=== PATIENT | female | born 1945 | race Caucasian/White ===

== ENCOUNTER → 2017-09-20 12:04 | Outpatient (REF) | payer MEDICARE, MEDICAID, SELFPAY ==
[2017-09-20 14:08] LABS: Bilirubin Negative (Negative); Blood Moderate (Negative); Clarity Cloudy; Glucose 100 mg/dL (Negative); Ketones Negative (Negative); Leukocyte Esterase Large (Negative); Nitrite Positive (Negative); Urobilinogen 0.2 EU/dL (Up TO 0.2); pH 7.5 (5-8)
[2017-09-20 14:19] LABS: WBC >50 HPF (0-5)
[2017-09-20 14:20] LABS: C & S Indicated? Yes
== END ==
LOC: LBN 12:04
PROVIDERS: PCP Family Medicine; Visit Provider Family Medicine
DX: R30.0 Dysuria (principal)
CPT/HCPCS: 87077; 81003; 81015; 87086; 87186

== ENCOUNTER 2017-10-22 11:20 | Outpatient (REF) | payer MEDICARE, MEDICAID, SELFPAY ==
[2017-10-22 13:17] LABS: Bilirubin Negative (Negative); Blood Moderate (Negative); Clarity Cloudy; Glucose Negative (Negative); Ketones Negative (Negative); Leukocyte Esterase Large (Negative); Nitrite Positive (Negative); Urobilinogen 0.2 EU/dL (Up TO 0.2); pH 8.5 (5-8)
[2017-10-22 13:19] LABS: RBC >50 (0-2); WBC >50 HPF (0-5)
[2017-10-22 13:20] LABS: C & S Indicated? Yes
== END 2017-10-22 11:40 ==
LOC: LBN 11:20
PROVIDERS: PCP Family Medicine; Visit Provider Family Medicine
DX: N39.0 Urinary tract infection, site not specified (principal)
CPT/HCPCS: 87077; 81003; 81015; 87086; 87186

== ENCOUNTER 2017-11-07 15:49 | Outpatient (REF) | payer MEDICARE, MEDICAID, SELFPAY | END 2017-11-07 16:09 | LOC: LBN 15:49 | PROVIDERS: PCP Family Medicine; Visit Provider Family Medicine | DX: N39.0 Urinary tract infection, site not specified (principal) | CPT/HCPCS: 87086 ==

== ENCOUNTER 2017-11-22 10:31 | Day surgery (SDC) | payer MEDICARE, MEDICAID, SELFPAY ==
[2017-11-22 10:42] VITALS: BP 129/77; PULSE 61; RESP 18; TEMP 35.7; O2SAT 97
--- NOTE | 2017-11-22 11:31 | DI.RAD_ITS ---
SYMPTOMS/DIAGNOSIS: RT HYDRONEPHROSIS RETROGRADE IN OR: Fluoroscopy Time: 14.7 sec Fluoroscopy was provided in the OR for Dr. Guevara while performing a retrograde examination. A single hardcopy images shows a dilated right renal collecting system. Please see procedure noted for details.
[2017-11-22] MEDS: CIPROFLOXACIN 200 MG/100 ML BAG 100 MG IVPB (11:46)
[2017-11-22] MEDS: Lactated Ringers 1,000 ML 80 ML IV (12:21)
--- NOTE | 2017-11-22 12:25 | HPE_ITS ---
Date of service: 11/22/17 Time of Service: 12:19 Assessment and Plan (1) Hydronephrosis: Current visit: Yes Status: Acute We will proceed with a right stent change today. Depending on the degree of encrustation of the stent, we may need to change the stent more or less often History of Present Illness Chief Complaint: Right hydronephrosis Narrative: This is a 74-year-old who initially presented with sepsis and right hydroureter. She required pressors and fluid resuscitation. We placed a right ureteral stent. Ultimately, she improved. She has a history of dementia, diabetes cerebral aneurysm and stroke. She was not felt to be a good surgical candidate for ureteroscopy. It was elected to change her stent periodically. She presents today for stent change. Given the patient's dementia, she is unable to answer any questions for me. Review of Systems Review of Systems Unobtainable due to mental status [facility] Family History Mother Osteoporosis Father Diabetes Sister No problems noted. Sister Personal history of malignant neoplasm Sister Diabetes Sister No problems noted. Sister No problems noted. Brother No problems noted. Brother Diabetes Brother Personal history of malignant neoplasm Heart disease Brother No problems noted. Brother No problems noted. Brother No problems noted. Brother No problems noted. 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 (Acute 09/15/15) Hyperlipidemia (Acute 08/13/12) Hydronephrosis (Acute 08/31/17) History of gram negative sepsis (Acute 08/31/17) Diabetes (Acute) Depression (Acute 02/03/14) Decreased vision (Acute 02/03/14) Cerebral aneurysm, nonruptured (Acute 09/15/15) Abdominal pain (Acute) Herpes labialis (Acute) Hypokalemia (Acute) Sepsis due to gram-negative bacteria (Acute) Antibiotic-associated diarrhea (Acute) Social History Smoking/Tobacco Use Status: Never Surgical History SX for brain aneurysm Meds Home Medications Medication Instructions Recorded Confirmed Type blood-glucose meter [OneTouch #1 kit 07/07/15 History Ultra2] blood sugar diagnostic [Blood #100 strip 09/05/16 History Glucose Test] lancets #100 ea 09/05/16 History perampanel [Fycompa] 4 mg PO HS #90 tab-cap 11/06/16 11/22/17 Rx lamotrigine 200 mg PO BID #180 tab 03/05/17 11/19/17 Rx Metoprolol Succinate 50 mg PO BID #180 tab-cap 04/18/17 11/19/17 Clinic citalopram 10 mg PO DAILY #90 tab-cap 04/18/17 11/19/17 Rx famotidine 20 mg PO DAILY #90 tab-cap 04/30/17 11/19/17 Rx acetaminophen 500 mg PO PRN PRN 07/18/17 11/22/17 History ergocalciferol (vitamin D2) 1 cap PO DIRECTED 07/18/17 07/18/17 History [Vitamin D2] risperidone [Risperdal] 1 mg PO TID 07/18/17 11/19/17 History acidophilus-pectin, citrus 1 cap PO BID cap 07/30/17 11/22/17 Rx magnesium hydroxide [Milk of 30 ml PO PRN ml 08/27/17 11/22/17 History Magnesia] cephalexin 250 mg capsule 250 mg PO DAILY #10 cap 11/13/17 11/22/17 Rx clonazepam 0.5 mg disintegrating 0.5 mg PO PRN #10 tab 11/14/17 11/22/17 Rx tablet levetiracetam [Keppra] 1 tab PO BID 11/22/17 11/22/17 History Allergies Allergy/AdvReac Type Severity Reaction Status Date / Time aspirin Allergy Mild Unverified 08/31/17 10:10 Penicillins Allergy Mild Unverified 08/31/17 10:10 promethazine AdvReac Intermediate HALLUCINATI Unverified 08/31/17 10:10 ONS Exam Narrative Exam Narrative: She is a pleasant older woman who appears chronically ill. She is not able to answer my questions. Her vital signs are documented elsewhere in the chart. Skin is pale. She does not appear septic. Her chest wall motion is normal. Her breath sounds are diminished bilaterally. She has a regular rate and rhythm. Her abdomen is flat and soft with no masses. She is awake and follows commands, but she is unable to answer historical questions Results Last Vital Signs Temp 35.7 C L 11/22/17 10:42 Pulse 61 10/11/18 10:42 Resp 18 11/22/17 10:42 BP 129/77 11/22/17 10:42 Pulse Ox 97 11/22/17 10:42
[2017-11-22] MEDS: Lidocaine 2% Jelly 11 ML SYR (12:40)
[2017-11-22] MEDS: IOHEXOL 50 ML 10 ML (12:43)
--- NOTE | 2017-11-22 13:06 | W.PM.DSUDISC ---
Discharge Plan Disposition Patient Disposition: HOME Condition: Stable Discharge Details Reason For Visit: stent change Attending Provider: Cody Guevara Primary Care Provider: Ender Ledezma Home Meds and New Rx's Prescriptions: No Action blood-glucose meter [GeriJoyTouch Ultra2] 1 EACH kit 1 ea Miscellaneous DAILY Qty: 1 RF: 0 blood sugar diagnostic [Blood Glucose Test] 1 EACH strip 1 ea Miscellaneous DAILY Qty: 100 RF: 4 lancets 1 EACH misc 1 ea Miscellaneous DAILY Qty: 100 RF: 4 perampanel [Fycompa] 4 MG tablet 4 mg PO HS Qty: 90 RF: 3 lamotrigine 200 MG tablet 200 mg PO BID Qty: 180 RF: 3 citalopram 10 MG tablet 10 mg PO DAILY Qty: 90 RF: 3 Metoprolol Succinate 50 MG TAB.ER.24H 50 mg PO BID Qty: 180 RF: 3 famotidine 20 MG tablet 20 mg PO DAILY Qty: 90 RF: 4 magnesium hydroxide [Milk of Magnesia] 400 MG/5 ML suspension 30 ml PO PRN RF: 0 cephalexin 250 mg capsule 250 mg PO DAILY Qty: 10 RF: 0 clonazepam 0.5 mg tablet,disintegrating 0.5 mg PO PRN Qty: 10 RF: 2 acetaminophen 500 MG tablet 500 mg PO PRN PRNRF: 0 ergocalciferol (vitamin D2) [Vitamin D2] 50,000 UNITS capsule 1 cap PO DIRECTED RF: 0 risperidone [Risperdal] 1 MG tablet 1 mg PO TID RF: 0 acidophilus-pectin, citrus 1 CAP tablet 1 cap PO BID RF: 0 levetiracetam [Keppra] 1,000 MG tablet 1 tab PO BID RF: 0 Discharge Instructions Additional Instructions: No bath/shower restrictions My office will schedule pt for next cysto/stent change in 6 to 8 weeks No additional medications needed Activity:: Activity as Tolerated Diet:: As Tolerated Discharge Orders Discharge Orders: Discharge Order (Routine); Ordered 11/22/17 Ordered By: Cody Guevara DS: Diagnosis Discharge Diagnosis (1) Hydronephrosis: Status: Acute
[2017-11-22 13:42] VITALS: BP 125/65; PULSE 58; RESP 18; TEMP 36.6; O2SAT 93
--- NOTE | 2017-11-22 13:57 | ROE_ITS ---
Date of Operation: November 22, 2017 Preoperative Diagnosis: Right hydronephrosis. Postoperative Diagnosis: Right hydronephrosis. Procedure: 1. Cystoscopy. 2. Right retrograde pyelogram. 3. Change right ureteral stent. Surgeon: Cody Guevara M.D. Anesthesia: MAC with local Complications: None. Findings: Distal end of the stent was quite encrusted. History: This is a 72-year-old woman who was previously seen when she presented with sepsis. She was identifi ed as having right hydronephrosis. She did not improve with pressors and antibiotics alone. She had a right ureteral stent placed and gradually she improved clinically. She has multiple medical problems and was not felt to be an ideal surgical candidate for ureteroscopy . Her family has decided to simply continue with intermittent stent changes. She presents for her f irst stent change three months after the initial stent was placed. Operative Report: The patient was brought to the operating room on 11/22/17. She was given IV sedation and IV antibiot ics. A 22-Wallisian rigid cystoscope was passed through the urethra into the bladder. The bladder was inspec jasmin with the 30-degree lens. The stent could be seen protruding from the right ureteral orifice. A moderate amount of stone debri s was attached to the distal end of the stent. The stone debris was freed using the alligator forceps. The stent was then grasped and removed in it s entirety. We were then able to pass a ureteral access catheter through the cystoscope and maneuver it into the right ureteral orifice. A retrograde film was obtained by injecting Omnipaque through the access cat heter under fluoroscopic guidance. Once the upper tracts were outlined, we passed a guidewire throug h the access catheter and maneuvered a 4.8 Wallisian variable-length stent over the wire. We positioned the stent with the proximal end curled in the renal pelvis, and the distal end was visible in the bl adder. Residual stone fragments were then irrigated free using the Arian syringe. Some of the fragments we re sent for chemical analysis. We are especially interested in knowing if the stone fragments contai n struvite, in which case prophylactic antibiotics might be warranted. The patient tolerated this procedure well. There were no complications. She was taken to the [facility] Room in stable condition.
== END 2017-11-22 14:00 | disposition home or self-care (01) ==
PROVIDERS: PCP Family Medicine; Visit Provider Urology
PROC: (CPT 52332; principal; 2017-11-22 12:30)
DX: N13.30 Unspecified hydronephrosis (principal); Z96.0 Presence of urogenital implants
CPT/HCPCS: 52332; NC; 74420; 82360; J0744; J2405; Q9967

== ENCOUNTER → 2017-11-27 09:20 | Outpatient (BNVA) | payer MEDICARE, MEDICAID, SELFPAY | PROVIDERS: Visit Provider Urology | DX: R69 Illness, unspecified (principal) ==

== ENCOUNTER → 2017-11-27 14:35 | Outpatient (BNVA) | payer MEDICARE, MEDICAID, SELFPAY | PROVIDERS: PCP Family Medicine; Visit Provider Psychiatry & Neurology Neurology | DX: G40.109 Localization-related (focal) (partial) symptomatic epilepsy and epileptic syndromes with simple partial seizures, not intractable, without status epilepticus (principal); I61.1 Nontraumatic intracerebral hemorrhage in hemisphere, cortical; I67.1 Cerebral aneurysm, nonruptured; I10 Essential (primary) hypertension; E11.9 Type 2 diabetes mellitus without complications | CPT/HCPCS: 99214 ==

== ENCOUNTER 2018-01-09 13:40 | Outpatient (REF) | payer MEDICARE, MEDICAID, SELFPAY ==
[2018-01-10 14:43] LABS: Bilirubin Negative (Negative); Blood Moderate (Negative); Clarity Cloudy; Glucose Negative (Negative); Ketones Negative (Negative); Leukocyte Esterase Moderate (Negative); Nitrite Positive (Negative); Urobilinogen 0.2 EU/dL (Up TO 0.2); pH 7.5 (5-8)
[2018-01-10 14:55] LABS: RBC >50 (0-2); WBC >50 HPF (0-5)
[2018-01-10 14:56] LABS: C & S Indicated? Yes; Epithelial Cells Negative HPF (Negative)
== END 2018-01-09 14:00 ==
LOC: LBN 13:40
PROVIDERS: PCP Family Medicine; Visit Provider Family Medicine
DX: N39.0 Urinary tract infection, site not specified (principal)
CPT/HCPCS: 87077; 81003; 81015; 87086; 87186

== ENCOUNTER 2018-01-10 06:00 | Day surgery (SDC) | payer MEDICARE, MEDICAID, SELFPAY ==
[2018-01-10 06:17] VITALS: BP 99/55; PULSE 78; RESP 18; TEMP 37; O2SAT 96
[2018-01-10] MEDS: Lactated Ringers 1,000 ML 80 ML IV (06:53)
--- NOTE | 2018-01-10 07:10 | W.PM.HP.N ---
Date of service: 01/10/18 Time of Service: 07:10 Assessment and Plan (1) Hydronephrosis due to obstruction of ureter: Current visit: No Status: Acute We will plan to change her stent. We will have the Holmium laser available should the stent be overly encrusted. History of Present Illness Chief Complaint: Right hydronephrosis Narrative: This is a 72 year old woman who has a finding of right hydronephrosis. She is treated with a stent. She initially presented with sepsis. She required pressors. On imaging studies, she had right hydronephrosis. She ultimately improved with stent placement and antibiotics. Given her overall medical status, she has elected periodic stent change rather than definitive treatment. At her last cysto, her stent was rather encrusted. We will have the Holmium laser available if the stent is more encrusted today. Review of Systems Review of Systems Unobtainable due to mental status [facility] Family History Mother Osteoporosis Father Diabetes Sister No problems noted. Sister Personal history of malignant neoplasm Sister Diabetes Sister No problems noted. Sister No problems noted. Brother No problems noted. Brother Diabetes Brother Personal history of malignant neoplasm Heart disease Brother No problems noted. Brother No problems noted. Brother No problems noted. Brother No problems noted. 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 (Acute 09/15/15) Hyperlipidemia (Acute 08/13/12) Hydronephrosis (Acute 08/31/17) History of gram negative sepsis (Acute 08/31/17) Diabetes (Acute) Depression (Acute 02/03/14) Decreased vision (Acute 02/03/14) Cerebral aneurysm, nonruptured (Acute 09/15/15) Abdominal pain (Acute) Herpes labialis (Acute) Hypokalemia (Acute) Sepsis due to gram-negative bacteria (Acute) Antibiotic-associated diarrhea (Acute) Social History household members: children 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 Smoking/Tobacco Use Status: Never alcohol intake: never substance use type: does not use Surgical History SX for brain aneurysm Meds Home Medications Medication Instructions Recorded Confirmed Type blood-glucose meter [OneTouch #1 kit 07/07/15 11/27/17 History Ultra2] blood sugar diagnostic [Blood #100 strip 09/05/16 11/27/17 History Glucose Test] lancets #100 ea 09/05/16 11/27/17 History perampanel [Fycompa] 4 mg PO HS #90 tab-cap 11/06/16 01/10/18 Rx lamotrigine 200 mg PO BID #180 tab 03/05/17 01/10/18 Rx Metoprolol Succinate 50 mg PO BID #180 tab-cap 04/18/17 01/10/18 Clinic citalopram 10 mg PO DAILY #90 tab-cap 04/18/17 01/10/18 Rx famotidine 20 mg PO DAILY #90 tab-cap 04/30/17 01/10/18 Rx acetaminophen 500 mg PO PRN PRN 07/18/17 01/07/18 History ergocalciferol (vitamin D2) 1 cap PO DIRECTED 07/18/17 01/10/18 History [Vitamin D2] risperidone [Risperdal] 1 mg PO TID 07/18/17 01/10/18 History acidophilus-pectin, citrus 1 cap PO BID cap 07/30/17 01/10/18 Rx magnesium hydroxide [Milk of 30 ml PO PRN ml 08/27/17 11/27/17 History Magnesia] clonazepam 0.5 mg disintegrating 0.5 mg PO PRN #10 tab 11/14/17 01/10/18 Rx tablet levetiracetam [Keppra] 1 tab PO BID 11/22/17 01/10/18 History multivitamin tablet 1 tab PO DAILY 11/27/17 01/10/18 History bismuth subsalicylate [Bismatrol] 30 ml PO DAILY PRN PRN 01/07/18 01/07/18 History cephalexin 250 mg PO HS 01/07/18 01/10/18 History Allergies Allergy/AdvReac Type Severity Reaction Status Date / Time aspirin Allergy Mild Unverified 01/10/18 06:26 Penicillins Allergy Mild Unverified 01/10/18 06:26 promethazine AdvReac Intermediate HALLUCINATI Unverified 01/10/18 06:26 ONS Exam Const General: cooperative Neck Neck: normal visual inspection Resp Auscultation: clear to auscultation bilaterally Cardio Rate: regular rate GI Palpation: soft Neuro General: alert and awake Results Last Vital Signs Temp 37 C 01/10/18 06:17 Pulse 78 01/10/18 06:17 Resp 18 01/10/18 06:17 BP 99/55 L 01/10/18 06:17 Pulse Ox 96 01/10/18 06:17
--- NOTE | 2018-01-10 07:11 | DI.RAD_ITS ---
SYMPTOM/DIAGNOSIS: RT HYDRONEPHROSIS C-ARM FLUOROSCOPY: 01/10 Fluoroscopy Time: 28 secs C-arm fluoroscopy was utilized by Dr. Guevara during reported retrograde ureterography. Please see Dr. Guevara's procedure note. Hard copy shows apparent catheterization and stent placement in right collecting system.
[2018-01-10] MEDS: Lidocaine 2% Jelly 11 ML SYR (07:54)
[2018-01-10] MEDS: Omnipaque 300 MG/ML 50 ML BTL (07:54)
--- NOTE | 2018-01-10 08:25 | W.PM.DSUDISC ---
Discharge Plan Disposition Patient Disposition: OTHER Condition: Stable Discharge Details Attending Provider: Cody Guevara Primary Care Provider: Ender Ledezma Home Meds and New Rx's Prescriptions: No Action multivitamin tablet 1 tab PO DAILY RF: 0 blood-glucose meter [OneTouch Ultra2] 1 EACH kit 1 ea Miscellaneous DAILY Qty: 1 RF: 0 blood sugar diagnostic [Blood Glucose Test] 1 EACH strip 1 ea Miscellaneous DAILY Qty: 100 RF: 4 lancets 1 EACH misc 1 ea Miscellaneous DAILY Qty: 100 RF: 4 perampanel [Fycompa] 4 MG tablet 4 mg PO HS Qty: 90 RF: 3 lamotrigine 200 MG tablet 200 mg PO BID Qty: 180 RF: 3 citalopram 10 MG tablet 10 mg PO DAILY Qty: 90 RF: 3 Metoprolol Succinate 50 MG TAB.ER.24H 50 mg PO BID Qty: 180 RF: 3 famotidine 20 MG tablet 20 mg PO DAILY Qty: 90 RF: 4 magnesium hydroxide [Milk of Magnesia] 400 MG/5 ML suspension 30 ml PO PRN RF: 0 clonazepam 0.5 mg tablet,disintegrating 0.5 mg PO PRN Qty: 10 RF: 2 acetaminophen 500 MG tablet 500 mg PO PRN PRNRF: 0 ergocalciferol (vitamin D2) [Vitamin D2] 50,000 UNITS capsule 1 cap PO DIRECTED RF: 0 risperidone [Risperdal] 1 MG tablet 1 mg PO TID RF: 0 acidophilus-pectin, citrus 1 CAP tablet 1 cap PO BID RF: 0 levetiracetam [Keppra] 1,000 MG tablet 1 tab PO BID RF: 0 cephalexin 250 mg Capsule 250 mg PO HS RF: 0 bismuth subsalicylate [Bismatrol] 262 mg/15 mL Suspension 30 ml PO DAILY PRN PRNRF: 0 Discharge Instructions Additional Instructions: Will need cystoscopy with stent change in OR in @ 8 weeks - my office will need to coordinate with the [facility] Activity:: Activity as Tolerated Activity:: Activity as Tolerated Equipment/Supplies:: No Equipment Needed Diet:: As Tolerated Discharge Orders Discharge Orders: Discharge Order (Routine); Ordered 01/10/18 Ordered By: Cody Guevara DS: Diagnosis Discharge Diagnosis (1) Hydronephrosis due to obstruction of ureter: Status: Acute
[2018-01-10 08:55] VITALS: BP 113/72; PULSE 64; RESP 16; TEMP 36.6; O2SAT 93
--- NOTE | 2018-01-10 13:08 | ROE_ITS ---
REPORT OF OPERATIVE PROCEDURE DATE OF SURGERY January 10, 2018 PREOPERATIVE DIAGNOSIS Right hydronephrosis. POSTOPERATIVE DIAGNOSIS Right hydronephrosis. PROCEDURES Cystoscopy, holmium laser of bladder stone, removal right ureteral stent, replace right ureteral sten t. Right retrograde pyelogram. SURGEON Cody Guevara M.D. ANESTHESIA MAC with local. COMPLICATIONS None. HISTORY This is a 72-year-old woman who has a history of urosepsis and right hydronephrosis. She is managed w ith an indwelling ureteral stent. When we changed her stent previously, we found a large amount of en crustation on the distal end of the stent. We elected to change the stent in six to eight weeks rathe r than in three months. She presents for her stent change. DESCRIPTION OF PROCEDURE The patient was brought to the Operating Room on 01/10/2018. She was given Monitored Anesthesia Care and placed in the dorsal lithotomy position. She was given a preoperative dose of ceftriaxone. A #22 Arabic rigid cystoscope was passed through the urethra into the bladder. The bladder was empti ed and purulent urine was obtained. We visualized the right ureteral stent using a 30 degree lens. We saw the large amount of stone agai n adherent to the distal end of the stent. We the used a 1000 micron Holmium laser fiber to fracture the stone off the stent. All the stone fragments were then evacuated with a Arian syringe. The stent was grasped with alligator forceps and brought out to the level of the urethral meatus. We attempted to pass a Glidewire through the lumen of the stent, but again, encrustations made it dif ficult to do. We then passed a ureteral access catheter next to the stent and engaged it into the rig ht ureteral orifice. We injected Omnipaque through the access catheter to outline the renal pelvis an d collecting system. We then passed a Glidewire through the access catheter into the upper pole Calyx . We removed the indwelling stent and placed a new 4.8 Arabic Variable Lens stent over the wire until the proximal end was seen curled in the upper pole calyx in the distal end was seen curled in the bl adder. The patient tolerated this procedure well with no complications.
== END 2018-01-10 09:15 | disposition other institution (70) ==
PROVIDERS: PCP Family Medicine; Visit Provider Urology
PROC: (CPT 52332; principal; 2018-01-10 07:30)
DX: N13.2 Hydronephrosis with renal and ureteral calculous obstruction (principal)
CPT/HCPCS: 52317; 52351; 52332; NC; 74420; J0696; J1885; Q9967

== ENCOUNTER → 2018-02-27 14:37 | Outpatient (BNVA) | payer MEDICARE, MEDICAID, SELFPAY | PROVIDERS: PCP Family Medicine; Visit Provider Psychiatry & Neurology Neurology | DX: G40.109 Localization-related (focal) (partial) symptomatic epilepsy and epileptic syndromes with simple partial seizures, not intractable, without status epilepticus (principal); I61.1 Nontraumatic intracerebral hemorrhage in hemisphere, cortical; I67.1 Cerebral aneurysm, nonruptured; R25.1 Tremor, unspecified; E11.9 Type 2 diabetes mellitus without complications; I10 Essential (primary) hypertension | CPT/HCPCS: 99214 ==

== ENCOUNTER 2018-03-07 05:57 | Day surgery (SDC) | payer MEDICARE, MEDICAID, SELFPAY ==
[2018-03-07 06:24] VITALS: BP 113/58; PULSE 57; RESP 16; TEMP 36; O2SAT 93
[2018-03-07] MEDS: Normal Saline 1,000 ML 80 ML IV (06:50)
--- NOTE | 2018-03-07 06:53 | HPE_ITS ---
Date of service: 03/07/18 Time of Service: 06:50 Assessment and Plan (1) Hydronephrosis due to obstruction of ureter: Current visit: No Status: Acute We will perform cystoscopy and change of her ureteral stent today. Her previous sepsis was due to Proteus. We will cover her with Ceftriaxone based on her previous culture and sensitivity History of Present Illness Chief Complaint: Right hydronephrosis Narrative: This is a 72-year-old woman who has a history of urosepsis and right hydronephrosis. Her blood and urine cultures grew Proteus originally. She improved with antibiotics since placement of a stent. Given her overall medical condition, her family has elected not to proceed with more definitive surgical treatment like ureteroscopy. We have been changing her stent every 6-12 weeks. At times, her stent is encrusted and requires Holmium laser treatments to successfully remove her indwelling stent. 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 Sister Personal history of malignant neoplasm Sister Diabetes Sister No problems noted. Sister No problems noted. Brother No problems noted. Brother Diabetes Brother Personal history of malignant neoplasm Heart disease Brother No problems noted. Brother No problems noted. Brother No problems noted. Brother No problems noted. 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 Smoking/Tobacco Use Status: Never alcohol intake: never substance use type: does not use Meds Home Medications Medication Instructions Recorded Confirmed Type blood-glucose meter [OneTouch #1 kit 07/07/15 02/27/18 History Ultra2] Blood Glucose Test #100 strip 09/05/16 02/27/18 History lancets #100 ea 09/05/16 02/27/18 History Fycompa 4 mg PO HS #90 tab-cap 11/06/16 03/07/18 Rx lamotrigine 200 mg PO BID #180 tab 03/05/17 03/07/18 Rx famotidine 20 mg PO DAILY #90 tab-cap 04/30/17 03/07/18 Rx acetaminophen 1,000 mg PO Q6H PRN 07/18/17 03/05/18 History ergocalciferol (vitamin D2) 1 cap PO DIRECTED 07/18/17 03/05/18 History [Vitamin D2] risperidone [Risperdal] 1 mg PO TID 07/18/17 03/07/18 History acidophilus-pectin, citrus 1 cap PO BID cap 07/30/17 03/07/18 Rx magnesium hydroxide [Milk of 30 ml PO PRN ml 08/27/17 03/05/18 History Magnesia] multivitamin tablet 1 tab PO DAILY 11/27/17 03/07/18 History bismuth subsalicylate [Bismatrol] 30 ml PO DAILY PRN PRN 01/07/18 03/05/18 History cephalexin 250 mg PO HS 01/07/18 03/07/18 History citalopram 10 mg tablet 20 mg PO DAILY tab-cap 02/27/18 03/07/18 History mirtazapine 15 mg tablet 15 mg PO DAILY 02/27/18 03/07/18 History levetiracetam [Keppra] 1,000 mg PO .DAILY EVENING 03/05/18 03/07/18 History levetiracetam [Keppra] 500 mg PO DAILY 03/05/18 03/07/18 History propranolol 40 mg PO BID 03/05/18 03/07/18 History Allergies Allergy/AdvReac Type Severity Reaction Status Date / Time aspirin Allergy Mild Unverified 02/27/18 15:10 Penicillins Allergy Mild Unverified 02/27/18 15:10 promethazine AdvReac Intermediate HALLUCINATI Unverified 02/27/18 15:10 ONS Exam Const General: comfortable and no acute distress Orientation: confused Limitations: altered mental status Neck Neck: supple Resp Auscultation: clear to auscultation bilaterally Other: with decreased breath sounds at bases Cardio Rate: regular rate Rhythm: regular rhythm GI Palpation: soft, no masses and nontender Results Last Vital Signs Temp 36 C L 03/07/18 06:24 Pulse 57 L 03/07/18 06:24 Resp 16 03/07/18 06:24 BP 113/58 L 03/07/18 06:24 Pulse Ox 93 L 03/07/18 06:24
--- NOTE | 2018-03-07 07:15 | DI.RAD_ITS ---
SYMPTOM/DIAGNOSIS: RT HYDRONEPHROSIS OR RETROGRADE: Fluoroscopy Time: 41.3 seconds/4.49 mGy A single frontal image obtained with the c-arm demonstrates contrast material in the mid and proximal ureter and a region of narrowing involving the proximal ureter just distal to the renal pelvis is identified. The significance of this finding uncertain. Note is made of prominent hydronephrosis. Incidental note is made of a caval umbrella with its tip projected at the L 2-[address] Guevara's procedure report for further information.
[2018-03-07] MEDS: Lidocaine 2% Jelly 6 ML SYR (07:50)
[2018-03-07] MEDS: Omnipaque 300 MG/ML 50 ML BTL (07:50)
--- NOTE | 2018-03-07 08:03 | PDOC.DSDIS_ITS ---
Discharge Plan Disposition Patient Disposition: [facility] (LEVEL 2) [facility] Condition: Stable Discharge Details Reason For Visit: right hydronephrosis Attending Provider: Cody Guevara Primary Care Provider: Ender Ledezma Home Meds and New Rx's Prescriptions: No Action multivitamin tablet 1 tab PO DAILY RF: 0 citalopram 10 mg tablet 20 mg PO DAILY RF: 0 mirtazapine [Remeron] 15 mg tablet 15 mg PO DAILY RF: 0 blood-glucose meter [[employer] Ultra2] 1 EACH kit 1 ea Miscellaneous DAILY Qty: 1 RF: 0 Blood Glucose Test 1 EACH strip 1 ea Miscellaneous DAILY Qty: 100 RF: 4 lancets 1 EACH misc 1 ea Miscellaneous DAILY Qty: 100 RF: 4 Fycompa 4 MG tablet 4 mg PO HS Qty: 90 RF: 3 lamotrigine 200 MG tablet 200 mg PO BID Qty: 180 RF: 3 famotidine 20 MG tablet 20 mg PO DAILY Qty: 90 RF: 4 magnesium hydroxide [Milk of Magnesia] 400 MG/5 ML suspension 30 ml PO PRN RF: 0 acetaminophen 500 MG tablet 1,000 mg PO Q6H PRNRF: 0 ergocalciferol (vitamin D2) [Vitamin D2] 50,000 UNITS capsule 1 cap PO DIRECTED RF: 0 risperidone [Risperdal] 1 MG tablet 1 mg PO TID RF: 0 acidophilus-pectin, citrus 1 CAP tablet 1 cap PO BID RF: 0 cephalexin 250 mg Capsule 250 mg PO HS RF: 0 bismuth subsalicylate [Bismatrol] 262 mg/15 mL Suspension 30 ml PO DAILY PRN PRNRF: 0 propranolol 40 mg Tablet 40 mg PO BID RF: 0 levetiracetam [Keppra] 500 mg Tablet 1,000 mg PO .DAILY EVENING RF: 0 levetiracetam [Keppra] 500 mg Tablet 500 mg PO DAILY RF: 0 Discharge Instructions Additional Instructions: No F/U appt in office needed, but will need cystoscopy with right stent change in OR in 2 to 3 months - my office will schedule Activity:: Activity as Tolerated Diet:: As Tolerated Discharge Orders Discharge Orders: Discharge Order (Routine); Ordered 03/07/18 Ordered By: Cody Guevara DS: Diagnosis Discharge Diagnosis (1) Hydronephrosis due to obstruction of ureter: Status: Acute
[2018-03-07] MEDS: Phenazopyridine 200 MG TAB PO (08:32)
[2018-03-07 08:40] VITALS: BP 120/58; PULSE 59; RESP 16; TEMP 35.6; O2SAT 94
--- NOTE | 2018-03-07 15:50 | ROE_ITS ---
DATE OF OPERATION: March 07, 2018 PREOPERATIVE DIAGNOSIS: Right hydronephrosis. POSTOPERATIVE DIAGNOSIS: Right hydronephrosis. PROCEDURE: Cystoscopy, remove right ureteral stent, right retrograde pyelogram, insert right uretera l stent. SURGEON: Cody Guevara M.D. ANESTHESIA: MAC with local. COMPLICATIONS: None. ESTIMATED BLOOD LOSS: Minimal. HISTORY: This is a 72-year-old woman who has a history of urosepsis and right hydronephrosis. She i mproved clinically with a combination of a stent placement and IV antibiotics. Given her other medic al issues, the family has decided not to have a definitive treatment for her hydronephrosis (such as ureteroscopy). Instead, we have been changing her stent intermittently. She comes in for her schedu led stent change. OPERATIVE REPORT: The patient was brought to the Operating Room on 03/07/18. After being given monit ored anesthesia care, she was placed in the dorsal lithotomy position. Her genitalia was prepped and draped. A 22 Hebrew rigid cystoscope was passed through the urethra into the bladder. The bladder was inspected using a 30-degree lens. The stent could be seen protruding from the right ureteral orifice. The stone had a few encrustation s but no large stones like we found at the time of her last cystoscopy. The stent was grasped in alligator forceps and removed to the level of the urethral meatus. A Glidew dewey was then passed through the lumen of the stent and advanced until the proximal end could be seen up in the renal pelvis. A ureteral access catheter was passed over the wire and the wire was removed. A retrograde pyelogram was then performed in order to outline the calices and collecting system. The Glidewire was then repositioned through the access catheter. The access catheter was removed and a 4.8 Hebrew variable-length stent was advanced over the wire. The proximal end of the stent was cu rled in the renal pelvis and the distal end was seen just within the right ureteral orifice. The patient tolerated this procedure well with no complications.
== END 2018-03-07 09:00 | disposition intermediate care facility (04) ==
PROVIDERS: PCP Family Medicine; Visit Provider Urology
PROC: (CPT 52332; principal; 2018-03-07 07:30)
DX: N13.2 Hydronephrosis with renal and ureteral calculous obstruction (principal); E11.9 Type 2 diabetes mellitus without complications
CPT/HCPCS: 52332; 52005; NC; 74420; J0696; Q9967

== ENCOUNTER → 2018-05-14 14:19 | Outpatient (BNVA) | payer MEDICARE, MEDICAID, SELFPAY | PROVIDERS: Visit Provider Psychiatry & Neurology Neurology | DX: G40.109 Localization-related (focal) (partial) symptomatic epilepsy and epileptic syndromes with simple partial seizures, not intractable, without status epilepticus (principal); I61.1 Nontraumatic intracerebral hemorrhage in hemisphere, cortical; R25.1 Tremor, unspecified; I10 Essential (primary) hypertension; E11.9 Type 2 diabetes mellitus without complications | CPT/HCPCS: 99214 ==

== ENCOUNTER 2018-05-30 19:56 | Emergency (ER) | payer MEDICARE, MEDICAID, SELFPAY ==
[2018-05-30 19:51] VITALS: BP 133/89; PULSE 83; RESP 18; TEMP 37; O2SAT 100
--- NOTE | 2018-05-30 19:55 | DI.CT_ITS ---
SYMPTOM/DIAGNOSIS: FELL NONCONTRAST CRANIAL CT: A noncontrast cranial CT was performed. The patient was unable to cooperate and images obtained through the cerebral vertex are non diagnostic. Multiple attempts to scan were performed. There is a right parieto-occipital craniotomy with areas of subjacent encephalomalacia. No evidence of acute intracranial hemorrhage, mass effect or midline shift. Generalized cerebral atrophy and presumed microvascular ischemic changes noted. CONCLUSION: Limited study. No evidence of acute intracranial hemorrhage. CERVICAL SPINE CT: CT examination of the cervical spine was performed utilizing multi slice acquisition and multi planar reconstruction. The exam is somewhat limited by patient motion. Images obtained through the lung apices are unremarkable except for some areas of apparent fibrosis. Tracheal laryngeal structures appear intact as visualized. No gross cervical mass or adenopathy is seen. There are moderate degenerative changes of the cervical spine. No gross fracture or dislocation identified. CONCLUSION: Limited study. No fracture identified.
--- NOTE | 2018-05-30 19:56 | W.ED.GENAD ---
Discharge Plan Disposition Patient Disposition: SNF (LEVEL 1) [facility] Condition: Fair Discharge Details Chief Complaint: HeadInjury Clinical Impression: Bacterial UTI, Candidal UTI (urinary tract infection), Fall, Laceration of scalp, Multiple contusions Primary Care Provider: Carol Nava ED Provider: Marianela Ball Home Meds and New Rx's Prescriptions: Continued multivitamin tablet 1 tab PO DAILY RF: 0 levetiracetam 500 mg tablet 500 mg PO BID Qty: 60 RF: 0 citalopram 10 mg tablet 20 mg PO DAILY RF: 0 mirtazapine [Remeron] 15 mg tablet 7.5 mg PO DAILY RF: 0 blood-glucose meter [[employer] Ultra2] 1 EACH kit 1 ea Miscellaneous DAILY Qty: 1 RF: 0 Blood Glucose Test 1 EACH strip 1 ea Miscellaneous DAILY Qty: 100 RF: 4 lancets 1 EACH misc 1 ea Miscellaneous DAILY Qty: 100 RF: 4 Fycompa 4 MG tablet 4 mg PO HS Qty: 90 RF: 3 lamotrigine 200 MG tablet 200 mg PO BID Qty: 180 RF: 3 famotidine 20 MG tablet 20 mg PO DAILY Qty: 90 RF: 4 magnesium hydroxide [Milk of Magnesia] 400 MG/5 ML suspension 30 ml PO PRN RF: 0 acetaminophen 500 MG tablet 1,000 mg PO Q6H PRNRF: 0 ergocalciferol (vitamin D2) [Vitamin D2] 50,000 UNITS capsule 1 cap PO DIRECTED RF: 0 acidophilus-pectin, citrus 1 CAP tablet 1 cap PO BID RF: 0 quetiapine [Seroquel] 25 mg Tablet 25 mg PO BID RF: 0 cephalexin 250 mg Capsule 250 mg PO HS RF: 0 bismuth subsalicylate [Bismatrol] 262 mg/15 mL Suspension 30 ml PO DAILY PRN PRNRF: 0 Discharge Instructions Instructions: Laceration (ED), Urinary Tract Infection in Women (ED), Contusion in Adults (ED) Additional Instructions: Encourage hydration. Natty received 1 g of IM ceftriaxone while here for her urinary tract infection. Please contact physician in the morning for continued orders for IM ceftriaxone. Scalp laceration was closed with shahana, the usual need to be taken out in 1 week. This may be performed by primary care physician or she may return to the emergency department for staple removal. Please monitor wound for signs of infection including redness, warmth, drainage, increased pain, fever/chills. She develops new symptoms or any other new/worsening symptoms please seek care urgently once again Referrals: Carol Nava MD, [place] [Primary Care Provider] - Medical Decision Making Patient is a 72-year-old female presenting from the [facility] after a fall. She is brought in via EMS. Unwitnessed fall with laceration to the left posterior scalp. She denies pain elsewhere, she is endorsing pain in the back of her head. 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 Her son at bedside, reports that she has been increasingly confused and slightly combative today and he is concerned she may have a urinary tract infection, he reports last infection 6 months ago. Unclear as to how the patient fell. On exam, patient appears scared and aggitated. She has left sided deficit with left hand in a fist which son reports is typical. She has a small laceration to the left posterior scalp, no active bleeding. Bruising to the left cheek bone with no palpable defect, EOM intact, no pain with palpation. No intraoral lesions. Bruising to the left forearm. No pain with palpation of cervical spine. Plan to obtain CT of head and neck, UA and baseline labs. Reviewed notes from care facility, patient has been having increased episodes of agitation recently with increased number of falls. Conducted by wheelabrator operator who advised of both bacteria and yeast are noted in the patient's urinalysis. Patient is on nightly Keflex. Is scheduled to have her right ureteral stent change next month. Will place her on Levaquin. Discussed the case with Dr. Martinez. In particular, we discussed the question of needing to treat the concomitant yeast infection. He advised at this time to treat the bacteria and hold off on treatment for the yeast. Advised having the UA repeated by PCP next week. Patient afebrile, no CVA tenderness. REviewed CT, I do not see area of active bleeding. Awaiting read from radiologist. Cleanse the wound, patient has a 2 cm linear laceration on the posterior left side of her scalp. Galea is intact. No active bleeding. Discussed closure options with the patient and her family. We decided upon shahana. We discussed risk/benefits and expected procedural steps they voiced understanding and wished to proceed. Procedure: Using standard sterile technique, the wound was irrigated, cleansed with chlorhexidine. No foreign body or debris was noted. Wound was explored to base in a bloodless field. 1% lidocaine with epinephrine was injected for anesthetic, 2 cc was used. This sufficiently anesthetized the area. #3 shahana were then placed CT reviewed by radiologist, no acute abnormality noted. She will be placed on Levaquin for urinary tract infection. Will obtain EKG prior to beginning medication EKG was reviewed by Dr. Martinez. No QT prolongation. Given the patient a first dose of levofloxacin, reviewed previous urinalysis results and noted that the patient has been resistant to fluoroquinolones in the past but has been set up susceptible to ceftriaxone. While she has been receiving 250 mg nightly dose of ceftriaxone, I will begin her on IM regimen of ceftriaxone. She will be given 1 g while here. will ask for this to be continued as an outpatient at the [facility]. Discussed care of laceration and shahana. Elba to be removed in one week. Advised on signs and symtpoms of infection, have asked nursing staff to monitor for this. Advised she return for any new/worsening symptoms. All questions and concerns were addressed, she is in agreement with this plan. HPI General Mode of arrival: EMS. Date/Time Provider Initiated Documentation: 05/30/18 20:42. Limitations to Documentation: no limitations. Information obtained by: patient, family, EMS and RN notes reviewed. History of Present Illness 72 year old F presents to the emergency department with the chief complaint of scalp laceration, described as moderate, and is localized to the head. Patient reports no radiation. Patient started experiencing this minute(s) and it has been constant. No relieving factors improve symptom(s), No exacerbating factors reported . Patient notes confusion (increased agitation over the past 24 hours per sons report), headaches and rash (ecchymosis to left arm and left side of face); denies chest pain, cough, diaphoresis, fever/chills, loss of appetite, malaise, nausea/vomiting, seizure, shortness of breath, syncope and weakness. Patient did receive the following treatments prior to arrival, none Related Data Home Medications Medication Instructions Recorded Confirmed blood-glucose meter [OneTouch #1 kit 07/07/15 05/14/18 Ultra2] Blood Glucose Test #100 strip 09/05/16 05/14/18 lancets #100 ea 09/05/16 05/14/18 Fycompa 4 mg PO HS #90 tab-cap 11/06/16 05/30/18 lamotrigine 200 mg PO BID #180 tab 03/05/17 05/30/18 famotidine 20 mg PO DAILY #90 tab-cap 04/30/17 05/30/18 acetaminophen 1,000 mg PO Q6H PRN 07/18/17 05/30/18 ergocalciferol (vitamin D2) 1 cap PO DIRECTED 07/18/17 05/30/18 [Vitamin D2] acidophilus-pectin, citrus 1 cap PO BID cap 07/30/17 05/30/18 magnesium hydroxide [Milk of 30 ml PO PRN ml 08/27/17 05/30/18 Magnesia] multivitamin tablet 1 tab PO DAILY 11/27/17 05/30/18 bismuth subsalicylate [Bismatrol] 30 ml PO DAILY PRN PRN 01/07/18 05/30/18 cephalexin 250 mg PO HS 01/07/18 05/30/18 citalopram 10 mg tablet 20 mg PO DAILY tab-cap 02/27/18 05/30/18 levetiracetam 500 mg tablet 500 mg PO BID #60 tab 05/14/18 05/30/18 mirtazapine 15 mg tablet 7.5 mg PO DAILY tab 05/14/18 05/30/18 quetiapine [Seroquel] 25 mg PO BID 05/30/18 05/30/18 Previous Rx's Medication Instructions Recorded Fycompa 4 mg PO HS #90 tab-cap 11/06/16 lamotrigine 200 mg PO BID #180 tab 03/05/17 famotidine 20 mg PO DAILY #90 tab-cap 04/30/17 acidophilus-pectin, citrus 1 cap PO BID cap 07/30/17 levetiracetam 500 mg tablet 500 mg PO BID #60 tab 05/14/18 Allergies Allergy/AdvReac Type Severity Reaction Status Date / Time aspirin Allergy Mild Unverified 05/14/18 14:36 Penicillins Allergy Mild Unverified 05/14/18 14:36 promethazine AdvReac Intermediate HALLUCINATI Unverified 05/14/18 14:36 ONS General Stated Complaint: HeadInjury ANDRZEJ: 2 Review of Systems Constitutional Reports as per HPI, Denies chills, Denies fatigue, Denies fever(s), Reports headache(s) and Denies weakness Eyes Reports as per HPI, Denies change in vision (patient has poor vision at baseline) and Denies loss of vision ENT Denies abnormal hearing and Reports headache(s) Cardiovascular Reports as per HPI, Denies chest pain and Denies dyspnea Respiratory Reports as per HPI, Denies cough, Denies pain on inspiration, Denies pain with cough and Denies dyspnea Gastrointestinal Reports as per HPI, Denies abdominal pain, Denies nausea and Denies vomiting Musculoskeletal Reports as per HPI Integumentary/Breasts Reports as per HPI and Denies rash Neurologic Reports as per HPI, Denies abnormal hearing, Denies abnormal movements, Denies abnormal speech, Reports headache(s), Denies lack of coordination, Denies focal weakness, Denies loss of vision, Denies seizure-like activity, Denies paresthesias and Denies weakness Endocrine Denies fatigue [facility] Medical History 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, not intractable, without status epilepticus (Acute 09/15/15) Osteoporosis (Acute 02/12/08) 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 (Acute 09/15/15) Hyperlipidemia (Acute 08/13/12) Hydronephrosis (Acute 08/31/17) History of gram negative sepsis (Acute 08/31/17) Diabetes (Acute) Depression (Acute 02/03/14) Decreased vision (Acute 02/03/14) Cerebral aneurysm, nonruptured (Acute 09/15/15) Abdominal pain (Acute) Herpes labialis (Acute) Hypokalemia (Acute) Sepsis due to gram-negative bacteria (Acute) Antibiotic-associated diarrhea (Acute) Surgical History SX for brain aneurysm Social History Smoking/Tobacco Use Status: Never Alcohol Intake: never Drug use: Never Substance use type: does not use Household members: children 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 What type of physical activity do you participate in: none Do you feel safe in your relationship?: Yes Exam Const General: comfortable, no acute distress, anxious, disheveled and No well hydrated Nutritional Appearance: average body habitus and well nourished Orientation: alert, awake, oriented x3 and other (anxious, shaky) [facility] Head: normal to inspection, no palpable skull fracture, normocephalic and atraumatic Ears: hearing grossly normal bilaterally, external ears normal and TM's normal bilaterally General nose exam: external nose normal Mouth: oral mucosae normal, lip normal, tongue normal and mucous membranes dry (patient appears dry) Eyes General: appearance normal, both eyes and all related structures Visual Cisneros: normal visual cisneros by confrontation Alignment and Position: alignment normal Periorbital: periorbital findings normal Eyelids: eyelids normal Conjunctivae: conjunctivae normal Pupils: PERRL EOM: EOM intact bilaterally Neck Neck: normal visual inspection, no lymphadenopathy, no meningeal signs, trachea midline and supple Chest Chest: normal inspection of the chest, normal palpation of entire chest wall, no crepitus and no localized rib tenderness Resp Effort & Inspection: normal respiratory effort, able to speak in complete sentences and no respiratory distress Auscultation: clear to auscultation bilaterally, no rales, no rhonchi and no wheezes Cardio Rate: regular rate Rhythm: regular rhythm Heart Sounds: S1 normal and S2 normal GI Inspection: normal to inspection, no abdominal wall ecchymosis, no edema and non-distended Palpation: soft, no hepatosplenomegaly, not firm, no guarding, no pulsatile masses, not rigid and nontender Auscultation: normal bowel sounds Back/Spine/Pelvis Back: no CVA tenderness Cervical Spine: normal cervical lordosis and cervical ROM normal Thoracic/Lumbar Spine: thoracic and lumbar spine normal to inspection, thoraco-lumbar ROM normal, No thoraco-lumbar ROM limited, No thoraco-lumbar spasm and No thoracic spinal tenderness Pelvis: no pain with anterior-posterior compression and no pain with lateral compression Skin General skin exam: ecchymosis (left cheek and left upper arm) Trauma: laceration (2cm laceration to posterior left scalp) Neuro General: alert, awake, oriented x3, tone abnormal, moves all extremities (very limited in left extremities) and focal motor deficits present Cranial Nerves: CN's II-XI intact bilaterally Cognition: normal cognition Speech: abnormal speech (slow, anxious speech. Short amounts) Gait: gait abnormal Motor: tone not normal throughout and pronator drift (left sided deficit at baseline) Extrem General: normal to inspection, full ROM, normal capillary refill, no pedal edema and no calf tenderness Psych Appearance: grossly normal Mental Status: mental status grossly normal Speech and Movement: agitated (anxious) Course Vital Signs Temperature 37.0 C 05/30/18 19:51 Pulse 83 05/30/18 19:51 Respiratory Rate 18 05/30/18 19:51 Blood Pressure 133/89 05/30/18 19:51 Pulse Oximetry 100 05/30/18 19:51 Temperature 37.0 C 05/30/18 19:51 Temperature Source Skin 05/30/18 19:51 Pulse 83 05/30/18 19:51 Respiratory Rate 18 05/30/18 19:51 Blood Pressure 133/89 05/30/18 19:51 Blood Pressure Position Sitting 05/30/18 19:51 Pulse Oximetry 100 05/30/18 19:51 Oxygen Delivery Method Room Air 05/30/18 19:51 Oxygen Flow Rate 0 05/30/18 19:51
--- NOTE | 2018-05-30 19:57 | NUR.NOTE ---
NKDA per [facility] Nursing Note:
--- NOTE | 2018-05-30 19:59 | ED.GENADUL_ITS ---
Discharge Plan Disposition Patient Disposition: SNF (LEVEL 1) [facility] Condition: Fair Discharge Details Chief Complaint: HeadInjury Clinical Impression: Bacterial UTI, Candidal UTI (urinary tract infection), Fall, Laceration of scalp, Multiple contusions Primary Care Provider: Carol Nava ED Provider: Marianela Ball Home Meds and New Rx's Prescriptions: Continued multivitamin tablet 1 tab PO DAILY RF: 0 levetiracetam 500 mg tablet 500 mg PO BID Qty: 60 RF: 0 citalopram 10 mg tablet 20 mg PO DAILY RF: 0 mirtazapine [Remeron] 15 mg tablet 7.5 mg PO DAILY RF: 0 blood-glucose meter [[employer] Ultra2] 1 EACH kit 1 ea Miscellaneous DAILY Qty: 1 RF: 0 Blood Glucose Test 1 EACH strip 1 ea Miscellaneous DAILY Qty: 100 RF: 4 lancets 1 EACH misc 1 ea Miscellaneous DAILY Qty: 100 RF: 4 Fycompa 4 MG tablet 4 mg PO HS Qty: 90 RF: 3 lamotrigine 200 MG tablet 200 mg PO BID Qty: 180 RF: 3 famotidine 20 MG tablet 20 mg PO DAILY Qty: 90 RF: 4 magnesium hydroxide [Milk of Magnesia] 400 MG/5 ML suspension 30 ml PO PRN RF: 0 acetaminophen 500 MG tablet 1,000 mg PO Q6H PRNRF: 0 ergocalciferol (vitamin D2) [Vitamin D2] 50,000 UNITS capsule 1 cap PO DIRECTED RF: 0 acidophilus-pectin, citrus 1 CAP tablet 1 cap PO BID RF: 0 quetiapine [Seroquel] 25 mg Tablet 25 mg PO BID RF: 0 cephalexin 250 mg Capsule 250 mg PO HS RF: 0 bismuth subsalicylate [Bismatrol] 262 mg/15 mL Suspension 30 ml PO DAILY PRN PRNRF: 0 Discharge Instructions Instructions: Laceration (ED), Urinary Tract Infection in Women (ED), Contusion in Adults (ED) Additional Instructions: Encourage hydration. Natty received 1 g of IM ceftriaxone while here for her urinary tract infection. Please contact physician in the morning for continued orders for IM ceftriaxone. Scalp laceration was closed with shahana, the usual need to be taken out in 1 week. This may be performed by primary care physician or she may return to the emergency department for staple removal. Please monitor wound for signs of infection including redness, warmth, drainage, increased pain, fever/chills. She develops new symptoms or any other new/worsening symptoms please seek care urgently once again Referrals: Carol Nava MD, [place] [Primary Care Provider] - Medical Decision Making Patient is a 72-year-old female presenting from the [facility] after a fall. She is brought in via EMS. Unwitnessed fall with laceration to the left posterior scalp. She denies pain elsewhere, she is endorsing pain in the back of her head. 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 Her son at bedside, reports that she has been increasingly confused and slightly combative today and he is concerned she may have a urinary tract infection, he reports last infection 6 months ago. Unclear as to how the patient fell. On exam, patient appears scared and aggitated. She has left sided deficit with left hand in a fist which son reports is typical. She has a small laceration to the left posterior scalp, no active bleeding. Bruising to the left cheek bone with no palpable defect, EOM intact, no pain with palpation. No intraoral lesions. Bruising to the left forearm. No pain with palpation of cervical spine. Plan to obtain CT of head and neck, UA and baseline labs. Reviewed notes from care facility, patient has been having increased episodes of agitation recently with increased number of falls. Conducted by [employer] who advised of both bacteria and yeast are noted in the patient's urinalysis. Patient is on nightly Keflex. Is scheduled to have her right ureteral stent change next month. Will place her on Levaquin. Discussed the case with Dr. Martinez. In particular, we discussed the question of needing to treat the concomitant yeast infection. He advised at this time to treat the bacteria and hold off on treatment for the yeast. Advised having the UA repeated by PCP next week. Patient afebrile, no CVA tenderness. REviewed CT, I do not see area of active bleeding. Awaiting read from radiologist. Cleanse the wound, patient has a 2 cm linear laceration on the posterior left side of her scalp. [place] is intact. No active bleeding. Discussed closure options with the patient and her family. We decided upon shahana. We discussed risk/benefits and expected procedural steps they voiced understanding and wished to proceed. Procedure: Using standard sterile technique, the wound was irrigated, cleansed with chlorhexidine. No foreign body or debris was noted. Wound was explored to base in a bloodless field. 1% lidocaine with epinephrine was injected for anesthetic, 2 cc was used. This sufficiently anesthetized the area. #3 shahana were then placed CT reviewed by radiologist, no acute abnormality noted. She will be placed on Levaquin for urinary tract infection. Will obtain EKG prior to beginning medication EKG was reviewed by Dr. Martinez. No QT prolongation. Given the patient a first dose of levofloxacin, reviewed previous urinalysis results and noted that the patient has been resistant to fluoroquinolones in the past but has been set up susceptible to ceftriaxone. While she has been receiving 250 mg nightly dose of ceftriaxone, I will begin her on IM regimen of ceftriaxone. She will be given 1 g while here. will ask for this to be continued as an outpatient at the [facility]. Discussed care of laceration and shahana. [place] to be removed in one week. Advised on signs and symtpoms of infection, have asked nursing staff to monitor for this. Advised she return for any new/worsening symptoms. All questions and concerns were addressed, she is in agreement with this plan. HPI General Mode of arrival: EMS . Date/Time Provider Initiated Documentation: 05/30/18 20:42 . Limitations to Documentation: no limitations . Information obtained by: patient, family, EMS and RN notes reviewed . History of Present Illness 72 year old F presents to the emergency department with the chief complaint of scalp laceration, described as moderate, and is localized to the head. Patient reports no radiation. Patient started experiencing this minute(s) and it has been constant. No relieving factors improve symptom(s), No exacerbating factors reported . Patient notes confusion (increased agitation over the past 24 hours per sons report), headaches and rash (ecchymosis to left arm and left side of face); denies chest pain, cough, diaphoresis, fever/chills, loss of appetite, malaise, nausea/vomiting, seizure, shortness of breath, syncope and weakness. Patient did receive the following treatments prior to arrival, none Related Data Home Medications Medication Instructions Recorded Confirmed blood-glucose meter [OneTouch #1 kit 07/07/15 05/14/18 Ultra2] Blood Glucose Test #100 strip 09/05/16 05/14/18 lancets #100 ea 09/05/16 05/14/18 Fycompa 4 mg PO HS #90 tab-cap 11/06/16 05/30/18 lamotrigine 200 mg PO BID #180 tab 03/05/17 05/30/18 famotidine 20 mg PO DAILY #90 tab-cap 04/30/17 05/30/18 acetaminophen 1,000 mg PO Q6H PRN 07/18/17 05/30/18 ergocalciferol (vitamin D2) 1 cap PO DIRECTED 07/18/17 05/30/18 [Vitamin D2] acidophilus-pectin, citrus 1 cap PO BID cap 07/30/17 05/30/18 magnesium hydroxide [Milk of 30 ml PO PRN ml 08/27/17 05/30/18 Magnesia] multivitamin tablet 1 tab PO DAILY 11/27/17 05/30/18 bismuth subsalicylate [Bismatrol] 30 ml PO DAILY PRN PRN 01/07/18 05/30/18 cephalexin 250 mg PO HS 01/07/18 05/30/18 citalopram 10 mg tablet 20 mg PO DAILY tab-cap 02/27/18 05/30/18 levetiracetam 500 mg tablet 500 mg PO BID #60 tab 05/14/18 05/30/18 mirtazapine 15 mg tablet 7.5 mg PO DAILY tab 05/14/18 05/30/18 quetiapine [Seroquel] 25 mg PO BID 05/30/18 05/30/18 Previous Rx's Medication Instructions Recorded Fycompa 4 mg PO HS #90 tab-cap 11/06/16 lamotrigine 200 mg PO BID #180 tab 03/05/17 famotidine 20 mg PO DAILY #90 tab-cap 04/30/17 acidophilus-pectin, citrus 1 cap PO BID cap 07/30/17 levetiracetam 500 mg tablet 500 mg PO BID #60 tab 05/14/18 Allergies Allergy/AdvReac Type Severity Reaction Status Date / Time aspirin Allergy Mild Unverified 05/14/18 14:36 Penicillins Allergy Mild Unverified 05/14/18 14:36 promethazine AdvReac Intermediate HALLUCINATI Unverified 05/14/18 14:36 ONS General Stated Complaint: HeadInjury ANDRZEJ: 2 Review of Systems Constitutional Reports as per HPI, Denies chills, Denies fatigue, Denies fever(s), Reports headache(s) and Denies weakness Eyes Reports as per HPI, Denies change in vision (patient has poor vision at baseline) and Denies loss of vision ENT Denies abnormal hearing and Reports headache(s) Cardiovascular Reports as per HPI, Denies chest pain and Denies dyspnea Respiratory Reports as per HPI, Denies cough, Denies pain on inspiration, Denies pain with cough and Denies dyspnea Gastrointestinal Reports as per HPI, Denies abdominal pain, Denies nausea and Denies vomiting Musculoskeletal Reports as per HPI Integumentary/Breasts Reports as per HPI and Denies rash Neurologic Reports as per HPI, Denies abnormal hearing, Denies abnormal movements, Denies abnormal speech, Reports headache(s), Denies lack of coordination, Denies focal weakness, Denies loss of vision, Denies seizure-like activity, Denies paresthesias and Denies weakness Endocrine Denies fatigue [facility] Medical History 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, not intractable, without status epilepticus (Acute 09/15/15) Osteoporosis (Acute 02/12/08) 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 (Acute 09/15/15) Hyperlipidemia (Acute 08/13/12) Hydronephrosis (Acute 08/31/17) History of gram negative sepsis (Acute 08/31/17) Diabetes (Acute) Depression (Acute 02/03/14) Decreased vision (Acute 02/03/14) Cerebral aneurysm, nonruptured (Acute 09/15/15) Abdominal pain (Acute) Herpes labialis (Acute) Hypokalemia (Acute) Sepsis due to gram-negative bacteria (Acute) Antibiotic-associated diarrhea (Acute) Surgical History SX for brain aneurysm Social History Smoking/Tobacco Use Status: Never Alcohol Intake: never Drug use: Never Substance use type: does not use Household members: children 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 What type of physical activity do you participate in: none Do you feel safe in your relationship?: Yes Exam Const General: comfortable, no acute distress, anxious, disheveled and No well hydrated Nutritional Appearance: average body habitus and well nourished Orientation: alert, awake, oriented x3 and other (anxious, shaky) [facility] Head: normal to inspection, no palpable skull fracture, normocephalic and atraumatic Ears: hearing grossly normal bilaterally, external ears normal and TM's normal bilaterally General nose exam: external nose normal Mouth: oral mucosae normal, lip normal, tongue normal and mucous membranes dry (patient appears dry) Eyes General: appearance normal, both eyes and all related structures Visual Cisneros: normal visual cisneros by confrontation Alignment and Position: alignment normal Periorbital: periorbital findings normal Eyelids: eyelids normal Conjunctivae: conjunctivae normal Pupils: PERRL EOM: EOM intact bilaterally Neck Neck: normal visual inspection, no lymphadenopathy, no meningeal signs, trachea midline and supple Chest Chest: normal inspection of the chest, normal palpation of entire chest wall, no crepitus and no localized rib tenderness Resp Effort & Inspection: normal respiratory effort, able to speak in complete sentences and no respiratory distress Auscultation: clear to auscultation bilaterally, no rales, no rhonchi and no wheezes Cardio Rate: regular rate Rhythm: regular rhythm Heart Sounds: S1 normal and S2 normal GI Inspection: normal to inspection, no abdominal wall ecchymosis, no edema and non-distended Palpation: soft, no hepatosplenomegaly, not firm, no guarding, no pulsatile masses, not rigid and nontender Auscultation: normal bowel sounds Back/Spine/Pelvis Back: no CVA tenderness Cervical Spine: normal cervical lordosis and cervical ROM normal Thoracic/Lumbar Spine: thoracic and lumbar spine normal to inspection, thoraco- lumbar ROM normal, No thoraco-lumbar ROM limited, No thoraco-lumbar spasm and No thoracic spinal tenderness Pelvis: no pain with anterior-posterior compression and no pain with lateral compression Skin General skin exam: ecchymosis (left cheek and left upper arm) Trauma: laceration (2cm laceration to posterior left scalp) Neuro General: alert, awake, oriented x3, tone abnormal, moves all extremities (very limited in left extremities) and focal motor deficits present Cranial Nerves: CN's II-XI intact bilaterally Cognition: normal cognition Speech: abnormal speech (slow, anxious speech. Short amounts) Gait: gait abnormal Motor: tone not normal throughout and pronator drift (left sided deficit at baseline) Extrem General: normal to inspection, full ROM, normal capillary refill, no pedal edema and no calf tenderness Psych Appearance: grossly normal Mental Status: mental status grossly normal Speech and Movement: agitated (anxious) Course Vital Signs Temperature 37.0 C 05/30/18 19:51 Pulse 83 05/30/18 19:51 Respiratory Rate 18 05/30/18 19:51 Blood Pressure 133/89 05/30/18 19:51 Pulse Oximetry 100 05/30/18 19:51 Temperature 37.0 C 05/30/18 19:51 Temperature Source Skin 05/30/18 19:51 Pulse 83 05/30/18 19:51 Respiratory Rate 18 05/30/18 19:51 Blood Pressure 133/89 05/30/18 19:51 Blood Pressure Position Sitting 05/30/18 19:51 Pulse Oximetry 100 05/30/18 19:51 Oxygen Delivery Method Room Air 05/30/18 19:51 Oxygen Flow Rate 0 05/30/18 19:51
[2018-05-30 20:17] LABS: Bilirubin Negative (Negative); Blood Large (Negative); Clarity Sl Cloudy; Glucose Negative (Negative); Ketones Trace mg/dL (Negative); Leukocyte Esterase Large (Negative); Nitrite Negative (Negative); Specific Gravity 1.025 (1.005-1.025); Urobilinogen 0.2 EU/dL (Up TO 0.2); pH 5.5 (5-8)
[2018-05-30 20:18] LABS: Bacteria Many HPF (Negative); C & S Indicated? Yes; Casts Negative LPF (Negative); Crystals Negative HPF (Negative); Epithelial Cells Negative HPF (Negative); Mucus Negative (Negative); RBC 20-50 (0-2); WBC >50 HPF (0-5)
[2018-05-30 20:31] LABS: ALT 20 U/L (12-78); AST 20 U/L (15-37); Albumin 3.7 g/dL (3.4-5.0); Alkaline Phosphatase 92 U/L (46-116); Anion Gap 12.9 mmol/L (3-11); BUN 14 mg/dL (7-18); Bilirubin, Total 0.4 mg/dL (0.2-1.0); CO2 25.1 mmol/L (21.0-32.0); CREATININE 1.27 mg/dL (0.55-1.02); Calcium 9.2 mg/dL (8.5-10.1); Chloride 104 mmol/L (98-107); Estimated GFR 41.25 (mL/min/1.73m2); Glucose 120 mg/dL (70-100); Potassium 3.7 mmol/L (3.5-5.1); Sodium 142 mmol/L (136-145); Total Protein 7.5 g/dL (6.4-8.2)
--- NOTE | 2018-05-30 20:59 | DI.VRAD_ITS ---
EXAM: CT Head Without Contrast EXAM DATE/TIME: 05/30/2018 7:56 PM CLINICAL HISTORY: 72 years old, female; Signs and symptoms; Other: Fall; Additional info: PT very confused and unable to hold still or follow instructions- did repeat of head and sent both TECHNIQUE: Imaging protocol: Axial computed tomography images of the head/brain without contrast. Coronal and sagittal reformatted images were created and reviewed. Radiation optimization: All CT scans at this facility use at least one of these dose optimization techniques: automated exposure control; mA and/or kV adjustment per patient size (includes targeted exams where dose is matched to clinical indication); or iterative reconstruction. COMPARISON: CT HEAD WITHOUT CONTRAST 07/18/2017 8:27 AM FINDINGS: Brain: Large area of encephalomalacia within the right occipital and right parietal lobes. Changes of cerebral and cerebellar atrophy. Bilateral periventricular white matter lucencies of chronic microvascular ischemia. Ventricles: No ventriculomegaly. Bones/joints: Status post remote right sided craniotomy. Sinuses: Unremarkablel as visualized. No acute sinusitis. Mastoid air cells: Unremarkable as visualized. No mastoid effusion. Soft tissues: Unremarkable. Other findings: Motion artifact. IMPRESSION: No acute focal intracranial lesions. EXAM: CT Cervical Spine Without Contrast EXAM DATE/TIME: 05/30/2018 7:56 PM CLINICAL HISTORY: 72 years old, female; Signs and symptoms; Other: Fall; Additional info: PT very confused and unable to hold still or follow instructions- did repeat of head and sent both TECHNIQUE: Imaging protocol: Axial computed tomography images of the cervical spine without intravenous contrast. Coronal and sagittal reformatted images were created and reviewed. Radiation optimization: All CT scans at this facility use at least one of these dose optimization techniques: automated exposure control; mA and/or kV adjustment per patient size (includes targeted exams where dose is matched to clinical indication); or iterative reconstruction. COMPARISON: CT HEAD WITHOUT CONTRAST 07/18/2017 8:27 AM FINDINGS: Vertebrae: Diffuse osteopenia. Discs/Spinal canal/Neural foramina: Multilevel degenerative changes with disc space narrowing and osteophyte formation. Soft tissues: Unremarkable. Lungs: Bilateral apical fibrotic changes. Other findings: Motion artifact. IMPRESSION: No acute fractures identified. Osteopenia, degenerative changes. Dictated and Authenticated by: Tre Gale MD. Ordering:CAROLINA Bear MD
[2018-05-30 21:01] LABS: HCT 34.5 % (36.0-46.0); HGB 11.2 g/dL (12.0-15.5); Mean Corp. HGB Concentration 32.5 g/dL (32.0-36.0); Mean Corpuscular Hemoglobin 29.6 pg (27.0-33.0); Mean Corpuscular Volume 91.3 fL (80-95); Platelet Count 227 x1000/uL (130-400); RBC 3.78 m/cumm (4.00-5.20); RBC Distribution Width 13.7 % (11.7-14.6)
[2018-05-30] MEDS: cefTRIAXone 1 GM VIAL IM (22:01)
== END 2018-05-30 22:10 | disposition skilled nursing facility (03) ==
PROVIDERS: Emergency Provider Physician Assistant; PCP Family Medicine
DX: B37.49 Other urogenital candidiasis (principal); S01.01XA Laceration without foreign body of scalp, initial encounter; W01.0XXA Fall on same level from slipping, tripping and stumbling without subsequent striking against object, initial encounter
CPT/HCPCS: 12001; 36415; 80053; 85027; 93005; 96372; 99284; 70450; 72125; 81003; 81015; 87086; 93010; J0696

== ENCOUNTER 2018-06-16 02:25 | Emergency (ER) | payer MEDICARE, MEDICAID, SELFPAY ==
[2018-06-16 02:26] VITALS: BP 117/42; PULSE 117; RESP 20; TEMP 36.7; O2SAT 97
[2018-06-16 02:32] VITALS: RESP 20
--- NOTE | 2018-06-16 02:48 | W.ED.GENAD ---
Discharge Plan Disposition Patient Disposition: SNF (LEVEL 1) [facility] Condition: Good Discharge Details Chief Complaint: AMS/LOC Clinical Impression: Agitated Primary Care Provider: Ender Ledezma ED Provider: Luis Martinez [place] Meds and New Rx's Prescriptions: Continued multivitamin tablet 1 tab PO DAILY RF: 0 levetiracetam 500 mg tablet 500 mg PO BID Qty: 60 RF: 0 Fycompa 4 mg tablet 4 mg PO HS Qty: 90 RF: 3 citalopram 10 mg tablet 20 mg PO DAILY RF: 0 mirtazapine [Remeron] 15 mg tablet 15 mg PO DAILY RF: 0 blood-glucose meter [[employer]Touch Ultra2] 1 EACH kit 1 ea Miscellaneous DAILY Qty: 1 RF: 0 Blood Glucose Test 1 EACH strip 1 ea Miscellaneous DAILY Qty: 100 RF: 4 lancets 1 EACH misc 1 ea Miscellaneous DAILY Qty: 100 RF: 4 lamotrigine 200 MG tablet 200 mg PO BID Qty: 180 RF: 3 famotidine 20 MG tablet 20 mg PO DAILY Qty: 90 RF: 4 magnesium hydroxide [Milk of Magnesia] 400 MG/5 ML suspension 30 ml PO PRN RF: 0 acetaminophen 500 MG tablet 1,000 mg PO Q6H PRNRF: 0 ergocalciferol (vitamin D2) [Vitamin D2] 50,000 UNITS capsule 1 cap PO DIRECTED RF: 0 acidophilus-pectin, citrus 1 CAP tablet 1 cap PO BID RF: 0 quetiapine [Seroquel] 25 mg Tablet 25 mg PO BID RF: 0 trazodone 50 mg Tablet 25 mg PO TID RF: 0 cephalexin 250 mg Capsule 250 mg PO HS RF: 0 bismuth subsalicylate [Bismatrol] 262 mg/15 mL Suspension 30 ml PO DAILY PRN PRNRF: 0 Discharge Instructions Additional Instructions: In reviewing the medical records and in discussion with the sons this is not new behavior. This has been typical especially for the last few weeks. Continue medication adjustment per primary care doctors. Return to ED for fever, altered mental status, other concerns. Referrals: Ender Ledezma [Primary Care Provider] - Medical Decision Making In reviewing the patient's medical records this does not appear to be anything new. Physicians have been adjusting her medications in an attempt to find a happy medium. She was just seen by Dr. Nava this week with medication adjustment. Patient immediately calmed down and is now asleep on the stretcher once both of her sons arrived. In discussion with them they have noticed nothing new and that this is quite typical and normal for the patient. She is not febrile. There is no report of significant trauma or falls lately. See no indication for imaging, laboratory studies, medication adjustment here. Sons are comfortable to take her back to the [facility] where she can be seen and followed up by the physicians there. Medical Records Medical records reviewed: Yes I reviewed the patient's medical records. HPI General Mode of arrival: EMS. Date/Time Provider Initiated Documentation: 06/16/18 02:27. Information obtained by: EMS, RN notes reviewed and old records reviewed. Related Data Home Medications Medication Instructions Recorded Confirmed blood-glucose meter [OneTouch #1 kit 07/07/15 05/14/18 Ultra2] Blood Glucose Test #100 strip 09/05/16 05/14/18 lancets #100 ea 09/05/16 05/14/18 lamotrigine 200 mg PO BID #180 tab 03/05/17 06/16/18 famotidine 20 mg PO DAILY #90 tab-cap 04/30/17 06/16/18 acetaminophen 1,000 mg PO Q6H PRN 07/18/17 06/16/18 ergocalciferol (vitamin D2) 1 cap PO DIRECTED 07/18/17 06/16/18 [Vitamin D2] acidophilus-pectin, citrus 1 cap PO BID cap 07/30/17 06/16/18 magnesium hydroxide [Milk of 30 ml PO PRN ml 08/27/17 06/16/18 Magnesia] multivitamin tablet 1 tab PO DAILY 11/27/17 06/16/18 bismuth subsalicylate [Bismatrol] 30 ml PO DAILY PRN PRN 01/07/18 06/16/18 cephalexin 250 mg PO HS 01/07/18 06/16/18 citalopram 10 mg tablet 20 mg PO DAILY tab-cap 02/27/18 06/16/18 levetiracetam 500 mg tablet 500 mg PO BID #60 tab 05/14/18 06/16/18 mirtazapine 15 mg tablet 15 mg PO DAILY tab 05/14/18 06/16/18 quetiapine [Seroquel] 25 mg PO BID 05/30/18 06/16/18 perampanel 4 mg tablet 4 mg PO HS #90 tab-cap 06/12/18 06/16/18 trazodone 25 mg PO TID 06/16/18 06/16/18 Previous Rx's Medication Instructions Recorded lamotrigine 200 mg PO BID #180 tab 03/05/17 famotidine 20 mg PO DAILY #90 tab-cap 04/30/17 acidophilus-pectin, citrus 1 cap PO BID cap 07/30/17 levetiracetam 500 mg tablet 500 mg PO BID #60 tab 05/14/18 perampanel 4 mg tablet 4 mg PO HS #90 tab-cap 06/12/18 Allergies Allergy/AdvReac Type Severity Reaction Status Date / Time aspirin Allergy Mild Unverified 06/16/18 02:52 Penicillins Allergy Mild Unverified 06/16/18 02:52 promethazine AdvReac Intermediate HALLUCINATI Unverified 06/16/18 02:52 ONS General Stated Complaint: AMS/LOC ANDRZEJ: 3 Review of Systems Review of Systems Unobtainable due to (not obtained; agitated/unable to understand) [facility] Medical History 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, not intractable, without status epilepticus (Chronic 09/15/15) Osteoporosis (Chronic 02/12/08) 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 09/15/15) Hyperlipidemia (Chronic 08/13/12) Hydronephrosis (Chronic 08/31/17) History of gram negative sepsis (Resolved 08/31/17) Diabetes (Chronic) Depression (Chronic 02/03/14) Decreased vision (Chronic 02/03/14) Cerebral aneurysm, nonruptured (Chronic 09/15/15) Herpes labialis (Chronic) HTN (hypertension) (Chronic) DVT (deep venous thrombosis) (Resolved) Abdominal pain (Resolved) Antibiotic-associated diarrhea (Resolved) Hypokalemia (Resolved) Sepsis due to gram-negative bacteria (Resolved) Surgical History History of cranioplasty (Chronic) S/P IVC filter (Chronic) S/P ureteral stent placement (Chronic) Status post craniectomy (Chronic) Family History Mother Osteoporosis Father Diabetes Sister No problems noted. Sister Personal history of malignant neoplasm Sister Diabetes Sister No problems noted. Sister No problems noted. Brother No problems noted. Brother Diabetes Brother Personal history of malignant neoplasm Heart disease Brother No problems noted. Brother No problems noted. Brother No problems noted. Brother No problems noted. 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 Afebrile with normal saturations. Const: Elderly female in NAD. HEENT: NC/AT. Lungs: Normal respiratory effort. Lungs are clear. Cor: RRR without murmur/gallop. Neuro: Awake and alert. Cranial nerves grossly in tact. Left side deficits from prior bleed. Shuffling gait. Difficult to understand. Right hand/arm tremor. Psych: Initially, agitated and anxious, slightly belligerent. Course Vital Signs Temperature 98.1 F 06/16/18 02:26 Pulse 117 H 06/16/18 02:26 Respiratory Rate 20 06/16/18 02:26 Blood Pressure 117/42 L 06/16/18 02:26 Pulse Oximetry 97 06/16/18 02:26 Temperature 98.1 F 06/16/18 02:26 Temperature Source Temporal Artery Scan 06/16/18 02:26 Pulse 117 H 06/16/18 02:26 Respiratory Rate 20 06/16/18 02:32 Respiratory Effort 06/16/18 02:32 Respiratory Depth Normal 06/16/18 02:32 Respiratory Pattern Normal 06/16/18 02:32 Blood Pressure 117/42 L 06/16/18 02:26 Pulse Oximetry 97 06/16/18 02:26 Oxygen Delivery Method Room Air 06/16/18 02:26 Oxygen Flow Rate 0 06/16/18 02:26 Comment 06/16/18 02:26
--- NOTE | 2018-06-16 02:51 | ED.GENADUL_ITS ---
Discharge Plan Disposition Patient Disposition: SNF (LEVEL 1) [facility] Condition: Good Discharge Details Chief Complaint: AMS/LOC Clinical Impression: Agitated Primary Care Provider: Ender Ledezma ED Provider: Luis Martinez [place] Meds and New Rx's Prescriptions: Continued multivitamin tablet 1 tab PO DAILY RF: 0 levetiracetam 500 mg tablet 500 mg PO BID Qty: 60 RF: 0 Fycompa 4 mg tablet 4 mg PO HS Qty: 90 RF: 3 citalopram 10 mg tablet 20 mg PO DAILY RF: 0 mirtazapine [Remeron] 15 mg tablet 15 mg PO DAILY RF: 0 blood-glucose meter [[employer] Ultra2] 1 EACH kit 1 ea Miscellaneous DAILY Qty: 1 RF: 0 Blood Glucose Test 1 EACH strip 1 ea Miscellaneous DAILY Qty: 100 RF: 4 lancets 1 EACH misc 1 ea Miscellaneous DAILY Qty: 100 RF: 4 lamotrigine 200 MG tablet 200 mg PO BID Qty: 180 RF: 3 famotidine 20 MG tablet 20 mg PO DAILY Qty: 90 RF: 4 magnesium hydroxide [Milk of Magnesia] 400 MG/5 ML suspension 30 ml PO PRN RF: 0 acetaminophen 500 MG tablet 1,000 mg PO Q6H PRNRF: 0 ergocalciferol (vitamin D2) [Vitamin D2] 50,000 UNITS capsule 1 cap PO DIRECTED RF: 0 acidophilus-pectin, citrus 1 CAP tablet 1 cap PO BID RF: 0 quetiapine [Seroquel] 25 mg Tablet 25 mg PO BID RF: 0 trazodone 50 mg Tablet 25 mg PO TID RF: 0 cephalexin 250 mg Capsule 250 mg PO HS RF: 0 bismuth subsalicylate [Bismatrol] 262 mg/15 mL Suspension 30 ml PO DAILY PRN PRNRF: 0 Discharge Instructions Additional Instructions: In reviewing the medical records and in discussion with the sons this is not new behavior. This has been typical especially for the last few weeks. Continue medication adjustment per primary care doctors. Return to ED for fever, altered mental status, other concerns. Referrals: Ender Ledezma [Primary Care Provider] - Medical Decision Making In reviewing the patient's medical records this does not appear to be anything new. Physicians have been adjusting her medications in an attempt to find a happy medium. She was just seen by Dr. Nava this week with medication adjustment. Patient immediately calmed down and is now asleep on the stretcher once both of her sons arrived. In discussion with them they have noticed nothing new and that this is quite typical and normal for the patient. She is not febrile. There is no report of significant trauma or falls lately. See no indication for imaging, laboratory studies, medication adjustment here. Sons are comfortable to take her back to the [facility] where she can be seen and followed up by the physicians there. Medical Records Medical records reviewed: Yes I reviewed the patient's medical records. HPI General Mode of arrival: EMS . Date/Time Provider Initiated Documentation: 06/16/18 02:27 . Information obtained by: EMS, RN notes reviewed and old records reviewed . Related Data Home Medications Medication Instructions Recorded Confirmed blood-glucose meter [OneTouch #1 kit 07/07/15 05/14/18 Ultra2] Blood Glucose Test #100 strip 09/05/16 05/14/18 lancets #100 ea 09/05/16 05/14/18 lamotrigine 200 mg PO BID #180 tab 03/05/17 06/16/18 famotidine 20 mg PO DAILY #90 tab-cap 04/30/17 06/16/18 acetaminophen 1,000 mg PO Q6H PRN 07/18/17 06/16/18 ergocalciferol (vitamin D2) 1 cap PO DIRECTED 07/18/17 06/16/18 [Vitamin D2] acidophilus-pectin, citrus 1 cap PO BID cap 07/30/17 06/16/18 magnesium hydroxide [Milk of 30 ml PO PRN ml 08/27/17 06/16/18 Magnesia] multivitamin tablet 1 tab PO DAILY 11/27/17 06/16/18 bismuth subsalicylate [Bismatrol] 30 ml PO DAILY PRN PRN 01/07/18 06/16/18 cephalexin 250 mg PO HS 01/07/18 06/16/18 citalopram 10 mg tablet 20 mg PO DAILY tab-cap 02/27/18 06/16/18 levetiracetam 500 mg tablet 500 mg PO BID #60 tab 05/14/18 06/16/18 mirtazapine 15 mg tablet 15 mg PO DAILY tab 05/14/18 06/16/18 quetiapine [Seroquel] 25 mg PO BID 05/30/18 06/16/18 perampanel 4 mg tablet 4 mg PO HS #90 tab-cap 06/12/18 06/16/18 trazodone 25 mg PO TID 06/16/18 06/16/18 Previous Rx's Medication Instructions Recorded lamotrigine 200 mg PO BID #180 tab 03/05/17 famotidine 20 mg PO DAILY #90 tab-cap 04/30/17 acidophilus-pectin, citrus 1 cap PO BID cap 07/30/17 levetiracetam 500 mg tablet 500 mg PO BID #60 tab 05/14/18 perampanel 4 mg tablet 4 mg PO HS #90 tab-cap 06/12/18 Allergies Allergy/AdvReac Type Severity Reaction Status Date / Time aspirin Allergy Mild Unverified 06/16/18 02:52 Penicillins Allergy Mild Unverified 06/16/18 02:52 promethazine AdvReac Intermediate HALLUCINATI Unverified 06/16/18 02:52 ONS General Stated Complaint: AMS/LOC ANDRZEJ: 3 Review of Systems Review of Systems Unobtainable due to (not obtained; agitated/unable to understand) [facility] Medical History 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, not intractable, without status epilepticus (Chronic 09/15/15) Osteoporosis (Chronic 02/12/08) 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 09/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) Hyperlipidemia (Chronic 08/13/12) Hydronephrosis (Chronic 08/31/17) History of gram negative sepsis (Resolved 08/31/17) Diabetes (Chronic) Depression (Chronic 02/03/14) Decreased vision (Chronic 02/03/14) Cerebral aneurysm, nonruptured (Chronic 09/15/15) Herpes labialis (Chronic) HTN (hypertension) (Chronic) DVT (deep venous thrombosis) (Resolved) Abdominal pain (Resolved) Antibiotic-associated diarrhea (Resolved) Hypokalemia (Resolved) Sepsis due to gram-negative bacteria (Resolved) Surgical History History of cranioplasty (Chronic) S/P IVC filter (Chronic) S/P ureteral stent placement (Chronic) Status post craniectomy (Chronic) Family History Mother Osteoporosis Father Diabetes Sister No problems noted. Sister Personal history of malignant neoplasm Sister Diabetes Sister No problems noted. Sister No problems noted. Brother No problems noted. Brother Diabetes Brother Personal history of malignant neoplasm Heart disease Brother No problems noted. Brother No problems noted. Brother No problems noted. Brother No problems noted. 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 Afebrile with normal saturations. Const: Elderly female in NAD. HEENT: NC/AT. Lungs: Normal respiratory effort. Lungs are clear. Cor: RRR without murmur/gallop. Neuro: Awake and alert. Cranial nerves grossly in tact. Left side deficits from prior bleed. Shuffling gait. Difficult to understand. Right hand/arm tremor. Psych: Initially, agitated and anxious, slightly belligerent. Course Vital Signs Temperature 98.1 F 06/16/18 02:26 Pulse 117 H 06/16/18 02:26 Respiratory Rate 20 06/16/18 02:26 Blood Pressure 117/42 L 06/16/18 02:26 Pulse Oximetry 97 06/16/18 02:26 Temperature 98.1 F 06/16/18 02:26 Temperature Source Temporal Artery Scan 06/16/18 02:26 Pulse 117 H 06/16/18 02:26 Respiratory Rate 20 06/16/18 02:32 Respiratory Effort 06/16/18 02:32 Respiratory Depth Normal 06/16/18 02:32 Respiratory Pattern Normal 06/16/18 02:32 Blood Pressure 117/42 L 06/16/18 02:26 Pulse Oximetry 97 06/16/18 02:26 Oxygen Delivery Method Room Air 06/16/18 02:26 Oxygen Flow Rate 0 06/16/18 02:26 Comment 06/16/18 02:26
== END 2018-06-16 03:42 | disposition skilled nursing facility (03) ==
PROVIDERS: Emergency Provider Emergency Medicine; PCP Family Medicine
DX: R45.1 Restlessness and agitation (principal); E11.9 Type 2 diabetes mellitus without complications; I10 Essential (primary) hypertension
CPT/HCPCS: 99281; 99282

== ENCOUNTER → 2018-06-27 13:12 | Outpatient (BNVA) | payer MEDICARE, MEDICAID, SELFPAY | PROVIDERS: PCP Family Medicine; Visit Provider Psychiatry & Neurology Neurology | DX: G40.109 Localization-related (focal) (partial) symptomatic epilepsy and epileptic syndromes with simple partial seizures, not intractable, without status epilepticus (principal); I61.1 Nontraumatic intracerebral hemorrhage in hemisphere, cortical; R25.1 Tremor, unspecified; G20 Parkinson's disease; I10 Essential (primary) hypertension; E11.9 Type 2 diabetes mellitus without complications | CPT/HCPCS: 99214 ==

== ENCOUNTER 2018-07-01 09:03 | Day surgery (SDC) | payer MEDICARE, MEDICAID, SELFPAY ==
[2018-07-01 09:20] VITALS: BP 115/62; PULSE 72; RESP 18; TEMP 36.6; O2SAT 97
--- NOTE | 2018-07-01 09:56 | DI.RAD_ITS ---
SYMPTOMS/DIAGNOSIS: REMOVAL OF STENT C-ARM FLUOROSCOPY: Fluoroscopy Time: 24.1 sec, MGy 3.00 Fluoroscopy was provided for Dr. Guevara in the OR. Hardcopy images show placement of a right ureteral stent. An IVC filter is noted. Please see procedure note for details.
--- NOTE | 2018-07-01 10:09 | W.PM.HP.N ---
Date of service: 07/01/18 Time of Service: 10:09 Assessment and Plan (1) Hydronephrosis due to obstruction of ureter: Current visit: No Status: Acute For cystoscopy with stent change. We will obtain a urinalysis when I pass the cystoscope into her bladder. History of Present Illness Chief Complaint: Right hydronephrosis Narrative: This is a 73-year-old woman who has a history of urosepsis and right hydronephrosis. Her blood and urine cultures grew Proteus. She improved with a combination of antibiotics and a stent placement. Given her extensive medical history, her family is decided to treat her with stent changes rather than ureteroscopy. At times, her stent becomes encrusted and requires holmium laser lithotripsy. She presents now for stent change. 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 What type of physical activity do you participate in: none Do you feel safe in your relationship?: Yes Meds Home Medications Medication Instructions Recorded Confirmed Type blood-glucose meter [OneTouch #1 kit 07/07/15 06/27/18 History Ultra2] Blood Glucose Test #100 strip 09/05/16 06/27/18 History lancets #100 ea 09/05/16 06/27/18 History lamotrigine 200 mg PO BID #180 tab 03/05/17 07/01/18 Rx famotidine 20 mg PO DAILY #90 tab-cap 04/30/17 07/01/18 Rx acetaminophen 1,000 mg PO Q6H PRN 07/18/17 07/01/18 History ergocalciferol (vitamin D2) 1 cap PO DIRECTED 07/18/17 07/01/18 History [Vitamin D2] acidophilus-pectin, citrus 1 cap PO BID cap 07/30/17 07/01/18 Rx magnesium hydroxide [Milk of 30 ml PO PRN ml 08/27/17 07/01/18 History Magnesia] multivitamin tablet 1 tab PO DAILY 11/27/17 07/01/18 History bismuth subsalicylate [Bismatrol] 30 ml PO DAILY PRN PRN 01/07/18 07/01/18 History cephalexin 250 mg PO HS 01/07/18 07/01/18 History citalopram 10 mg tablet 20 mg PO DAILY tab-cap 02/27/18 07/01/18 History levetiracetam 500 mg tablet 500 mg PO BID #60 tab 05/14/18 07/01/18 Rx mirtazapine 15 mg tablet 15 mg PO DAILY tab 05/14/18 07/01/18 History perampanel 4 mg tablet 4 mg PO HS #90 tab-cap 06/12/18 07/01/18 Rx trazodone 25 mg PO TID 06/16/18 07/01/18 History Allergies Allergy/AdvReac Type Severity Reaction Status Date / Time aspirin Allergy Mild Unverified 06/27/18 13:23 Penicillins Allergy Mild Unverified 06/27/18 13:23 promethazine AdvReac Intermediate HALLUCINATI Unverified 06/27/18 13:23 ONS Exam Narrative Exam Narrative: She is an older frail-appearing woman who does not appear septic or toxic Her vital signs are documented elsewhere in the chart Her neck is supple Her lungs show decreased breath sounds bilaterally but no rales are audible Cardiac exam shows a regular rate and rhythm Her abdomen is soft with no mass Results Last Vital Signs Temp 36.6 C 07/01/18 09:20 Pulse 72 07/01/18 09:20 Resp 18 07/01/18 09:20 BP 115/62 07/01/18 09:20 Pulse Ox 97 07/01/18 09:20
[2018-07-01] MEDS: Normal Saline 1,000 ML 80 ML IV (10:21)
[2018-07-01] MEDS: cefTRIAXone 1 GM/50 ML BAG IVPB (10:41)
[2018-07-01] MEDS: Omnipaque 300 MG/ML 50 ML BTL (11:00)
[2018-07-01] MEDS: Lidocaine 2% Jelly 6 ML SYR (11:01)
--- NOTE | 2018-07-01 11:06 | PDOC.DSDIS_ITS ---
Discharge Plan Disposition Patient Disposition: OTHER Condition: Stable Discharge Details Reason For Visit: surgery Attending Provider: Cody Guevara Primary Care Provider: Ender Ledezma Home Meds and New Rx's Prescriptions: No Action multivitamin tablet 1 tab PO DAILY RF: 0 levetiracetam 500 mg tablet 500 mg PO BID Qty: 60 RF: 0 Fycompa 4 mg tablet 4 mg PO HS Qty: 90 RF: 3 citalopram 10 mg tablet 20 mg PO DAILY RF: 0 mirtazapine [Remeron] 15 mg tablet 15 mg PO DAILY RF: 0 blood-glucose meter [[employer] Ultra2] 1 EACH kit 1 ea Miscellaneous DAILY Qty: 1 RF: 0 Blood Glucose Test 1 EACH strip 1 ea Miscellaneous DAILY Qty: 100 RF: 4 lancets 1 EACH misc 1 ea Miscellaneous DAILY Qty: 100 RF: 4 lamotrigine 200 MG tablet 200 mg PO BID Qty: 180 RF: 3 famotidine 20 MG tablet 20 mg PO DAILY Qty: 90 RF: 4 magnesium hydroxide [Milk of Magnesia] 400 MG/5 ML suspension 30 ml PO PRN RF: 0 acetaminophen 500 MG tablet 1,000 mg PO Q6H PRNRF: 0 ergocalciferol (vitamin D2) [Vitamin D2] 50,000 UNITS capsule 1 cap PO DIRECTED RF: 0 acidophilus-pectin, citrus 1 CAP tablet 1 cap PO BID RF: 0 trazodone 50 mg Tablet 25 mg PO TID RF: 0 cephalexin 250 mg Capsule 250 mg PO HS RF: 0 bismuth subsalicylate [Bismatrol] 262 mg/15 mL Suspension 30 ml PO DAILY PRN PRNRF: 0 Discharge Instructions Additional Instructions: Pt will need repeat cystoscopy and stent change in the OR in @ 3 months. My office will arrange. We took a urine culture in the OR today. please let the facility know that these results jo ann be available in @ 48 hours. Activity:: Activity as Tolerated Activity:: Activity as Tolerated Diet:: As Tolerated Discharge Orders Discharge Orders: Discharge Order (Routine); Ordered 07/01/18 Ordered By: Cody Guevara DS: Diagnosis Discharge Diagnosis (1) Hydronephrosis due to obstruction of ureter: Status: Acute
[2018-07-01 11:38] VITALS: BP 120/60; PULSE 62; RESP 18; TEMP 36.2; O2SAT 100
--- NOTE | 2018-07-01 11:42 | ROE_ITS ---
REPORT OF OPERATIVE PROCEDURE DATE OF SERVICE July 01, 2018 PREOPERATIVE DIAGNOSIS: Right hydronephrosis. POSTOPERATIVE DIAGNOSIS: Right hydronephrosis. PROCEDURES: Cystoscopy right ureteroscopy with stent removal, right retrograde pyelogram, insert right ureteral s tent. SURGEON: Cody Guevara M.D. ANESTHESIA: MAC with local. COMPLICATIONS: None. HISTORY: This is a 73-year-old woman, who has a history of dementia, cerebral aneurysm, diabetes, and seizures , who was initially seen when she presented with sepsis due to proteus. At that time, she was found to have right hydronephrosis. She improved with antibiotics and placement of right ureteral stent. Because of her extensive medical issues, her family has elected to manage her with stent changes rath er than diagnostic and therapeutic ureteroscopy. She presents for her scheduled stent change. OPERATIVE REPORT: The patient was brought to the Operating Room on 07/01/18. After being given Monitored Anesthesia Ca re, she was placed was placed in the dorsal lithotomy position. Her genitalia was prepped and draped. A #22-[place] Citizen rigid cystoscope was passed through the urethra into the bladder. The bladder was inspe cted with the 30-degree lens. I was unable to visualize the right ureteral stent in the bladder. The presence of the stent however was confirmed radiographically. I then ran a semirigid ureteroscope into the distal 1 centimeter of the right ureter. I was able to s ee the end of the stent, and was able to trap that end of the stent in a Mar stone basket. The elvis nt was then brought out to the level of the urethral meatus. A Glidewire was advanced through the stent and the stent was removed. I then passed a #6-[place] Citizen acces s catheter over the wire and removed the wire. A retrograde pyelogram was performed by injecting Omnipaque through the access catheter under fluoros copic guidance. This allowed us to outline the renal pelvis. The wire was then repositioned back through the access catheter. The access catheter was removed and a 4.8 [place] Citizen variable length stent was advanced over the wire. The proximal end could be seen curled in the renal pelvis. The distal end was seen in the bladder cystoscopically. The patient tolerated this procedure well with no complications. When I initially passed the cystoscope into the bladder, we obtained a urine sample for culture and s ensitivity, that sample was sent to the lab. We would expect to have the culture and sensitivity resu lts available in about 48 hours. CC: Ender Ledezma M.D. Carol Nava M.D. Tri Ibarra M.D.
[2018-07-01 13:52] LABS: Bilirubin Negative (Negative); Blood Moderate (Negative); Clarity Clear; Glucose Negative (Negative); Ketones Negative (Negative); Leukocyte Esterase Small (Negative); Nitrite Negative (Negative); Specific Gravity >= 1.030 (1.005-1.025); Urobilinogen 0.2 EU/dL (Up TO 0.2); pH 7.5 (5-8)
[2018-07-01 14:08] LABS: Bacteria Negative HPF (Negative); Crystals Negative HPF (Negative); Epithelial Cells Few HPF (Negative); Mucus Trace (Negative); WBC 20-50 HPF (0-5)
[2018-07-01 14:09] LABS: C & S Indicated? Yes; Casts Negative LPF (Negative)
== END 2018-07-01 11:45 | disposition other institution (70) ==
PROVIDERS: PCP Family Medicine; Visit Provider Urology
PROC: (CPT 52332; principal; 2018-07-01 10:15)
DX: N13.2 Hydronephrosis with renal and ureteral calculous obstruction (principal); Z96.0 Presence of urogenital implants; R82.71 Bacteriuria; B95.2 Enterococcus as the cause of diseases classified elsewhere; E11.9 Type 2 diabetes mellitus without complications; F03.90 Unspecified dementia, unspecified severity, without behavioral disturbance, psychotic disturbance, mood disturbance, and anxiety
CPT/HCPCS: 52332; 52351; 87077; NC; 74420; 81003; 81015; 87086; 87186; J0696; J1885; Q9967

== ENCOUNTER 2018-07-10 08:58 | Outpatient (REF) | payer MEDICARE, MEDICAID, SELFPAY ==
[2018-07-10 10:03] LABS: Abs Immature Grans 0.02 k/cumm (0.0-0.09); HCT 38.3 % (36.0-46.0); HGB 12.1 g/dL (12.0-15.5); Mean Corp. HGB Concentration 31.6 g/dL (32.0-36.0); Mean Corpuscular Hemoglobin 29.7 pg (27.0-33.0); Mean Corpuscular Volume 94.1 fL (80-95); Mean Platelet Volume 9.2 fL (8.0-11.0); Platelet Count 260 x1000/uL (130-400); RBC 4.07 m/cumm (4.00-5.20); RBC Distribution Width 13.2 % (11.7-14.6); White Blood Cell Count 3.64 k/cumm (4.4-10.8)
[2018-07-10 10:33] LABS: ALT 20 U/L (12-78); AST 20 U/L (15-37); Albumin 3.6 g/dL (3.4-5.0); Alkaline Phosphatase 110 U/L (46-116); Anion Gap 13.4 mmol/L (3-11); BUN 12 mg/dL (7-18); Bilirubin, Total 0.4 mg/dL (0.2-1.0); CO2 27.6 mmol/L (21.0-32.0); Calcium 8.9 mg/dL (8.5-10.1); Chloride 103 mmol/L (98-107); Glucose 139 mg/dL (70-100); Potassium 3.7 mmol/L (3.5-5.1); Sodium 144 mmol/L (136-145); Total Protein 6.9 g/dL (6.4-8.2)
[2018-07-10 10:40] LABS: Absolute Monocyte Count 0.36 k/cumm (0.11-0.7)
[2018-07-10 10:42] LABS: Absolute Eosinophil Count 0.07 k/cumm (0.0-0.7); Diff Comment Manual Differential; Other Cells 0; Promyelocytes % 0 %; RBC Morphology Normal
[2018-07-11 17:57] LABS: Levetiracetam 9.3 mcg/mL
[2018-07-11 18:05] LABS: Lamotrigine 11.3 mcg/mL (2.5 - 15.0)
[2018-07-18 07:28] LABS: Misc Referral (MAYO) See Comments
== END 2018-07-10 09:18 ==
LOC: LBN 08:58
PROVIDERS: PCP Family Medicine; Visit Provider Family Medicine
DX: R56.9 Unspecified convulsions (principal); R53.81 Other malaise; R68.89 Other general symptoms and signs; Z51.81 Encounter for therapeutic drug level monitoring; Z79.899 Other long term (current) drug therapy
CPT/HCPCS: 80053; 80175; 80339; 80177; 85025

== ENCOUNTER 2018-07-23 13:26 | Outpatient (REF) | payer MEDICARE, MEDICAID, SELFPAY ==
[2018-07-23 14:13] LABS: Bilirubin Negative (Negative); Blood Large (Negative); Clarity Cloudy; Glucose Negative (Negative); Ketones Negative (Negative); Leukocyte Esterase Large (Negative); Nitrite Negative (Negative); Specific Gravity 1.025 (1.005-1.025); Urobilinogen 0.2 EU/dL (Up TO 0.2)
[2018-07-23 14:33] LABS: C & S Indicated? Yes
== END 2018-07-23 13:46 ==
LOC: LBN 13:26
PROVIDERS: PCP Family Medicine; Visit Provider Family Medicine
DX: N39.0 Urinary tract infection, site not specified (principal)
CPT/HCPCS: 87077; 81003; 81015; 87086

== ENCOUNTER → 2018-07-25 14:45 | Outpatient (BNVA) | payer MEDICARE, MEDICAID, SELFPAY | PROVIDERS: PCP Family Medicine; Visit Provider Psychiatry & Neurology Neurology | DX: G40.109 Localization-related (focal) (partial) symptomatic epilepsy and epileptic syndromes with simple partial seizures, not intractable, without status epilepticus (principal); I61.1 Nontraumatic intracerebral hemorrhage in hemisphere, cortical; I67.1 Cerebral aneurysm, nonruptured; R25.1 Tremor, unspecified; G20 Parkinson's disease; F39 Unspecified mood [affective] disorder; G31.84 Mild cognitive impairment of uncertain or unknown etiology | CPT/HCPCS: 99214 ==

== ENCOUNTER 2018-08-05 11:31 | Outpatient (REF) | payer MEDICARE, MEDICAID, SELFPAY ==
[2018-08-05 13:55] LABS: Anion Gap 7.2 mmol/L (3-11); BUN 15 mg/dL (7-18); CO2 30.8 mmol/L (21.0-32.0); CREATININE 0.89 mg/dL (0.55-1.02); Calcium 8.8 mg/dL (8.5-10.1); Chloride 106 mmol/L (98-107); Glucose 115 mg/dL (70-100); Potassium 3.8 mmol/L (3.5-5.1); Sodium 144 mmol/L (136-145)
== END 2018-08-05 11:51 ==
LOC: LBN 11:31
PROVIDERS: PCP Family Medicine; Visit Provider Family Medicine
DX: R56.9 Unspecified convulsions (principal); R53.81 Other malaise; R68.89 Other general symptoms and signs
CPT/HCPCS: 80048

== ENCOUNTER 2018-08-07 11:44 | Outpatient (REF) | payer MEDICARE, MEDICAID, SELFPAY ==
[2018-08-07 12:17] LABS: Abs Immature Grans 0.01 k/cumm (0.0-0.09); Absolute Basophil Count 0.01 k/cumm (0.0-0.2); Absolute Eosinophil Count 0.09 k/cumm (0.0-0.7); Absolute Lymphocyte Count 1.74 k/cumm (1.2-3.4); Absolute Monocyte Count 0.54 k/cumm (0.11-0.7); Absolute Neutrophil Count 2.18 k/cumm (1.2-6.7); Basophils % 0.2; HCT 36.3 % (36.0-46.0); HGB 11.6 g/dL (12.0-15.5); Immature Grans % 0.2; Lymphocytes % 38.1; Mean Corpuscular Hemoglobin 29.7 pg (27.0-33.0); Mean Corpuscular Volume 93.1 fL (80-95); Mean Platelet Volume 9.2 fL (8.0-11.0); Monocytes % 11.8; Neutrophils % 47.7; Platelet Count 225 x1000/uL (130-400); RBC Distribution Width 12.4 % (11.7-14.6); White Blood Cell Count 4.57 k/cumm (4.4-10.8)
== END 2018-08-07 12:04 ==
LOC: LBN 11:44
PROVIDERS: Visit Provider Family Medicine
DX: R56.9 Unspecified convulsions (principal)
CPT/HCPCS: 85025

== ENCOUNTER → 2018-08-28 14:06 | Outpatient (BNVA) | payer MEDICARE, MEDICAID, SELFPAY | PROVIDERS: Visit Provider Psychiatry & Neurology Neurology | DX: G40.109 Localization-related (focal) (partial) symptomatic epilepsy and epileptic syndromes with simple partial seizures, not intractable, without status epilepticus (principal); I61.1 Nontraumatic intracerebral hemorrhage in hemisphere, cortical; I67.1 Cerebral aneurysm, nonruptured; G20 Parkinson's disease; E11.9 Type 2 diabetes mellitus without complications; I10 Essential (primary) hypertension | CPT/HCPCS: 99213 ==

== ENCOUNTER 2018-09-26 12:52 | Outpatient (REF) | payer MEDICARE, MEDICAID, SELFPAY | END 2018-09-26 13:12 | LOC: LBN 12:52 | PROVIDERS: Visit Provider Nurse Practitioner Gerontology | DX: R35.0 Frequency of micturition (principal) | CPT/HCPCS: 87077; 87086; 87186 ==

== ENCOUNTER 2018-10-09 17:55 | Outpatient (REF) | payer MEDICARE, MEDICAID, SELFPAY ==
[2018-10-09 14:22] LABS: Abs Immature Grans 0.02 k/cumm (0.0-0.09); Absolute Basophil Count 0.02 k/cumm (0.0-0.2); Absolute Eosinophil Count 0.08 k/cumm (0.0-0.7); Absolute Lymphocyte Count 1.61 k/cumm (1.2-3.4); Absolute Monocyte Count 0.64 k/cumm (0.11-0.7); Absolute Neutrophil Count 3.25 k/cumm (1.2-6.7); Basophils % 0.4; Eosinophils % 1.4; HGB 12.6 g/dL (12.0-15.5); Immature Grans % 0.4; Lymphocytes % 28.6; Mean Corp. HGB Concentration 32.3 g/dL (32.0-36.0); Mean Corpuscular Hemoglobin 29.7 pg (27.0-33.0); Mean Platelet Volume 9.5 fL (8.0-11.0); Monocytes % 11.4; Neutrophils % 57.8; Platelet Count 217 x1000/uL (130-400); RBC 4.24 m/cumm (4.00-5.20); RBC Distribution Width 12.9 % (11.7-14.6); White Blood Cell Count 5.62 k/cumm (4.4-10.8)
== END 2018-10-09 18:15 ==
LOC: LBN 17:55
PROVIDERS: Visit Provider Family Medicine
DX: R56.9 Unspecified convulsions (principal)
CPT/HCPCS: 85025

== ENCOUNTER 2018-10-17 09:47 | Day surgery (SDC) | payer MEDICARE, MEDICAID, SELFPAY ==
[2018-10-17 10:30] VITALS: BP 112/66; PULSE 67; RESP 16; TEMP 36.6; O2SAT 100
[2018-10-17] MEDS: Lactated Ringers 1,000 ML 80 ML IV (10:52)
--- NOTE | 2018-10-17 11:47 | W.PM.HP.N ---
Date of service: 10/17/18 Time of Service: 11:47 Assessment and Plan (1) Hydronephrosis: Current visit: No Status: Chronic We will move ahead with changing her stent. In the past, she has had some calcification of her stents, so it is possible that we may need to laser any stone debris that is adherent to her stent. History of Present Illness Chief Complaint: Right hydronephrosis Narrative: This is a 73-year-old woman who was initially seen with right hydronephrosis and urosepsis. She improved with a ureteral stent and antibiotics. She is not felt to be a candidate for aggressive surgical treatment, so the family is elected to have her stent changed periodically. We have run into some calcifications that have been adherent to her stent in the past, so we have they have been changing her stent every 6 to 8 weeks. She comes in for stent change. Review of Systems Review of Systems Unobtainable due to mental status [facility] Medical History (Updated 10/17/18 @ 10:23 by Ivett Womack RN) Abdominal pain (Resolved) Antibiotic-associated diarrhea (Resolved) Cerebral aneurysm, nonruptured (Chronic 09/15/15) Decreased vision (Chronic 02/03/14) left eye Depression (Chronic 02/03/14) Diabetes (Chronic) Son states today 10/17/18 pt no longer treated for this. 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) Sepsis due to gram-negative bacteria (Resolved) Social History Smoking/Tobacco Use Status: Never Alcohol Intake: never Drug use: Never Substance use type: does not use Household members: children Housing: retirement 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 What type of physical activity do you participate in: none Meds Home Medications Medication Instructions Recorded Confirmed Type blood-glucose meter [OneTouch #1 kit 07/07/15 07/25/18 History Ultra2 Meter] Blood Glucose Test #100 strip 09/05/16 07/25/18 History lancets #100 ea 09/05/16 07/25/18 History lamotrigine 200 mg PO BID #180 tab 03/05/17 10/15/18 Rx famotidine 20 mg PO DAILY #90 tab-cap 04/30/17 10/15/18 Rx acetaminophen 1,000 mg PO Q6H PRN 07/18/17 10/15/18 History ergocalciferol (vitamin D2) 1 cap PO DIRECTED 07/18/17 10/15/18 History [Vitamin D2] acidophilus-pectin, citrus 1 cap PO BID cap 07/30/17 10/15/18 Rx magnesium hydroxide [Milk of 30 ml PO PRN ml 08/27/17 10/15/18 History Magnesia] multivitamin 1 tab PO DAILY 11/27/17 10/15/18 History bismuth subsalicylate [Bismatrol] 30 ml PO DAILY PRN PRN 01/07/18 10/15/18 History citalopram 10 mg tablet 20 mg PO DAILY tab-cap 02/27/18 10/15/18 History trazodone 50 mg PO TID 06/16/18 10/15/18 History docusate sodium 100 mg tablet 100 mg PO DAILY 07/25/18 10/15/18 History gabapentin 100 mg capsule 100 mg PO TID PRN 07/25/18 10/15/18 History carbamazepine [Tegretol] 200 mg PO TID 10/15/18 10/15/18 History diazepam [Valium] 2 mg PO QHS 10/15/18 10/17/18 History mirtazapine [Remeron] 15 mg PO QHS 10/15/18 10/15/18 History Allergies Allergy/AdvReac Type Severity Reaction Status Date / Time Penicillins Allergy Intermediate Hives Unverified 10/17/18 10:25 aspirin Allergy Mild Unverified 10/17/18 10:25 promethazine AdvReac Intermediate HALLUCINATI Unverified 10/17/18 10:25 ONS Sulfa (Sulfonamide AdvReac Unknown Verified 10/17/18 10:25 Antibiotics) Exam Narrative Exam Narrative: She is a frail elderly woman in no obvious distress Her vital signs are documented elsewhere Her lungs are clear with decreased breath sounds Cardiac exam reveals regular rhythm Her abdomen is soft with no mass She is awake and alert but disoriented Results Last Vital Signs Temp 36.6 C 10/17/18 10:30 Pulse 67 10/17/18 10:30 Resp 16 10/17/18 10:30 BP 112/66 10/17/18 10:30 Pulse Ox 100 10/17/18 10:30
--- NOTE | 2018-10-17 11:57 | DI.RAD_ITS ---
SYMPTOMS/DIAGNOSIS: RT HYDRONEPHROSIS C-ARM FLUOROSCOPY: Fluoroscopy Time: 14.5s C-arm fluoroscopy was utilized by Dr. Guevara. Please see Dr. Guevara's procedure note. Hardcopy shows cannulation of what appears to be the right collecting system with moderate hydronephrosis.
[2018-10-17] MEDS: cefTRIAXone 1 GM/50 ML BAG IVPB (12:22)
[2018-10-17] MEDS: Lidocaine 2% Jelly 6 ML SYR (12:39)
[2018-10-17] MEDS: Omnipaque 300 MG/ML 50 ML BTL (12:39)
[2018-10-17] MEDS: Ketorolac 30 MG/ML VIAL 15 MG IVP (12:40)
--- NOTE | 2018-10-17 12:50 | PDOC.DSDIS_ITS ---
Discharge Plan Disposition Condition: Stable Discharge Details Attending Provider: Cody Guevara Primary Care Provider: Unknown,Unknown Home Meds and New Rx's Prescriptions: No Action multivitamin tablet 1 tab PO DAILY RF: 0 citalopram 10 mg tablet 20 mg PO DAILY RF: 0 gabapentin 100 mg capsule 100 mg PO TID PRNRF: 0 docusate sodium 100 mg tablet 100 mg PO DAILY RF: 0 (DME) blood-glucose meter [[employer] Ultra2 Meter] 1 EACH kit 1 ea Miscellaneous DAILY Qty: 1 RF: 0 (DME) Blood Glucose Test 1 EACH strip 1 ea Miscellaneous DAILY Qty: 100 RF: 4 (DME) lancets 1 EACH misc 1 ea Miscellaneous DAILY Qty: 100 RF: 4 lamotrigine 200 MG tablet 200 mg PO BID Qty: 180 RF: 3 famotidine 20 MG tablet 20 mg PO DAILY Qty: 90 RF: 4 magnesium hydroxide [Milk of Magnesia] 400 MG/5 ML suspension 30 ml PO PRN RF: 0 acetaminophen 500 MG tablet 1,000 mg PO Q6H PRNRF: 0 ergocalciferol (vitamin D2) [Vitamin D2] 50,000 UNITS capsule 1 cap PO DIRECTED RF: 0 acidophilus-pectin, citrus 1 CAP tablet 1 cap PO BID RF: 0 trazodone 50 mg Tablet 50 mg PO TID RF: 0 bismuth subsalicylate [Bismatrol] 262 mg/15 mL Suspension 30 ml PO DAILY PRN PRNRF: 0 carbamazepine [Tegretol] 200 mg Tablet 200 mg PO TID RF: 0 diazepam [Valium] 2 mg Tablet 2 mg PO QHS RF: 0 mirtazapine [Remeron] 15 mg Tablet 15 mg PO QHS RF: 0 Discharge Instructions Additional Instructions: Will need repeat cystoscopy with stent change in 2 to 3 months - my office will need to schedule Activity:: Activity as Tolerated Shower/Bathe:: 24 hours Diet:: As Tolerated DS: Diagnosis Discharge Diagnosis (1) Hydronephrosis: Status: Chronic
[2018-10-17 13:38] VITALS: BP 132/67; PULSE 57; RESP 18; TEMP 36.6; O2SAT 95
--- NOTE | 2018-10-18 09:14 | ROE_ITS ---
DATE OF PROCEDURE: October 17, 2018 PREOPERATIVE DIAGNOSIS: Right hydronephrosis. POSTOPERATIVE DIAGNOSIS: Right hydronephrosis. PROCEDURE: Cystoscopy; remove right ureteral stent; right retrograde pyelogram; insert right uretera l stent. SURGEON: Cody Guevara M.D. ANESTHESIA: MAC with local. COMPLICATIONS: None. HISTORY: This is a 73-year-old woman who has a history of multiple medical problems. She is not fel t to be a candidate for aggressive surgical treatment. She was hospitalized with urosepsis and right hydronephrosis. She improved after a ureteral stent wa s placed on the right and appropriate antibiotics were given. She is now maintained with stent melendez es every 2 to 3 months. OPERATIVE REPORT: The patient was brought to the operating room on 10/17/18. After successful inducti on of monitored anesthesia care, she was placed in the dorsal lithotomy position. Her genitalia was prepped and draped. A 22 Citizen Of [place] rigid cystoscope was passed through the urethra into the bladder. The bladder was inspec jasmin with a 30-degree lens. The stent could be seen protruding from the right ureteral orifice. The stent was grasped with allig ator forceps and brought out to the level of the urethral meatus. A Glidewire was passed through the stent and maneuvered up the remainder of the ureter. The stent wa s removed, leaving the wire in place. A ureteral access catheter was then inserted over the wire and the wire was removed. A retrograde fi lm was obtained by injecting Omnipaque through the access catheter under fluoroscopic guidance. This allowed us to outline the renal pelvis. The Glidewire was reinserted through the access catheter. The access catheter was removed and a 4.8 Citizen Of [place] variable-length stent was advanced over the wire. The stent was positioned such that the prox imal end was curled in the renal pelvis and the distal end was curled in the bladder. The position o f the stent was confirmed both fluoroscopically and cystoscopically. The patient tolerated this procedure well. There were no complications. We will plan on exchanging her stent again in 2 to 3 months.
== END 2018-10-17 14:00 | disposition home or self-care (01) ==
PROVIDERS: Visit Provider Urology
PROC: (CPT 52332; principal; 2018-10-17 12:30)
DX: N13.30 Unspecified hydronephrosis (principal); Z96.0 Presence of urogenital implants; E11.9 Type 2 diabetes mellitus without complications; I10 Essential (primary) hypertension
CPT/HCPCS: 52332; 52005; NC; 74420; J0696; J1885; Q9967

== ENCOUNTER 2018-11-11 01:54 | Emergency (ER) | payer MEDICARE, MEDICAID, SELFPAY ==
--- NOTE | 2018-11-11 01:32 | ED.GENADUL_ITS ---
Discharge Plan Disposition Patient Disposition: HOME Condition: Good Discharge Details Chief Complaint: HeadInjury Clinical Impression: Fall, Acute UTI Primary Care Provider: Carol Nava ED Provider: José Miguel Dillard Home Meds and New Rx's Prescriptions: New doxycycline monohydrate 25 mg/5 mL suspension for reconstitution 20 ml PO BID 10 Days Qty: 400 RF: 0 No Action multivitamin tablet 1 tab PO DAILY RF: 0 citalopram 10 mg tablet 20 mg PO DAILY RF: 0 gabapentin 100 mg capsule 100 mg PO TID PRNRF: 0 docusate sodium 100 mg tablet 100 mg PO DAILY RF: 0 (DME) blood-glucose meter [[employer] Ultra2 Meter] 1 EACH kit 1 ea Miscellaneous DAILY Qty: 1 RF: 0 (DME) Blood Glucose Test 1 EACH strip 1 ea Miscellaneous DAILY Qty: 100 RF: 4 (DME) lancets 1 EACH misc 1 ea Miscellaneous DAILY Qty: 100 RF: 4 lamotrigine 200 MG tablet 200 mg PO BID Qty: 180 RF: 3 famotidine 20 MG tablet 20 mg PO DAILY Qty: 90 RF: 4 magnesium hydroxide [Milk of Magnesia] 400 MG/5 ML suspension 30 ml PO PRN RF: 0 acetaminophen 500 MG tablet 1,000 mg PO Q6H PRNRF: 0 ergocalciferol (vitamin D2) [Vitamin D2] 50,000 UNITS capsule 1 cap PO DIRECTED RF: 0 acidophilus-pectin, citrus 1 CAP tablet 1 cap PO BID RF: 0 trazodone 50 mg Tablet 50 mg PO TID RF: 0 bismuth subsalicylate [Bismatrol] 262 mg/15 mL Suspension 30 ml PO DAILY PRN PRNRF: 0 carbamazepine [Tegretol] 200 mg Tablet 200 mg PO TID RF: 0 diazepam [Valium] 2 mg Tablet 2 mg PO QHS RF: 0 mirtazapine [Remeron] 15 mg Tablet 15 mg PO QHS RF: 0 Discharge Instructions Instructions: Urinary Tract Infection in Women (ED) Additional Instructions: You have a urinary tract infection which is likely the cause of your mild weakness. Please take the antibiotic as directed. If you have no improvement of your symptoms in the next 24 to 48 hours with the antibiotic you may require admission for specific IV antibiotics. If you notice any worsening of your symptoms, or any new symptoms such as vomiting, diarrhea, fever, chills, shortness of breath, chest pain, numbness, weakness, or fainting , please return immediately to the emergency department for reevaluation. Please follow up with your primary care provider as soon as possible for reassessment and reevaluatio n. As always, it was a pleasure participating in your medical care today. 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 She presents today for evaluation after fall. She has had decreased energy over the last few days, and today per EMS the nursing staff she fell out of her chair and hit her face and head. Patient is notably poor historian. She was brought by paramedics to the ER for further evaluation assessment. Patient has no complaints at this time. Neuro exam is certainly limited secondary to her chronic status baseline and deficits after previous intracranial hematologic disasters. She is able to move all extremities, demonstrates normal cranial nerves, follows commands, and shows no focal deficits. Secondary to the patient's concerning history I do feel that CT scan is warranted to rule out acute intracranial bleed. We will evaluate for acute metabolic abnormality or infectious etiology that is been causing her weakness, however also may just be mild dehydration. We will rehydrate the patient, evaluate for life-threatening etiologies and reassess. 4:[address] scan has returned, no evidence of acute intracranial or C-spine process. No evidence of fracture per virtual radiology. Chest x-ray is unremarkable. Laboratory work-up demonstrates no elevation in white count, no bandemia or left shift, pending electrolytes renal function and troponin. Urinalysis does show evidence of notable urinary tract infection. Patient was given 2 g of Rocephin, she is tolerated cephalosporins before. Review of her cultures demonstrate notable evidence of vancomycin-resistant enteric coccus for her last 3 cultures from her urine. As there is a high concern that this is likely causative agent, we will treat appropriately. She does have a penicillin allergy and is not a candidate for amoxicillin. We will give doxycycline which will give VRE coverage as well as coverage for E. coli, and other common gram negatives and gram positives. In addition to the 2 g of Rocephin given here tonight we will give 100 mg of oral doxycycline. At this time the patient appears very clinically well, family feels that she is at her baseline. Vital signs remain unremarkable. Patient is asking multiple times to go back to her facility s tating that she feels fine. 5:10 AM Laboratory work-up is been completed and troponin renal function is normal, normal electrolytes. With no evidence of tachycardia, tachypnea, elevated white count, or other abnormality including fever, I feel that her signs and symptoms are clinically inconsistent with pyelonephritis, sepsis or severe illness. Patient continues to ask if she can go home, family is requesting the same. Patient will be discharged back to her facility with prescription for doxycycline. Discussed red flags for which to return. Signs and symptoms consistent with mild dehydration and urinary tract infection. I have extensively reviewed the treatment plan and discharge instructions with the patient and their family. I have addressed all patient concerns at this time. The patient and family was made aware of what symptoms to monitor for that would warrant a return to the emergency department. Discussed the plan with the patient and family, they demonstrate verbal understanding and agreement with our assessment and plan at this time. EKG 2: 10 Rate 63, intervals normal, sinus rhythm, no significant ST elevations or depressions, no T wave inversions. No evidence of STEMI FINDINGS: Lungs: Unremarkable. No consolidation. Pleural space: Unremarkable. No pleural effusion. No pneumothorax. Heart/Mediastinum: Unremarkable. No cardiomegaly. Bones/joints: Unremarkable. IMPRESSION: No acute findings. Thank you for allowing us to participate in the care of your patient. Dictated and Authenticated by: Derrick Knott MD FINDINGS: Vertebrae: No acute fracture. Normal alignment. Discs/Spinal canal/Neural foramina: Multilevel degenerative disk disease and facet arthropathy with neuroforaminal and canal stenosis. Soft tissues: Unremarkable. Lungs: Lung apices are normal. IMPRESSION: No acute finding. Thank you for allowing us to participate in the care of your patient. Dictated and Authenticated by: Derrick Knott MD FINDINGS: Brain: Encephalomalacia posterior right hemisphere. Chronic ischemic white matter disease. No acute territorial infarct. Ventricles: Normal. No ventriculomegaly. Bones/joints: Previous right-sided craniotomy. Sinuses: Visualized sinuses are unremarkable. No fluid levels. Mastoid air cells: Visualized mastoid air cells are well aerated. Soft tissues: Unremarkable. IMPRESSION: No acute intracranial findings. HPI General Date/Time Provider Initiated Documentation: 11/11/18 02:02 . 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 She presents today for evaluation after fall. She resides at the [facility] in [place]. Per EMS and nursing staff reports she has had slightly decreased energy as of late, and that this evening she fell out of her chair her face first onto the floor. EMS was called, vital signs were normal in their arrival. Patient was then brought to the ER for further evaluation. Patient's mental status appears at her baseline. She will respond to commands, follow all commands, give 1 to 2-3 sentence answers. She denies any complaints at this time. History is notably limited. No other modifying factors. Patient is not on any blood thinners. Related Data Home Medications Medication Instructions Recorded Confirmed blood-glucose meter [FP CompleteTouch #1 kit 07/07/15 11/11/18 Ultra2 Meter] Blood Glucose Test #100 strip 09/05/16 11/11/18 lancets #100 ea 09/05/16 11/11/18 lamotrigine 200 mg PO BID #180 tab 03/05/17 11/11/18 famotidine 20 mg PO DAILY #90 tab-cap 04/30/17 11/11/18 acetaminophen 1,000 mg PO Q6H PRN 07/18/17 11/11/18 ergocalciferol (vitamin D2) 1 cap PO DIRECTED 07/18/17 11/11/18 [Vitamin D2] acidophilus-pectin, citrus 1 cap PO BID cap 07/30/17 11/11/18 magnesium hydroxide [Milk of 30 ml PO PRN ml 08/27/17 11/11/18 Magnesia] multivitamin 1 tab PO DAILY 11/27/17 11/11/18 bismuth subsalicylate [Bismatrol] 30 ml PO DAILY PRN PRN 01/07/18 11/11/18 citalopram 10 mg tablet 20 mg PO DAILY tab-cap 02/27/18 11/11/18 trazodone 50 mg PO TID 06/16/18 11/11/18 docusate sodium 100 mg tablet 100 mg PO DAILY 07/25/18 11/11/18 gabapentin 100 mg capsule 100 mg PO TID PRN 07/25/18 11/11/18 carbamazepine [Tegretol] 200 mg PO TID 10/15/18 11/11/18 diazepam [Valium] 2 mg PO QHS 10/15/18 11/11/18 mirtazapine [Remeron] 15 mg PO QHS 10/15/18 11/11/18 doxycycline monohydrate 20 ml PO BID 10 Days #400 ml 11/11/18 Previous Rx's Medication Instructions Recorded lamotrigine 200 mg PO BID #180 tab 03/05/17 famotidine 20 mg PO DAILY #90 tab-cap 04/30/17 acidophilus-pectin, citrus 1 cap PO BID cap 07/30/17 doxycycline monohydrate 20 ml PO BID 10 Days #400 ml 11/11/18 Allergies Allergy/AdvReac Type Severity Reaction Status Date / Time Penicillins Allergy Intermediate Hives Unverified 11/11/18 03:04 aspirin Allergy Mild Unverified 11/11/18 03:04 promethazine AdvReac Intermediate HALLUCINATI Unverified 11/11/18 03:04 ONS Sulfa (Sulfonamide AdvReac Unknown Verified 11/11/18 03:04 Antibiotics) General ANDRZEJ: 3 Review of Systems Review of Systems ROS Unobtainable: All systems reviewed & are unremarkable except as noted in HPI and below PFSH Medical History (Updated 10/17/18 @ 10:23 by Ivett Womack RN) Abdominal pain (Resolved) Antibiotic-associated diarrhea (Resolved) Cerebral aneurysm, nonruptured (Chronic 09/15/15) Decreased vision (Chronic 02/03/14) left eye Depression (Chronic 02/03/14) Diabetes (Chronic) Son states today 10/17/18 pt no longer treated for this. 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 3.ENT: Atraumatic external nose and ears. Moist MM. Neck: Symmetric, trachea midline, No thyromegaly. There is no evidence of raccoon eyes, moraes sign, CSF rhinorrhea, mastoid tenderness, cranial crepitus, hemotympanum, exophthalmos, or hyphema. Patient demonstrates intact dentition with no signs of tooth avulsion or fracture, no signs of jaw deformity, no evidence of a LeFort's fracture, with an intact palate, nose and orbital region. There is no evidence of a nasal septal hematoma. No proptosis. Jaw closes symmetrically. Airway is clear. Patient is in c-collar. 4.CVS: +S1/S2, No murmurs or gallops. Peripheral pulses 2+ and equal in all extremities. Brisk capillary refill in all extremities. 5.RESP: Unlabored respiratory effort. Clear to auscultation bilaterally. No wheezes rales or rhonchi 6.GI: Soft, Nontender/Nondistended, No hepatosplenomegaly. No guarding or rebound. 7.MSK: Normocephalic/Atraumatic, Extremities w/o deformity or ttp No cyanosis or clubbing, Normal movement of all extremities. No significant midline tenderness. 8.Skin: Warm, Dry. No rashes or lesions. 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 Sensation grossly intact, no focal neurologic deficits. 10.Psych: (AAO) x3. Appropriate mood and affect
[2018-11-11 01:54] VITALS: BP 129/81; PULSE 66; RESP 16; TEMP 36.4; O2SAT 97
[2018-11-11] MEDS: Normal Saline 500 ML 1000 ML IV (02:00)
--- NOTE | 2018-11-11 02:20 | DI.RAD_ITS ---
EXAM: XR PORTABLE CHEST AP CLINICAL HISTORY: fall. TECHNIQUE: 2D digital imaging was performed. COMPARISON: PORTABLE CHEST ONE VIEW from 07/18/2017 FINDINGS: LUNGS Clear. No pleural abnormality seen. HEART: Normal. MEDIASTINUM: Normal. Bone: No acute fracture is identified. IMPRESSION: No acute pulmonary findings.
--- NOTE | 2018-11-11 02:20 | DI.CT_ITS ---
EXAM: CT HEAD CERVICAL SPINE WO CLINICAL HISTORY: fall, decrease mentation. TECHNIQUE: Multiple contiguous axial images through the head and cervical spine were obtained. COMPARISON: CT HEAD CERVICAL SPINE WO from 05/30/2018 FINDINGS: There is again seen a large area of encephalomalacia involving the right parietal and occipital lobes . The ventricles and sulci are consistent with the patient's age. There are areas of decreased atte nuation in the white matter most consistent with small vessel ischemic disease. No acute territorial infarct, hemorrhage, midline shift or mass effect is identified. The ventricles are intact. The ba silar cisterns are patent. There are postsurgical changes again seen of a prior right craniotomy. N o skull fracture is identified. No fluid levels are seen in the visualized paranasal sinuses. The m astoid air cells are well pneumatized. There is patient motion artifact. No acute fractures or subluxations are seen in the cervical spine. There are mild degenerative changes present. The bones appear osteopenic. The prevertebral soft t issues are unremarkable. IMPRESSION: No acute intracranial process. No acute fractures or subluxations are seen in the cervical spine.
--- NOTE | 2018-11-11 02:26 | DI.VRAD_ITS ---
PROCEDURE INFORMATION: Exam: XR Chest, 1 View Exam date and time: 11/11/2018 1:55 AM Clinical history: 73 years old, female; Injury or trauma; Initial encounter; Blunt trauma (contusions or hematomas); Injury date: 11/11/18; Injury details: Fall at skilled nursing TECHNIQUE: Imaging protocol: XR of the chest Views: 1 view. COMPARISON: CR PORTABLE CHEST ONE VIEW 07/18/2017 2:19 PM FINDINGS: Lungs: Unremarkable. No consolidation. Pleural space: Unremarkable. No pleural effusion. No pneumothorax. Heart/Mediastinum: Unremarkable. No cardiomegaly. Bones/joints: Unremarkable. IMPRESSION: No acute findings. Dictated and Authenticated by: Derrick Knott MD. Ordering:EVERETT Valdez MD
--- NOTE | 2018-11-11 02:39 | DI.VRAD_ITS ---
PROCEDURE INFORMATION: Exam: CT Head without contrast Exam date and time: 11/11/2018 1:55 AM Clinical history: 73 years old, female; Injury or trauma; Initial encounter; Blunt trauma (contusions or hematomas); Consciousness not specified; Injury date: 11/11/18; Injury details: Fall at correction hit head; Prior surgery; Surgery date: 6+ months; Surgery type: Right parieto-occipital craniotomy; Patient HX: Fall and hit head TECHNIQUE: Imaging protocol: Computed tomography of the head without contrast. Radiation optimization: All CT scans at this facility use at least one of these dose optimization techniques: automated exposure control; mA and/or kV adjustment per patient size (includes targeted exams where dose is matched to clinical indication); or iterative reconstruction. COMPARISON: CT HEAD CERVICAL SPINE WO 05/30/2018 8:18 PM FINDINGS: Brain: Encephalomalacia posterior right hemisphere. Chronic ischemic white matter disease. No acute territorial infarct. Ventricles: Normal. No ventriculomegaly. Bones/joints: Previous right-sided craniotomy. Sinuses: Visualized sinuses are unremarkable. No fluid levels. Mastoid air cells: Visualized mastoid air cells are well aerated. Soft tissues: Unremarkable. IMPRESSION: No acute intracranial findings. PROCEDURE INFORMATION: Exam: CT Cervical Spine Without Contrast Exam date and time: 11/11/2018 1:55 AM Clinical history: 73 years old, female; Injury or trauma; Initial encounter; Blunt trauma (contusions or hematomas); Consciousness not specified; Injury date: 11/11/18; Injury details: Fall at correction hit head; Prior surgery; Surgery date: 6+ months; Surgery type: Right parieto-occipital craniotomy; Patient HX: Fall and hit head TECHNIQUE: Imaging protocol: Computed tomography images of the cervical spine without contrast. Radiation optimization: All CT scans at this facility use at least one of these dose optimization techniques: automated exposure control; mA and/or kV adjustment per patient size (includes targeted exams where dose is matched to clinical indication); or iterative reconstruction. COMPARISON: CT HEAD CERVICAL SPINE WO 05/30/2018 8:18 PM FINDINGS: Vertebrae: No acute fracture. Normal alignment. Discs/Spinal canal/Neural foramina: Multilevel degenerative disk disease and facet arthropathy with neuroforaminal and canal stenosis. Soft tissues: Unremarkable. Lungs: Lung apices are normal. IMPRESSION: No acute finding. Dictated and Authenticated by: Derrick Knott MD. Ordering:EVERETT Valdez MD
[2018-11-11 03:02] LABS: Abs Immature Grans 0.02 k/cumm (0.0-0.09); Absolute Basophil Count 0.02 k/cumm (0.0-0.2); Absolute Eosinophil Count 0.11 k/cumm (0.0-0.7); Absolute Lymphocyte Count 1.65 k/cumm (1.2-3.4); Absolute Monocyte Count 0.85 k/cumm (0.11-0.7); Absolute Neutrophil Count 4.38 k/cumm (1.2-6.7); Basophils % 0.3; Eosinophils % 1.6; HGB 11.7 g/dL (12.0-15.5); Immature Grans % 0.3; Lymphocytes % 23.5; Mean Corp. HGB Concentration 32.5 g/dL (32.0-36.0); Mean Corpuscular Hemoglobin 29.7 pg (27.0-33.0); Mean Corpuscular Volume 91.4 fL (80-95); Mean Platelet Volume 9.3 fL (8.0-11.0); Monocytes % 12.1; Neutrophils % 62.2; Platelet Count 247 x1000/uL (130-400); RBC 3.94 m/cumm (4.00-5.20); RBC Distribution Width 14.2 % (11.7-14.6); White Blood Cell Count 7.03 k/cumm (4.4-10.8)
[2018-11-11 03:12] LABS: Bilirubin Negative (Negative); Blood Trace-lysed (Negative); Clarity Clear (Clear); Glucose Negative (Negative); Ketones Negative (Negative); Leukocyte Esterase Moderate (Negative); Nitrite Negative (Negative); Urobilinogen 0.2 EU/dL (Up TO 0.2); pH 6.5 (5-8)
[2018-11-11 03:18] LABS: Bacteria Many HPF (Negative); C & S Indicated? Yes; Casts Negative LPF (Negative); Crystals Negative HPF (Negative); Epithelial Cells Few HPF (Negative); Mucus Negative (Negative); WBC >50 HPF (0-5)
[2018-11-11] MEDS: cefTRIAXone 2 GM/50 ML BAG IVPB (03:45)
--- NOTE | 2018-11-11 03:49 | NUR.NOTE ---
Nursing Note: Family at the bedside.
[2018-11-11 05:00] LABS: ALT 14 U/L (14-59); AST 19 U/L (15-37); Albumin 3.1 g/dL (3.4-5.0); Alkaline Phosphatase 105 U/L (46-116); Anion Gap 8.7 mmol/L (3-11); BUN 11 mg/dL (7-18); Bilirubin, Total 0.2 mg/dL (0.2-1.0); CO2 28.3 mmol/L (21.0-32.0); CREATININE 0.85 mg/dL (0.55-1.02); Calcium 8.2 mg/dL (8.5-10.1); Chloride 107 mmol/L (98-107); Glucose 121 mg/dL (70-100); Sodium 144 mmol/L (136-145); TSH (W/Ref FT4) 1.91 uIU/mL (0.36-3.74); Total Protein 6.8 g/dL (6.4-8.2)
[2018-11-11 05:04] LABS: Troponin I < 0.05 ng/mL (0.00-0.06)
== END 2018-11-11 05:20 | disposition home or self-care (01) ==
PROVIDERS: Emergency Provider Student in an Organized Health Care Education/Training Program; PCP Family Medicine
DX: N39.0 Urinary tract infection, site not specified (principal); B95.2 Enterococcus as the cause of diseases classified elsewhere; S09.90XA Unspecified injury of head, initial encounter; W07.XXXA Fall from chair, initial encounter; G20 Parkinson's disease; F03.90 Unspecified dementia, unspecified severity, without behavioral disturbance, psychotic disturbance, mood disturbance, and anxiety; I69.354 Hemiplegia and hemiparesis following cerebral infarction affecting left non-dominant side; I69.398 Other sequelae of cerebral infarction; I10 Essential (primary) hypertension; E11.9 Type 2 diabetes mellitus without complications
CPT/HCPCS: 36415; 80053; 87077; 93005; 96361; 96365; 99285; 70450; 71045; 72125; 81003; 81015; 84443; 84484; 85025; 85610; 85730; 87086; 87186; 93010

== ENCOUNTER 2018-11-23 20:53 | Emergency (ER) | payer MEDICARE, MEDICAID, SELFPAY ==
[2018-11-23 21:00] VITALS: BP 148/69; PULSE 87; RESP 18; TEMP 36.9; O2SAT 95
--- NOTE | 2018-11-23 21:07 | W.ED.GENAD ---
Discharge Plan Disposition Patient Disposition: HOME Condition: Stable Discharge Details Chief Complaint: FacialProb Clinical Impression: Fall, Contusion of hand, right, Head trauma, Closed fracture of maxillary sinus Primary Care Provider: Carol Nava ED Provider: Derrick Kilgore [place] Meds and New Rx's Prescriptions: New levofloxacin 750 mg tablet 750 mg PO DAILY Qty: 7 RF: 0 Continued multivitamin tablet 1 tab PO DAILY RF: 0 citalopram 10 mg tablet 20 mg PO DAILY RF: 0 gabapentin 100 mg capsule 100 mg PO TID PRNRF: 0 docusate sodium 100 mg tablet 100 mg PO DAILY RF: 0 (DME) blood-glucose meter [[employer] Ultra2 Meter] 1 EACH kit 1 ea Miscellaneous DAILY Qty: 1 RF: 0 (DME) Blood Glucose Test 1 EACH strip 1 ea Miscellaneous DAILY Qty: 100 RF: 4 (DME) lancets 1 EACH misc 1 ea Miscellaneous DAILY Qty: 100 RF: 4 lamotrigine 200 MG tablet 200 mg PO BID Qty: 180 RF: 3 famotidine 20 MG tablet 20 mg PO DAILY Qty: 90 RF: 4 magnesium hydroxide [Milk of Magnesia] 400 MG/5 ML suspension 30 ml PO PRN RF: 0 diazepam [Valium] 2 mg tablet 2 mg PO BID Qty: 60 RF: 3 acetaminophen 500 MG tablet 1,000 mg PO Q6H PRNRF: 0 ergocalciferol (vitamin D2) [Vitamin D2] 50,000 UNITS capsule 1 cap PO DIRECTED RF: 0 acidophilus-pectin, citrus 1 CAP tablet 1 cap PO BID RF: 0 trazodone 50 mg Tablet 50 mg PO TID RF: 0 bismuth subsalicylate [Bismatrol] 262 mg/15 mL Suspension 30 ml PO DAILY PRN PRNRF: 0 carbamazepine [Tegretol] 200 mg Tablet 200 mg PO TID RF: 0 mirtazapine [Remeron] 15 mg Tablet 15 mg PO QHS RF: 0 Discharge Instructions Additional Instructions: HEr imaging showed a sinus fracture that should heal on it's own. If you change your mind and want to see an ear nose and throat surgeon your primary care provider or provider at the [facility] should be able to refer you if you have new pain such as severe abdominal pain or difficulty breathing return to the emergency department Medical Decision Making 73 yo female with hx of dementia comes in after she fell at rehab that was witnessed without loc. She has pain in her nose and was reportedly bleeding from her left nare prior to arrival but has no bleeding now. Has no scalp lacerations or deformities, no neck pain, no chest tenderness or abdominal tenderness. Has right hand pain in the 2-3 metacarapal withotu visible or palpable deformity, no wrist pain and has no pain elsewhere in either arm or leg with full rom. Will xray hand and obtain ct head, c spine and face and monitor. Her COLST form says dnr/dni and would not want any significant intervention at this time. xray of hand shows no fx, ? possible foreign body per vrad but has no break in skin to suggest this on exam so doubt foreign body. CT imagign shows minimally displaced sinus fracture otherwise no acute findings. Has no septal hemoatoma on exam. Discussed findings with her and her two sons and they declined any referrals to ent as outpatient, advised if they change their mind the provider at the [facility] should be able to refer her. Given the fracture is in the sinus will also place on abx Differential Diagnosis Differential Diagnosis: nose fracture, tbi Imaging Data Radiologic Study: Attestation: I personally reviewed and interpreted this imaging study as follows: Imaging: CT Scan Radiologist's impression: Exam date and time: 11/23/2018 9:21 PM Clinical history: 73 years old, female; Injury or trauma; Initial encounter; Blunt trauma (contusions or hematomas); Patient HX: Trauma, fall TECHNIQUE: Imaging protocol: Computed tomography of the head without contrast. COMPARISON: No relevant prior studies available. FINDINGS: Brain: There is no acute hemorrhage, mass effect, or extra-axial fluid collections. Dictated craniotomy site is a large area of encephalomalacia involving the abdominal aorta right occipital lobe and smaller portions of the posterior right parietal lobe and right temporal lobe. Ventricles: There is ipsilateral associated dilatation of the temporal horn of the right lateral ventricle Bones/joints: Right parietal-occipital craniotomy. Sinuses: Visualized sinuses are unremarkable. No fluid levels. Mastoid air cells: Visualized mastoid air cells are well aerated. Soft tissues: Unremarkable. IMPRESSION: Postsurgical changes but no evidence of acute intracranial injury. Please see report of the facial bones. PROCEDURE INFORMATION: Exam: CT Maxillofacial Without Contrast Exam date and time: 11/23/2018 9:21 PM ANDIE FIGUEREDO Preliminary Radiology Report Page 2 of 3 Clinical history: 73 years old, female; Injury or trauma; Initial encounter; Blunt trauma (contusions or hematomas); Patient HX: Trauma, fall TECHNIQUE: Imaging protocol: Computed tomography images of the face without contrast. COMPARISON: No relevant prior studies available. FINDINGS: No definite fracture of the medial domínguez or floors of the orbits. Intraorbital contents show no acute abnormality. The left maxillary sinus is nearly completely filled with fluid extending through the infundibulum into the nasal cavity. Some of this fluid is high density and may represent hemorrhage. There is severe mucosal thickening throughout the mucosal the left side of the nasal cavity especially. Mild mucosal thickening in the right maxillary sinus. There is a large amount of edema and small hematoma is in the soft tissue anterior to right maxillary sinus Slightly comminuted mild displaced fracture of the lateral wall the left maxillary sinus. IMPRESSION: 1. Mildly displaced fracture of the lateral wall of the left maxillary sinus associated with appears to be a prominent amount of blood in the sinus extending into the nasal cavity there is also air scattered throughout the nasopharynx probably related to the fracture of the left maxillary sinus. 2. Mild edema and and small hematoma formation anterior to the right maxillary sinus. PROCEDURE INFORMATION: Exam: CT Cervical Spine Without Contrast Exam date and time: 11/23/2018 9:21 PM Clinical history: 73 years old, female; Injury or trauma; Initial encounter; Blunt trauma (contusions or hematomas); Patient HX: Trauma, fall TECHNIQUE: Imaging protocol: Computed tomography images of the cervical spine without contrast. COMPARISON: No relevant prior studies available. FINDINGS: Fairly symmetric apical pleural thickening in the lungs Mild levoconvex scoliosis in the mid cervical spine. No acute fracture or subluxation. Large bony spur at C3-4 causing mild mass effect on the right side of the spinal cord and moderate narrowing of the right neural foramen At C6-7 there is a mild disc osteophyte complex minimally narrowing the spinal canal and mildly narrowing the right neural foramen. ANDIE FIGUEREDO Preliminary Radiology Report [employer] (QA) DISCREPANCY? If there is a discrepancy between the preliminary and final interpretation, please notify [facility] via [email or web address]. If you do not have access to our QA portal, call our QA team at [phone] CONFIDENTIALITY STATEMENT This report is intended only for the use of the referring physician, and only in accordance with law, If you received this in error, call [phone] Page 3 of 3 Degenerative changes of the levels are less severe IMPRESSION: 1. No acute fracture or subluxation. 2. Prominent spur at C3-4 as above Thank you for allowing us to participate in the care of your patient. Dictated and Authenticated by: Derrick Esparza MD Radiologic Study #2: Attestation: I personally reviewed and interpreted this imaging study as follows: Imaging: X-Ray My impression: no acute findings HPI General Mode of arrival: EMS. Date/Time Provider Initiated Documentation: 11/23/18 20:59. Limitations to Documentation: altered mental status (dementia). History of Present Illness 73 year old F presents to the emergency department with the chief complaint of nose pain, described as moderate, Quality is described as aching, and it has been constant. No relieving factors improve symptom(s), No exacerbating factors reported . Patient did receive the following treatments prior to arrival, none Related Data Home Medications Medication Instructions Recorded Confirmed blood-glucose meter [OneTouch #1 kit 07/07/15 11/11/18 Ultra2 Meter] Blood Glucose Test #100 strip 09/05/16 11/11/18 lancets #100 ea 09/05/16 11/11/18 lamotrigine 200 mg PO BID #180 tab 03/05/17 11/11/18 famotidine 20 mg PO DAILY #90 tab-cap 04/30/17 11/11/18 acetaminophen 1,000 mg PO Q6H PRN 07/18/17 11/11/18 ergocalciferol (vitamin D2) 1 cap PO DIRECTED 07/18/17 11/11/18 [Vitamin D2] acidophilus-pectin, citrus 1 cap PO BID cap 07/30/17 11/11/18 magnesium hydroxide [Milk of 30 ml PO PRN ml 08/27/17 11/11/18 Magnesia] multivitamin 1 tab PO DAILY 11/27/17 11/11/18 bismuth subsalicylate [Bismatrol] 30 ml PO DAILY PRN PRN 01/07/18 11/11/18 citalopram 10 mg tablet 20 mg PO DAILY tab-cap 02/27/18 11/11/18 trazodone 50 mg PO TID 06/16/18 11/11/18 docusate sodium 100 mg tablet 100 mg PO DAILY 07/25/18 11/11/18 gabapentin 100 mg capsule 100 mg PO TID PRN 07/25/18 11/11/18 carbamazepine [Tegretol] 200 mg PO TID 10/15/18 11/11/18 mirtazapine [Remeron] 15 mg PO QHS 10/15/18 11/11/18 diazepam 2 mg tablet 2 mg PO BID #60 tab 11/21/18 levofloxacin 750 mg PO DAILY #7 tab 11/23/18 Previous Rx's Medication Instructions Recorded lamotrigine 200 mg PO BID #180 tab 03/05/17 famotidine 20 mg PO DAILY #90 tab-cap 04/30/17 acidophilus-pectin, citrus 1 cap PO BID cap 07/30/17 diazepam 2 mg tablet 2 mg PO BID #60 tab 11/21/18 levofloxacin 750 mg PO DAILY #7 tab 11/23/18 Allergies Allergy/AdvReac Type Severity Reaction Status Date / Time Penicillins Allergy Intermediate Hives Unverified 11/11/18 03:04 aspirin Allergy Mild Unverified 11/11/18 03:04 promethazine AdvReac Intermediate HALLUCINATI Unverified 11/11/18 03:04 ONS Sulfa (Sulfonamide AdvReac Unknown Verified 11/11/18 03:04 Antibiotics) General Stated Complaint: FacialProb ANDRZEJ: 3 Review of Systems Review of Systems ROS Unobtainable: All systems reviewed & are unremarkable except as noted in HPI and below Constitutional Constitutional: Denies chills, Denies fever(s) and Denies weakness ENT Ears, Nose, Mouth, and Throat: Denies change in voice Cardiovascular Cardiovascular: Denies chest pain and Denies dyspnea Respiratory Respiratory: Denies dyspnea Gastrointestinal Gastrointestinal: Denies abdominal pain, Denies nausea and Denies vomiting Musculoskeletal Musculoskeletal: Denies joint swelling Neurologic Neurologic: Denies weakness [facility] [place] Medical History (Updated 10/17/18 @ 10:23 by Ivett Womack RN) Abdominal pain (Resolved) Antibiotic-associated diarrhea (Resolved) Cerebral aneurysm, nonruptured (Chronic 09/15/15) Decreased vision (Chronic 02/03/14) left eye Depression (Chronic 02/03/14) Diabetes (Chronic) Son states today 10/17/18 pt no longer treated for this. 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) Sepsis due to gram-negative bacteria (Resolved) Social History Smoking/Tobacco Use Status: Never Alcohol Intake: never Drug use: Never Substance use type: does not use Household members: children Housing: skilled nursing 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 What type of physical activity do you participate in: none Exam Const General: no acute distress Orientation: alert HENNM Head: no palpable skull fracture Ears: external ears normal General nose exam: external nose normal Mouth: moist mucous membranes Eyes General: appearance normal, both eyes and all related structures Neck Neck: normal visual inspection Resp Effort & Inspection: normal respiratory effort and able to speak in complete sentences Cardio Rate: regular rate Skin General skin exam: no rashes or lesions noted Neuro General: alert Extrem General: normal to inspection Psych Mental Status: mental status grossly normal Course Vital Signs Vital signs: Vital Signs Temperature 36.9 C 11/23/18 21:00 Pulse 87 11/23/18 21:00 Respiratory Rate 18 11/23/18 21:00 Blood Pressure 148/69 H 11/23/18 21:00 Pulse Oximetry 95 11/23/18 21:00 Temperature 36.9 C 11/23/18 21:00 Temperature Source Temporal Artery Scan 11/23/18 21:00 Pulse 87 11/23/18 21:00 Respiratory Rate 18 11/23/18 21:00 Respiratory Effort Non-Labored 11/23/18 21:02 Blood Pressure 148/69 H 11/23/18 21:00 Blood Pressure Position Supine 11/23/18 21:00 Pulse Oximetry 95 11/23/18 21:00 Oxygen Delivery Method Room Air 11/23/18 21:00 Oxygen Flow Rate 0 11/23/18 21:00
--- NOTE | 2018-11-23 21:09 | DI.CT_ITS ---
EXAM: CT HEAD CERV SPINE FACIAL WO CLINICAL HISTORY: trauma, fall. TECHNIQUE: COMPARISON: CT HEAD CERVICAL SPINE WO from 11/11/2018 FINDINGS: CT examination of the facial region was performed and shows opacification of left maxillary antrum wi th a minimally displaced fracture of the lateral wall of the left maxillary antrum. No additional fa cial fracture seen. Orbital contents appear intact as visualized. Noncontrast CT of the head was performed and shows a large area right-sided encephalomalacia and prio r craniotomy. Ex vacuo phenomenon of right lateral ventricle noted. No evidence of acute intracrani al hemorrhage mass effect midline shift. No acute calvarial fracture seen. CT examination of the cervical spine was performed. Moderate degenerative changes of the facet joint s and to a lesser degree the vertebral endplates noted throughout the cervical region. Focal promine nce disc osteophyte complex at C3-4 on the right. No evidence of acute fracture or dislocation of th e cervical spine. Lung apices are clear as visualized. Tracheolaryngeal structures appear intact. IMPRESSION: No evidence of acute intracranial injury. No evidence of acute cervical spine fracture. Minimally displaced fracture lateral wall of maxillary antrum on the left, no other facial injury see n.
--- NOTE | 2018-11-23 21:37 | DI.RAD_ITS ---
EXAM: XR HAND RT COMPLETE INDICATION: pain s/p fall. COMPARISON: No exams were available for comparison TECHNIQUE: 2D digital imaging was performed. FINDINGS: Three views were obtained. IMPRESSION:
--- NOTE | 2018-11-23 22:02 | DI.VRAD_ITS ---
PROCEDURE INFORMATION: Exam: CT Head Without Contrast Exam date and time: 11/23/2018 9:21 PM Clinical history: 73 years old, female; Injury or trauma; Initial encounter; Blunt trauma (contusions or hematomas); Patient HX: Trauma, fall TECHNIQUE: Imaging protocol: Computed tomography of the head without contrast. COMPARISON: No relevant prior studies available. FINDINGS: Brain: There is no acute hemorrhage, mass effect, or extra-axial fluid collections. Dictated craniotomy site is a large area of encephalomalacia involving the abdominal aorta right occipital lobe and smaller portions of the posterior right parietal lobe and right temporal lobe. Ventricles: There is ipsilateral associated dilatation of the temporal horn of the right lateral ventricle Bones/joints: Right parietal-occipital craniotomy. Sinuses: Visualized sinuses are unremarkable. No fluid levels. Mastoid air cells: Visualized mastoid air cells are well aerated. Soft tissues: Unremarkable. IMPRESSION: Postsurgical changes but no evidence of acute intracranial injury. Please see report of the facial bones. PROCEDURE INFORMATION: Exam: CT Maxillofacial Without Contrast Exam date and time: 11/23/2018 9:21 PM Clinical history: 73 years old, female; Injury or trauma; Initial encounter; Blunt trauma (contusions or hematomas); Patient HX: Trauma, fall TECHNIQUE: Imaging protocol: Computed tomography images of the face without contrast. COMPARISON: No relevant prior studies available. FINDINGS: No definite fracture of the medial domínguez or floors of the orbits. Intraorbital contents show no acute abnormality. The left maxillary sinus is nearly completely filled with fluid extending through the infundibulum into the nasal cavity. Some of this fluid is high density and may represent hemorrhage. There is severe mucosal thickening throughout the mucosal the left side of the nasal cavity especially. Mild mucosal thickening in the right maxillary sinus. There is a large amount of edema and small hematoma is in the soft tissue anterior to right maxillary sinus Slightly comminuted mild displaced fracture of the lateral wall the left maxillary sinus. IMPRESSION: 1. Mildly displaced fracture of the lateral wall of the left maxillary sinus associated with appears to be a prominent amount of blood in the sinus extending into the nasal cavity there is also air scattered throughout the nasopharynx probably related to the fracture of the left maxillary sinus. 2. Mild edema and and small hematoma formation anterior to the right maxillary sinus. PROCEDURE INFORMATION: Exam: CT Cervical Spine Without Contrast Exam date and time: 11/23/2018 9:21 PM Clinical history: 73 years old, female; Injury or trauma; Initial encounter; Blunt trauma (contusions or hematomas); Patient HX: Trauma, fall TECHNIQUE: Imaging protocol: Computed tomography images of the cervical spine without contrast. COMPARISON: No relevant prior studies available. FINDINGS: Fairly symmetric apical pleural thickening in the lungs Mild levoconvex scoliosis in the mid cervical spine. No acute fracture or subluxation. Large bony spur at C3-4 causing mild mass effect on the right side of the spinal cord and moderate narrowing of the right neural foramen At C6-7 there is a mild disc osteophyte complex minimally narrowing the spinal canal and mildly narrowing the right neural foramen. Degenerative changes of the levels are less severe IMPRESSION: 1. No acute fracture or subluxation. 2. Prominent spur at C3-4 as above Dictated and Authenticated by: Derrick Esparza MD. Ordering:NICO Meza MD
--- NOTE | 2018-11-23 22:07 | DI.VRAD_ITS ---
PROCEDURE INFORMATION: Exam: XR Right Hand Exam date and time: 11/23/2018 9:35 PM Clinical history: 73 years old, female; Pain; Hand; Bilateral TECHNIQUE: Imaging protocol: XR Right hand. Views: 3 or more views. COMPARISON: No relevant prior studies available. FINDINGS: Bones/joints: No acute fracture identified. Soft tissues: There is a punctate 1 mm radiodensity in the soft tissues adjacent to the distal third middle phalanx, ulnar side, series 1 image 1. IMPRESSION: 1. No acute fracture identified. If symptoms remain concerning, consider followup imaging in 7 days or alternatively imaging modalities. 2.There is a punctate 1 mm radiodensity in the soft tissues adjacent to the distal third middle phalanx, ulnar side, series 1 image 1. This should be correlated with any concern for foreign body. Dictated and Authenticated by: Amanda Scales MD. Ordering:NICO Meza MD
[2018-11-23] MEDS: levoFLOXacin 500 MG, levoFLOXacin 250 MG 750 MG PO (22:26)
[2018-11-23 22:45] VITALS: BP 144/82; PULSE 87; RESP 20; O2SAT 95
== END 2018-11-23 22:42 | disposition home or self-care (01) ==
PROVIDERS: Emergency Provider Emergency Medicine; PCP Family Medicine
DX: S02.40DA Maxillary fracture, left side, initial encounter for closed fracture (principal); S60.221A Contusion of right hand, initial encounter; R04.0 Epistaxis; W01.0XXA Fall on same level from slipping, tripping and stumbling without subsequent striking against object, initial encounter; F03.90 Unspecified dementia, unspecified severity, without behavioral disturbance, psychotic disturbance, mood disturbance, and anxiety; G20 Parkinson's disease; E11.9 Type 2 diabetes mellitus without complications; I10 Essential (primary) hypertension
CPT/HCPCS: 36415; 99284; 70450; 70486; 72125; 73130

== ENCOUNTER → 2018-11-26 13:05 | Outpatient (BNVA) | payer MEDICARE, MEDICAID, SELFPAY | PROVIDERS: PCP Family Medicine; Visit Provider Psychiatry & Neurology Neurology | DX: G40.109 Localization-related (focal) (partial) symptomatic epilepsy and epileptic syndromes with simple partial seizures, not intractable, without status epilepticus (principal); I61.1 Nontraumatic intracerebral hemorrhage in hemisphere, cortical; G20 Parkinson's disease | CPT/HCPCS: 99214 ==

== ENCOUNTER 2018-11-29 09:49 | Outpatient (REF) | payer MEDICARE, MEDICAID, SELFPAY ==
[2018-11-29 11:16] LABS: ALT 14 U/L (14-59); AST 15 U/L (15-37); Albumin 3.4 g/dL (3.4-5.0); Alkaline Phosphatase 95 U/L (46-116); Anion Gap 9.3 mmol/L (3-11); BUN 9 mg/dL (7-18); Bilirubin, Total 0.3 mg/dL (0.2-1.0); CO2 30.7 mmol/L (21.0-32.0); CREATININE 0.86 mg/dL (0.55-1.02); Calcium 8.6 mg/dL (8.5-10.1); Chloride 103 mmol/L (98-107); Glucose 128 mg/dL (70-100); Potassium 3.6 mmol/L (3.5-5.1); Sodium 143 mmol/L (136-145); TROPONIN-I 10.4 ug/mL (4.0-12.0); Total Protein 6.8 g/dL (6.4-8.2)
[2018-11-30 15:09] LABS: Lamotrigine 3.8 mcg/mL (2.5 - 15.0)
== END 2018-11-29 10:09 ==
LOC: LBN 09:49
PROVIDERS: PCP Family Medicine; Visit Provider Psychiatry & Neurology Neurology
DX: G40.109 Localization-related (focal) (partial) symptomatic epilepsy and epileptic syndromes with simple partial seizures, not intractable, without status epilepticus (principal); R56.9 Unspecified convulsions; I69.398 Other sequelae of cerebral infarction; Z51.81 Encounter for therapeutic drug level monitoring; Z79.899 Other long term (current) drug therapy
CPT/HCPCS: 80053; 80175; 80156

== ENCOUNTER 2018-12-14 22:25 | Outpatient (REF) | payer MEDICARE, MEDICAID, SELFPAY ==
[2018-12-14 22:44] LABS: Bilirubin Small (Negative); Blood Large (Negative); Clarity Cloudy (Clear); Glucose Negative (Negative); Ketones Trace mg/dL (Negative); Leukocyte Esterase Moderate (Negative); Nitrite Negative (Negative); Specific Gravity 1.025 (1.005-1.025); Urobilinogen 0.2 EU/dL (Up TO 0.2); pH 6.5 (5-8)
[2018-12-14 22:54] LABS: WBC >50 HPF (0-5)
[2018-12-14 22:55] LABS: Bacteria Many HPF (Negative); C & S Indicated? C&S Done As Ordered; Casts Negative LPF (Negative); Crystals Negative HPF (Negative); Epithelial Cells Rare HPF (Negative); Mucus Negative (Negative); Other Cells Rare Renal (Negative); RBC >50 (0-2)
== END 2018-12-14 22:45 ==
LOC: LBN 22:25
PROVIDERS: PCP Family Medicine; Visit Provider Family Medicine
DX: R82.90 Unspecified abnormal findings in urine (principal); Z87.440 Personal history of urinary (tract) infections
CPT/HCPCS: 87077; 81003; 81015; 87086; 87186

== ENCOUNTER → 2018-12-26 13:10 | Outpatient (BNVA) | payer MEDICARE, MEDICAID, SELFPAY | PROVIDERS: PCP Family Medicine; Referring Provider Family Medicine; Visit Provider Psychiatry & Neurology Neurology | DX: G40.109 Localization-related (focal) (partial) symptomatic epilepsy and epileptic syndromes with simple partial seizures, not intractable, without status epilepticus (principal); I61.1 Nontraumatic intracerebral hemorrhage in hemisphere, cortical; R25.1 Tremor, unspecified; G21.4 Vascular parkinsonism; I10 Essential (primary) hypertension; F01.50 Vascular dementia, unspecified severity, without behavioral disturbance, psychotic disturbance, mood disturbance, and anxiety | CPT/HCPCS: 99214 ==

== ENCOUNTER 2019-01-13 08:45 | Day surgery (SDC) | payer MEDICARE, MEDICAID, SELFPAY ==
[2019-01-13 09:19] VITALS: BP 134/66; PULSE 75; RESP 16; TEMP 36.2; O2SAT 95
--- NOTE | 2019-01-13 09:21 | W.PM.HP.N ---
Date of service: 01/13/19 Time of Service: 09:22 Assessment and Plan Assessment and plan (1) Hydronephrosis: Status: Chronic Assessment and plan: We will proceed with cystoscopy and stent change History of Present Illness History of Present Illness Chief Complaint: Right hydronephrosis Narrative: This is a 73-year-old woman who was initially seen when she had urosepsis and right hydronephrosis. She improved with antibiotics and a right ureteral stent. The patient's family has elected not to have more aggressive treatment such as ureteroscopy. She comes in to have her stent changed every 2 months or so. She has not had any symptomatic UTIs since her last stent change Review of Systems Constitutional Constitutional: Denies fever(s) Cardiovascular Cardiovascular: Denies chest pain Respiratory Respiratory: Denies cough and Denies hemoptysis Gastrointestinal Gastrointestinal: Denies abdominal pain [facility] Medical History (Updated 01/13/19 @ 09:28 by Malik Espino) Antibiotic-associated diarrhea (Resolved) Cerebral aneurysm, nonruptured (Chronic 09/15/15) Decreased vision (Chronic 02/03/14) left eye Dementia (Chronic) vascular Depression (Chronic 02/03/14) Diabetes (Chronic) Son states today 10/17/18 pt no longer treated for this. 01/13/19 pt son states she is no longer a diabetic DVT (deep venous thrombosis) (Resolved) Herpes labialis (Chronic) pt. 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 What type of physical activity do you participate in: none Additional Social history: pt states she does not like staying at the [facility] Medications and Allergies Home Medications Medication Instructions Recorded Confirmed Type blood-glucose meter [OneTouch #1 kit 07/07/15 12/26/18 History Ultra2 Meter] Blood Glucose Test #100 strip 09/05/16 12/26/18 History lancets #100 ea 09/05/16 12/26/18 History lamotrigine 200 mg PO BID #180 tab 03/05/17 12/26/18 Rx famotidine 20 mg PO DAILY #90 tab-cap 04/30/17 12/26/18 Rx acetaminophen 1,000 mg PO Q6H PRN 07/18/17 12/26/18 History ergocalciferol (vitamin D2) 1 cap PO DIRECTED 07/18/17 12/26/18 History [Vitamin D2] acidophilus-pectin, citrus 1 cap PO BID cap 07/30/17 12/26/18 Rx multivitamin 1 tab PO DAILY 11/27/17 12/26/18 History bismuth subsalicylate [Bismatrol] 30 ml PO DAILY PRN PRN 01/07/18 12/26/18 History citalopram 10 mg tablet 20 mg PO DAILY tab-cap 02/27/18 12/26/18 History trazodone 50 mg PO TID 06/16/18 12/26/18 History docusate sodium 100 mg tablet 100 mg PO DAILY 07/25/18 12/26/18 History gabapentin 100 mg capsule 100 mg PO TID PRN 07/25/18 12/26/18 History carbamazepine [Tegretol] 200 mg PO TID 10/15/18 12/26/18 History mirtazapine [Remeron] 15 mg PO QHS 10/15/18 12/26/18 History diazepam 2 mg tablet 2 mg PO BID #60 tab 11/21/18 12/26/18 Rx levofloxacin 750 mg PO DAILY #7 tab 11/23/18 12/26/18 Rx epinephrine 0.3 mg/0.3 mL 0.3 mg IM ONCE 11/26/18 12/26/18 History injection, auto-injector methylprednisolone sodium succ 125 125 mg IM ONCE PRN each 11/26/18 12/26/18 History mg solution for injection lamotrigine 25 mg tablet 50 mg PO BID #60 tab 12/26/18 12/26/18 Rx triamcinolone acetonide 0.1 % 1 applic TP BID 12/26/18 12/26/18 History topical cream Allergies Allergy/AdvReac Type Severity Reaction Status Date / Time Penicillins Allergy Intermediate Hives Unverified 01/13/19 09:34 aspirin Allergy Mild Unverified 01/13/19 09:34 promethazine AdvReac Intermediate HALLUCINATI Unverified 01/13/19 09:34 ONS Sulfa (Sulfonamide AdvReac Unknown Verified 01/13/19 09:34 Antibiotics) Exam Narrative Exam Narrative: She is a frail older woman She does not appear septic or toxic Her vital signs are documented elsewhere Her chest wall motion is normal. She does not appear short of breath at rest. Her lungs are clear with decreased breath sounds bilaterally Cardiac exam shows a regular rate and rhythm Her abdomen is soft with no mass She has left hemiparesis She is awake and alert
[2019-01-13] MEDS: Lactated Ringers 1,000 ML 80 ML IV (10:15)
[2019-01-13] MEDS: Omnipaque 300 MG/ML 50 ML BTL (10:30)
[2019-01-13] MEDS: Lidocaine 2% Jelly 6 ML SYR (10:30)
--- NOTE | 2019-01-13 10:40 | PDOC.DSDIS_ITS ---
Discharge Plan Disposition Patient Disposition: [facility] (LEVEL 2) [facility] Discharge Details Attending Provider: Cody Guevara Primary Care Provider: Carol Nava Home Meds and New Rx's Prescriptions: No Action multivitamin tablet 1 tab PO DAILY RF: 0 epinephrine [EpiPen] 0.3 mg/0.3 mL auto-injector 0.3 mg IM ONCE RF: 0 methylprednisolone sodium succ 125 mg recon soln 125 mg IM ONCE PRNRF: 0 triamcinolone acetonide 0.1 % cream 1 applic TP BID RF: 0 lamotrigine 25 mg tablet 50 mg PO BID Qty: 60 RF: 0 citalopram 10 mg tablet 20 mg PO DAILY RF: 0 gabapentin 100 mg capsule 100 mg PO TID PRNRF: 0 docusate sodium 100 mg tablet 100 mg PO DAILY RF: 0 (DME) blood-glucose meter [Neteven Ultra2 Meter] 1 EACH kit 1 ea Miscellaneous DAILY Qty: 1 RF: 0 (DME) Blood Glucose Test 1 EACH strip 1 ea Miscellaneous DAILY Qty: 100 RF: 4 (DME) lancets 1 EACH misc 1 ea Miscellaneous DAILY Qty: 100 RF: 4 lamotrigine 200 MG tablet 200 mg PO BID Qty: 180 RF: 3 famotidine 20 MG tablet 20 mg PO DAILY Qty: 90 RF: 4 diazepam [Valium] 2 mg tablet 2 mg PO BID Qty: 60 RF: 3 acetaminophen 500 MG tablet 1,000 mg PO Q6H PRNRF: 0 ergocalciferol (vitamin D2) [Vitamin D2] 50,000 UNITS capsule 1 cap PO DIRECTED RF: 0 acidophilus-pectin, citrus 1 CAP tablet 1 cap PO BID RF: 0 trazodone 50 mg Tablet 50 mg PO TID RF: 0 levofloxacin 750 mg tablet 750 mg PO DAILY Qty: 7 RF: 0 bismuth subsalicylate [Bismatrol] 262 mg/15 mL Suspension 30 ml PO DAILY PRN PRNRF: 0 carbamazepine [Tegretol] 200 mg Tablet 200 mg PO TID RF: 0 mirtazapine [Remeron] 15 mg Tablet 15 mg PO QHS RF: 0 Discharge Instructions Additional Instructions: no office appt needed, but pt needs to be scheduled for next cystoscopy with stent change in @ 2 months (my office will arrange) Activity:: Activity as Tolerated Shower/Bathe:: 24 hours Diet:: As Tolerated Discharge Orders Discharge Orders: Discharge Order (Routine); Ordered 01/13/19 Ordered By: Cody Guevara DS: Diagnosis Discharge Diagnosis (1) Hydronephrosis: Status: Chronic
--- NOTE | 2019-01-13 11:12 | DI.RAD_ITS ---
EXAM: XR RETROGRADE IN OR INDICATION: right stent exchange. COMPARISON: No exams were available for comparison TECHNIQUE: 2D digital imaging was performed. Fluoro time: 24.4 sec, 3.27 mGy FINDINGS: Fluoroscopy was utilized by Dr. Guevara during evaluation of the right renal collecting system. Please refer to the procedure report for complete details.
[2019-01-13 11:25] VITALS: BP 134/70; PULSE 69; RESP 16; TEMP 36.1; O2SAT 96
--- NOTE | 2019-01-13 14:50 | ROE_ITS ---
DATE OF PROCEDURE: January 13, 2019 PREOPERATIVE DIAGNOSIS: Right hydronephrosis. POSTOPERATIVE DIAGNOSIS: Same. PROCEDURE: Cystoscopy; remove right ureteral stent; right retrograde pyelogram; insert right uretera l stent. SURGEON: Cody Guevara M.D. ANESTHESIA: MAC with local. COMPLICATIONS: None. HISTORY: This is a 73-year-old woman who has a history of right hydronephrosis and urosepsis due to proteus. She improved with placement of a ureteral stent and systemic antibiotics. Her family is not interested in more invasive treatments, so we've been changing her stent every 2 to 3 months. During the initial stent change the stent was quite calcified, so we've been changing the stent more frequently than usual. OPERATIVE REPORT: The patient was brought to the Operating Room on 01/13/19. After successful induct ion of general anesthesia, she was placed in the dorsal lithotomy position. Her genitalia was preppe d and draped. A 22 Micronesian rigid cystoscope was passed through the urethra into the bladder. The bladder was inspec jasmin with a 30-degree lens. The stent could be seen protruding from the right ureteral orifice. The stent was moderately calcifi ed. I was able to grasp the stent using an alligator forceps and bring the stent out to the level of the urethral meatus. A Glidewire was advanced through the lumen of the stent and was visualized in the kidney fluoroscopic ally. The stent was removed and a 6 Micronesian access catheter was advanced over the wire. A retrograde pyelog christian was obtained by injecting Omnipaque through the access catheter under fluoroscopic guidance. Thi s allowed us to outline the collecting system. The wire was then replaced and a new 4.8 Micronesian variable-length stent was advanced over the wire. Th e proximal end of the stent was curled within the lower pole calyx and the distal end was curled with in the bladder. The patient tolerated this procedure well with no complications.
== END 2019-01-13 11:45 | disposition intermediate care facility (04) ==
PROVIDERS: PCP Family Medicine; Visit Provider Urology
PROC: (CPT 52332; principal; 2019-01-13 10:00)
DX: N13.30 Unspecified hydronephrosis (principal); G20 Parkinson's disease; I10 Essential (primary) hypertension; Z96.0 Presence of urogenital implants
CPT/HCPCS: 52332; NC; 74420; J1100; J2405; Q9967

== ENCOUNTER 2019-01-23 15:24 | Outpatient (REF) | payer MEDICARE, MEDICAID, SELFPAY ==
[2019-01-23 15:59] LABS: Absolute Basophil Count 0.02 k/cumm (0.0-0.2); Absolute Eosinophil Count 0.07 k/cumm (0.0-0.7); Absolute Lymphocyte Count 1.05 k/cumm (1.2-3.4); Basophils % 0.6; HCT 36.7 % (36.0-46.0); HGB 11.8 g/dL (12.0-15.5); Lymphocytes % 30.5; Mean Corp. HGB Concentration 32.2 g/dL (32.0-36.0); Mean Corpuscular Hemoglobin 29.7 pg (27.0-33.0); Mean Corpuscular Volume 92.4 fL (80-95); Mean Platelet Volume 8.8 fL (8.0-11.0); Monocytes % 11.6; Neutrophils % 55.3; Platelet Count 251 x1000/uL (130-400); RBC 3.97 m/cumm (4.00-5.20); RBC Distribution Width 12.5 % (11.7-14.6); White Blood Cell Count 3.44 k/cumm (4.4-10.8)
[2019-01-23 16:01] LABS: ALT 16 U/L (14-59); AST 17 U/L (15-37); Albumin 3.8 g/dL (3.4-5.0); Alkaline Phosphatase 139 U/L (46-116); Anion Gap 9.1 mmol/L (3-11); BUN 9 mg/dL (7-18); Bilirubin, Total 0.2 mg/dL (0.2-1.0); CO2 29.9 mmol/L (21.0-32.0); CREATININE 0.85 mg/dL (0.55-1.02); Chloride 102 mmol/L (98-107); Glucose 107 mg/dL (74-106); Potassium 3.8 mmol/L (3.5-5.1); Sodium 141 mmol/L (136-145); TROPONIN-I 10.5 ug/mL (4.0-12.0); Total Protein 7.1 g/dL (6.4-8.2)
== END 2019-01-23 15:44 ==
LOC: LBN 15:24
PROVIDERS: PCP Family Medicine; Visit Provider Nurse Practitioner Gerontology
DX: I10 Essential (primary) hypertension (principal); I69.352 Hemiplegia and hemiparesis following cerebral infarction affecting left dominant side; F33.0 Major depressive disorder, recurrent, mild; Z51.81 Encounter for therapeutic drug level monitoring; G40.89 Other seizures; R68.89 Other general symptoms and signs; Z79.899 Other long term (current) drug therapy
CPT/HCPCS: 80053; 80175; 80156; 85025

== ENCOUNTER 2019-01-24 14:13 | Outpatient (REF) | payer MEDICARE, MEDICAID, SELFPAY ==
[2019-01-24 15:36] LABS: Bilirubin Small (Negative); Blood Small (Negative); Clarity Sl Cloudy (Clear); Glucose Negative (Negative); Ketones Negative (Negative); Leukocyte Esterase Moderate (Negative); Nitrite Negative (Negative); Specific Gravity 1.025 (1.005-1.025); Urobilinogen 0.2 EU/dL (Up TO 0.2)
[2019-01-24 15:46] LABS: Bacteria Many HPF (Negative); C & S Indicated? Yes; Casts Negative LPF (Negative); Crystals Negative HPF (Negative); Epithelial Cells Few HPF (Negative); Mucus Trace (Negative); RBC 20-50 HPF (0-2); WBC >50 HPF (0-5)
== END 2019-01-24 14:33 ==
LOC: LBN 14:13
PROVIDERS: PCP Family Medicine; Visit Provider Nurse Practitioner Gerontology
DX: R45.1 Restlessness and agitation (principal)
CPT/HCPCS: 87077; 81003; 81015; 87086; 87186

== ENCOUNTER 2019-01-28 11:21 | Outpatient (REF) | payer MEDICARE, MEDICAID, SELFPAY ==
[2019-01-28 12:53] LABS: Abs Immature Grans 0.01 k/cumm (0.0-0.09); Absolute Basophil Count 0.01 k/cumm (0.0-0.2); Absolute Eosinophil Count 0.14 k/cumm (0.0-0.7); Absolute Lymphocyte Count 1.37 k/cumm (1.2-3.4); Absolute Monocyte Count 0.59 k/cumm (0.11-0.7); Basophils % 0.3; Eosinophils % 3.6; HCT 34.3 % (36.0-46.0); HGB 10.9 g/dL (12.0-15.5); Immature Grans % 0.3; Lymphocytes % 34.9; Mean Corp. HGB Concentration 31.8 g/dL (32.0-36.0); Mean Corpuscular Hemoglobin 29.8 pg (27.0-33.0); Mean Corpuscular Volume 93.7 fL (80-95); Monocytes % 15.1; Neutrophils % 45.8; Platelet Count 233 x1000/uL (130-400); RBC 3.66 m/cumm (4.00-5.20); RBC Distribution Width 12.6 % (11.7-14.6); White Blood Cell Count 3.92 k/cumm (4.4-10.8)
[2019-01-28 13:08] LABS: ALT 8 U/L (14-59); AST 14 U/L (15-37); Albumin 3.3 g/dL (3.4-5.0); Alkaline Phosphatase 109 U/L (46-116); Anion Gap 9.1 mmol/L (3-11); BUN 12 mg/dL (7-18); Bilirubin, Total 0.2 mg/dL (0.2-1.0); CO2 28.9 mmol/L (21.0-32.0); CREATININE 0.73 mg/dL (0.55-1.02); Calcium 8.4 mg/dL (8.5-10.1); Chloride 107 mmol/L (98-107); Glucose 92 mg/dL (74-106); Sodium 145 mmol/L (136-145); TROPONIN-I 7.8 ug/mL (4.0-12.0); Total Protein 6.2 g/dL (6.4-8.2)
[2019-01-29 17:10] LABS: Lamotrigine 4.7 mcg/mL (2.5 - 15.0)
== END 2019-01-28 11:41 ==
LOC: LBN 11:21
PROVIDERS: PCP Family Medicine; Visit Provider Nurse Practitioner Gerontology
DX: R56.9 Unspecified convulsions (principal); R53.83 Other fatigue; Z51.81 Encounter for therapeutic drug level monitoring; Z79.899 Other long term (current) drug therapy
CPT/HCPCS: 80053; 80175; 80156; 85025

== ENCOUNTER → 2019-01-30 14:32 | Outpatient (BNVA) | payer MEDICARE, MEDICAID, SELFPAY | PROVIDERS: PCP Family Medicine; Referring Provider Family Medicine; Visit Provider Psychiatry & Neurology Neurology | DX: G40.109 Localization-related (focal) (partial) symptomatic epilepsy and epileptic syndromes with simple partial seizures, not intractable, without status epilepticus (principal); R25.1 Tremor, unspecified; G21.4 Vascular parkinsonism | CPT/HCPCS: 99214 ==

== ENCOUNTER 2019-02-05 00:23 | Emergency (ER) | payer MEDICARE, MEDICAID, SELFPAY ==
[2019-02-05] VITALS (14 sets, daily range): BP systolic 98–155; BP diastolic 65–76; PULSE 65–80; RESP 18–28; TEMP 36.7–36.8; O2SAT 97–98
--- NOTE | 2019-02-05 00:34 | ED.GENADUL_ITS ---
Discharge Plan Disposition Patient Disposition: SNF (LEVEL 1) [facility] Condition: Stable Discharge Details Chief Complaint: AMS/LOC Clinical Impression: Fall at [facility], Hematoma of scalp, Closed T3 fracture, UTI (urinary tract infection) Primary Care Provider: Carol Nava ED Provider: Luis Martinez [place] Meds and New Rx's Prescriptions: Continued multivitamin tablet 1 tab PO DAILY RF: 0 epinephrine [EpiPen] 0.3 mg/0.3 mL auto-injector 0.3 mg IM ONCE RF: 0 lamotrigine 25 mg tablet 50 mg PO BID Qty: 60 RF: 0 citalopram 10 mg tablet 20 mg PO DAILY RF: 0 gabapentin 100 mg capsule 100 mg PO TID PRNRF: 0 docusate sodium 100 mg tablet 100 mg PO DAILY RF: 0 (DME) blood-glucose meter [Descubre.la Ultra2 Meter] 1 EACH kit 1 ea Miscellaneous DAILY Qty: 1 RF: 0 (DME) Blood Glucose Test 1 EACH strip 1 ea Miscellaneous DAILY Qty: 100 RF: 4 (DME) lancets 1 EACH misc 1 ea Miscellaneous DAILY Qty: 100 RF: 4 lamotrigine 200 MG tablet 200 mg PO BID Qty: 180 RF: 3 famotidine 20 MG tablet 20 mg PO DAILY Qty: 90 RF: 4 acetaminophen 500 MG tablet 1,000 mg PO Q6H PRNRF: 0 ergocalciferol (vitamin D2) [Vitamin D2] 50,000 UNITS capsule 1 cap PO DIRECTED RF: 0 acidophilus-pectin, citrus 1 CAP tablet 1 cap PO BID RF: 0 trazodone 50 mg Tablet 50 mg PO TID RF: 0 quetiapine [Seroquel] 25 mg Tablet 25 mg PO HS RF: 0 lorazepam [Ativan] 0.5 mg Tablet 0.5 mg PO Q8H PRN PRNRF: 0 Solu-Medrol (PF) 125 mg/2 mL Recon Soln 125 mg IM PRN PRNRF: 0 tedizolid 200 mg Tablet 200 mg PO BID RF: 0 bismuth subsalicylate [Bismatrol] 262 mg/15 mL Suspension 30 ml PO DAILY PRN PRNRF: 0 carbamazepine [Tegretol] 200 mg Tablet 200 mg PO TID RF: 0 mirtazapine [Remeron] 15 mg Tablet 15 mg PO QHS RF: 0 Discharge Instructions Additional Instructions: Please continue the antibiotic that was started on the for UTI. There is a compression fracture of T3 which is new compared to November 11 of this year. Patient is not tender in this area and does not appear to have significant thoracic pain. Likely subacute. Continue medications as before. Follow-up with primary care as needed. Return to ED for fever, lethargy, vomiting, neurologic changes, other concerns or problems. Referrals: Carol Nava MD, [place] [Primary Care Provider] - Medical Decision Making Patient here because of report of altered mental status. I do not know her baseline. Family does seem to think she is a little more altered than usual. She is complaining of headache. Will obtain head and neck CT scan. We will also check labs and a urine. Her Tegretol and Lamictal levels have been checked twice already this month and are fine. She is being treated for UTI. She has no respiratory symptoms with clear lungs, will defer chest x-ray. Abdomen is benign. 01:45 - Patient's labs are fine. Normal white count and kidney function. Urine is still infected but patient just started on tedizolid with first dose tonight. CT head negative except for scalp hematoma. Cervical spine CT negative for C- spine fracture. There does appear to be a new T3 fracture. Patient does not have tenderness of the TLS spine. However, given new fracture and old bruising will at this point scan to TLS spine and get a pelvis x-ray. 02:45 -imaging of the TLS spine shows nothing new other than the T3 fracture seen on C-spine scan. This is new since November 11 of this year. However, she has no significant tenderness here. Compression fracture with moderate loss of height in an area of significant curvature. Suspect that this did not occur tonight. I think she is safe for discharge back to [facility] at this point. I did review her MAR further. Seroquel was started in the last week at night. Possibly may explain why family and staff thinks her mental status is a little off. To me she has been appropriate, follows commands, is in no acute distress. Only other finding on CT shows dilitation of the right renal pelvis despite having stent in place. This stent was just placed by Dr. Guevara this month. Suspect the dilitation is chronic in nature, not a malfunctioning stent. Medical Records Medical records reviewed: Yes I reviewed the patient's medical records. Lab Data Lab results reviewed: Yes I reviewed the patient's lab results. HPI General Mode of arrival: EMS . Date/Time Provider Initiated Documentation: 02/05/19 00:34 . Limitations to Documentation: no limitations . Information obtained by: patient, family, EMS and old records reviewed . HPI Narrative: Patient is brought in by EMS for evaluation of reported altered mental status. Patient reportedly fell tonight around 9 PM. Staff at the [facility] felt her mental status was not baseline. She is complaining of headache. She is complaining of the collar causing her discomfort but denies neck pain otherwise. She arrives with her eyes closed but answering questions appropriately and following commands. She denies having pain elsewhere in her head. No reported fever. Old records review that she has been more agitated this month than usual. She has not had significant med changes. Lamictal was increased a little. Valium added. Tegretol and Lamictal levels have been normal. She is on antibiotics for UTI. Family reports that patient has been having falls more so than usual over the last few days. They feel she is not really baseline either tonight. Related Data Home Medications Medication Instructions Recorded Confirmed blood-glucose meter [Fixationaluch #1 kit 07/07/15 12/26/18 Ultra2 Meter] Blood Glucose Test #100 strip 09/05/16 12/26/18 lancets #100 ea 09/05/16 12/26/18 lamotrigine 200 mg PO BID #180 tab 03/05/17 02/05/19 famotidine 20 mg PO DAILY #90 tab-cap 04/30/17 02/05/19 acetaminophen 1,000 mg PO Q6H PRN 07/18/17 02/05/19 ergocalciferol (vitamin D2) 1 cap PO DIRECTED 07/18/17 02/05/19 [Vitamin D2] acidophilus-pectin, citrus 1 cap PO BID cap 07/30/17 02/05/19 multivitamin 1 tab PO DAILY 11/27/17 02/05/19 bismuth subsalicylate [Bismatrol] 30 ml PO DAILY PRN PRN 01/07/18 02/05/19 citalopram 10 mg tablet 20 mg PO DAILY tab-cap 02/27/18 02/05/19 trazodone 50 mg PO TID 06/16/18 02/05/19 docusate sodium 100 mg tablet 100 mg PO DAILY 07/25/18 02/05/19 gabapentin 100 mg capsule 100 mg PO TID PRN 07/25/18 02/05/19 carbamazepine [Tegretol] 200 mg PO TID 10/15/18 02/05/19 mirtazapine [Remeron] 15 mg PO QHS 10/15/18 02/05/19 epinephrine 0.3 mg/0.3 mL 0.3 mg IM ONCE 11/26/18 02/05/19 injection, auto-injector lamotrigine 25 mg tablet 50 mg PO BID #60 tab 12/26/18 02/05/19 Solu-Medrol (PF) 125 mg IM PRN PRN 02/05/19 02/05/19 lorazepam [Ativan] 0.5 mg PO Q8H PRN PRN 02/05/19 02/05/19 quetiapine [Seroquel] 25 mg PO HS 02/05/19 02/05/19 tedizolid 200 mg PO BID 02/05/19 02/05/19 Previous Rx's Medication Instructions Recorded lamotrigine 200 mg PO BID #180 tab 03/05/17 famotidine 20 mg PO DAILY #90 tab-cap 04/30/17 acidophilus-pectin, citrus 1 cap PO BID cap 07/30/17 lamotrigine 25 mg tablet 50 mg PO BID #60 tab 12/26/18 Allergies Allergy/AdvReac Type Severity Reaction Status Date / Time Penicillins Allergy Intermediate Hives Unverified 02/05/19 00:32 aspirin Allergy Mild Unverified 02/05/19 00:32 promethazine AdvReac Intermediate HALLUCINATI Unverified 02/05/19 00:32 ONS Sulfa (Sulfonamide AdvReac Unknown Verified 02/05/19 00:32 Antibiotics) General Stated Complaint: AMS/LOC ANDRZEJ: 2 Review of Systems Unobtainable due to (not obtained due to dementia) [facility] Medical History Antibiotic-associated diarrhea (Resolved) Cerebral aneurysm, nonruptured (Chronic 09/15/15) Decreased vision (Chronic 12/23/14) left eye Dementia (Chronic) vascular Depression (Chronic 02/03/14) Diabetes (Chronic) Son states today 10/17/18 pt no longer treated for this. 01/13/19 pt son states she is no longer a diabetic DVT (deep venous thrombosis) (Resolved) Herpes labialis (Chronic) pt. 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 Exam Narrative Exam Narrative: Vitals: Afebrile. Mildly elevated systolic pressure otherwise normal vitals and normal room air pulse ox. Const: Elderly female collared in NAD. HEENT: NC. Contusion above the left eyebrow. No facial bony tenderness. Right TM not visualized due to cerumen. Left TM without hemotympanum. Eyes: Pupils are round and midrange, reactive to light. Neck: Trachea midline. No posterior spinal tenderness. Lungs: Normal respiratory effort. Lungs are clear. No chest wall tenderness. Cor: RRR without murmur/gallop. Good radial pulses. GI: Soft. NT/ND. No guarding or rebound. Neuro: Awake and alert with a GCS of 13. She keeps her eyes closed but will open to command. She seems a little confused but I do not know her baseline. She has prior stroke with left-sided weakness. She is moving all 4 extremities. She follows commands. Back: No TLS spine tenderness. Ext: Left hand/wrist in the splint for contracture related to previous stroke. No obvious deformity. No tenderness. Able to range her hips passively without pain. Skin: Warm and dry. No lacs. Old bruising right scapula area and right lateral thigh/hip area. Course Vital Signs Vital signs: Vital Signs Temperature 98.1 F 02/05/19 00:20 Pulse 74 02/05/19 00:20 Respiratory Rate 18 02/05/19 00:20 Blood Pressure 143/76 H 02/05/19 00:20 Pulse Oximetry 97 02/05/19 00:20 Temperature 98.1 F 02/05/19 00:20 Temperature Source Skin 02/05/19 00:20 Pulse 74 02/05/19 00:20 Respiratory Rate 18 02/05/19 00:20 Respiratory Effort 02/05/19 00:28 Blood Pressure 143/76 H 02/05/19 00:20 Blood Pressure Position Supine 02/05/19 00:20 Pulse Oximetry 97 02/05/19 00:20 Oxygen Delivery Method Room Air 02/05/19 00:20 Oxygen Flow Rate 0 02/05/19 00:20
[2019-02-05 00:55] LABS: Abs Immature Grans 0.01 k/cumm (0.0-0.09); Absolute Basophil Count 0.01 k/cumm (0.0-0.2); Absolute Lymphocyte Count 1.93 k/cumm (1.2-3.4); Absolute Neutrophil Count 2.68 k/cumm (1.2-6.7); Basophils % 0.2; Eosinophils % 1.8; HCT 36.3 % (36.0-46.0); HGB 11.7 g/dL (12.0-15.5); Immature Grans % 0.2; Lymphocytes % 35.5; Mean Corp. HGB Concentration 32.2 g/dL (32.0-36.0); Mean Corpuscular Hemoglobin 29.9 pg (27.0-33.0); Mean Corpuscular Volume 92.8 fL (80-95); Mean Platelet Volume 8.2 fL (8.0-11.0); Monocytes % 12.9; Neutrophils % 49.4; Platelet Count 226 x1000/uL (130-400); RBC 3.91 m/cumm (4.00-5.20); RBC Distribution Width 12.6 % (11.7-14.6); White Blood Cell Count 5.43 k/cumm (4.4-10.8)
--- NOTE | 2019-02-05 00:57 | DI.CT_ITS ---
EXAM: CT HEAD CERVICAL SPINE WO CLINICAL HISTORY: trauma/fall at [facility] TECHNIQUE: The exam was performed utilizing the usual protocol. COMPARISON: CT HEAD CERV SPINE FACIAL WO from 11/23/2018 FINDINGS: CT head: There is patient motion artifact. There is cerebral atrophy consistent with the patient's age. Area s of decreased attenuation are present in the white matter consistent with small vessel ischemic dise ase. There is a large area of encephalomalacia involving the right parietal occipital lobe region. No acute intracranial hemorrhage is present. There is no acute midline shift or mass effect. Ventri cles are intact. The basilar cisterns are patent. There is a prior right occipital and parietal furniture crater niotomy. No acute fracture is identified. The visualized paranasal sinuses are clear as are the mas toid air cells. There is a scalp hematoma overlying the left frontal bone. CT cervical spine: There is patient motion artifact. There is normal alignment of the cervical spine. No acute fractur es or subluxations are seen in the cervical spine. There is a new compression fracture involving the T3 vertebral body. This was not apparent on the examination from 11/11/2018. There is moderate los s of the height of the vertebral body. No central spinal canal stenosis is seen. The prevertebral s oft tissues are unremarkable. The lung apices are clear. IMPRESSION: 1. No acute intracranial process. 2. Left frontal scalp hematoma. 3. No acute fracture or subluxation of the cervical spine. 4. New moderate compression fracture of the T3 vertebral body.
[2019-02-05 01:04] LABS: ALT 17 U/L (14-59); AST 17 U/L (15-37); Albumin 3.6 g/dL (3.4-5.0); Alkaline Phosphatase 115 U/L (46-116); Anion Gap 9.7 mmol/L (3-11); BUN 12 mg/dL (7-18); Bilirubin, Total 0.2 mg/dL (0.2-1.0); CO2 30.3 mmol/L (21.0-32.0); CREATININE 0.78 mg/dL (0.55-1.02); Calcium 9.1 mg/dL (8.5-10.1); Chloride 106 mmol/L (98-107); Glucose 102 mg/dL (74-106); Potassium 3.8 mmol/L (3.5-5.1); Sodium 146 mmol/L (136-145); Total Protein 7.4 g/dL (6.4-8.2)
[2019-02-05 01:25] LABS: Bilirubin Negative (Negative); Blood Small (Negative); Clarity Clear (Clear); Glucose Negative (Negative); Ketones Negative (Negative); Leukocyte Esterase Moderate (Negative); Nitrite Negative (Negative); Specific Gravity 1.025 (1.005-1.025); Urobilinogen 0.2 EU/dL (Up TO 0.2)
[2019-02-05 01:29] LABS: Bacteria Few HPF (Negative); C & S Indicated? Yes; Casts Negative LPF (Negative); Crystals Negative HPF (Negative); Epithelial Cells Few HPF (Negative); Mucus Negative (Negative); WBC 20-50 HPF (0-5)
--- NOTE | 2019-02-05 01:29 | DI.VRAD_ITS ---
PROCEDURE INFORMATION: Exam: CT Head Without Contrast Exam date and time: 02/05/2019 12:29 AM Age: 73 years old Clinical indication: Injury; Initial encounter; Blunt trauma; Consciousness not specified; Injury date: 02/04/19; Fall at [facility], neck and head pain TECHNIQUE: Imaging protocol: Computed tomography of the head without contrast. Radiation optimization: All CT scans at this facility use at least one of these dose optimization techniques: automated exposure control; mA and/or kV adjustment per patient size (includes targeted exams where dose is matched to clinical indication); or iterative reconstruction. COMPARISON: CT HEAD CERVICAL SPINE WO 11/11/2018 2:12 AM FINDINGS: Brain: Periventricular white matter areas of decreased density which are likely secondary to chronic ischemia from microvascular change. Area of encephalomalacia or old ischemia within the right parietal-occipital lobe region. No acute intracranial hemorrhage. Diffuse cerebral atrophy. Ventricles: Ventricular prominence in this patient with diffuse cerebral atrophy. Bones/joints: No acute fracture. Prior right parietal-occipital craniotomy. Sinuses: No significant disease of the paranasal sinuses. Mastoid air cells: No mastoiditis. Soft tissues: Left frontal scalp soft tissue edema. Vasculature: Arterial calcification. IMPRESSION: 1. No acute fracture. 2. Left frontal scalp soft tissue edema. 3. No acute intracranial findings. 4. Diffuse cerebral atrophy and age-related periventricular white matter changes. 5. Prior right parietal-occipital craniotomy with adjacent area of encephalomalacia or old ischemia within the right parietal-occipital lobe region. PROCEDURE INFORMATION: Exam: CT Cervical Spine Without Contrast Exam date and time: 02/05/2019 12:29 AM Age: 73 years old Clinical indication: Injury; Initial encounter; Blunt trauma; Consciousness not specified; Injury date: 02/04/19; Fall at [facility], neck and head pain TECHNIQUE: Imaging protocol: Computed tomography images of the cervical spine without contrast. Radiation optimization: All CT scans at this facility use at least one of these dose optimization techniques: automated exposure control; mA and/or kV adjustment per patient size (includes targeted exams where dose is matched to clinical indication); or iterative reconstruction. COMPARISON: CT HEAD CERVICAL SPINE WO 11/11/2018 2:12 AM FINDINGS: Vertebrae: Compared to 11/11/2018, new fracture of the T3 vertebral body with moderate loss of height. No acute fracture of the cervical spine. No subluxation. Discs/Spinal canal/Neural foramina: Scattered mild degenerative changes of the cervical spine. Soft tissues: Unremarkable. Lungs: Lung apices are normal. IMPRESSION: 1. Compared to 11/11/2018, new fracture of the T3 vertebral body with moderate loss of height. 2. No acute fracture or subluxation of the cervical spine. Dictated and Authenticated by: Maico Aponte MD. Ordering:BIANCA Smith MD
[2019-02-05] MEDS: Acetaminophen 500 MG TAB 1000 MG PO (01:55)
--- NOTE | 2019-02-05 02:05 | DI.CT_ITS ---
EXAM: CT THORACIC LUMBAR SPINE WO CLINICAL HISTORY: trauma/fall new t3 tx seen on cspine ct TECHNIQUE: The exam was performed utilizing the usual protocol. COMPARISON: No exams were available for comparison FINDINGS: CT thoracic spine: There is a fracture of the T3 vertebral body. There is moderate loss of height of the vertebral body . The fracture does not appear to extend into the posterior elements. No central spinal canal steno sis is seen. No other thoracic spine fracture is seen. Atelectatic changes are seen in the lung bas es. The soft tissues are unremarkable. CT lumbar spine: No acute fractures or subluxations in the lumbar spine are present. Old transverse process fractures are seen on the left. Note is made of an inferior vena cava filter. There is also a right nephrour eteral stent. There is persistent moderate to severe dilatation of the right renal pelvis. IMPRESSION: 1. Moderate compression fracture of the T3 vertebral body. 2. No acute fracture or subluxation in the lumbar spine.
--- NOTE | 2019-02-05 02:14 | DI.RAD_ITS ---
EXAM: XR PELVIS AP INDICATION: trauma/fall. COMPARISON: No exams were available for comparison TECHNIQUE: 2D digital imaging was performed. FINDINGS: No acute fracture or dislocation is present. The distal aspect of the right nephroureteral stent is seen. The distal pigtail is uncoiled. The soft tissues are unremarkable. IMPRESSION: No acute fracture or dislocation.
--- NOTE | 2019-02-05 02:37 | DI.VRAD_ITS ---
PROCEDURE INFORMATION: Exam: CT Thoracic Spine Without Contrast Exam date and time: 02/05/2019 1:42 AM Age: 73 years old Clinical indication: Injury; Initial encounter; Blunt trauma; Injury date: 02/04/19; Fall at [facility], new T3 FX seen on c-spine CT TECHNIQUE: Imaging protocol: Computed tomography images of the thoracic spine without contrast. Radiation optimization: All CT scans at this facility use at least one of these dose optimization techniques: automated exposure control; mA and/or kV adjustment per patient size (includes targeted exams where dose is matched to clinical indication); or iterative reconstruction. COMPARISON: No relevant prior studies available. FINDINGS: Vertebrae: Fracute of T3 with moderate loss of height. Discs/Spinal canal/Neural foramina: No spinal stenosis. Soft tissues: Unremarkable. IMPRESSION: Fracute of T3 with moderate loss of height. PROCEDURE INFORMATION: Exam: CT Lumbar Spine Without Contrast Exam date and time: 02/05/2019 1:42 AM Age: 73 years old Clinical indication: Injury; Initial encounter; Blunt trauma; Injury date: 02/04/19; Fall at [facility], new T3 FX seen on c-spine CT TECHNIQUE: Imaging protocol: Computed tomography images of the lumbar spine without contrast. Radiation optimization: All CT scans at this facility use at least one of these dose optimization techniques: automated exposure control; mA and/or kV adjustment per patient size (includes targeted exams where dose is matched to clinical indication); or iterative reconstruction. COMPARISON: No relevant prior studies available. FINDINGS: Tubes, catheters and devices: IVC filter. Vertebrae: Old fractures of the left transverse process of L2 and L3. No acute fracture. Discs/Spinal canal/Neural foramina: No spinal stenosis. No neural foraminal narrowing. Kidneys and ureters: Calcified right renal stones. Right internal ureteral stent. Moderate to severe dilatation of the right pelvocaliceal system despite the internal ureteral stent indicating possible stent occlusion on malfunction. Soft tissues: Unremarkable. IMPRESSION: 1. No acute fracture. 2. Calcified right renal stones. 3. Right internal ureteral stent. Moderate to severe dilatation of the right pelvocaliceal system despite the internal ureteral stent indicating possible stent occlusion on malfunction. Dictated and Authenticated by: Maico Aponte MD. Ordering:BIANCA Smith MD
--- NOTE | 2019-02-05 02:40 | DI.VRAD_ITS ---
PROCEDURE INFORMATION: Exam: XR Pelvis Exam date and time: 02/05/2019 1:42 AM Age: 73 years old Clinical indication: Injury; Initial encounter; Blunt trauma pelvic region; Injury date: 02/04/19; Fall at [facility] TECHNIQUE: Imaging protocol: XR pelvis. Views: 1 or 2 view. COMPARISON: CT ABD PELVIS WO CONTRAST 07/18/2017 9:46 AM FINDINGS: Tubes, catheters and devices: Uncoiled distal pigtail of the right internal ureteral stent. Bones/joints: No acute fracture. No dislocation. No degenerative change. Soft tissues: Unremarkable. IMPRESSION: No acute fracture. Dictated and Authenticated by: Maico Aponte MD. Ordering:BIANCA Smith MD
--- NOTE | 2019-02-05 03:11 | NUR.NOTE ---
report called to [facility] [employer] supervisor on duty Nursing Note:
== END 2019-02-05 03:20 | disposition skilled nursing facility (03) ==
PROVIDERS: Emergency Provider Emergency Medicine; PCP Family Medicine
DX: N39.0 Urinary tract infection, site not specified (principal); S00.03XA Contusion of scalp, initial encounter; S22.030A Wedge compression fracture of third thoracic vertebra, initial encounter for closed fracture; R51 Headache; W19.XXXA Unspecified fall, initial encounter; G20 Parkinson's disease; I10 Essential (primary) hypertension
CPT/HCPCS: 36415; 80053; 87077; 99284; 70450; 72125; 72128; 72131; 72170; 81003; 81015; 85025; 87086; 99285

== ENCOUNTER 2019-02-10 14:24 | Emergency (ER) | payer MEDICARE, MEDICAID, SELFPAY ==
[2019-02-10] VITALS (8 sets, daily range): BP systolic 143–152; BP diastolic 67–69; PULSE 65–77; RESP 11–24; TEMP 37; O2SAT 95–97
--- NOTE | 2019-02-10 15:09 | W.ED.GENAD ---
Discharge Plan Disposition Patient Disposition: SNF (LEVEL 1) [facility] Condition: Fair Discharge Details Chief Complaint: Orthopedic Clinical Impression: Falls frequently, Contusion of hip Primary Care Provider: Carol Nava ED Provider: Marianela Ball Home Meds and New Rx's Prescriptions: Continued multivitamin tablet 1 tab PO DAILY RF: 0 epinephrine [EpiPen] 0.3 mg/0.3 mL auto-injector 0.3 mg IM ONCE RF: 0 lamotrigine 25 mg tablet 50 mg PO BID Qty: 60 RF: 0 citalopram 10 mg tablet 20 mg PO DAILY RF: 0 gabapentin 100 mg capsule 100 mg PO TID PRNRF: 0 docusate sodium 100 mg tablet 100 mg PO DAILY RF: 0 (DME) blood-glucose meter [FirmPlay Ultra2 Meter] 1 EACH kit 1 ea Miscellaneous DAILY Qty: 1 RF: 0 (DME) Blood Glucose Test 1 EACH strip 1 ea Miscellaneous DAILY Qty: 100 RF: 4 (DME) lancets 1 EACH misc 1 ea Miscellaneous DAILY Qty: 100 RF: 4 lamotrigine 200 MG tablet 200 mg PO BID Qty: 180 RF: 3 famotidine 20 MG tablet 20 mg PO DAILY Qty: 90 RF: 4 acetaminophen 500 MG tablet 650 mg PO Q8H RF: 0 ergocalciferol (vitamin D2) [Vitamin D2] 50,000 UNITS capsule 1 cap PO DIRECTED RF: 0 acidophilus-pectin, citrus 1 CAP tablet 1 cap PO BID RF: 0 trazodone 50 mg Tablet 50 mg PO TID RF: 0 lorazepam [Ativan] 0.5 mg Tablet 0.5 mg PO Q8H PRN PRNRF: 0 Solu-Medrol (PF) 125 mg/2 mL Recon Soln 125 mg IM PRN PRNRF: 0 tedizolid 200 mg Tablet 200 mg PO BID RF: 0 bismuth subsalicylate [Bismatrol] 262 mg/15 mL Suspension 30 ml PO DAILY PRN PRNRF: 0 carbamazepine [Tegretol] 200 mg Tablet 200 mg PO TID RF: 0 mirtazapine [Remeron] 15 mg Tablet 15 mg PO QHS RF: 0 Discharge Instructions Instructions: Contusion in Adults (ED) Additional Instructions: Encourage water intake. Try to be safe as possible and ask for assistance with ambulation. Try to warn nursing staff before you imminently need to use the bathroom to allow them time to be able to assist you. If you fall again or develop other new/worsening symptoms please seek care urgently once again. Otherwise, please follow-up with primary care for reevaluation 1 week. Referrals: Carol Nava [place], [place] [Primary Care Provider] - Discharge Data Discharge Date/Time-TO BE ENTERED AT DEPARTURE: 02/10/19 17:18 Medical Decision Making Patient is a pleasant 73-year-old female, brought in via EMS accompanied by her 2 sons are present with her bedside. Patient reports that she did urinate, called for the nurse but she did not get immediate care, she attempted to ambulate by herself. Patient has chronic left-sided weakness associated with history of CVA. She reports that she fell on her side landing on her right hip. Denies LOC. Does not have any headache. No change in her vision. Denies any chest pain, shortness of breath. No nausea or vomiting. Denies abdominal pain. Denies any neck or back pain. Patient was collared by EMS. Patient has had multiple falls recently and has been seen here recently for the same. She has multiple areas of yellowed ecchymosis. Ecchymosis is noted on her face with a large area of ecchymosis near the left eye. Also has yellowed ecchymosis on the posterior aspect of the right chest wall, the posterior aspect of the right mid thigh. Patient is not anticoagulated. On exam, patient appears to be at her baseline. She endorsed some pain with palpation over the right hip but exam is otherwise unremarkable. No evidence of new trauma to her head. Normal neurologic exam for the patient with left-sided weakness and contractures of the left hand noted. No pain with palpation elsewhere. No midline tenderness. No pain with compression of the chest wall, no pelvic pain. Abdomen is benign. Lungs are clear. No shortening or rotational deformities are noted of the affected leg. At this point, since the only injured area is the patient's right hip. We will plan for imaging of this. Cervical collar was cleared this patient is endorsing no midline tenderness with palpation and has full range of motion without discomfort. FINDINGS: Tubes, catheters and devices: Ureteral stent again noted in the right pelvis Bones/joints: There is no evidence of acute fracture.There is no evidence of malalignment or dislocation. Soft tissues: Unremarkable. IMPRESSION: There is no evidence of acute fracture.There is no evidence of malalignment or dislocation. Patient is feeling much improved. She was able to Stand to the wheelchair unassisted. I discussed these findings at length with the patient and her sons. My primary concern today is that the patient continues to have falls. There is no seem to be an underlying source of her falls but rather mechanically driven. This has been worked up historically. We discussed safety measures that the patient in the [facility] may be able to take to help ensure her safety moving forward. I have asked that she follow-up with primary care for reevaluation next week. They are given strict return precautions. All of their questions and concerns were addressed in agreement this plan. HPI General Mode of arrival: EMS. Date/Time Provider Initiated Documentation: 02/10/19 15:08. Limitations to Documentation: no limitations (hx of dementia but answering clearly at this time). Information obtained by: patient, family (2 sons), EMS and RN notes reviewed. HPI Narrative: Patient is a pleasant 73-year-old female, with history of left-sided hemiparesis after CVA, seizures, dementia, Parkinson's, hydronephrosis, hyperlipidemia, cerebral aneurysm, diabetes, depression. She is brought in via EMS today with chief complaint of right hip pain after fall. Patient reports that she had to use the restroom, states she did call nursing staff but as they were not immediately available, she attempted to get herself out of bed unassisted. Reports that she subsequently tripped and fell. Patient is a fall risk at baseline. She has had multiple falls. She was seen [address] Martinez at that time, patient did strike her head and a thorough examination, labs reevaluation imaging was performed. Patient was diagnosed with a T3 fracture but this area was nontender for the patient. This is been thought to beOld fracture from previous trauma. Her sons report that she is had multiple falls recently. They feel like her mentation is at baseline. No loss of consciousness. They have not noted altered mentation since the fall. No fevers or chills. EMS had initially reported the patient had endorsing neck pain patient reports she is no longer having any neck discomfort and feels that the collar is causing discomfort. Patient has chronic left-sided weakness but denies any acute change. No altered sensation. Denies any headache. No visual changes. Denies any nausea or vomiting since the fall. Related Data Home Medications Medication Instructions Recorded Confirmed blood-glucose meter [OneTouch #1 kit 07/07/15 12/26/18 Ultra2 Meter] Blood Glucose Test #100 strip 09/05/16 12/26/18 lancets #100 ea 09/05/16 12/26/18 lamotrigine 200 mg PO BID #180 tab 03/05/17 02/10/19 famotidine 20 mg PO DAILY #90 tab-cap 04/30/17 02/10/19 acetaminophen 650 mg PO Q8H 07/18/17 02/10/19 ergocalciferol (vitamin D2) 1 cap PO DIRECTED 07/18/17 02/10/19 [Vitamin D2] acidophilus-pectin, citrus 1 cap PO BID cap 07/30/17 02/10/19 multivitamin 1 tab PO DAILY 11/27/17 02/10/19 bismuth subsalicylate [Bismatrol] 30 ml PO DAILY PRN PRN 01/07/18 02/10/19 citalopram 10 mg tablet 20 mg PO DAILY tab-cap 02/27/18 02/10/19 trazodone 50 mg PO TID 06/16/18 02/10/19 docusate sodium 100 mg tablet 100 mg PO DAILY 07/25/18 02/10/19 gabapentin 100 mg capsule 100 mg PO TID PRN 07/25/18 02/10/19 carbamazepine [Tegretol] 200 mg PO TID 10/15/18 02/10/19 mirtazapine [Remeron] 15 mg PO QHS 10/15/18 02/10/19 epinephrine 0.3 mg/0.3 mL 0.3 mg IM ONCE 11/26/18 02/10/19 injection, auto-injector lamotrigine 25 mg tablet 50 mg PO BID #60 tab 12/26/18 02/10/19 Solu-Medrol (PF) 125 mg IM PRN PRN 02/05/19 02/10/19 lorazepam [Ativan] 0.5 mg PO Q8H PRN PRN 02/05/19 02/10/19 tedizolid 200 mg PO BID 02/05/19 02/10/19 Previous Rx's Medication Instructions Recorded lamotrigine 200 mg PO BID #180 tab 03/05/17 famotidine 20 mg PO DAILY #90 tab-cap 04/30/17 acidophilus-pectin, citrus 1 cap PO BID cap 07/30/17 lamotrigine 25 mg tablet 50 mg PO BID #60 tab 12/26/18 Allergies Allergy/AdvReac Type Severity Reaction Status Date / Time Penicillins Allergy Intermediate Hives Unverified 02/10/19 14:22 aspirin Allergy Mild Unverified 02/10/19 14:22 promethazine AdvReac Intermediate HALLUCINATI Unverified 02/10/19 14:22 ONS Sulfa (Sulfonamide AdvReac Unknown Verified 02/10/19 14:22 Antibiotics) General Stated Complaint: Orthopedic ANDRZEJ: 3 Review of Systems Constitutional Constitutional: Reports as per HPI, Denies chills, Denies fatigue, Denies fever(s), Denies headache(s) and Denies weakness Eyes Eyes: Reports as per HPI, Denies blurry vision, Denies change in vision and Denies loss of vision ENT Ears, Nose, Mouth, and Throat: Denies abnormal hearing and Denies headache(s) Cardiovascular Cardiovascular: Reports as per HPI, Denies chest pain and Denies dyspnea Respiratory Respiratory: Reports as per HPI, Denies cough, Denies pain on inspiration, Denies pain with cough and Denies dyspnea Gastrointestinal Gastrointestinal: Reports as per HPI, Denies abdominal pain, Denies nausea and Denies vomiting Genitourinary Genitourinary: Reports as per HPI and Reports urinary incontinence (Chronic, patient wearing depends. No acute change in this) Musculoskeletal Musculoskeletal: Reports as per HPI Integumentary/Breasts Skin/Breast: Reports as per HPI, Denies rash and Reports unusual bruising Neurologic Neurologic: Reports as per HPI, Denies abnormal hearing, Denies abnormal movements, Denies abnormal speech, Denies headache(s), Denies lack of coordination, Denies focal weakness, Denies loss of vision, Denies seizure-like activity, Denies paresthesias and Denies weakness Endocrine Endocrine: Denies fatigue [facility] Medical History Antibiotic-associated diarrhea (Resolved) Cerebral aneurysm, nonruptured (Chronic 09/15/15) Decreased vision (Chronic 02/03/14) left eye Dementia (Chronic) vascular Depression (Chronic 02/03/14) Diabetes (Chronic) Son states today 10/17/18 pt no longer treated for this. 01/13/19 pt son states she is no longer a diabetic DVT (deep venous thrombosis) (Resolved) Herpes labialis (Chronic) pt. 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 What type of physical activity do you participate in: none Do you feel safe at home: Yes (Pt at the [facility]) Do you feel safe in your relationship?: Yes Additional Social history: pt states she does not like staying at the [facility] Exam Const General: cooperative, comfortable, no acute distress, well developed, well groomed and ill appearing chronically (multiple areas of yellowed ecchymosis, appears frail) Nutritional Appearance: well nourished and cachectic Orientation: alert, awake and oriented x3 HENMT Head: abnormal to inspection (yellowed bruising around left eye), no palpable skull fracture, normocephalic and atraumatic Ears: hearing grossly normal bilaterally, external ears normal and TM's normal bilaterally General nose exam: external nose normal Mouth: oral mucosae normal, lip normal and tongue normal Throat: posterior oropharynx normal Eyes General: appearance normal, both eyes and all related structures Visual Cisneros: normal visual cisneros by confrontation Alignment and Position: alignment normal Periorbital: periorbital findings normal Eyelids: eyelids normal Conjunctivae: conjunctivae normal Pupils: PERRL EOM: EOM intact bilaterally Neck Neck: normal visual inspection, full ROM, no lymphadenopathy, no meningeal signs, trachea midline and supple Chest Chest: normal inspection of the chest, normal palpation of entire chest wall, no crepitus and no localized rib tenderness Resp Effort & Inspection: normal respiratory effort, able to speak in complete sentences and no respiratory distress Auscultation: clear to auscultation bilaterally, no rales, no rhonchi and no wheezes Cardio Rate: regular rate Rhythm: regular rhythm Heart Sounds: S1 normal and S2 normal GI Inspection: normal to inspection, no abdominal wall ecchymosis, no edema and non-distended Palpation: soft, no hepatosplenomegaly, not firm, no guarding, no pulsatile masses, not rigid and nontender Auscultation: normal bowel sounds Back/Spine/Pelvis Back: no CVA tenderness Cervical Spine: normal cervical lordosis and cervical ROM normal Thoracic/Lumbar Spine: thoracic and lumbar spine normal to inspection, thoraco-lumbar ROM normal, No thoraco-lumbar ROM limited, No thoraco-lumbar spasm and No thoracic spinal tenderness Pelvis: no pain with anterior-posterior compression and no pain with lateral compression Skin General skin exam: ecchymosis (all yellow, posterior right thigh, right chest wall, face) Neuro General: alert, awake, oriented x3 and does not move all extremities (Patient has weakness on the left side and contractures in the left hand ass) Cranial Nerves: CN's II-XI intact bilaterally Cognition: normal cognition Speech: speech normal (Baseline for the patient based on previous visits and family report) Gait: normal gait (Baseline for the patient) Motor: tone not normal throughout (Patient is weakness in the left side, no acute change in this per patient a) and strength not 5/5 throughout Sensory Exam: no sensory deficits noted (no saddle paresthesias) Extrem General: normal to inspection, full ROM, normal capillary refill, no pedal edema and no calf tenderness Psych Appearance: grossly normal and well kempt Mental Status: mental status grossly normal Speech and Movement: speech and movement normal Course Vital Signs Vital signs: Vital Signs Temperature 37 C 02/10/19 14:13 Pulse 70 02/10/19 14:13 Respiratory Rate 18 02/10/19 14:13 Blood Pressure 152/67 H 02/10/19 14:13 Pulse Oximetry 95 02/10/19 14:13 Temperature 37 C 02/10/19 14:13 Temperature Source Skin 02/10/19 14:13 Pulse 65 02/10/19 14:45 Pulse 67 02/10/19 14:50 Respiratory Rate 13 02/10/19 14:50 Respiratory Effort 02/10/19 14:22 Blood Pressure 143/69 H 02/10/19 14:45 Blood Pressure Mean 87 02/10/19 14:45 Blood Pressure Position Supine 02/10/19 14:13 Pulse Oximetry 95 02/10/19 14:50 Oxygen Delivery Method Room Air 02/10/19 14:13 Oxygen Flow Rate 0 02/10/19 14:13
--- NOTE | 2019-02-10 16:05 | DI.RAD_ITS ---
EXAM: XR HIP RT COMPLETE AP PELVIS CLINICAL HISTORY: fall TECHNIQUE: COMPARISON: XR PORTABLE CHEST AP from 11/11/2018 XR PELVIS AP from 02/05/2019 FINDINGS: Three views were obtained. There is catheter overlying the lower abdomen. Mild degenerative changes noted involving both hips. No evidence of acute fracture. IMPRESSION:
--- NOTE | 2019-02-10 16:22 | DI.VRAD_ITS ---
PROCEDURE INFORMATION: Exam: XR Right Hip with Pelvis when Performed Exam date and time: 02/10/2019 4:10 PM Age: 73 years old Clinical indication: Hip pain; Right hip TECHNIQUE: Imaging protocol: XR Right hip with pelvis when performed. Views: 2 or 3 views. COMPARISON: XR PELVIS AP 02/05/2019 2:14 AM FINDINGS: Tubes, catheters and devices: Ureteral stent again noted in the right pelvis Bones/joints: There is no evidence of acute fracture.There is no evidence of malalignment or dislocation. Soft tissues: Unremarkable. IMPRESSION: There is no evidence of acute fracture.There is no evidence of malalignment or dislocation. Dictated and Authenticated by: Dung Antunez MD. Ordering:CAROLINA Bear MD
== END 2019-02-10 17:18 | disposition skilled nursing facility (03) ==
PROVIDERS: Emergency Provider Physician Assistant; PCP Family Medicine
DX: S70.01XA Contusion of right hip, initial encounter (principal); W01.0XXA Fall on same level from slipping, tripping and stumbling without subsequent striking against object, initial encounter; R29.6 Repeated falls; I63.9 Cerebral infarction, unspecified; I10 Essential (primary) hypertension; G20 Parkinson's disease
CPT/HCPCS: 99284; 73502; 99283

== ENCOUNTER → 2019-03-05 14:37 | Outpatient (BNVA) | payer MEDICARE, MEDICAID, SELFPAY | PROVIDERS: PCP Family Medicine; Referring Provider Family Medicine; Visit Provider Psychiatry & Neurology Neurology | DX: G40.109 Localization-related (focal) (partial) symptomatic epilepsy and epileptic syndromes with simple partial seizures, not intractable, without status epilepticus (principal); R25.1 Tremor, unspecified; G21.4 Vascular parkinsonism | CPT/HCPCS: 99214 ==

== ENCOUNTER 2019-03-18 13:34 | Outpatient (REF) | payer MEDICARE, MEDICAID, SELFPAY ==
[2019-03-18 16:11] LABS: Abs Immature Grans 0.01 k/cumm (0.0-0.09); Absolute Basophil Count 0.01 k/cumm (0.0-0.2); Absolute Eosinophil Count 0.11 k/cumm (0.0-0.7); Absolute Lymphocyte Count 1.42 k/cumm (1.2-3.4); Absolute Monocyte Count 0.42 k/cumm (0.11-0.7); Absolute Neutrophil Count 1.09 k/cumm (1.2-6.7); Basophils % 0.3; Eosinophils % 3.6; HCT 36.7 % (36.0-46.0); HGB 11.6 g/dL (12.0-15.5); Immature Grans % 0.3 %; Lymphocytes % 46.4; Mean Corp. HGB Concentration 31.6 g/dL (32.0-36.0); Mean Corpuscular Hemoglobin 29.5 pg (27.0-33.0); Mean Corpuscular Volume 93.4 fL (80-95); Mean Platelet Volume 8.8 fL (8.0-11.0); Monocytes % 13.7; Neutrophils % 35.7; Platelet Count 239 x1000/uL (130-400); RBC 3.93 m/cumm (4.00-5.20); RBC Distribution Width 12.9 % (11.7-14.6); White Blood Cell Count 3.06 k/cumm (4.4-10.8)
[2019-03-18 16:31] LABS: Bilirubin Negative (Negative); Blood Moderate (Negative); Clarity Sl Cloudy (Clear); Glucose Negative (Negative); Ketones Negative (Negative); Leukocyte Esterase Moderate (Negative); Nitrite Negative (Negative); Urobilinogen 0.2 EU/dL (Up TO 0.2); pH 7.5 (5-8)
[2019-03-18 16:53] LABS: WBC >50 HPF (0-5)
[2019-03-18 16:54] LABS: Bacteria Few HPF (Negative); C & S Indicated? Yes; Casts Negative LPF (Negative); Crystals Negative HPF (Negative); Epithelial Cells Few HPF (Negative); Mucus Negative (Negative)
[2019-03-18 17:00] LABS: ALT 18 U/L (14-59); AST 15 U/L (15-37); Albumin 3.6 g/dL (3.4-5.0); Alkaline Phosphatase 102 U/L (46-116); Anion Gap 7.4 mmol/L (3-11); BUN 11 mg/dL (7-18); Bilirubin, Total 0.2 mg/dL (0.2-1.0); CO2 34.6 mmol/L (21.0-32.0); CREATININE 0.76 mg/dL (0.55-1.02); Calcium 8.7 mg/dL (8.5-10.1); Chloride 103 mmol/L (98-107); Glucose 97 mg/dL (74-106); Potassium 3.9 mmol/L (3.5-5.1); Sodium 145 mmol/L (136-145); TSH (W/Ref FT4) 2.09 uIU/mL (0.36-3.74); Total Protein 6.7 g/dL (6.4-8.2); Vitamin B12 519 pg/mL (193-986)
== END 2019-03-18 13:54 ==
LOC: LBN 13:34
PROVIDERS: PCP Family Medicine; Visit Provider Family Medicine
DX: I10 Essential (primary) hypertension (principal); D64.9 Anemia, unspecified; E05.90 Thyrotoxicosis, unspecified without thyrotoxic crisis or storm; N39.0 Urinary tract infection, site not specified; R53.83 Other fatigue
CPT/HCPCS: 80053; 87077; 81003; 81015; 82607; 84443; 85025; 87086

== ENCOUNTER 2019-03-20 06:02 | Day surgery (SDC) | payer MEDICARE, MEDICAID, SELFPAY ==
[2019-03-20 06:32] VITALS: BP 141/68; PULSE 63; RESP 16; TEMP 36.4; O2SAT 93
[2019-03-20] MEDS: Lactated Ringers 1,000 ML 80 ML IV (07:15)
--- NOTE | 2019-03-20 07:15 | W.PM.HP.N ---
Date of service: 03/20/19 Time of Service: 07:15 Assessment and Plan Assessment and plan (1) Hydronephrosis due to obstruction of ureter: Status: Acute Assessment and plan: We will go ahead with cystoscopy and stent change. History of Present Illness History of Present Illness Chief Complaint: Right hydronephrosis Narrative: This is a 73-year-old woman who was previously seen with right hydronephrosis and sepsis. The patient's family elected not to undergo invasive treatments, so she was treated with a stent placement and antibiotics. She comes in to have the stent changed every 2 to 3 months. She has had no febrile episodes or admissions for UTI. 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 What type of physical activity do you participate in: none Do you feel safe at home: Yes (Pt at the [facility]) Do you feel safe in your relationship?: Yes Additional Social history: pt states she does not like staying at the [facility] Home Medications and Allergies Home Medications Medication Instructions Recorded Confirmed Type blood-glucose meter [OneTouch #1 kit 07/07/15 12/26/18 History Ultra2 Meter] Blood Glucose Test #100 strip 09/05/16 12/26/18 History lancets #100 ea 09/05/16 12/26/18 History lamotrigine 200 mg PO BID #180 tab 03/05/17 03/20/19 Rx famotidine 20 mg PO DAILY #90 tab-cap 04/30/17 03/20/19 Rx acetaminophen 1,000 mg PO BID 07/18/17 03/20/19 History ergocalciferol (vitamin D2) 1 cap PO DIRECTED 07/18/17 03/20/19 History [Vitamin D2] acidophilus-pectin, citrus 1 cap PO BID cap 07/30/17 03/20/19 Rx multivitamin 1 tab PO DAILY 11/27/17 03/20/19 History bismuth subsalicylate [Bismatrol] 30 ml PO DAILY PRN PRN 01/07/18 03/20/19 History citalopram 10 mg tablet 20 mg PO DAILY tab-cap 02/27/18 03/20/19 History trazodone 50 mg PO TID 06/16/18 03/20/19 History docusate sodium 100 mg tablet 100 mg PO DAILY 07/25/18 03/20/19 History gabapentin 100 mg capsule 100 mg PO BID 07/25/18 03/20/19 History carbamazepine [Tegretol] 200 mg PO TID 10/15/18 03/20/19 History mirtazapine [Remeron] 15 mg PO QHS 10/15/18 03/20/19 History epinephrine 0.3 mg/0.3 mL 0.3 mg IM ONCE 11/26/18 03/20/19 History injection, auto-injector lamotrigine 25 mg tablet 50 mg PO BID #60 tab 12/26/18 03/20/19 Rx Solu-Medrol (PF) 125 mg IM PRN PRN 02/05/19 03/20/19 History lorazepam [Ativan] 0.5 mg PO Q8H PRN PRN 02/05/19 03/20/19 History diazepam 2 mg tablet 2 mg PO TID PRN 03/05/19 03/20/19 History lorazepam 1 mg IV PRN PRN 03/17/19 03/20/19 History Allergies Allergy/AdvReac Type Severity Reaction Status Date / Time Penicillins Allergy Intermediate Hives Unverified 03/17/19 09:11 aspirin Allergy Mild Unverified 03/17/19 09:11 promethazine AdvReac Intermediate HALLUCINATI Unverified 03/17/19 09:11 ONS Sulfa (Sulfonamide AdvReac Unknown Verified 03/17/19 09:11 Antibiotics) Exam Narrative Exam Narrative: She is in no current distress. She is cooperative. Her vital signs are documented elsewhere Her chest wall motion is normal. She is not short of breath at rest. Her lungs are clear with decreased breath sounds bilaterally Cardiac exam shows a regular rate and rhythm Her abdomen is soft with no peritoneal signs She has left hemiparesis She is awake and alert Results Last Vital Signs Temp 36.4 C L 03/20/19 06:32 Pulse 63 03/20/19 06:32 Resp 16 03/20/19 06:32 BP 141/68 H 03/20/19 06:32 Pulse Ox 93 L 03/20/19 06:32
[2019-03-20] MEDS: cefTRIAXone 1 GM/50 ML BAG IVPB (07:40)
[2019-03-20] MEDS: Omnipaque 300 MG/ML 50 ML BTL (08:07)
[2019-03-20] MEDS: Lidocaine 2% Jelly 6 ML SYR (08:08)
--- NOTE | 2019-03-20 08:19 | PDOC.DSDIS_ITS ---
Discharge Plan Disposition Patient Disposition: [facility] (LEVEL 2) [facility] Condition: Stable Discharge Details Attending Provider: Cody Guevara Primary Care Provider: Irene Quinn [place] Meds and New Rx's Prescriptions: No Action multivitamin tablet 1 tab PO DAILY RF: 0 epinephrine [EpiPen] 0.3 mg/0.3 mL auto-injector 0.3 mg IM ONCE RF: 0 lamotrigine 25 mg tablet 50 mg PO BID Qty: 60 RF: 0 diazepam 2 mg tablet 2 mg PO TID PRNRF: 0 citalopram 10 mg tablet 20 mg PO DAILY RF: 0 gabapentin 100 mg capsule 100 mg PO BID RF: 0 docusate sodium 100 mg tablet 100 mg PO DAILY RF: 0 (DME) blood-glucose meter [[employer] Ultra2 Meter] 1 EACH kit 1 ea Miscellaneous DAILY Qty: 1 RF: 0 (DME) Blood Glucose Test 1 EACH strip 1 ea Miscellaneous DAILY Qty: 100 RF: 4 (DME) lancets 1 EACH misc 1 ea Miscellaneous DAILY Qty: 100 RF: 4 lamotrigine 200 MG tablet 200 mg PO BID Qty: 180 RF: 3 famotidine 20 MG tablet 20 mg PO DAILY Qty: 90 RF: 4 acetaminophen 500 MG tablet 1,000 mg PO BID RF: 0 ergocalciferol (vitamin D2) [Vitamin D2] 50,000 UNITS capsule 1 cap PO DIRECTED RF: 0 acidophilus-pectin, citrus 1 CAP tablet 1 cap PO BID RF: 0 trazodone 50 mg Tablet 50 mg PO TID RF: 0 lorazepam [Ativan] 0.5 mg Tablet 0.5 mg PO Q8H PRN PRNRF: 0 Solu-Medrol (PF) 125 mg/2 mL Recon Soln 125 mg IM PRN PRNRF: 0 bismuth subsalicylate [Bismatrol] 262 mg/15 mL Suspension 30 ml PO DAILY PRN PRNRF: 0 carbamazepine [Tegretol] 200 mg Tablet 200 mg PO TID RF: 0 mirtazapine [Remeron] 15 mg Tablet 15 mg PO QHS RF: 0 lorazepam 2 mg/mL Solution 1 mg IV PRN PRN (Reason: seizure activity > 2 minutes) RF: 0 Discharge Instructions Additional Instructions: no appt need in office but my staff needs to schedule a f/u cystoscopy and stent change in OR in 2 to 3 months Activity:: Activity as Tolerated Shower/Bathe:: 24 hours Diet:: As Tolerated Discharge Orders Discharge Orders: Discharge Order (Routine); Ordered 03/20/19 Ordered By: Cody Guevara DS: Diagnosis Discharge Diagnosis (1) Hydronephrosis due to obstruction of ureter: Status: Acute
--- NOTE | 2019-03-20 08:52 | DI.RAD_ITS ---
EXAM: XR RETROGRADE IN OR CLINICAL HISTORY: HYDRONEPHROSIS LEFT URETER COMPARISON: No exams were available for comparison FINDINGS: C-arm fluoroscopy was utilized by Dr. Guevara during retrograde ureterography. Please see Dr. Guevara's procedure note. Hard copies show stent placement in the right ureter. Fluoro time 18.1 seconds.
[2019-03-20 08:57] VITALS: BP 158/77; PULSE 62; RESP 16; TEMP 36; O2SAT 96
[2019-03-20] MEDS: Phenazopyridine 200 MG TAB PO (08:58)
--- NOTE | 2019-03-21 07:50 | ROE_ITS ---
REPORT OF OPERATIVE PROCEDURE DATE OF PROCEDURE March 20, 2019 PREOPERATIVE DIAGNOSIS Right hydronephrosis. POSTOPERATIVE DIAGNOSIS Right hydronephrosis. PROCEDURE Cystoscopy, remove right ureteral stent, right retrograde pyelogram, insert right ureteral stent. SURGEON Cody Guevara M.D. ANESTHESIA MAC with local. COMPLICATIONS None. HISTORY This is a 73-year-old woman who has a history of right-sided hydronephrosis and urosepsis. She was tr eated with placement of a ureteral stent and antibiotics. Her family was not interested in more invas alma treatments. We have been changing her stent every two to the three months, when we left the stent for longer zack ods of time the stent became calcified. She presents for routine stent change today. OPERATIVE REPORT The patient was brought to the Operating Room on 03/20/19. She was given preoperative IV antibiotics. After being given Monitored Anesthesia Care, she was placed in the dorsal lithotomy position. Her ge nitalia was prepped and draped. 2% Xylocaine jelly was instilled into the urethra to act as a local a nesthetic. A #22 Luxembourger rigid cystoscope was passed through the urethra into the bladder. The bladder was inspe cted with a 30-degree lens. The curl of the stent was not visible in the bladder, but I was able to visualize some stent material at the ureteral orifice. The stent was grasped with alligator forceps and brought out to the level o f the urethral meatus. A Glidewire was then advanced through the lumen of the ureteral stent. The stent was removed leaving the wire in place. The ureteral access catheter was advanced over the wire and the wire was removed. A retrograde film w as then obtained in order to outline the renal pelvis. The guidewire was re-introduced and the access catheter was removed. A 4.8 Luxembourger variable length elvis nt was then advanced over the wire. The proximal end of the stent was curled within the upper pole ca lyx and the distal end was curled within the bladder. The positioning of the stent was confirmed both fluoroscopically and cystoscopically. The patient khurram erated the procedure well with no complications.
== END 2019-03-20 09:27 | disposition intermediate care facility (04) ==
PROVIDERS: PCP Family Medicine; Visit Provider Urology
PROC: (CPT 52332; principal; 2019-03-20 07:30)
DX: N13.2 Hydronephrosis with renal and ureteral calculous obstruction (principal); Z96.0 Presence of urogenital implants
CPT/HCPCS: 52332; 52005; NC; 74420; J0696; J2001; Q9967

== ENCOUNTER → 2019-03-26 09:32 | Outpatient (BNVA) | payer MEDICARE, MEDICAID, SELFPAY | PROVIDERS: PCP Family Medicine; Referring Provider Family Medicine; Visit Provider Psychiatry & Neurology Neurology | DX: G40.109 Localization-related (focal) (partial) symptomatic epilepsy and epileptic syndromes with simple partial seizures, not intractable, without status epilepticus (principal); G21.4 Vascular parkinsonism; F29 Unspecified psychosis not due to a substance or known physiological condition | CPT/HCPCS: 99214 ==

== ENCOUNTER 2019-03-28 01:30 | Emergency (ER) | payer MEDICARE, MEDICAID, SELFPAY ==
[2019-03-28 01:44] VITALS: BP 138/58; PULSE 74; RESP 16; TEMP 36.1; O2SAT 96
--- NOTE | 2019-03-28 01:47 | W.ED.GENAD ---
Discharge Plan Disposition Patient Disposition: [facility] (LEVEL 2) [facility] Condition: Stable Discharge Details Chief Complaint: Orthopedic Clinical Impression: Left ankle sprain Primary Care Provider: Irene Quinn ED Provider: Derrick Kilgore [place] Meds and New Rx's Prescriptions: Continued multivitamin tablet 1 tab PO DAILY RF: 0 epinephrine [EpiPen] 0.3 mg/0.3 mL auto-injector 0.3 mg IM ONCE RF: 0 Blink Tears 0.25 % drops OP QID RF: 0 quetiapine [Seroquel] 25 mg tablet 12.5 mg PO BID RF: 0 risperidone [Risperdal] 0.5 mg tablet 0.5 mg PO BID RF: 0 docusate sodium 100 mg tablet 100 mg PO DAILY RF: 0 (DME) blood-glucose meter [[employer] Ultra2 Meter] 1 EACH kit 1 ea Miscellaneous DAILY Qty: 1 RF: 0 (DME) Blood Glucose Test 1 EACH strip 1 ea Miscellaneous DAILY Qty: 100 RF: 4 (DME) lancets 1 EACH misc 1 ea Miscellaneous DAILY Qty: 100 RF: 4 famotidine 20 MG tablet 20 mg PO DAILY Qty: 90 RF: 4 acetaminophen 500 MG tablet 1,000 mg PO BID RF: 0 ergocalciferol (vitamin D2) [Vitamin D2] 50,000 UNITS capsule 1 cap PO DIRECTED RF: 0 acidophilus-pectin, citrus 1 CAP tablet 1 cap PO BID RF: 0 trazodone 50 mg tablet 25 mg PO TID RF: 0 Solu-Medrol (PF) 125 mg/2 mL Recon Soln 125 mg IM PRN PRNRF: 0 bismuth subsalicylate [Bismatrol] 262 mg/15 mL Suspension 30 ml PO DAILY PRN PRNRF: 0 carbamazepine [Tegretol] 200 mg Tablet 200 mg PO TID RF: 0 lorazepam 2 mg/mL Solution 1 mg IV PRN PRN (Reason: seizure activity > 2 minutes) RF: 0 No Action lamotrigine 25 mg tablet 50 mg PO BID Qty: 60 RF: 0 diazepam 2 mg tablet 2 mg PO TID PRNRF: 0 citalopram 10 mg tablet 20 mg PO DAILY RF: 0 gabapentin 100 mg capsule 100 mg PO DAILY RF: 0 lamotrigine 200 MG tablet 200 mg PO BID Qty: 180 RF: 3 Discharge Instructions Instructions: Ankle Sprain (ED) Medical Decision Making 73 yo female who resides at the [facility], has hx of prior cva, anemia, parkinsonism, dementia, who was sent in for left ankle pain after a reported mechanical fall earlier where she did not hit her head or have loc. She has bruising of the lateral malleolus with tenderness, normal pulses, no pain in the knee or hip even with rom. Will xray ankle to eval for fracture/dislocation xray negative other than soft tissueswelling. Will d/c in ankle support devise and advised pt's son that if pain continues in a week to see pcp Differential Diagnosis Differential Diagnosis: sprain, fracture Imaging Data Radiologic Study: Attestation: I personally reviewed and interpreted this imaging study as follows: Imaging: X-Ray My impression: no acute findings, soft tissue swelling HPI General Mode of arrival: EMS. Date/Time Provider Initiated Documentation: 03/28/19 01:31. Information obtained by: RN/MD and EMS. History of Present Illness 73 year old F presents to the emergency department with the chief complaint of left ankle pain, described as moderate, and it has been constant. No relieving factors improve symptom(s), No exacerbating factors reported . Patient notes no other symptoms.. Related Data Home Medications Medication Instructions Recorded Confirmed blood-glucose meter [[employer] LightingTouch #1 kit 07/07/15 03/26/19 Ultra2 Meter] Blood Glucose Test #100 strip 09/05/16 03/26/19 lancets #100 ea 09/05/16 03/26/19 lamotrigine 200 mg PO BID #180 tab 03/05/17 03/26/19 famotidine 20 mg PO DAILY #90 tab-cap 04/30/17 03/26/19 acetaminophen 1,000 mg PO BID 07/18/17 03/28/19 ergocalciferol (vitamin D2) 1 cap PO DIRECTED 07/18/17 03/26/19 [Vitamin D2] acidophilus-pectin, citrus 1 cap PO BID cap 07/30/17 03/26/19 multivitamin 1 tab PO DAILY 11/27/17 03/26/19 bismuth subsalicylate [Bismatrol] 30 ml PO DAILY PRN PRN 01/07/18 03/28/19 citalopram 10 mg tablet 20 mg PO DAILY tab-cap 02/27/18 03/26/19 docusate sodium 100 mg tablet 100 mg PO DAILY 07/25/18 03/26/19 carbamazepine [Tegretol] 200 mg PO TID 10/15/18 03/26/19 epinephrine 0.3 mg/0.3 mL 0.3 mg IM ONCE 11/26/18 03/28/19 injection, auto-injector lamotrigine 25 mg tablet 50 mg PO BID #60 tab 12/26/18 03/26/19 Solu-Medrol (PF) 125 mg IM PRN PRN 02/05/19 03/28/19 diazepam 2 mg tablet 2 mg PO TID PRN 03/05/19 03/26/19 lorazepam 1 mg IV PRN PRN 03/17/19 03/28/19 gabapentin 100 mg capsule 100 mg PO DAILY cap 03/26/19 03/26/19 polyethylene glycol 400 0.25 % eye % OP QID ml 03/26/19 03/26/19 drops quetiapine 25 mg tablet 12.5 mg PO BID tab 03/26/19 03/26/19 risperidone 0.5 mg tablet 0.5 mg PO BID 03/26/19 03/26/19 trazodone 50 mg tablet 25 mg PO TID tab 03/26/19 03/28/19 Previous Rx's Medication Instructions Recorded lamotrigine 200 mg PO BID #180 tab 03/05/17 famotidine 20 mg PO DAILY #90 tab-cap 04/30/17 acidophilus-pectin, citrus 1 cap PO BID cap 07/30/17 lamotrigine 25 mg tablet 50 mg PO BID #60 tab 12/26/18 Allergies Allergy/AdvReac Type Severity Reaction Status Date / Time Penicillins Allergy Intermediate Hives Unverified 03/28/19 01:45 aspirin Allergy Mild Unverified 03/28/19 01:45 promethazine AdvReac Intermediate HALLUCINATI Unverified 03/28/19 01:45 ONS Sulfa (Sulfonamide AdvReac Unknown Verified 03/28/19 01:45 Antibiotics) General ANDRZEJ: 3 Review of Systems All systems reviewed & are unremarkable except as noted in HPI and below Constitutional Constitutional: Denies chills, Denies fever(s) and Denies weakness Cardiovascular Cardiovascular: Denies chest pain and Denies dyspnea Respiratory Respiratory: Denies cough and Denies dyspnea Gastrointestinal Gastrointestinal: Denies abdominal pain, Denies nausea and Denies vomiting Musculoskeletal Musculoskeletal: Denies joint swelling Neurologic Neurologic: Denies weakness Psychiatric Psychiatric: Denies depression [facility] Social History Smoking/Tobacco Use Status: Never Alcohol Intake: never Drug use: Never Substance use type: does not use Household members: children Housing: senior care 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 Exam Const General: no acute distress Orientation: alert HENMT Head: normal to inspection Ears: external ears normal General nose exam: external nose normal Mouth: moist mucous membranes Eyes General: appearance normal, both eyes and all related structures Neck Neck: normal visual inspection Resp Effort & Inspection: normal respiratory effort and able to speak in complete sentences Cardio Rate: regular rate Skin General skin exam: no rashes or lesions noted Neuro General: alert and oriented x3 Extrem General: normal capillary refill Psych Mental Status: mental status grossly normal
--- NOTE | 2019-03-28 01:55 | DI.RAD_ITS ---
EXAM: XR ANKLE LT COMPLETE CLINICAL HISTORY: pain s/p fall TECHNIQUE: 2D digital imaging was performed. COMPARISON: No exams were available for comparison FINDINGS: BONES: No acute fracture is present. No bony destructive lesion is seen. JOINTS:The ankle mortise is normally aligned. SOFT TISSUE: Soft tissue swelling laterally. IMPRESSION: No acute fracture or dislocation. Soft tissue swelling laterally.
--- NOTE | 2019-03-28 02:04 | DI.VRAD_ITS ---
PROCEDURE INFORMATION: Exam: XR Left Ankle Exam date and time: 03/28/2019 1:50 AM Age: 73 years old Clinical indication: Injury or trauma; Initial encounter; Swelling (edema); Ankle; Left; Injury date: 03/27/19; Injury details: Pain S/P fall, unable to bear weight TECHNIQUE: Imaging protocol: XR Left ankle. Views: 3 or more views. COMPARISON: No relevant prior studies available. FINDINGS: Bones/joints: No fracture or dislocation. Soft tissues: Lateral soft tissue swelling. IMPRESSION: Lateral soft tissue swelling. No fracture or dislocation. Dictated and Authenticated by: Wil Hatch MD. Ordering:NICO Meza MD
== END 2019-03-28 02:30 | disposition intermediate care facility (04) ==
LOC: ER 02:23
PROVIDERS: Emergency Provider Emergency Medicine; PCP Family Medicine
DX: M25.572 Pain in left ankle and joints of left foot (principal); S93.402A Sprain of unspecified ligament of left ankle, initial encounter; W19.XXXA Unspecified fall, initial encounter; G31.83 Neurocognitive disorder with Lewy bodies; F02.80 Dementia in other diseases classified elsewhere, unspecified severity, without behavioral disturbance, psychotic disturbance, mood disturbance, and anxiety; Y92.129 Unspecified place in nursing home as the place of occurrence of the external cause
CPT/HCPCS: 99283; 73610; L1902

== ENCOUNTER 2019-03-31 23:46 | Emergency (ER) | payer MEDICARE, MEDICAID, SELFPAY ==
[2019-03-31 23:45] VITALS: BP 123/65; PULSE 91; RESP 16; TEMP 36.7; O2SAT 96
--- NOTE | 2019-03-31 23:45 | DI.CT_ITS ---
EXAM: CT HEAD WO CLINICAL HISTORY: reported trauma/fall TECHNIQUE: The exam was performed without contrast. COMPARISON: CT HEAD CERVICAL SPINE WO from 02/05/2019 FINDINGS: There is again seen a large area of encephalomalacia involving the right occipital lobe and posterior temporal lobe. There is decreased attenuation in the white matter most consistent with small vessel ischemic disease. There is no acute midline shift, mass effect or intracranial hemorrhage. The lily tricles are intact. The basilar cisterns are patent. No evidence of an acute territorial infarct i s present. There are postsurgical changes of a right craniotomy. No acute fracture is seen. The vi sualized paranasal sinuses are clear. IMPRESSION: No acute intracranial process.
[2019-03-31 23:49] VITALS: RESP 16
--- NOTE | 2019-03-31 23:57 | ED.GENADUL_ITS ---
Discharge Plan Disposition Patient Disposition: SNF (LEVEL 1) [facility] Condition: Good Discharge Details Chief Complaint: GenMedical Clinical Impression: Agitation Primary Care Provider: Irene Quinn ED Provider: Luis Martinez [facility] and New Rx's Prescriptions: Continued quetiapine [Seroquel] 25 mg Tablet 12.5 mg PO BID RF: 0 quetiapine [Seroquel] 25 mg Tablet 25 mg PO QAM RF: 0 trazodone 50 mg Tablet 25 mg PO TID RF: 0 clonazepam 0.5 mg Tablet 0.5 mg PO BID RF: 0 acetaminophen [Tylenol Extra Strength] 500 mg Tablet 1,000 mg PO BID PRN PRNRF: 0 carbamazepine 200 mg Tablet 200 mg PO TID RF: 0 citalopram 20 mg Tablet 20 mg PO DAILY RF: 0 famotidine 20 mg Tablet 20 mg PO DAILY RF: 0 docusate sodium 100 mg Capsule 100 mg PO DAILY RF: 0 epinephrine 0.3 mg/0.3 mL Auto-Injector 0.3 mg IM ONCE RF: 0 lorazepam 2 mg/mL Concentrate 0.5 mg . DIRECTED PRNRF: 0 diazepam [Valium] 5 mg Tablet 5 mg PO BID RF: 0 oxycodone 5 mg Tablet 2.5 mg PO Q6H PRNRF: 0 Bismatrol 525 mg/15 mL Suspension 525 mg PO QID PRN PRNRF: 0 uvizcvwzuljx-jqgxzcuf-lrzohp Tablet 1 tab PO DAILY RF: 0 Acidophilus-Pectin Tablet,Chewable 1 tab PO DAILY RF: 0 quetiapine [Seroquel] 50 mg Tablet 50 mg PO QHS RF: 0 Solu-Medrol (PF) 125 mg/2 mL Recon Soln 125 mg IM . DIRECTED RF: 0 lamotrigine 300 mg Tablet Extended Release 24hr 300 mg PO QHS RF: 0 lamotrigine 250 mg Tablet Extended Release 24hr 250 mg PO QAM RF: 0 Briviact 25 mg Tablet 25 mg PO DAILY RF: 0 Blink Tears 0.25 % Drops 0.25 % OPHTHALMIC (EYE) QID PRN PRNRF: 0 Discharge Instructions Additional Instructions: No medications required here. Patient completely calm and cooperative for us. Urine culture is pending and if grows anything other than enterococcus faecium would consider treating, otherwise no fever, tachycardia so would hold off. CT head without acute change. Medication adjustments as per neurology and PCP. Referrals: Irene Quinn [Primary Care Provider] - Medical Decision Making By report patient was agitated and combative both at the [facility] and with EMS. On arrival here she is calm and follows directions, simply repeating that she wants to go home. EKG was obtained to evaluate QT interval in case of need for Haldol. EKG is fine with no prolonged QT. Straight cath urine was obtained without issue to evaluate for UTI given recent instrumentation. CT head performed because of report of trauma. Here the patient has been appropriate and presumably baseline with no agitation or aggressiveness. Patient's head CT is stable with no acute changes noted. There is no bleed. Urine is suggestive of possible infection with red cells and white cells, however, in reviewing previous urines this seems to be typical. She almost always grows enterococcus faecium. She is not febrile here. She is not tachycardic. Is quite possible that she is colonized and unless her culture grows something besides the enterococcus I would not richey to treat at this time. Medication adjustments being done right now at recommendation of neurology, Dr. Ibarra, may be contributing factor to increased agitation but this is exactly why her medications are being adjusted. Patient currently asleep and has exhibited no agitation or combativeness here in the ED. She will be discharged back to [facility] and sons have agreed to take her. Medical Records Medical records reviewed: Yes I reviewed the patient's medical records. Lab Data Lab results reviewed: Yes I reviewed the patient's lab results. ECG Data Attestation: I personally reviewed and interpreted this ECG (s) as follows: Prior ECG tracings: not available for review Interpretation: Sinus rhythm at 87. Normal axis and intervals. No acute ST changes. No prolonged QT. HPI General Mode of arrival: EMS . Date/Time Provider Initiated Documentation: 03/31/19 23:57 . Information obtained by: family, RN/MD, EMS, RN notes reviewed and old records reviewed . HPI Narrative: Patient transferred in from [facility] for evaluation of agitation as well as report of throwing herself onto the floor and hitting her head. No report of LOC. Patient has been undergoing medication adjustments as per neurology recommendation on the . I reviewed that note. Currently being weaned off Lamictal and started on Briviact. Also in process of weaning down Valium and switching over to clonazepam. Over the past week her behavior has been a little worse although she has had documentation of waxing and waning agitation and behavior changes for months. Sons report that she is been particularly bad tonight. There is no change in her mental status. Sons report that she recognizes them and acknowledges them of behavior caceres is agitated and wants to be brought home. There is no report of fever but she did have a ureteral stent changed earlier in the month on the seventh. Patient herself unable to provide any type of history, just keeps repeating that she wants to go home. Related Data Home Medications Medication Instructions Recorded Confirmed Acidophilus-Pectin 1 tab PO DAILY 04/01/19 04/01/19 Bismatrol 525 mg PO QID PRN PRN 04/01/19 04/01/19 Blink Tears 0.25 % OPHTHALMIC (EYE) QID PRN PRN 04/01/19 04/01/19 Briviact 25 mg PO DAILY 04/01/19 04/01/19 Solu-Medrol (PF) 125 mg IM . DIRECTED 04/01/19 04/01/19 acetaminophen [Tylenol Extra 1,000 mg PO BID PRN PRN 04/01/19 04/01/19 Strength] carbamazepine 200 mg PO TID 04/01/19 04/01/19 citalopram 20 mg PO DAILY 04/01/19 04/01/19 clonazepam 0.5 mg PO BID 04/01/19 04/01/19 diazepam [Valium] 5 mg PO BID 04/01/19 04/01/19 docusate sodium 100 mg PO DAILY 04/01/19 04/01/19 epinephrine 0.3 mg IM ONCE 04/01/19 04/01/19 famotidine 20 mg PO DAILY 04/01/19 04/01/19 lamotrigine 250 mg PO QAM 04/01/19 04/01/19 lamotrigine 300 mg PO QHS 04/01/19 04/01/19 lorazepam 0.5 mg . DIRECTED PRN 04/01/19 04/01/19 hwravlnuofqy-mafqvyfj-qphswa 1 tab PO DAILY 04/01/19 04/01/19 oxycodone 2.5 mg PO Q6H PRN 04/01/19 04/01/19 quetiapine [Seroquel] 12.5 mg PO BID 04/01/19 04/01/19 quetiapine [Seroquel] 25 mg PO QAM 04/01/19 04/01/19 quetiapine [Seroquel] 50 mg PO QHS 04/01/19 04/01/19 trazodone 25 mg PO TID 04/01/19 04/01/19 Allergies Allergy/AdvReac Type Severity Reaction Status Date / Time Penicillins Allergy Intermediate Hives Unverified 03/31/19 23:52 aspirin Allergy Mild Unverified 03/31/19 23:52 promethazine AdvReac Intermediate HALLUCINATI Unverified 03/31/19 23:52 ONS Sulfa (Sulfonamide AdvReac Unknown Verified 03/31/19 23:52 Antibiotics) General Stated Complaint: GenMedical ANDRZEJ: 3 Review of Systems Unobtainable due to mental condition [facility] Medical History Antibiotic-associated diarrhea (Resolved) Cerebral aneurysm, nonruptured (Chronic 09/15/15) Decreased vision (Chronic 02/03/14) left eye Dementia (Chronic) vascular Depression (Chronic 02/03/14) Diabetes (Chronic) Son states today 10/17/18 pt no longer treated for this. 01/13/19 pt son states she is no longer a diabetic DVT (deep venous thrombosis) (Resolved) Herpes labialis (Chronic) pt. 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) Do you feel safe in your relationship?: Yes Additional Social history: pt states she does not like staying at the [facility] Exam Narrative Exam Narrative: Vitals: Afebrile. Normal vitals and room air pulse oximetry. Const: WDWN elderly female in NAD. HEENT: NC/AT. Normal facial exam. No abrasions or bruising noted. Neck: Supple. Trachea midline. Non-tender c-spine. Lungs: Normal respiratory effort. Lungs are clear. Cor: RRR without murmur/gallop. Good radial pulses. GI: Soft. NT/ND. No guarding or rebound. Neuro: Awake and alert, muttering she wants to go home. Moves all extremities x4 but left side decreased and evidence of atrophy and prior stroke. Son reports this being baseline. Ext: No C/C/E. Course Vital Signs Vital signs: Vital Signs Temperature 98.1 F 03/31/19 23:45 Pulse 91 H 03/31/19 23:45 Respiratory Rate 16 03/31/19 23:45 Blood Pressure 123/65 03/31/19 23:45 Pulse Oximetry 96 03/31/19 23:45 Temperature 98.1 F 03/31/19 23:45 Pulse 91 H 03/31/19 23:45 Respiratory Rate 16 03/31/19 23:49 Respiratory Effort 03/31/19 23:49 Blood Pressure 123/65 03/31/19 23:45 Blood Pressure Position Supine 03/31/19 23:45 Pulse Oximetry 96 03/31/19 23:45
--- NOTE | 2019-04-01 00:14 | NUR.NOTE ---
SHERRY Hilton from [facility] with c/o agitation. Per staff pt was visiting with family, became agitated, kicking and hitting family. EMS called, pt was calm upon their arrival. Family left, pt became agitated again, states she fell and hit her head on wall. No LOC. States she refused to get up and was screaming on floor striking out at staff. Has had multiple medication changes recently. On pt arrival calm and cooperative. Pt repeatedly stating I want to go home. Denies pain. Pt noted to have lace up splint to left ankle. Bruises in multiple stages on left lateral calf, right thigh, abd. Per MD Martinez had urinary stent removed last week. Pt straight cath for approx 100mL yellow urine. SR on EKG. To CT via stretcher.
[2019-04-01 00:19] LABS: Bilirubin Negative (Negative); Blood Large (Negative); Clarity Sl Cloudy (Clear); Glucose Negative (Negative); Ketones Trace mg/dL (Negative); Leukocyte Esterase Large (Negative); Nitrite Negative (Negative); Specific Gravity >= 1.030 (1.005-1.025); Urobilinogen 0.2 EU/dL (Up TO 0.2)
[2019-04-01 00:22] LABS: C & S Indicated? Yes
--- NOTE | 2019-04-01 00:47 | DI.VRAD_ITS ---
PROCEDURE INFORMATION: Exam: CT Head Without Contrast Exam date and time: 03/31/2019 11:59 PM Age: 73 years old Clinical indication: Injury or trauma; Initial encounter; Blunt trauma (contusions or hematomas); Consciousness not specified; Injury date: 03/31/19; Injury details: Reported trauma fall; Prior surgery; Surgery date: 6+ months; Surgery type: Prior right occipital and parietal craniotomy per prior radiology report TECHNIQUE: Imaging protocol: Computed tomography of the head without contrast. Radiation optimization: All CT scans at this facility use at least one of these dose optimization techniques: automated exposure control; mA and/or kV adjustment per patient size (includes targeted exams where dose is matched to clinical indication); or iterative reconstruction. COMPARISON: CT HEAD CERVICAL SPINE WO 02/05/2019 12:57 AM FINDINGS: Brain: Unchanged extensive encephalomalacia subjacent to the craniotomy a centered in the right occipital lobe. Extensive surrounding white matter hypoattenuation also appears unchanged. No acute hemorrhage. No mass effect. No large vascular territory infarct.White matter hypoattenuation likely reflects chronic small vessel ischemic changes. Ventricles: Ventricles are stable in size with expected ex vacuo dilation of the right lateral ventricle. Bones/joints: Status post right adam craniotomy. Sinuses: Visualized sinuses are unremarkable. No fluid levels. Mastoid air cells: Visualized mastoid air cells are well aerated. Soft tissues: Unremarkable. IMPRESSION: 1. No acute intracranial abnormality. 2. Stable chronic findings as described above. Dictated and Authenticated by: Daniel Navarrete MD. Ordering:BIANCA Smith MD
[2019-04-01 01:19] VITALS: BP 123/65; PULSE 90; RESP 16; TEMP 36.7; O2SAT 96
--- NOTE | 2019-04-09 09:26 | NUR.NOTE ---
Nursing Note: At Dr. Dillard request the urine culture was faxed to [facility] along with the [facility]. Marianela Spence.
== END 2019-04-01 01:15 | disposition skilled nursing facility (03) ==
PROVIDERS: Emergency Provider Emergency Medicine; PCP Family Medicine
DX: R45.1 Restlessness and agitation (principal); S09.90XA Unspecified injury of head, initial encounter; W18.30XA Fall on same level, unspecified, initial encounter; F01.51 Vascular dementia, unspecified severity, with behavioral disturbance; G31.83 Neurocognitive disorder with Lewy bodies; I10 Essential (primary) hypertension
CPT/HCPCS: 81025; 87077; 93005; 99284; 70450; 81003; 81015; 87086; 93010; 99285

== ENCOUNTER 2019-04-09 09:51 | Emergency (ER) | payer MEDICARE, MEDICAID, SELFPAY ==
[2019-04-09] VITALS (26 sets, daily range): BP systolic 120–150; BP diastolic 42–83; PULSE 90–112; RESP 16–30; TEMP 37.2; O2SAT 94–99
[2019-04-09 10:50] LABS: Abs Immature Grans 0.02 k/cumm (0.0-0.09); Absolute Basophil Count 0.03 k/cumm (0.0-0.2); Absolute Eosinophil Count 0.09 k/cumm (0.0-0.7); Absolute Lymphocyte Count 1.34 k/cumm (1.2-3.4); Absolute Monocyte Count 0.98 k/cumm (0.11-0.7); Absolute Neutrophil Count 4.84 k/cumm (1.2-6.7); Basophils % 0.4; Eosinophils % 1.2; HCT 37.8 % (36.0-46.0); HGB 12.1 g/dL (12.0-15.5); Immature Grans % 0.3 %; Lymphocytes % 18.4; Mean Corpuscular Hemoglobin 30.5 pg (27.0-33.0); Mean Corpuscular Volume 95.2 fL (80-95); Mean Platelet Volume 8.3 fL (8.0-11.0); Monocytes % 13.4; Neutrophils % 66.3; Platelet Count 378 x1000/uL (130-400); RBC 3.97 m/cumm (4.00-5.20); RBC Distribution Width 14.5 % (11.7-14.6)
[2019-04-09 10:55] LABS: ALT 27 U/L (14-59); AST 34 U/L (15-37); Albumin 3.8 g/dL (3.4-5.0); Alkaline Phosphatase 149 U/L (46-116); Anion Gap 7.9 mmol/L (3-11); BUN 16 mg/dL (7-18); Bilirubin, Total 0.5 mg/dL (0.2-1.0); CO2 33.1 mmol/L (21.0-32.0); CREATININE 0.93 mg/dL (0.55-1.02); Calcium 8.7 mg/dL (8.5-10.1); Chloride 101 mmol/L (98-107); Estimated GFR 58.93 (mL/min/1.73m2); Glucose 133 mg/dL (74-106); Potassium 3.8 mmol/L (3.5-5.1); Sodium 142 mmol/L (136-145); Total Protein 7.4 g/dL (6.4-8.2)
--- NOTE | 2019-04-09 11:02 | NUR.NOTE ---
Nursing Note:Patient was re-positioned and became combative. Patient is continuing to scream
[2019-04-09 11:06] LABS: Clarity Cloudy (Clear)
[2019-04-09 11:07] LABS: Leukocyte Esterase Small (Negative); Nitrite Negative (Negative); Specific Gravity > 1.030 (1.005-1.025); pH 6.5 (5-8)
[2019-04-09 11:08] LABS: Bilirubin Small (Negative); Blood Moderate (Negative); Glucose Negative (Negative); Ketones 80 mg/dL (Negative)
--- NOTE | 2019-04-09 11:09 | W.ED.GENAD ---
Discharge Plan Disposition Patient Disposition: SNF (LEVEL 1) [facility] Condition: Stable Discharge Details Chief Complaint: GenMedical Clinical Impression: Agitation Primary Care Provider: Irene Quinn ED Provider: Keny Sterling Ventura Meds and New Rx's Prescriptions: Continued quetiapine [Seroquel] 25 mg Tablet 12.5 mg PO BID RF: 0 quetiapine [Seroquel] 25 mg Tablet 50 mg PO QAM RF: 0 trazodone 50 mg Tablet 25 mg PO TID RF: 0 clonazepam 0.5 mg Tablet 1 mg PO BID RF: 0 acetaminophen [Tylenol Extra Strength] 500 mg Tablet 1,000 mg PO BID PRN PRNRF: 0 carbamazepine 200 mg Tablet 200 mg PO TID RF: 0 citalopram 20 mg Tablet 20 mg PO DAILY RF: 0 famotidine 20 mg Tablet 20 mg PO DAILY RF: 0 docusate sodium 100 mg Capsule 100 mg PO DAILY RF: 0 epinephrine 0.3 mg/0.3 mL Auto-Injector 0.3 mg IM ONCE RF: 0 lorazepam 2 mg/mL Concentrate 0.5 mg . DIRECTED PRNRF: 0 diazepam [Valium] 5 mg Tablet 5 mg PO BID RF: 0 oxycodone 5 mg Tablet 2.5 mg PO Q6H PRNRF: 0 Bismatrol 525 mg/15 mL Suspension 525 mg PO QID PRN PRNRF: 0 [id number]-cjnzwl Tablet 1 tab PO DAILY RF: 0 Acidophilus-Pectin Tablet,Chewable 1 tab PO DAILY RF: 0 quetiapine [Seroquel] 50 mg Tablet 75 mg PO QHS RF: 0 Solu-Medrol (PF) 125 mg/2 mL Recon Soln 125 mg IM . DIRECTED RF: 0 lamotrigine 300 mg Tablet Extended Release 24hr 300 mg PO QHS RF: 0 lamotrigine 250 mg Tablet Extended Release 24hr 250 mg PO BID RF: 0 Briviact 25 mg Tablet 50 mg PO BID RF: 0 Blink Tears 0.25 % Drops 0.25 % OPHTHALMIC (EYE) QID PRN PRNRF: 0 ergocalciferol (vitamin D2) [Vitamin D2] 1,250 mcg (50,000 unit) Capsule 50,000 unit PO .MONTHLY RF: 0 Discharge Instructions Additional Instructions: Laboratory values do not reveal any emergent process. Urine culture is pending, urine appears colonized and we will not treat with antibiotics acutely. Zyprexa has worked nicely for her symptoms. Please watch for new or worsening symptoms and return to the ER for any concerns. Otherwise I recommend following up with your primary care provider to further evaluate medication changes that may work better. Medical Decision Making 73-year-old female with dementia, Parkinson's, coming from a local jail for increased agitation. Similar visit over the past 2 weeks. Ecchymosis appears old, no obvious recent trauma. Patient did have CT during her last visit. She is a DNR/DNI. Will obtain routine laboratory values, urinalysis, give IM Zyprexa and reassess. Although she was never overtly aggressive verbally or physically with staff, she did attempt to climb out of the hospital stretcher multiple times. I was able to speak with the patient's son who reports that this appears to be her baseline. They are in the process of changing her psychiatric medications and come up with a better plan at their current jail. Laboratory values unremarkable for emergent process. Urinalysis appears better than her previous visit, she does appear to be colonized. No clear indication for antibiotics, culture pending. Patient is now calm, no longer trying to climb out of the bed. I do not know what else we can offer her here in the ER. I contacted the VOCATIONAL COUNSELOR, Cathy, from the jail who reports that she is aware of the presentation to the ER, comfortable with the work-up that was performed here in the ER, and agrees antibiotics not indicated emergently. They can certainly follow the culture. I did express that the Zyprexa seem to have good results with the patient. She is comfortable with the patient being transferred back to the jail in her current condition. We will arrange EMS transfer, all appropriate paperwork signed Medical Records Medical records reviewed: Yes I reviewed the patient's medical records. Lab Data Lab results reviewed: Yes I reviewed the patient's lab results. Lab results narrative: 04/09/19 10:37 Urine - Reflex from Ua Urine Culture - Pending Laboratory Tests Range/Units 04/09/19 04/09/19 04/09/19 10:25 10:25 10:37 WBC (4.4-10.8) k/cumm 7.30 RBC (4.00-5.20) m/cumm 3.97 L Hgb (12.0-15.5) g/dL 12.1 Hct (36.0-46.0) % 37.8 MCV (80-95) fL 95.2 H MCH (27.0-33.0) pg 30.5 MCHC (32.0-36.0) g/dL 32.0 RDW (11.7-14.6) % 14.5 Plt Count (130-400) x1000/uL 378 D MPV (8.0-11.0) fL 8.3 Immature Gran % % 0.3 Neutrophils % 66.3 Lymphocytes % 18.4 Monocytes % 13.4 Eosinophils % 1.2 Basophils % 0.4 Absolute Neutrophils (1.2-6.7) k/cumm 4.84 Absolute Lymphocytes (1.2-3.4) k/cumm 1.34 Absolute Monocytes (0.11-0.7) k/cumm 0.98 H Absolute Eosinophils (0.0-0.7) k/cumm 0.09 Absolute Basophils (0.0-0.2) k/cumm 0.03 Sodium (136-145) mmol/L 142 Potassium (3.5-5.1) mmol/L 3.8 Chloride (98-107) mmol/L 101 Carbon Dioxide (21.0-32.0) mmol/L 33.1 H Anion Gap (3-11) mmol/L 7.9 BUN (7-18) mg/dL 16 Creatinine (0.55-1.02) mg/dL 0.93 Estimated GFR/1.73 m2 (mL/min/1.73m2) 58.93 Glucose (74-106) mg/dL 133 H Calcium (8.5-10.1) mg/dL 8.7 Total Bilirubin (0.2-1.0) mg/dL 0.5 AST (15-37) U/L 34 ALT (14-59) U/L 27 Alkaline Phosphatase (46-116) U/L 149 H Total Protein (6.4-8.2) g/dL 7.4 Albumin (3.4-5.0) g/dL 3.8 Urine Color (Yellow) Yellow Urine Clarity (Clear) Cloudy Urine pH (5-8) 6.5 Ur Specific [place] (1.005-1.025) > 1.030 H Urine Protein (Negative) mg/dL >=300 H Urine Ketones (Negative) mg/dL 80 H Urine Blood (Negative) Moderate H Urine Nitrite (Negative) Negative Urine Bilirubin (Negative) Small H Urine Urobilinogen (Up TO 0.2) EU/dL 1.00 Ur Leukocyte Esterase (Negative) Small H Urine RBC (0-2) HPF 3-5 H Urine WBC (0-5) HPF 20-50 H Ur Epithelial Cells (Negative) HPF Negative Urine Crystals (Negative) HPF Negative Urine Bacteria (Negative) HPF Many Urine Casts (Negative) LPF Negative Urine Mucus (Negative) Negative Urine Other (Negative) Negative Ur Culture Indicated? Yes Urine Glucose (Negative) mg/dL Negative HPI General Mode of arrival: EMS. Date/Time Provider Initiated Documentation: 04/09/19 09:57. Limitations to Documentation: altered mental status. Information obtained by: patient, family, EMS and old records reviewed. HPI Narrative: This is a 73-year-old female presenting from local jail for increased agitation. Apparently she has been both verbally and physically abusive with staff. This is a known behavior and they are in the process of changing her medications to her neurology team. They felt as though today her behavior was too unruly and they could not safely manage her. She has been known to have falls in the past and has even thrown herself on the ground but they deny any known trauma over the past few days. She has a significant past medical history of a cerebral aneurysm, depression, hyperlipidemia, CVA, Parkinson's, dementia, hemiparesis status post CVA. Apparently staff was uncomfortable giving her any Haldol or Zyprexa but she did receive Ativan. She was seen in the ER for similar behavior on 17 of this month, at that time did have a head CT because she did have a recent fall. History is extremely limited from patient, she states over and over I just want to go home. She also states I need to go pee. Related Data Home Medications Medication Instructions Recorded Confirmed Acidophilus-Pectin 1 tab PO DAILY 04/01/19 04/09/19 Bismatrol 525 mg PO QID PRN PRN 04/01/19 04/09/19 Blink Tears 0.25 % OPHTHALMIC (EYE) QID PRN PRN 04/01/19 04/09/19 Briviact 50 mg PO BID 04/01/19 04/09/19 Solu-Medrol (PF) 125 mg IM . DIRECTED 04/01/19 04/09/19 acetaminophen [Tylenol Extra 1,000 mg PO BID PRN PRN 04/01/19 04/09/19 Strength] carbamazepine 200 mg PO TID 04/01/19 04/09/19 citalopram 20 mg PO DAILY 04/01/19 04/09/19 clonazepam 1 mg PO BID 04/01/19 04/09/19 diazepam [Valium] 5 mg PO BID 04/01/19 04/09/19 docusate sodium 100 mg PO DAILY 04/01/19 04/09/19 epinephrine 0.3 mg IM ONCE 04/01/19 04/09/19 famotidine 20 mg PO DAILY 04/01/19 04/09/19 lamotrigine 250 mg PO BID 04/01/19 04/09/19 lamotrigine 300 mg PO QHS 04/01/19 04/09/19 lorazepam 0.5 mg . DIRECTED PRN 04/01/19 04/09/19 gayrnzakphqc-[id number]-ykcrlm 1 tab PO DAILY 04/01/19 04/01/19 oxycodone 2.5 mg PO Q6H PRN 04/01/19 04/09/19 quetiapine [Seroquel] 12.5 mg PO BID 04/01/19 04/09/19 quetiapine [Seroquel] 50 mg PO QAM 04/01/19 04/09/19 quetiapine [Seroquel] 75 mg PO QHS 04/01/19 04/09/19 trazodone 25 mg PO TID 04/01/19 04/09/19 ergocalciferol (vitamin D2) 50,000 unit PO .MONTHLY 04/09/19 04/09/19 [Vitamin D2] Allergies Allergy/AdvReac Type Severity Reaction Status Date / Time Penicillins Allergy Intermediate Hives Unverified 04/09/19 10:03 aspirin Allergy Mild Unverified 04/09/19 10:03 promethazine AdvReac Intermediate HALLUCINATI Unverified 04/09/19 10:03 ONS Sulfa (Sulfonamide AdvReac Unknown Verified 04/09/19 10:03 Antibiotics) General Stated Complaint: GenMedical ANDRZEJ: 2 Review of Systems Unobtainable due to mental status [facility] Medical History Antibiotic-associated diarrhea (Resolved) Cerebral aneurysm, nonruptured (Chronic 09/15/15) Decreased vision (Chronic 02/03/14) left eye Dementia (Chronic) vascular Depression (Chronic 02/03/14) Diabetes (Chronic) Son states today 10/17/18 pt no longer treated for this. 01/13/19 pt son states she is no longer a diabetic DVT (deep venous thrombosis) (Resolved) Herpes labialis (Chronic) pt. 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) Do you feel safe in your relationship?: Yes Additional Social history: pt states she does not like staying at the [facility] Exam Const General: comfortable and frail appearing Orientation: alert and awake [facility] Head: normal to inspection, no palpable skull fracture, normocephalic and contusion (Appears to be old healing ecchymosis to the forehead) General nose exam: external nose normal Face and sinus: normal facial exam Mouth: moist mucous membranes Eyes General: appearance normal, both eyes and all related structures Periorbital: periorbital findings normal Eyelids: eyelids normal Conjunctivae: conjunctivae normal Sclera: sclerae normal Cornea: corneas normal Pupils: PERRL EOM: EOM intact bilaterally Direct ophthalmoscopy: normal light reflex Neck Neck: normal visual inspection, full ROM, trachea midline and supple Chest Chest: no tenderness Resp Effort & Inspection: normal respiratory effort and able to speak in complete sentences Auscultation: clear to auscultation bilaterally Cardio Rate: regular rate Rhythm: regular rhythm GI Inspection: normal to inspection Palpation: soft, not firm, no guarding and nontender Back/Spine/Pelvis Back: No back tenderness and other (Scattered areas of old ecchymosis) Skin General skin exam: no rashes or lesions noted Neuro General: alert, awake, moves all extremities and other (Left-sided hemiparesis, appears to be baseline secondary to CVA) Extrem General: other (Ecchymosis, old, left upper arm. Otherwise unremarkable) Psych Appearance: grossly normal Mental Status: mental status grossly normal Course Vital Signs Vital signs: Vital Signs Temperature 37.2 C 04/09/19 09:56 Pulse 91 H 04/09/19 09:56 Respiratory Rate 21 04/09/19 09:56 Blood Pressure 128/42 L 04/09/19 09:56 Pulse Oximetry 98 04/09/19 09:56 Temperature 37.2 C 04/09/19 09:56 Temperature Source Skin 04/09/19 09:56 Pulse 92 H 04/09/19 10:15 Pulse 98 H 04/09/19 10:50 Respiratory Rate 18 04/09/19 10:50 Respiratory Effort Non-Labored 04/09/19 09:56 Blood Pressure 134/62 04/09/19 10:15 Blood Pressure Mean 81 04/09/19 10:15 Blood Pressure Position Sitting 04/09/19 09:56 Pulse Oximetry 95 04/09/19 10:50 Oxygen Delivery Method Room Air 04/09/19 09:56 Oxygen Flow Rate 0 04/09/19 09:56 Pain Level 5 04/09/19 09:56 Lab/Test Results Lab/Test Results: Laboratory Tests Range/Units 04/09/19 04/09/19 04/09/19 10:25 10:25 10:37 WBC (4.4-10.8) k/cumm 7.30 RBC (4.00-5.20) m/cumm 3.97 L Hgb (12.0-15.5) g/dL 12.1 Hct (36.0-46.0) % 37.8 MCV (80-95) fL 95.2 H MCH (27.0-33.0) pg 30.5 MCHC (32.0-36.0) g/dL 32.0 RDW (11.7-14.6) % 14.5 Plt Count (130-400) x1000/uL 378 D MPV (8.0-11.0) fL 8.3 Immature Gran % % 0.3 Neutrophils % 66.3 Lymphocytes % 18.4 Monocytes % 13.4 Eosinophils % 1.2 Basophils % 0.4 Absolute Neutrophils (1.2-6.7) k/cumm 4.84 Absolute Lymphocytes (1.2-3.4) k/cumm 1.34 Absolute Monocytes (0.11-0.7) k/cumm 0.98 H Absolute Eosinophils (0.0-0.7) k/cumm 0.09 Absolute Basophils (0.0-0.2) k/cumm 0.03 Sodium (136-145) mmol/L 142 Potassium (3.5-5.1) mmol/L 3.8 Chloride (98-107) mmol/L 101 Carbon Dioxide (21.0-32.0) mmol/L 33.1 H Anion Gap (3-11) mmol/L 7.9 BUN (7-18) mg/dL 16 Creatinine (0.55-1.02) mg/dL 0.93 Estimated GFR/1.73 m2 (mL/min/1.73m2) 58.93 Glucose (74-106) mg/dL 133 H Calcium (8.5-10.1) mg/dL 8.7 Total Bilirubin (0.2-1.0) mg/dL 0.5 AST (15-37) U/L 34 ALT (14-59) U/L 27 Alkaline Phosphatase (46-116) U/L 149 H Total Protein (6.4-8.2) g/dL 7.4 Albumin (3.4-5.0) g/dL 3.8 Urine Color (Yellow) Yellow Urine Clarity (Clear) Cloudy Urine pH (5-8) 6.5 Ur Specific [place] (1.005-1.025) > 1.030 H Urine Protein (Negative) mg/dL >=300 H Urine Ketones (Negative) mg/dL 80 H Urine Blood (Negative) Moderate H Urine Nitrite (Negative) Negative Urine Bilirubin (Negative) Small H Urine Urobilinogen (Up TO 0.2) EU/dL 1.00 Ur Leukocyte Esterase (Negative) Small H Urine Glucose (Negative) mg/dL Negative
[2019-04-09] MEDS: OLANZapine 10 MG VIAL IM (11:20)
[2019-04-09] MEDS: Normal Saline 1,000 ML 1000 ML IV (11:20)
[2019-04-09 11:30] LABS: Epithelial Cells Negative HPF (Negative); WBC 20-50 HPF (0-5)
[2019-04-09 11:31] LABS: Other Cells Negative (Negative)
--- NOTE | 2019-04-09 11:31 | NUR.NOTE ---
1110: pt restless/combative hitting and kicking staff adjusted environment - dimmed lights/warm blanket/adjusted position provider made aware Nursing Note:
[2019-04-09 11:33] LABS: Bacteria Many HPF (Negative); C & S Indicated? Yes; Casts Negative LPF (Negative); Mucus Negative (Negative)
--- NOTE | 2019-04-09 11:42 | NUR.NOTE ---
Nursing Note:1130 patient combative with staff, screaming at staff Stating Radha mcclure, provider made aware.
--- NOTE | 2019-04-09 13:00 | NUR.NOTE ---
Addendum entered by Tuan David 04/09/19 13:04: wrong patient. Addendum entered by Taun David 04/09/19 13:04: Original Note: Nursing Note:per Dr. Dillard, sitting in room with patient to see how he doing and to watch the IV. Patient Stated this IV actually fucking hurts you know, Patient continue to be on the phone with someone.
[2019-04-09 21:17] LABS: Crystals Moderate Amorphous HPF (Negative)
== END 2019-04-09 13:11 | disposition skilled nursing facility (03) ==
PROVIDERS: Emergency Provider Physician Assistant; PCP Family Medicine
DX: F01.51 Vascular dementia, unspecified severity, with behavioral disturbance (principal); R45.1 Restlessness and agitation; G20 Parkinson's disease; I10 Essential (primary) hypertension; Z66 Do not resuscitate
CPT/HCPCS: 36415; 80053; 87077; 96360; 96372; 99284; 81003; 81015; 85025; 87086; 87186

== ENCOUNTER 2019-06-12 07:26 | Day surgery (SDC) | payer MEDICARE, MEDICAID, SELFPAY ==
[2019-06-12 07:50] VITALS: BP 119/68; PULSE 66; RESP 16; TEMP 36.8; O2SAT 98
[2019-06-12] MEDS: Lactated Ringers 1,000 ML 80 ML IV (08:32)
--- NOTE | 2019-06-12 08:58 | W.PM.HP.N ---
Date of service: 06/12/19 Time of Service: 08:58 Assessment and Plan Assessment and plan (1) Hydronephrosis due to obstruction of ureter: Status: Acute Assessment and plan: For cystoscopy with stent change History of Present Illness History of Present Illness Chief Complaint: Right hydronephrosis Narrative: This is a 73-year-old woman who has a history of urosepsis. She had right hydronephrosis with an unknown etiology. She was treated with a stent placement as well as antibiotics and her sepsis improved. Her family is not interested in aggressive treatments, so she is managed with an indwelling stent. In the past, her stent has calcified rather quickly, so she has her stent changed every 2 to 3 months. She presents now for stent change. The patient is not having any fevers or dry cough. We had attempted to do COVID-19 testing, but with the patient's mental status, she was unable to tolerate the testing due to her mental status and combativeness. We decided to move ahead with her surgery in spite of the lack of testing. She lives in a long care facility and no patients at that facility have been diagnosed with COVID-19 so far. 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 DIRECTED 04/01/19 06/10/19 History acetaminophen [Tylenol Extra 1,000 mg PO Q6H PRN PRN 04/01/19 06/10/19 History Strength] carbamazepine 200 mg PO TID 04/01/19 06/10/19 History citalopram 20 mg PO DAILY 04/01/19 06/10/19 History clonazepam 1 mg PO BID 04/01/19 06/10/19 History diazepam [Valium] 5 mg PO BID 04/01/19 06/10/19 History docusate sodium 100 mg PO DAILY 04/01/19 06/10/19 History epinephrine 0.3 mg IM ONCE 04/01/19 06/10/19 History famotidine 20 mg PO DAILY 04/01/19 06/10/19 History lamotrigine 250 mg PO BID 04/01/19 06/10/19 History lamotrigine 300 mg PO QHS 04/01/19 06/10/19 History lorazepam 2 mg . DIRECTED PRN 04/01/19 06/10/19 History kxzvxjaquhow-hlhmqyvk-ejsuoh 1 tab PO DAILY 04/01/19 06/10/19 History oxycodone 2.5 mg PO Q6H PRN 04/01/19 06/10/19 History quetiapine [Seroquel] 12.5 mg PO BID 04/01/19 06/10/19 History quetiapine [Seroquel] 50 mg PO QAM 04/01/19 06/10/19 History quetiapine [Seroquel] 75 mg PO QHS 04/01/19 06/10/19 History trazodone 25 mg PO TID 04/01/19 06/12/19 History ergocalciferol (vitamin D2) 50,000 unit PO .MONTHLY 04/09/19 06/10/19 History [Vitamin D2] acetaminophen [Tylenol] 650 mg PO BID 06/10/19 06/12/19 History benztropine 0.5 mg PO BID 06/10/19 06/10/19 History brivaracetam [Briviact] 50 mg PO BID 06/10/19 06/10/19 History clonazepam 1 mg PO DAILY 06/10/19 06/10/19 History clonazepam 1.5 mg PO QHS 06/10/19 06/10/19 History lamotrigine 50 mg PO DAILY 06/10/19 06/10/19 History lorazepam 1 mg PO Q2H PRN PRN MDD 6mg 06/10/19 06/10/19 History mirtazapine 15 mg PO QHS 06/10/19 06/10/19 History olanzapine [Zyprexa] 2.5 mg PO DAILY 06/10/19 06/10/19 History olanzapine [Zyprexa] 5 mg PO QHS 06/10/19 06/10/19 History Allergies Allergy/AdvReac Type Severity Reaction Status Date / Time Penicillins Allergy Intermediate Hives Unverified 06/12/19 08:20 aspirin Allergy Mild Unverified 06/12/19 08:20 promethazine AdvReac Intermediate HALLUCINATI Unverified 06/12/19 08:20 ONS Sulfa (Sulfonamide AdvReac Unknown Verified 06/12/19 08:20 Antibiotics) Exam Narrative Exam Narrative: She is in no obvious distress. Her vital signs are documented elsewhere Her lungs are clear with decreased breath sounds at the bases Cardiac exam shows a regular rate and rhythm Her abdomen is soft with no mass She is sleepy Results Last Vital Signs Temp 36.8 C 06/12/19 07:50 Pulse 66 06/12/19 07:50 Resp 16 06/12/19 07:50 BP 119/68 06/12/19 07:50 Pulse Ox 98 06/12/19 07:50 COVID-19 Screening Traveled to [place] from one of the affected countries or regions?: NO
[2019-06-12] MEDS: ceFAZolin 1 GM/50 ML BAG IVPB (09:41)
[2019-06-12] MEDS: Lidocaine 2% Jelly 6 ML SYR (09:52)
[2019-06-12] MEDS: Omnipaque 300 MG/ML 50 ML BTL (09:52)
--- NOTE | 2019-06-12 09:59 | DI.RAD_ITS ---
EXAM: XR RETROGRADE IN OR INDICATION: change right urethral stent. TECHNIQUE: 2D digital imaging was performed. FINDINGS: C-arm fluoroscopy was utilized by Dr. Guevara during right ureteral stent change. Please see Dr. Guevara 's procedure note. Fluoro time is 9.8 seconds. DATA REPOSITORY: RADIATION DOSE DELIVERED:
--- NOTE | 2019-06-12 10:03 | ROE_ITS ---
Date of service: 06/12/19 Time of Service: 10:03 Operative Note Operative Note DATE OF PROCEDURE: 06/12/19 PRE-OP DIAGNOSIS: Right hydronephrosis PROCEDURE: Cystoscopy, remove right ureteral stent, right retrograde pyelogram, replaced right ureteral stent SURGEON: Cody Guevara ANESTHESIA: MAC ESTIMATED BLOOD LOSS: 0 PATHOLOGY: none sent Patient was transported to: same day Patient's condition: stable Indications: This is a 73-year-old woman who has a history of right sided hydronephrosis and urosepsis. She improved with placement of a ureteral stent and antibiotics. Her family has elected not to have invasive work-up or treatment of the hydronephrosis, so we have been maintaining her with an indwelling ureteral stent. Because of encrustations, the stent is changed every 2 to 3 months. Procedure Description: The patient was brought to the operating room on 06/12/2019. She was given a dose of preoperative IV antibiotics. She was given monitored anesthesia care and placed in the dorsal lithotomy position. Her genitalia is prepped and draped. 2% Xylocaine jelly was instilled into the urethra to act as a local anesthetic. A 22 English rigid cystoscope was passed through the urethra into the bladder. The bladder was inspected with a 30 degree lens. A stent could be seen protruding from the right ureteral orifice. The stent was grasped with the alligator forceps and removed to the level of the urethral meatus. A Glidewire was then advanced through the lumen of the stent and the stent was removed. A ureteral access catheter was advanced over the wire and the wire was removed. A retrograde pyelogram was obtained by injecting Omnipaque through the access catheter under fluoroscopic guidance. This allowed us to outline the renal pelvis on the right side. The Glidewire was then repositioned through the lumen of the catheter and the catheter was removed a 4.8 English variable length stent was advanced over the wire the proximal end of the stent was curled within the renal pelvis and the distal end was seen within the bladder. The positioning of the stent was confirmed both fluoroscopically and cystoscopically. The patient tolerated this procedure well with no complications. She was taken back to the outpatient area in stable condition. cc: MOIRA ODELL, JANIYA
[2019-06-12 10:40] VITALS: BP 123/66; PULSE 66; RESP 16; TEMP 36.1; O2SAT 97
--- NOTE | 2019-06-12 11:19 | W.PM.DSUDISC ---
Discharge Plan Disposition Patient Disposition: [facility] (LEVEL 2) [facility] Condition: Stable Discharge Details Attending Provider: Cody Guevara Primary Care Provider: Irene Quinn [place] Meds and New Rx's Prescriptions: No Action quetiapine [Seroquel] 25 mg Tablet 12.5 mg PO BID RF: 0 trazodone 50 mg Tablet 25 mg PO TID RF: 0 carbamazepine 200 mg Tablet 200 mg PO TID RF: 0 citalopram 20 mg Tablet 20 mg PO DAILY RF: 0 famotidine 20 mg Tablet 20 mg PO DAILY RF: 0 docusate sodium 100 mg Capsule 100 mg PO DAILY RF: 0 epinephrine 0.3 mg/0.3 mL Auto-Injector 0.3 mg IM ONCE RF: 0 lorazepam 2 mg/mL Concentrate 2 mg . DIRECTED PRNRF: 0 diazepam [Valium] 5 mg Tablet 5 mg PO BID RF: 0 Bismatrol 525 mg/15 mL Suspension 525 mg PO Q4H PRN PRNRF: 0 [id number]-[id number] Tablet 1 tab PO DAILY RF: 0 Acidophilus-Pectin Tablet,Chewable 1 tab PO BID RF: 0 Solu-Medrol (PF) 125 mg/2 mL Recon Soln 125 mg IM . DIRECTED RF: 0 Blink Tears 0.25 % Drops 0.25 % OPHTHALMIC (EYE) QID PRN PRNRF: 0 ergocalciferol (vitamin D2) [Vitamin D2] 1,250 mcg (50,000 unit) Capsule 50,000 unit PO .MONTHLY RF: 0 acetaminophen [Tylenol] 325 mg Tablet 650 mg PO BID RF: 0 benztropine 0.5 mg Tablet 0.5 mg PO BID RF: 0 olanzapine [Zyprexa] 5 mg Tablet 2.5 mg PO DAILY RF: 0 clonazepam 1 mg Tablet 1 mg PO DAILY RF: 0 clonazepam 1 mg Tablet 1.5 mg PO QHS RF: 0 olanzapine [Zyprexa] 2.5 mg Tablet 5 mg PO QHS RF: 0 mirtazapine 15 mg Tablet 15 mg PO QHS RF: 0 lorazepam 1 mg Tablet 1 mg PO Q2H PRN MDD 6mg PRNRF: 0 lamotrigine 50 mg Tablet,Disintegrating 50 mg PO DAILY RF: 0 Briviact 50 mg Tablet 50 mg PO BID RF: 0 Discharge Instructions Additional Instructions: pt will need cysto and stent change in OR in 2 to 3 weeks Stand Alone Forms: [facility]yst[facility], [facility] Post op Instructions, Maureen Busch ([facility]) Activity:: Activity as Tolerated Shower/Bathe:: 24 hours Diet:: As Tolerated Discharge Orders Discharge Orders: Discharge Order (Routine); Ordered 06/12/19 Ordered By: Cody Guevara DS: Diagnosis Discharge Diagnosis (1) Hydronephrosis due to obstruction of ureter: Status: Acute
== END 2019-06-12 11:50 | disposition intermediate care facility (04) ==
PROVIDERS: PCP Family Medicine; Visit Provider Urology
PROC: (CPT 52332; principal; 2019-06-12 09:00)
DX: N13.1 Hydronephrosis with ureteral stricture, not elsewhere classified (principal); Z96.0 Presence of urogenital implants
CPT/HCPCS: 52332; 52005; NC; 74420; J0690; J2001; Q9967

== ENCOUNTER → 2019-06-30 11:26 | Outpatient (BNVA) | payer MEDICARE, MEDICAID, SELFPAY | PROVIDERS: PCP Family Medicine; Referring Provider Family Medicine; Visit Provider Psychiatry & Neurology Neurology | DX: G40.109 Localization-related (focal) (partial) symptomatic epilepsy and epileptic syndromes with simple partial seizures, not intractable, without status epilepticus (principal); G21.4 Vascular parkinsonism; R45.1 Restlessness and agitation; F03.90 Unspecified dementia, unspecified severity, without behavioral disturbance, psychotic disturbance, mood disturbance, and anxiety; I10 Essential (primary) hypertension | CPT/HCPCS: 99214 ==

== ENCOUNTER 2019-08-14 06:06 | Day surgery (SDC) | payer MEDICARE, MEDICAID, SELFPAY ==
--- NOTE | 2019-08-12 11:34 | NUR.NOTE ---
Addendum entered by Malik Espino 08/12/19 13:33: Spoke with son Gonzalo Carter who will be bringing patient to appointment, Gonzalo denies any COVID-19 symptoms or being in contact with any person(s) with new respiratory/COVID-19 symptoms. Gonzalo states he is screened daily at work, and was also educated that he and his mother will have to have a mask on at all times while at [facility], gonzalo stated understanding. Addendum entered by Malik Espino 08/12/19 12:26: Spoke with Ashley, at the [facility] who stated that they have had no positive COVID-19 cases, and no person(s) under investigation at this time. Their visitation policy is 2 visitors per pt. per day to which each resident and visitor has to have a mask on, sanitize hands,remain 6 ft. apart, and are outside for the duration of the visit. She also stated that daily checks are conducted on each resident, and that currently Natty has displayed no COVID-19 symptoms at time of phone assessment. Original Note: 08/10: Spoke with Radha Funes RN in Guevara's office about pt. not being scheduled for COVID-19 testing, due to patients severe dementia and combativeness. There was a note in the patients chart, back in May, where it was attempted to screen pt. and pt. became extremely combative towards staffing, per note/Radha. It was ok'd through [facility] and MD to for-go COVID-19 due to safety concerns for staff and pt at that time. This procedure scheduled for 08/14 anesthesia (Slava Resendiz CRNA) was consulted regarding this matter, and stated if we could call [place] [facility] pt. [place]) and attempt to test her that would be ideal, if not, then we will treat her as a COVID-19 PUI, and use all of the proper precautions. Radha also stated that the patient may not want to keep mask on as well, this RN suggested an alternative entrance. Pt. and son Gonzalo (who will accompany pt.) will be screened/have temperature checks conducted by [facility] staff and enter hospital at [facility] side entrance, this was permitted by SWAPNIL Daugherty nursing script supervisor, Nicolette Mckenzie is also aware of this plan.Nursing Note:
[2019-08-14 06:16] VITALS: BP 125/69; PULSE 70; RESP 20; TEMP 36.5; O2SAT 98
[2019-08-14] MEDS: Lactated Ringers 1,000 ML 80 ML IV (06:46)
--- NOTE | 2019-08-14 06:50 | W.PM.HP.N ---
Date of service: 08/14/19 Time of Service: 06:51 Assessment and Plan Assessment and plan (1) Hydronephrosis due to obstruction of ureter: Status: Acute Assessment and plan: We will perform her routine cystoscopy and right sided stent change. History of Present Illness History of Present Illness Chief Complaint: Right hydronephrosis Narrative: This is a 74-year-old woman who has a history of urosepsis. She had right hydronephrosis with an unknown etiology. She was treated with a stent placement as well as antibiotics and her sepsis improved. Her family is not interested in aggressive treatments, so she is managed with an indwelling stent. In the past, her stent has calcified rather quickly, so she has her stent changed every 2 to 3 months. She presents now for stent change. The patient is not having any fevers or dry cough. We had attempted to do COVID-19 testing previously, but with the patient's mental status, she brcame combative and was unable to tolerate the testing. We decided to move ahead with her surgery in spite of the lack of testing. She lives in a long care facility and to date, no patients at that facility have been diagnosed with COVID-19. 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 DIRECTED 04/01/19 08/12/19 History carbamazepine 200 mg PO TID 04/01/19 08/12/19 History citalopram 20 mg PO DAILY 04/01/19 08/12/19 History diazepam [Valium] 5 mg PO BID 04/01/19 08/12/19 History docusate sodium 100 mg PO DAILY 04/01/19 08/12/19 History epinephrine 0.3 mg IM ONCE 04/01/19 08/12/19 History famotidine 20 mg PO DAILY 04/01/19 08/12/19 History lorazepam 2 mg . DIRECTED PRN 04/01/19 08/12/19 History oguhldrktbrm-ckrhtmod-yhnhpq 1 tab PO DAILY 04/01/19 08/12/19 History trazodone 25 mg PO TID 04/01/19 08/12/19 History ergocalciferol (vitamin D2) 50,000 unit PO .MONTHLY 04/09/19 08/12/19 History [Vitamin D2] acetaminophen [Tylenol] 650 mg PO BID 06/10/19 08/12/19 History benztropine 0.5 mg PO BID 06/10/19 08/12/19 History brivaracetam [Briviact] 50 mg PO BID 06/10/19 08/12/19 History lorazepam 1 mg PO Q2H PRN PRN MDD 6mg 06/10/19 08/12/19 History Lactobacillus acidoph-pectin 1 tab PO DAILY 06/30/19 08/12/19 History clonazepam 1 mg tablet 1.5 mg PO BID tab 06/30/19 08/12/19 History olanzapine 5 mg tablet 7.5 mg PO DAILY tab 06/30/19 08/12/19 History mirtazapine 15 mg PO HS 08/12/19 08/12/19 History olanzapine 2.5 mg PO QAM 08/12/19 08/12/19 History Allergies Allergy/AdvReac Type Severity Reaction Status Date / Time Penicillins Allergy Intermediate Hives Unverified 08/14/19 06:18 aspirin Allergy Mild Unverified 08/14/19 06:18 promethazine AdvReac Intermediate HALLUCINATI Unverified 08/14/19 06:18 ONS Sulfa (Sulfonamide AdvReac Unknown Verified 08/14/19 06:18 Antibiotics) Exam Narrative Exam Narrative: She is a pleasant older woman in no current distress. She is cooperative but unable to provide much history other than yes or no answers She has decreased mobility on her left side following a stroke Vital signs are documented elsewhere Chest wall motion is normal. Her lungs are clear. Cardiac exam shows a regular rate and rhythm She is awake and alert Results Last Vital Signs Temp 36.5 C 08/14/19 06:16 Pulse 70 08/14/19 06:16 Resp 20 08/14/19 06:16 BP 125/69 08/14/19 06:16 Pulse Ox 98 08/14/19 06:16 COVID-19 Screening In the past 14 days, have you traveled outside of [place]?: NO Had IN PERSON contact w/suspected or confirmed C-19 person: No
[2019-08-14] MEDS: cefTRIAXone 1 GM/50 ML BAG IVPB (07:33)
[2019-08-14] MEDS: Lidocaine 2% Jelly 6 ML SYR (07:45)
[2019-08-14] MEDS: Omnipaque 300 MG/ML 50 ML BTL (07:55)
--- NOTE | 2019-08-14 08:19 | DI.RAD_ITS ---
EXAM: XR RETROGRADE IN OR CLINICAL HISTORY: Hydronephrosis due to obstruction of ureter TECHNIQUE: 2D and realtime digital imaging was performed. CONTRAST MATERIAL: Refer to procedure report. COMPARISON: No exams were available for comparison FINDINGS: Fluoroscopy was provided for Dr. Guevara during the performance of a retrograde evaluation of the aaliyah l collecting system.. Please refer to the procedure report for complete details. Fluoro time: 36.3 seconds IMPRESSION:
--- NOTE | 2019-08-14 08:19 | W.PM.DSUDISC ---
Discharge Plan Disposition Patient Disposition: [facility] (LEVEL 2) [facility] Condition: Stable Discharge Details Reason For Visit: ureteral stent Attending Provider: Cody Guevara Primary Care Provider: Irene Quinn [place] Meds and New Rx's Prescriptions: No Action Acidophilus-Pectin Tablet,Chewable 1 tab PO DAILY RF: 0 olanzapine [Zyprexa] 5 mg tablet 7.5 mg PO DAILY RF: 0 trazodone 50 mg Tablet 25 mg PO TID RF: 0 carbamazepine 200 mg Tablet 200 mg PO TID RF: 0 citalopram 20 mg Tablet 20 mg PO DAILY RF: 0 famotidine 20 mg Tablet 20 mg PO DAILY RF: 0 docusate sodium 100 mg Capsule 100 mg PO DAILY RF: 0 epinephrine 0.3 mg/0.3 mL Auto-Injector 0.3 mg IM ONCE RF: 0 lorazepam 2 mg/mL Concentrate 2 mg . DIRECTED PRNRF: 0 diazepam [Valium] 5 mg Tablet 5 mg PO BID RF: 0 Bismatrol 525 mg/15 mL Suspension 525 mg PO Q4H PRN PRNRF: 0 fnubvmojwfvy-zdgdzegi-rudnyo Tablet 1 tab PO DAILY RF: 0 Solu-Medrol (PF) 125 mg/2 mL Recon Soln 125 mg IM . DIRECTED RF: 0 Blink Tears 0.25 % Drops 0.25 % OPHTHALMIC (EYE) QID PRN PRNRF: 0 ergocalciferol (vitamin D2) [Vitamin D2] 1,250 mcg (50,000 unit) Capsule 50,000 unit PO .MONTHLY RF: 0 acetaminophen [Tylenol] 325 mg Tablet 650 mg PO BID RF: 0 benztropine 0.5 mg Tablet 0.5 mg PO BID RF: 0 lorazepam 1 mg Tablet 1 mg PO Q2H PRN MDD 6mg PRNRF: 0 Briviact 50 mg Tablet 50 mg PO BID RF: 0 clonazepam 1 mg tablet 1.5 mg PO BID RF: 0 olanzapine 2.5 mg Tablet 2.5 mg PO QAM RF: 0 mirtazapine 15 mg tablet 15 mg PO HS RF: 0 Discharge Instructions Additional Instructions: Will need cystoscopy and stent change in 2 to 3 months Stand Alone Forms: [facility] Maureen Mercedes ([facility]) Activity:: Activity as Tolerated Shower/Bathe:: 24 hours Diet:: As Tolerated Discharge Orders Discharge Orders: Discharge Order (Routine); Ordered 08/14/19 Ordered By: Cody Guevara DS: Diagnosis Discharge Diagnosis (1) Hydronephrosis due to obstruction of ureter: Status: Acute
--- NOTE | 2019-08-14 08:29 | ROE_ITS ---
Date of service: 08/14/19 Time of Service: 08:29 Operative Note Operative Note PRE-OP DIAGNOSIS: Right hydronephrosis POST-OP DIAGNOSIS: same PROCEDURE: Cystoscopy, remove right ureteral stent, right retrograde pyelogram, insert right ureteral stent SURGEON: Cody Guevara ANESTHESIA: other (General without intubation) ESTIMATED BLOOD LOSS: 3 PATHOLOGY: none sent COMPLICATIONS: None Patient was transported to: same day Patient's condition: stable Implants: 4.8 [place] 22 to 30 cm ureteral stent Indications: This is a 74-year-old woman who was initially seen when she presented with urosepsis. She was found to have a right hydronephrosis. She was treated with a stent and antibiotics and clinically she improved. Her family is not interested in more invasive treatments to look for the etiology of the hydronephrosis. They are agreeable to routine stent changes every 2 to 3 months. Procedure Description: The patient was brought to the operating room on 08/14/2019. She was given preoperative ceftriaxone. After successful induction of general anesthesia without intubation, she was placed in the dorsal lithotomy position. Her genitalia was prepped and draped. A 22 [place] rigid cystoscope was passed through the urethra into the bladder. The urethra and bladder were inspected with a 30 degree lens. The right ureteral orifice was identified. The stent could be seen protruding from the orifice. The stent was grasped with alligator forceps and brought out to the level of the urethral meatus. A Glidewire was then advanced through the lumen of the stent and the stent was removed leaving the wire in place. A 6 [place] access catheter was then passed over the wire and positioned in the upper ureter. The wire was removed. A retrograde pyelogram was obtained by injecting Omnipaque through the access catheter under fluoroscopic guidance. This allowed us to outline the collecting system. The wire was then replaced in the access catheter was removed. A 4.8 [place] variable length stent was advanced over the wire. Initial positioning of the stent showed the distal and up in the ureter rather than in the bladder. The semirigid ureteroscope was then advanced through the urethra and into the bladder. We passed the ureteroscope up the distal ureter until the stent was seen. The stent was then grasped with ureteroscopic forceps and pulled back down until the distal end was within the bladder. The patient tolerated this procedure well. We will plan on a repeat stent em in 2 to 3 months. She was taken back to outpatient surgery in stable condition.
[2019-08-14] MEDS: Phenazopyridine 200 MG TAB PO (08:54)
[2019-08-14 08:58] VITALS: BP 136/80; PULSE 68; RESP 16; TEMP 36.4; O2SAT 97
[2019-08-14 09:29] VITALS: BP 138/82; PULSE 66; RESP 18; TEMP 36.8; O2SAT 100
== END 2019-08-14 09:35 | disposition intermediate care facility (04) ==
PROVIDERS: PCP Family Medicine; Visit Provider Urology
PROC: (CPT 52332; principal; 2019-08-14 07:30)
DX: N13.2 Hydronephrosis with renal and ureteral calculous obstruction (principal); Z96.0 Presence of urogenital implants
CPT/HCPCS: 52332; 52351; NC; 74420; J0696; J2001; Q9967

== ENCOUNTER 2019-09-02 11:01 | Emergency (ER) | payer MEDICARE, MEDICAID, SELFPAY ==
--- NOTE | 2019-09-02 11:00 | DI.US_ITS ---
EXAM: US LOWER EXTREMITY VENOUS RT CLINICAL HISTORY: R leg swelling, erythema TECHNIQUE: Right lower extremity venous ultrasound performed using grayscale, color-flow, and spectr al Doppler analysis. COMPARISON: No exams were available for comparison FINDINGS: The right common femoral, femoral and popliteal veins demonstrate normal compressibility, augmentatio n, and color Doppler. The posterior tibial veins are patent. The saphenofemoral junction is unremark able. There is no evidence of a Fine cyst. The soft tissues are unremarkable. IMPRESSION: No DVT. DATA REPOSITORY:
[2019-09-02 11:03] VITALS: BP 130/58; PULSE 86; RESP 16; TEMP 36.9; O2SAT 94
--- NOTE | 2019-09-02 11:11 | ED.GENADUL_ITS ---
Discharge Plan Disposition Patient Disposition: HOME Condition: Stable Discharge Details Chief Complaint: Cellulitis Clinical Impression: Bursitis, prepatellar, right Primary Care Provider: Irene Quinn ED Provider: Walter Costa Home Meds and New Rx's Prescriptions: New cephalexin 500 mg capsule 500 mg PO TID 7 Days Qty: 21 RF: 0 Continued Acidophilus-Pectin Tablet,Chewable 1 tab PO DAILY RF: 0 olanzapine [Zyprexa] 5 mg tablet 7.5 mg PO DAILY RF: 0 trazodone 50 mg Tablet 25 mg PO TID RF: 0 carbamazepine 200 mg Tablet 200 mg PO TID RF: 0 citalopram 20 mg Tablet 20 mg PO DAILY RF: 0 famotidine 20 mg Tablet 20 mg PO DAILY RF: 0 docusate sodium 100 mg Capsule 100 mg PO DAILY RF: 0 epinephrine 0.3 mg/0.3 mL Auto-Injector 0.3 mg IM ONCE RF: 0 Bismatrol 525 mg/15 mL Suspension 525 mg PO Q4H PRN PRNRF: 0 [id number] Tablet 1 tab PO DAILY RF: 0 Solu-Medrol (PF) 125 mg/2 mL Recon Soln 125 mg IM . DIRECTED RF: 0 Blink Tears 0.25 % Drops 0.25 % OPHTHALMIC (EYE) QID PRN PRNRF: 0 ergocalciferol (vitamin D2) [Vitamin D2] 1,250 mcg (50,000 unit) Capsule 50,000 unit PO .MONTHLY RF: 0 acetaminophen [Tylenol] 325 mg Tablet 650 mg PO BID RF: 0 benztropine 0.5 mg Tablet 0.5 mg PO BID RF: 0 Briviact 50 mg Tablet 50 mg PO BID RF: 0 clonazepam 1 mg tablet 1.5 mg PO BID RF: 0 olanzapine 2.5 mg Tablet 5 mg PO QAM RF: 0 mirtazapine 15 mg tablet 15 mg PO HS RF: 0 tramadol 50 mg tablet 25 mg PO .Q6 HRS PRNRF: 0 Nuplazid 34 mg capsule 34 mg PO DAILY RF: 0 Discontinued clindamycin HCl 150 mg capsule 450 mg PO TID RF: 0 Discharge Instructions Additional Instructions: You have a Right prepatellar bursitis. You have a Left knee contusion. In the emergency department today you underwent blood work with blood culture and ultrasound. You do not have evidence of a DVT. Your case was discussed with orthopedics. You were given IV ceftriaxone. We will place you on Keflex and this should be taking for its entire course. Stop the previously prescribed clindamycin. Padding the right knee with ABD or Curlex will aid in reducing discomfort. Medical Decision Making 74-year-old female from local half-way. She presents with right prepatellar/proximal tibia cellulitis that has worsened over days time. Was initially treated with doxycycline and she has now been switched to 2 doses of clindamycin. Patient is afebrile with unremarkable vital signs. Her differential gnosis includes prepatellar bursitis, cellulitis. Must exclude DVT is referred for ultrasound which is unremarkable. Screening left knee x-ray obtained without effusion or bony abnormality. Patient does have elevated inflammatory markers and this is most consistent with R prepatellar bursitis. Case discussed with Dr. Concepcion who agrees with switching to oral cephalosporin for probable methicillin sensitive staph. He also does recommend padding of the knee but no significant compression. Lab Data Lab results reviewed: Yes I reviewed the patient's lab results. Labs: Laboratory Results - last 24 hr 09/02/19 09/02/19 11:30 11:30 WBC 8.54 RBC 3.61 L Hgb 10.5 L Hct 34.2 L MCV 94.7 MCH 29.1 MCHC 30.7 L RDW 12.9 Plt Count 307 MPV 8.5 Immature Gran % 0.5 Neutrophils % 67.8 Lymphocytes % 18.4 Monocytes % 12.6 Eosinophils % 0.6 Basophils % 0.1 Absolute Neutrophils 5.79 Absolute Lymphocytes 1.57 Absolute Monocytes 1.08 H Absolute Eosinophils 0.05 Absolute Basophils 0.01 Sodium 143 Potassium 3.6 Chloride 102 Carbon Dioxide 35.4 H Anion Gap 5.6 BUN 20 H Creatinine 0.90 Estimated GFR/1.73 m2 >= 60.00 Glucose 117 H Calcium 9.2 Total Bilirubin 0.2 AST 19 ALT 22 Alkaline Phosphatase 120 H C-Reactive Protein 22.93 H Total Protein 8.1 Albumin 2.7 L HPI General Mode of arrival: EMS . Date/Time Provider Initiated Documentation: 09/02/19 11:17 . Limitations to Documentation: other (Dementia) . Information obtained by: patient, EMS and old records reviewed . History of Present Illness 74 year old F presents to the emergency department with the chief complaint of Right lower extremity erythema, on antibiotics, described as moderate, Quality is described as constant, and is localized to the right and lower extremity. Patient reports no radiation. Patient started experiencing this day(s) and it has been constant. No relieving factors improve symptom(s), No exacerbating factors reported . Patient did receive the following treatments prior to arrival, other (Doxycycline, now on clindamycin x2 doses) Related Data Home Medications Medication Instructions Recorded Confirmed Bismatrol 525 mg PO Q4H PRN PRN 04/01/19 09/02/19 Blink Tears 0.25 % OPHTHALMIC (EYE) QID PRN PRN 04/01/19 09/02/19 Solu-Medrol (PF) 125 mg IM . DIRECTED 04/01/19 09/02/19 carbamazepine 200 mg PO TID 04/01/19 09/02/19 citalopram 20 mg PO DAILY 04/01/19 09/02/19 docusate sodium 100 mg PO DAILY 04/01/19 09/02/19 epinephrine 0.3 mg IM ONCE 04/01/19 09/02/19 famotidine 20 mg PO DAILY 04/01/19 09/02/19 [id number]-[id number] 1 tab PO DAILY 04/01/19 09/02/19 trazodone 25 mg PO TID 04/01/19 09/02/19 ergocalciferol (vitamin D2) 50,000 unit PO .MONTHLY 04/09/19 09/02/19 [Vitamin D2] Briviact 50 mg PO BID 06/10/19 09/02/19 acetaminophen [Tylenol] 650 mg PO BID 06/10/19 09/02/19 benztropine 0.5 mg PO BID 06/10/19 09/02/19 Lactobacillus acidoph-pectin 1 tab PO DAILY 06/30/19 09/02/19 clonazepam 1 mg tablet 1.5 mg PO BID tab 06/30/19 09/02/19 olanzapine 5 mg tablet 7.5 mg PO DAILY tab 06/30/19 09/02/19 mirtazapine 15 mg PO HS 08/12/19 09/02/19 olanzapine 5 mg PO QAM 08/12/19 09/02/19 Nuplazid 34 mg PO DAILY 09/02/19 09/02/19 cephalexin 500 mg PO TID 7 Days #21 cap 09/02/19 tramadol 25 mg PO .Q6 HRS PRN 09/02/19 09/02/19 Previous Rx's Medication Instructions Recorded cephalexin 500 mg PO TID 7 Days #21 cap 09/02/19 Allergies Allergy/AdvReac Type Severity Reaction Status Date / Time Penicillins Allergy Intermediate Hives Unverified 09/02/19 11:23 aspirin Allergy Mild Unverified 09/02/19 11:23 promethazine AdvReac Intermediate HALLUCINATI Unverified 09/02/19 11:23 ONS Sulfa (Sulfonamide AdvReac Unknown Verified 09/02/19 11:23 Antibiotics) General Stated Complaint: Cellulitis ANDRZEJ: 3 Review of Systems Narrative: 6 systems reviewed and otherwise negative [facility] Medical History Antibiotic-associated diarrhea (Resolved) Cerebral aneurysm, nonruptured (Chronic 09/15/15) Decreased vision (Chronic 02/03/14) left eye Dementia (Chronic) vascular Depression (Chronic 02/03/14) Diabetes (Chronic) Son states today 10/17/18 pt no longer treated for this. 01/13/19 pt son states she is no longer a diabetic DVT (deep venous thrombosis) (Resolved) Herpes labialis (Chronic) pt. 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 Family History Mother Osteoporosis Father , unknown cause at age 75. Diabetes Sister No problems noted. Sister Personal history of malignant neoplasm Breast Sister Diabetes Sister No problems noted. Sister No problems noted. Brother No problems noted. Brother Diabetes Brother Personal history of malignant neoplasm Prostate Heart disease Brother No problems noted. Brother No problems noted. Brother No problems noted. Brother No problems noted. 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 Pleasant, no acute distress HEAD: Normocephalic, atraumatic ENT: Mucous membranes moist, oropharynx unremarkable, External ear exam unremarkable EYES: PERRL, EOMI NECK: Full ROM, no REKHA, no menigismus CHEST/RESP: Nontender, clear to auscultation bilateral, no wheeze/rhonchi/rales CARDIOVASCULAR: Distant and regular. 2+ Rad pulse bilateral ABDOMEN: Soft, nontender, no mass. +Bowel sounds EXT: Full ROM, bilateral subtle abrasions to the knees, the right prepatellar and proximal tibia are erythematous, tender with mild edema. Left knee mild tenderness. Neuro: Grossly normal neurologic exam, conversant, interactive. Course Vital Signs Vital signs: Vital Signs Temperature 36.9 C 09/02/19 11:03 Pulse 86 09/02/19 11:03 Respiratory Rate 16 09/02/19 11:03 Blood Pressure 130/58 L 09/02/19 11:03 Pulse Oximetry 94 L 09/02/19 11:03 Temperature 36.9 C 09/02/19 11:03 Temperature Source Skin 09/02/19 11:03 Pulse 86 09/02/19 11:03 Respiratory Rate 16 09/02/19 11:03 Blood Pressure 130/58 L 09/02/19 11:03 Blood Pressure Position Supine 09/02/19 11:03 Pulse Oximetry 94 L 09/02/19 11:03 Oxygen Delivery Method Room Air 09/02/19 11:03 Oxygen Flow Rate 0 09/02/19 11:03 Pain Level 6 09/02/19 11:03 Lab/Test Results Lab/Test Results: 09/02/19 11:07 Blood Blood Culture - Pending 09/02/19 11:07 Blood Blood Culture - Pending
[2019-09-02 11:44] LABS: Abs Immature Grans 0.04 k/cumm (0.0-0.09); Absolute Basophil Count 0.01 k/cumm (0.0-0.2); Absolute Eosinophil Count 0.05 k/cumm (0.0-0.7); Absolute Lymphocyte Count 1.57 k/cumm (1.2-3.4); Absolute Monocyte Count 1.08 k/cumm (0.11-0.7); Absolute Neutrophil Count 5.79 k/cumm (1.2-6.7); Basophils % 0.1; Eosinophils % 0.6; HCT 34.2 % (36.0-46.0); HGB 10.5 g/dL (12.0-15.5); Immature Grans % 0.5 %; Lymphocytes % 18.4; Mean Corp. HGB Concentration 30.7 g/dL (32.0-36.0); Mean Corpuscular Hemoglobin 29.1 pg (27.0-33.0); Mean Corpuscular Volume 94.7 fL (80-95); Mean Platelet Volume 8.5 fL (8.0-11.0); Monocytes % 12.6; Neutrophils % 67.8; Platelet Count 307 x1000/uL (130-400); RBC 3.61 m/cumm (4.00-5.20); RBC Distribution Width 12.9 % (11.7-14.6); White Blood Cell Count 8.54 k/cumm (4.4-10.8)
[2019-09-02 11:54] LABS: ALT 22 U/L (14-59); AST 19 U/L (15-37); Albumin 2.7 g/dL (3.4-5.0); Alkaline Phosphatase 120 U/L (46-116); Anion Gap 5.6 mmol/L (3-11); BUN 20 mg/dL (7-18); Bilirubin, Total 0.2 mg/dL (0.2-1.0); C-Reactive Protein 22.93 mg/dL (0.0-0.3); CO2 35.4 mmol/L (21.0-32.0); Calcium 9.2 mg/dL (8.5-10.1); Chloride 102 mmol/L (98-107); Glucose 117 mg/dL (74-106); Potassium 3.6 mmol/L (3.5-5.1); Sodium 143 mmol/L (136-145); Total Protein 8.1 g/dL (6.4-8.2)
--- NOTE | 2019-09-02 11:56 | NUR.NOTE ---
Nursing Note:Pt resting in bed, second set blood cultures drawn by lab staff. No acute distress noted. Will continue to monitor.
[2019-09-02 12:08] VITALS: BP 112/54; PULSE 87; RESP 18; TEMP 36.3; O2SAT 98
--- NOTE | 2019-09-02 12:46 | NUR.NOTE ---
Nursing Note: Pt return from DI. remains in stretcher in no acute distress. Will continue to monitor, call light at bedside.
--- NOTE | 2019-09-02 12:51 | DI.RAD_ITS ---
EXAM: XR KNEE LT 3V AP,LAT,ANICETO CLINICAL HISTORY: knee swelling, erythema. TECHNIQUE: 2D digital imaging was performed. COMPARISON: CR ABDOMEN 2 VIEW FLAT, UPRIGHT from 07/29/2017 FINDINGS: BONES: No acute fracture is present. No bony destructive lesion is seen. JOINTS: The knee is normally aligned. No joint effusion is seen. SOFT TISSUE: Normal. IMPRESSION: Normal radiographs of the left knee. DATA REPOSITORY: RADIATION DOSE DELIVERED:
[2019-09-02 13:24] VITALS: BP 93/56; PULSE 95; RESP 16; TEMP 36.6; O2SAT 100
--- NOTE | 2019-09-02 13:25 | NUR.NOTE ---
Nursing Note:Cleaned of incontinence and new brief placed on patient. Pt tearful/confused, states I just want to go home. Cooperative with care. emotional support provided.
[2019-09-02] MEDS: cefTRIAXone 1 GM/50 ML BAG IVPB (14:03)
--- NOTE | 2019-09-02 14:16 | NUR.NOTE ---
Nursing Note: Pt getting dose of IV Ceftriaxone 1 gram. Pt crawling out of bed, confused. Occasionally swinging arms at staff. [facility]x is [facility].
[2019-09-02 14:43] VITALS: BP 108/83; PULSE 79; RESP 18; TEMP 36.6; O2SAT 99
== END 2019-09-02 14:56 | disposition designated cancer center or children's hospital (05) ==
PROVIDERS: Emergency Provider Emergency Medicine; PCP Family Medicine
DX: M70.41 Prepatellar bursitis, right knee (principal); S80.02XA Contusion of left knee, initial encounter; X58.XXXA Exposure to other specified factors, initial encounter; L03.115 Cellulitis of right lower limb; I10 Essential (primary) hypertension; G20 Parkinson's disease; F01.50 Vascular dementia, unspecified severity, without behavioral disturbance, psychotic disturbance, mood disturbance, and anxiety
CPT/HCPCS: 36415; 73562; 80053; 87040; 96365; 99284; 85025; 86140; 93971; J0696

== ENCOUNTER 2019-09-17 11:08 | Emergency (ER) | payer MEDICARE, MEDICAID, SELFPAY ==
[2019-09-17 11:13] VITALS: BP 112/57; PULSE 79; RESP 14; TEMP 36.6; O2SAT 96
--- NOTE | 2019-09-17 11:15 | DI.RAD_ITS ---
EXAM: XR CHEST 2V PA LATERAL CLINICAL HISTORY: Choking episode TECHNIQUE: COMPARISON: CR,XR XR PORTABLE CHEST AP from 11/11/2018 FINDINGS: Heart is not enlarged. Lungs are predominantly clear except for possible streaky radiodensities seen at the lung base posteriorly on the lateral view, this may lie in the left lower lobe in a retrocard iac location. No pleural effusion seen. IMPRESSION: Question small focal left lower lobe infiltrate, findings could represent an aspiration pneumonia. A ppropriate follow-up films requested.
--- NOTE | 2019-09-17 11:15 | DI.RAD_ITS ---
EXAM: XR SOFT TISSUE NECK CLINICAL HISTORY: Choking episode TECHNIQUE: COMPARISON: No exams were available for comparison FINDINGS: Two views were obtained. Unremarkable appearance of the soft tissues of the neck. Moderate cervical kyphosis. IMPRESSION:
--- NOTE | 2019-09-17 12:50 | ED.GENADUL_ITS ---
Discharge Plan Disposition Patient Disposition: HOME Condition: Stable Discharge Details Chief Complaint: ThroatFB Clinical Impression: Choking in adult, Aspiration pneumonia Primary Care Provider: Irene Quinn ED Provider: Keny Sterilng [place] Meds and New Rx's Prescriptions: New clindamycin HCl 300 mg capsule 300 mg PO Q8H 10 Days Qty: 30 RF: 0 Continued Acidophilus-Pectin Tablet,Chewable 1 tab PO BID RF: 0 olanzapine [Zyprexa] 5 mg tablet 7.5 mg PO DAILY RF: 0 trazodone 50 mg Tablet 25 mg PO TID RF: 0 carbamazepine 200 mg Tablet 200 mg PO TID RF: 0 citalopram 20 mg Tablet 20 mg PO DAILY RF: 0 famotidine 20 mg Tablet 20 mg PO DAILY RF: 0 docusate sodium 100 mg Capsule 100 mg PO DAILY RF: 0 epinephrine 0.3 mg/0.3 mL Auto-Injector 0.3 mg IM ONCE RF: 0 Bismatrol 525 mg/15 mL Suspension PO Q4H PRN PRNRF: 0 [id number] Tablet 1 tab PO DAILY RF: 0 Solu-Medrol (PF) 125 mg/2 mL Recon Soln 80 mg IM . DIRECTED RF: 0 Blink Tears 0.25 % Drops 0.25 % OPHTHALMIC (EYE) QID PRN PRNRF: 0 acetaminophen [Tylenol] 325 mg Tablet 650 mg PO TID RF: 0 benztropine 0.5 mg Tablet 0.5 mg PO BID RF: 0 Briviact 50 mg Tablet 50 mg PO BID RF: 0 clonazepam 1 mg tablet 1.5 mg PO BID RF: 0 olanzapine 2.5 mg Tablet 5 mg PO QAM RF: 0 mirtazapine 15 mg tablet 15 mg PO HS RF: 0 Nuplazid 34 mg capsule 34 mg PO DAILY RF: 0 lorazepam 1 mg Tablet 1 mg PO Q2H PRN PRNRF: 0 Discharge Instructions Instructions: Pneumonia (ED) Additional Instructions: Able to tolerate p.o. intake here in the ER without difficulty. Lungs are clear to auscultation, patient is afebrile, O2 sat are 96% on room air. X-ray is suspicious for a subtle aspiration pneumonia. In the clinical setting of recent choking, I do believe treating with oral antibiotics is reasonable. Given the penicillin allergy, will place on clindamycin. Please watch for new or worsening symptoms and return to the ER for any concerns Medical Decision Making 74-year-old female presents after a choking episode on a banana, Heimlich maneuver performed, airway cleared. She currently has no concerns or questions. Clinically she appears well. Pulse in the 70s, O2 sat 96% on room air. Given her age, multiple comorbidities, difficulty obtaining HPI or ROS, will obtain x-ray of soft tissue neck and chest for further evaluation. X-ray of neck soft tissue read by radiology is unremarkable. Chest x-ray read by radiology as potential early or developing aspiration pneumonia. Xrays obtained and reviewed, patient was then p.o. challenge without difficulty. Given her choking episode, question of aspiration pneumonia, will initiate antibiotic therapy. Given her penicillin allergy, will initiate clindamycin monotherapy. Will arrange transportation back to the [facility]. Upon discharge patient appears well, nontoxic. No respiratory distress. Able to speak freely. Manages her own secretions without difficulty. Medical Records Medical records reviewed: Yes I reviewed the patient's medical records. HPI General Mode of arrival: EMS . Date/Time Provider Initiated Documentation: 09/17/19 11:26 . Limitations to Documentation: altered mental status . Information obtained by: patient, EMS and old records reviewed . HPI Narrative: This is a 74-year-old female coming from the [facility] with a history of dementia, depression, diabetes, hypertension, hyperlipidemia, nontr aumatic cortical hemorrhage of the right cerebral hemisphere, parkinsonism, seizure disorder, presenting to the ER after having had a choking episode. Apparently she was eating a banana, staff performed the Heimlich maneuver, and this cleared her airway. She is apparently back at baseline but sent to the ER for further evaluation. Given her history of dementia, extremely limited HPI and review of symptoms obtained from patient. Related Data Home Medications Medication Instructions Recorded Confirmed Bismatrol mg PO Q4H PRN PRN 04/01/19 09/02/19 Blink Tears 0.25 % OPHTHALMIC (EYE) QID PRN PRN 04/01/19 09/17/19 Solu-Medrol (PF) 80 mg IM . DIRECTED 04/01/19 09/17/19 carbamazepine 200 mg PO TID 04/01/19 09/17/19 citalopram 20 mg PO DAILY 04/01/19 09/17/19 docusate sodium 100 mg PO DAILY 04/01/19 09/17/19 epinephrine 0.3 mg IM ONCE 04/01/19 09/17/19 famotidine 20 mg PO DAILY 04/01/19 09/17/19 [id number]-mucsiouq-gyqzrr 1 tab PO DAILY 04/01/19 09/17/19 trazodone 25 mg PO TID 04/01/19 09/17/19 Briviact 50 mg PO BID 06/10/19 09/17/19 acetaminophen [Tylenol] 650 mg PO TID 06/10/19 09/17/19 benztropine 0.5 mg PO BID 06/10/19 09/17/19 Lactobacillus acidoph-pectin 1 tab PO BID 06/30/19 09/17/19 clonazepam 1 mg tablet 1.5 mg PO BID tab 06/30/19 09/17/19 olanzapine 5 mg tablet 7.5 mg PO DAILY tab 06/30/19 09/17/19 mirtazapine 15 mg PO HS 08/12/19 09/17/19 olanzapine 5 mg PO QAM 08/12/19 09/17/19 Nuplazid 34 mg PO DAILY 09/02/19 09/02/19 clindamycin HCl 300 mg PO Q8H 10 Days #30 cap 09/17/19 lorazepam 1 mg PO Q2H PRN PRN 09/17/19 09/17/19 Previous Rx's Medication Instructions Recorded clindamycin HCl 300 mg PO Q8H 10 Days #30 cap 09/17/19 Allergies Allergy/AdvReac Type Severity Reaction Status Date / Time Penicillins Allergy Intermediate Hives Unverified 09/02/19 11:23 aspirin Allergy Mild Unverified 09/02/19 11:23 promethazine AdvReac Intermediate HALLUCINATI Unverified 09/02/19 11:23 ONS Sulfa (Sulfonamide AdvReac Unknown Verified 09/02/19 11:23 Antibiotics) General Stated Complaint: ThroatFB ANDRZEJ: 3 Review of Systems Constitutional Constitutional: Denies fever(s) Cardiovascular Cardiovascular: Denies chest pain and Denies dyspnea Respiratory Respiratory: Denies dyspnea Gastrointestinal Gastrointestinal: Denies abdominal pain, Denies nausea and Denies vomiting PFSH Medical History Antibiotic-associated diarrhea (Resolved) Cerebral aneurysm, nonruptured (Chronic 09/15/15) Decreased vision (Chronic 02/03/14) left eye Dementia (Chronic) vascular Depression (Chronic 02/03/14) Diabetes (Chronic) Son states today 10/17/18 pt no longer treated for this. 01/13/19 pt son states she is no longer a diabetic DVT (deep venous thrombosis) (Resolved) Herpes labialis (Chronic) pt. 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 Family History Mother Osteoporosis Father , unknown cause at age 75. Diabetes Sister No problems noted. Sister Personal history of malignant neoplasm Breast Sister Diabetes Sister No problems noted. Sister No problems noted. Brother No problems noted. Brother Diabetes Brother Personal history of malignant neoplasm Prostate Heart disease Brother No problems noted. Brother No problems noted. Brother No problems noted. Brother No problems noted. 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) Do you feel safe in your relationship?: Yes Additional Social history: Exam Const General: cooperative, healthy appearing, comfortable and no acute distress Orientation: alert and awake [facility] Head: normal to inspection, normocephalic and atraumatic Mouth: moist mucous membranes Throat: posterior oropharynx normal Eyes Conjunctivae: conjunctivae normal Sclera: sclerae normal Neck Neck: normal visual inspection, full ROM, no meningeal signs, trachea midline, supple and nontender Resp Effort & Inspection: normal respiratory effort and able to speak in complete sentences Auscultation: clear to auscultation bilaterally Cardio Rate: regular rate Rhythm: regular rhythm GI Palpation: soft, not firm and nontender Auscultation: normal bowel sounds Skin General skin exam: no rashes or lesions noted Neuro General: patient alert, patient awake, moves all extremities and no focal motor deficits Sensory Exam: no sensory deficits noted Psych Appearance: grossly normal Mental Status: mental status grossly normal Course Vital Signs Vital signs: Vital Signs Temperature 36.6 C 09/17/19 11:13 Pulse 79 09/17/19 11:13 Respiratory Rate 14 09/17/19 11:13 Blood Pressure 112/57 L 09/17/19 11:13 Pulse Oximetry 96 09/17/19 11:13 Temperature 36.6 C 09/17/19 11:13 Temperature Source Tympanic 09/17/19 11:13 Pulse 79 09/17/19 11:13 Respiratory Rate 14 09/17/19 11:13 Respiratory Effort Non-Labored 09/17/19 11:16 Respiratory Pattern Normal 09/17/19 11:16 Blood Pressure 112/57 L 09/17/19 11:13 Blood Pressure Position Sitting 09/17/19 11:13 Pulse Oximetry 96 09/17/19 11:13 Oxygen Delivery Method Room Air 09/17/19 11:13 Oxygen Flow Rate 0 09/17/19 11:13 Pain Level 0 09/17/19 11:13
[2019-09-17 13:30] VITALS: BP 121/79; PULSE 85; RESP 12; TEMP 36.6; O2SAT 95
== END 2019-09-17 14:01 | disposition home or self-care (01) ==
PROVIDERS: Emergency Provider Physician Assistant; PCP Family Medicine
DX: J69.0 Pneumonitis due to inhalation of food and vomit (principal); T17.298A Other foreign object in pharynx causing other injury, initial encounter; F01.50 Vascular dementia, unspecified severity, without behavioral disturbance, psychotic disturbance, mood disturbance, and anxiety; E11.9 Type 2 diabetes mellitus without complications; I10 Essential (primary) hypertension; G20 Parkinson's disease
CPT/HCPCS: 99284; 70360; 71046; 99285

== ENCOUNTER 2019-10-15 11:29 | Outpatient (REF) | payer MEDICARE, MEDICAID, SELFPAY ==
[2019-10-15 12:28] LABS: Iron 87 ug/dL (50-170); Total Iron Binding Capacity 241 ug/dL (250-450); Transferrin Sat 36 % (15-50)
[2019-10-15 12:38] LABS: Abs Immature Grans 0.03 10^3/uL (0.0-0.06); Absolute Basophil Count 0.01 10^3/uL (0.0-0.2); Absolute Eosinophil Count 0.12 10^3/uL (0.0-0.7); Absolute Lymphocyte Count 1.13 10^3/uL (1.2-3.4); Absolute Monocyte Count 0.47 10^3/uL (0.1-0.8); Absolute Neutrophil Count 2.38 10^3/uL (1.2-6.7); Basophils % 0.2; Eosinophils % 2.9; HCT 33.2 % (36.0-46.0); HGB 10.3 g/dL (11.2-15.7); Immature Grans % 0.7; Lymphocytes % 27.3; MCH 28.9 pg (27.0-33.0); MCV 93.3 fL (80-95); Monocytes % 11.4; Neutrophils % 57.5; Nucleated RBC 0 %; Platelet Count 207 10^3/uL (130-400); RBC 3.56 10^6/uL (3.93-5.22); RDW 13.5 % (11.7-14.6); RDW-SD 46.6 fL; WBC 4.14 10^3/uL (4.4-10.8)
[2019-10-15 12:44] LABS: Anion Gap 3.1 mmol/L (3-11); BUN 18 mg/dL (7-18); CO2 33.9 mmol/L (21.0-32.0); CREATININE 0.78 mg/dL (0.55-1.02); Calcium 8.3 mg/dL (8.5-10.1); Chloride 111 mmol/L (98-107); Cholesterol 256 mg/dL (<200); Ferritin 50 ng/mL (8-252); Folate 9.9 ng/mL (8.6-20.0); Glucose 104 mg/dL (74-106); HDL Cholesterol 46 mg/dL (40-60); Potassium 4.1 mmol/L (3.5-5.1); Sodium 148 mmol/L (136-145); TROPONIN-I 10.1 ug/mL (4.0-12.0); TSH 1.81 uIU/mL (0.36-3.74); Triglyceride 410 mg/dL (<150)
[2019-10-15 12:59] LABS: Hemoglobin A1C 6.2 % (<5.7)
[2019-10-15 13:06] LABS: LDL CHOLESTEROL 134 mg/dL (<100)
== END 2019-10-15 11:49 ==
LOC: LBN 11:29
PROVIDERS: PCP Family Medicine; Visit Provider Family Medicine
DX: E03.9 Hypothyroidism, unspecified (principal); R73.09 Other abnormal glucose; I10 Essential (primary) hypertension; Z51.81 Encounter for therapeutic drug level monitoring; G25.0 Essential tremor; G20 Parkinson's disease; R56.9 Unspecified convulsions; F01.51 Vascular dementia, unspecified severity, with behavioral disturbance; R26.89 Other abnormalities of gait and mobility; R79.89 Other specified abnormal findings of blood chemistry
CPT/HCPCS: 80048; 80061; 83721; 80156; 82728; 82746; 83036; 83540; 83550; 84443; 85025

== ENCOUNTER 2019-10-16 06:07 | Day surgery (SDC) | payer MEDICARE, MEDICAID, SELFPAY ==
[2019-10-16 06:21] VITALS: BP 130/75; PULSE 71; RESP 20; TEMP 36.5; O2SAT 96
--- NOTE | 2019-10-16 06:51 | HPE_ITS ---
Date of service: 10/16/19 Time of Service: 06:51 Assessment and Plan Assessment and plan (1) Hydronephrosis due to obstruction of ureter: Status: Acute Assessment and plan: We will perform stent exchange today History of Present Illness History of Present Illness Chief Complaint: Right hydronephrosis Narrative: This is a 74-year-old woman who has a history of urosepsis. She had right hydronephrosis with an unknown etiology. She was treated with a stent placement as well as antibiotics and her sepsis improved. Her family is not interested in aggressive treatments, so she is managed with an indwelling stent. In the past, her stent has calcified rather quickly, so she has her stent changed every 2 to 3 months. She presents now for stent change. The patient is not having any fevers or dry cough. She has had a negative Covid-19 test recently performed by her [facility] facility. Review of Systems Narrative: recent ER visits for cellulitis and choking/aspiration pneumonia - each incident treated with antibiotics Unobtainable due to mental status [facility] Medical History Antibiotic-associated diarrhea (Resolved) Cerebral aneurysm, nonruptured (Chronic 09/15/15) Decreased vision (Chronic 02/03/14) left eye Dementia (Chronic) vascular Depression (Chronic 02/03/14) Diabetes (Chronic) Son states today 10/17/18 pt no longer treated for this. 01/13/19 pt son states she is no longer a diabetic DVT (deep venous thrombosis) (Resolved) Herpes labialis (Chronic) pt. 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 Family History Mother Osteoporosis Father , unknown cause at age 75. Diabetes Sister No problems noted. Sister Personal history of malignant neoplasm Breast Sister Diabetes Sister No problems noted. Sister No problems noted. Brother No problems noted. Brother Diabetes Brother Personal history of malignant neoplasm Prostate Heart disease Brother No problems noted. Brother No problems noted. Brother No problems noted. Brother No problems noted. 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 DIRECTED 04/01/19 10/16/19 History carbamazepine 200 mg PO TID 04/01/19 10/16/19 History citalopram 20 mg PO DAILY 04/01/19 10/16/19 History docusate sodium 100 mg PO DAILY 04/01/19 10/16/19 History epinephrine 0.3 mg IM ONCE 04/01/19 10/16/19 History famotidine 20 mg PO DAILY 04/01/19 10/16/19 History gyirqelflzco-hopegpyj-hwapgn 1 tab PO DAILY 04/01/19 10/16/19 History trazodone 25 mg PO TID 04/01/19 10/16/19 History Briviact 50 mg PO BID 06/10/19 10/16/19 History acetaminophen [Tylenol] 650 mg PO TID 06/10/19 10/14/19 History benztropine 0.5 mg PO BID 06/10/19 10/16/19 History Lactobacillus acidoph-pectin 1 tab PO BID 06/30/19 10/16/19 History clonazepam 1 mg tablet 1.5 mg PO BID tab 06/30/19 10/16/19 History olanzapine 5 mg tablet 7.5 mg PO DAILY tab 06/30/19 10/16/19 History mirtazapine 15 mg PO HS 08/12/19 10/16/19 History olanzapine 5 mg PO QAM 08/12/19 10/16/19 History Nuplazid 34 mg PO DAILY 09/02/19 10/16/19 History lorazepam 1 mg PO Q2H PRN PRN 09/17/19 09/17/19 History acetaminophen 1,000 mg PO Q6H PRN 10/14/19 10/16/19 History ergocalciferol (vitamin D2) 1,250 mcg PO QMONTH 10/16/19 10/16/19 History [Vitamin D2] Allergies Allergy/AdvReac Type Severity Reaction Status Date / Time Penicillins Allergy Intermediate Hives Unverified 10/16/19 06:28 aspirin Allergy Mild Unverified 10/16/19 06:28 promethazine AdvReac Intermediate HALLUCINATI Unverified 10/16/19 06:28 ONS Sulfa (Sulfonamide AdvReac Unknown Verified 10/16/19 06:28 Antibiotics) Exam Const General: no acute distress and frail appearing Neck Neck: supple Resp Effort & Inspection: normal respiratory effort Auscultation: diminished lung sounds Cardio Rate: regular rate Rhythm: regular rhythm GI Palpation: soft and no masses Results Last Vital Signs Temp 36.5 C 10/16/19 06:21 Pulse 71 10/16/19 06:21 Resp 20 10/16/19 06:21 BP 130/75 10/16/19 06:21 Pulse Ox 96 10/16/19 06:21 COVID-19 Screening Have you,or household,traveled outside [place] in last 14 days?: No Had IN PERSON contact w/suspected or confirmed C-19 person: No
[2019-10-16] MEDS: Lactated Ringers 1,000 ML 80 ML IV (07:05)
[2019-10-16] MEDS: cefTRIAXone 1 GM/50 ML BAG IVPB (07:27)
[2019-10-16] MEDS: Lidocaine 2% Jelly 6 ML SYR (07:39)
[2019-10-16] MEDS: Omnipaque 300 MG/ML 50 ML BTL (07:40)
--- NOTE | 2019-10-16 07:51 | DI.RAD_ITS ---
EXAM: XR RETROGRADE IN OR CLINICAL HISTORY: stent placement TECHNIQUE: 2D and realtime digital imaging was performed. CONTRAST MATERIAL: Refer to procedure report. COMPARISON: No exams were available for comparison FINDINGS: Fluoroscopy was provided for Dr. Guevara during the performance of a retrograde evaluation of the aaliyah l collecting system. Please refer to the procedure report for complete details. Fluoro time: 13.7 seconds IMPRESSION: RADIATION DOSE DELIVERED:
--- NOTE | 2019-10-16 07:53 | W.PM.DSUDISC ---
Discharge Plan Disposition Patient Disposition: I[facility] (LEVEL 2) [facility] Condition: Stable Discharge Details Reason For Visit: stent change Attending Provider: Cody Guevara Primary Care Provider: Irene Quinn Dequincy Meds and New Rx's Prescriptions: No Action Acidophilus-Pectin Tablet,Chewable 1 tab PO BID RF: 0 olanzapine [Zyprexa] 5 mg tablet 7.5 mg PO DAILY RF: 0 trazodone 50 mg Tablet 25 mg PO TID RF: 0 carbamazepine 200 mg Tablet 200 mg PO TID RF: 0 citalopram 20 mg Tablet 20 mg PO DAILY RF: 0 famotidine 20 mg Tablet 20 mg PO DAILY RF: 0 docusate sodium 100 mg Capsule 100 mg PO DAILY RF: 0 epinephrine 0.3 mg/0.3 mL Auto-Injector 0.3 mg IM ONCE RF: 0 Bismatrol 525 mg/15 mL Suspension PO Q4H PRN PRNRF: 0 ormuexscvpzv-daiacdxs-vwijhi Tablet 1 tab PO DAILY RF: 0 Solu-Medrol (PF) 125 mg/2 mL Recon Soln 80 mg IM . DIRECTED RF: 0 Blink Tears 0.25 % Drops 0.25 % OPHTHALMIC (EYE) QID PRN PRNRF: 0 acetaminophen [Tylenol] 325 mg Tablet 650 mg PO TID RF: 0 benztropine 0.5 mg Tablet 0.5 mg PO BID RF: 0 Briviact 50 mg Tablet 50 mg PO BID RF: 0 clonazepam 1 mg tablet 1.5 mg PO BID RF: 0 olanzapine 2.5 mg Tablet 5 mg PO QAM RF: 0 mirtazapine 15 mg tablet 15 mg PO HS RF: 0 Nuplazid 34 mg capsule 34 mg PO DAILY RF: 0 lorazepam 1 mg Tablet 1 mg PO Q2H PRN PRNRF: 0 acetaminophen 500 mg Tablet 1,000 mg PO Q6H PRNRF: 0 ergocalciferol (vitamin D2) [Vitamin D2] 1,250 mcg (50,000 unit) Capsule 1,250 mcg PO QMONTH RF: 0 Discharge Instructions Additional Instructions: my office will arrange next cystoscopy with stent change in 2 to 3 months Activity:: Activity as Tolerated Shower/Bathe:: 24 hours Diet:: As Tolerated Discharge Orders Discharge Orders: Discharge Order (Routine); Ordered 10/16/19 Ordered By: Cody Guevara DS: Diagnosis Discharge Diagnosis (1) Hydronephrosis due to obstruction of ureter: Status: Acute
--- NOTE | 2019-10-16 07:55 | ROE_ITS ---
Date of service: 10/16/19 Time of Service: 07:56 Operative Note Operative Note DATE OF PROCEDURE: 10/16/19 PRE-OP DIAGNOSIS: Right hydronephrosis POST-OP DIAGNOSIS: same PROCEDURE: Cystoscopy with exchange of right ureteral stent SURGEON: Cody Gueavra ANESTHESIA: other (general without endotracheal tube) ESTIMATED BLOOD LOSS: 0 PATHOLOGY: none sent Patient was transported to: same day Patient's condition: stable Implants: 4.8 Luxembourger by 22 to 30 cm long ureteral stent Indications: This is a 74-year-old woman who has a history urosepsis. At the time of her presentation, she was found to have right hydronephrosis. The exact etiology of the hydronephrosis was never investigated. She improved with antibiotics and placement of a right ureteral stent. Her family is not interested in more invasive testing or treatments, so she presents for stent change every 2 to 3 months. When we initially waited 6 months to change her stent, the stent became encrusted with stones. Findings: Stent not encrusted Procedure Description: The patient was brought to the operating room on 10/16/2019. She was given a dose of preoperative ceftriaxone. After successful induction of general anesthesia without endotracheal tube, she was placed in the dorsal lithotomy position. Her genitalia was prepped and draped. 2% Xylocaine jelly was instilled into the urethra to act as a local anesthetic. A 22 Luxembourger rigid cystoscope was passed through the urethra into the bladder. We used a 30 degree lens and visualize the stent as it protruded from the right ureteral orifice. The stent was grasped with alligator forceps and brought to the level of the urethral meatus. A Glidewire was then advanced through the lumen of the stent and the stent was removed leaving the wire in place. A 6 Luxembourger access catheter was advanced over the wire. The wire was then removed and a retrograde film was obtained by injecting Omnipaque through the access catheter under fluoroscopic guidance. This allowed us to outline her renal pelvis. The Glidewire was replaced through the lumen of the access catheter and the access catheter was removed. A new 4.8 Luxembourger variable length stent was then advanced over the wire. The proximal end of the stent was curled within the re nal pelvis and the distal and was curled within the bladder. The positioning of the stent was confirmed both fluoroscopically and cystoscopically. The bladder was emptied. She tolerated this procedure well. She was taken back to day surgery unit in stable condition.
[2019-10-16] MEDS: Phenazopyridine 200 MG TAB PO (08:22)
[2019-10-16 08:33] VITALS: BP 129/76; PULSE 70; RESP 20; TEMP 36.5; O2SAT 98
== END 2019-10-16 08:50 | disposition intermediate care facility (04) ==
PROVIDERS: PCP Family Medicine; Visit Provider Urology
PROC: (CPT 52332; principal; 2019-10-16 07:30)
DX: N13.2 Hydronephrosis with renal and ureteral calculous obstruction (principal); I10 Essential (primary) hypertension; E78.5 Hyperlipidemia, unspecified; F03.90 Unspecified dementia, unspecified severity, without behavioral disturbance, psychotic disturbance, mood disturbance, and anxiety
CPT/HCPCS: 52332; NC; 74420; J0696; J2001; Q9967

== ENCOUNTER 2019-12-22 06:03 | Day surgery (SDC) | payer MEDICARE, MEDICAID, SELFPAY ==
--- NOTE | 2019-12-19 12:40 | DSU.FORM ---
11/18/19 Tamra Morales nurse given detailed instructions on NPO status. Tamra Morales nurse would like the patient to take her psych meds prior to arrival and verbalized understanding that meds must be taken with water only not pudding. [facility] will contact DSU if the patient has nay new health problems and will send the MAR with the patient the morning surgery.
[2019-12-22 06:25] VITALS: BP 122/65; PULSE 70; RESP 16; TEMP 37; O2SAT 98
--- NOTE | 2019-12-22 06:51 | HPE_ITS ---
Date of service: 12/22/19 Time of Service: 06:53 Assessment and Plan Assessment and plan (1) Hydronephrosis due to obstruction of ureter: Status: Acute Assessment and plan: She and her family are not interested in more aggressive approaches such as ureteroscopy. We will continue to change her stent routinely. History of Present Illness History of Present Illness Chief Complaint: Left hydronephrosis Narrative: his is a 74-year-old woman who has a history of urosepsis. She had right hydronephrosis with an unknown etiology. She was treated with a stent placement as well as antibiotics and her sepsis improved. Her family is not interested in aggressive treatments, so she is managed with an indwelling stent. In the past, her stent has calcified rather quickly, so she has her stent changed every 2 to 3 months. She presents now for stent change. The patient is not having any fevers or dry cough. Review of Systems Unobtainable due to mental condition [facility] Medical History Antibiotic-associated diarrhea Cerebral aneurysm, nonruptured (09/15/15) Decreased vision (02/03/14) left eye Dementia vascular Depression (02/03/14) Diabetes Son states today 10/17/18 pt no longer treated for this. 01/13/19 pt son states she is no longer a diabetic DVT (deep venous thrombosis) Herpes labialis pt. 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 Family History Mother Osteoporosis Father , unknown cause at age 75. Diabetes Sister No problems noted. Sister Personal history of malignant neoplasm Breast Sister Diabetes Sister No problems noted. Sister No problems noted. Brother No problems noted. Brother Diabetes Brother Personal history of malignant neoplasm Prostate Heart disease Brother No problems noted. Brother No problems noted. Brother No problems noted. Brother No problems noted. 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 DIRECTED 04/01/19 12/19/19 History carbamazepine 200 mg PO TID 04/01/19 12/19/19 History citalopram 20 mg PO DAILY 04/01/19 12/19/19 History docusate sodium 100 mg PO DAILY 04/01/19 12/19/19 History epinephrine 0.3 mg IM ONCE 04/01/19 12/19/19 History famotidine 20 mg PO DAILY 04/01/19 12/19/19 History qgsdzsefwqor-fhfmsass-wnkmle 1 tab PO DAILY 04/01/19 12/19/19 History trazodone 25 mg PO TID 04/01/19 12/19/19 History Briviact 50 mg PO BID 06/10/19 12/19/19 History acetaminophen [Tylenol] 650 mg PO TID 06/10/19 12/19/19 History benztropine 0.5 mg PO BID 06/10/19 12/19/19 History Lactobacillus acidophilus-pectin 1 tab PO BID 06/30/19 12/19/19 History chewable tablet clonazepam 1 mg tablet 2 mg PO QHS tab 06/30/19 12/19/19 History olanzapine 5 mg tablet 7.5 mg PO DAILY tab 06/30/19 12/19/19 History mirtazapine 15 mg PO HS 08/12/19 12/19/19 History olanzapine 5 mg PO QAM 08/12/19 12/19/19 History Nuplazid 34 mg PO DAILY 09/02/19 12/19/19 History lorazepam 1 mg PO Q2H PRN PRN 09/17/19 09/17/19 History acetaminophen 1,000 mg PO Q6H PRN 10/14/19 12/19/19 History ergocalciferol (vitamin D2) 1,250 mcg PO QMONTH 10/16/19 12/19/19 History [Vitamin D2] clonazepam 1.5 mg PO QAM 12/19/19 12/19/19 History gabapentin 100 mg PO BID 12/19/19 12/19/19 History Allergies Allergy/AdvReac Type Severity Reaction Status Date / Time Penicillins Allergy Intermediate Hives Unverified 12/22/19 06:25 aspirin Allergy Mild Unverified 12/22/19 06:25 promethazine AdvReac Intermediate HALLUCINATI Unverified 12/22/19 06:25 ONS Sulfa (Sulfonamide AdvReac Unknown Verified 12/22/19 06:25 Antibiotics) Exam Narrative Exam Narrative: She is an older frail woman. Her vital signs are documented elsewhere in the chart Her neck is supple Her lungs have decreased breath sounds bilaterally Cardiac exam shows a regular rate and rhythm She has decreased mobility on the left side Her abdomen is soft with no mass She is arousable Results Last Vital Signs Temp 37.0 C 12/22/19 06:25 Pulse 70 12/22/19 06:25 Resp 16 12/22/19 06:25 BP 122/65 12/22/19 06:25 Pulse Ox 98 12/22/19 06:25 COVID-19 Screening Have you,or household,traveled outside [place] in last 14 days?: No Had IN PERSON contact w/suspected or confirmed C-19 person: No
[2019-12-22] MEDS: Lactated Ringers 1,000 ML 80 ML IV (07:00)
[2019-12-22] MEDS: cefTRIAXone 1 GM/50 ML BAG IVPB (07:55)
[2019-12-22] MEDS: Omnipaque 300 MG/ML 50 ML BTL (07:57)
[2019-12-22] MEDS: Lidocaine 2% Jelly 11 ML SYR (07:57)
--- NOTE | 2019-12-22 08:09 | W.PM.DSUDISC ---
Discharge Plan Disposition Patient Disposition: [facility]CF (LEVEL 2) [facility] Condition: Stable Discharge Details Reason For Visit: Right hydronephrosis Attending Provider: Cody Guevara Primary Care Provider: Irene Quinn Livingston Meds and New Rx's Prescriptions: No Action Acidophilus-Pectin Tablet,Chewable 1 tab PO BID RF: 0 olanzapine [Zyprexa] 5 mg tablet 2.5 mg PO BID RF: 0 trazodone 50 mg Tablet 25 mg PO TID RF: 0 carbamazepine 200 mg Tablet 200 mg PO TID RF: 0 citalopram 20 mg Tablet 20 mg PO DAILY RF: 0 famotidine 20 mg Tablet 20 mg PO DAILY RF: 0 docusate sodium 100 mg Capsule 100 mg PO DAILY RF: 0 epinephrine 0.3 mg/0.3 mL Auto-Injector 0.3 mg IM ONCE RF: 0 qafosmjtfqfk-oufzihac-fcnlxb Tablet 1 tab PO DAILY RF: 0 Solu-Medrol (PF) 125 mg/2 mL Recon Soln 80 mg IM . DIRECTED RF: 0 Blink Tears 0.25 % Drops 0.25 % OPHTHALMIC (EYE) QID PRN PRNRF: 0 acetaminophen [Tylenol] 325 mg Tablet 650 mg PO TID RF: 0 benztropine 0.5 mg Tablet 0.5 mg PO BID RF: 0 Briviact 50 mg Tablet 50 mg PO BID RF: 0 clonazepam 1 mg tablet 2 mg PO QHS RF: 0 mirtazapine 15 mg tablet 15 mg PO HS RF: 0 Nuplazid 34 mg capsule 34 mg PO DAILY RF: 0 clonazepam 0.5 mg Tablet 1.5 mg PO QAM RF: 0 gabapentin 100 mg Capsule 100 mg PO BID RF: 0 acetaminophen 500 mg Tablet 1,000 mg PO Q6H PRNRF: 0 ergocalciferol (vitamin D2) [Vitamin D2] 1,250 mcg (50,000 unit) Capsule 1,250 mcg PO QMONTH RF: 0 Discharge Instructions Additional Instructions: My office will contact pts family for next stent change Activity:: Activity as Tolerated Shower/Bathe:: 24 hours Diet:: As Tolerated Discharge Orders Discharge Orders: Discharge Order (Routine); Ordered 12/22/19 Ordered By: Cody Guevara DS: Diagnosis Discharge Diagnosis (1) Hydronephrosis due to obstruction of ureter: Status: Acute
--- NOTE | 2019-12-22 08:13 | ROE_ITS ---
Date of service: 12/22/19 Time of Service: 08:14 Operative Note Operative Note DATE OF PROCEDURE: 12/22/19 PRE-OP DIAGNOSIS: Right hydronephrosis POST-OP DIAGNOSIS: same PROCEDURE: Cystoscopy, right retrogreade pyelogram, exchange right ureteral stent SURGEON: Cody Guevara ANESTHESIA: other (General without intubation) ESTIMATED BLOOD LOSS: 0 COMPLICATIONS: None Patient was transported to: same day Patient's condition: stable Implants: 4.8 Turkish 22 to 30 cm stent Indications: This is a 74-year-old woman who has a history of urosepsis. At tera t time, she was found to have right hydronephrosis. She improved with antibiotics and placement of a right ureteral stent. The patient has a number of other medical issues which makes her family rel uctant to consent to a larger procedures (such as ureteroscopy and possible stone manipulation) She is currently managed with an indwelling ureteral stent that is changed every 2 to 3 months. Procedure Description: The patient was brought to the operating room on 12/22/2019. She was given preoperative antibiotics. After successful induction of general anesthesia without intubation, she was placed in the dorsal lithotomy position. Her genitalia was prepped and draped. A 22 Turkish rigid cystoscope was passed through the urethra into the bladder. The bladder was inspected with a 30 degree lens. The stent could be seen protruding from the right ureteral orifice. The stent was grasped with alligator forceps and brought to the level of the urethral meatus. A Glidewire was then passed through the lumen of the stent and the stent was removed leaving the wire in place. A 6 Turkish access catheter was then advanced over the wire and the wire was removed. A retrograde pyelogram film was obtained by injecting Omnipaque through the access catheter under fluoroscopic guidance. This outlined the right sided collecting system. The guidewire was then replaced and the ureteral access catheter was removed. A 4.8 Turkish variable length stent was replaced over the wire. The positioning of the stent was confirmed both fluoroscopically and cystoscopically. The proximal end of the stent was curled in the renal pelvis and the distal end was curled within the bladder. The patient tolerated this procedure with no complications.
--- NOTE | 2019-12-22 08:17 | DI.RAD_ITS ---
EXAM: XR RETROGRADE IN OR INDICATION: stent replacement. COMPARISON: No exams were available for comparison TECHNIQUE: 2D digital imaging was performed. FINDINGS: C-arm fluoroscopy was utilized by Dr. Guevara during retrograde ureterography. Hard copies show guidew dewey placement in right renal collecting system. Fluoro time, 15.5 seconds IMPRESSION: DATA REPOSITORY: RADIATION DOSE DELIVERED:
[2019-12-22 08:55] VITALS: BP 125/72; PULSE 63; RESP 16; TEMP 36.1; O2SAT 95
== END 2019-12-22 09:20 | disposition intermediate care facility (04) ==
PROVIDERS: PCP Family Medicine; Visit Provider Urology
PROC: (CPT 52332; principal; 2019-12-22 07:30)
DX: N13.2 Hydronephrosis with renal and ureteral calculous obstruction (principal); I10 Essential (primary) hypertension; E78.5 Hyperlipidemia, unspecified; F01.50 Vascular dementia, unspecified severity, without behavioral disturbance, psychotic disturbance, mood disturbance, and anxiety
CPT/HCPCS: 52332; 52005; NC; 74420; J0696; J2001; Q9967

== ENCOUNTER 2020-04-12 06:22 | Day surgery (SDC) | payer MEDICARE, MEDICAID, SELFPAY ==
[2020-04-12 06:21] VITALS: BP 99/57; PULSE 66; RESP 14; TEMP 36.6; O2SAT 97
--- NOTE | 2020-04-12 06:52 | HPE_ITS ---
Date of service: 04/12/20 Time of Service: 06:52 Assessment and Plan Assessment and plan (1) Hydronephrosis due to obstruction of ureter: Status: Acute Assessment and plan: We will continue with routine stent change every 3 to 4 months History of Present Illness History of Present Illness Chief Complaint: Hydronephrosis Narrative: This is a 74-year-old woman who has a history of urosepsis. She had right hydronephrosis with an unknown etiology. She was treated with a stent placement as well as antibiotics and her sepsis improved. Her family is not interested in aggressive treatments, so she is managed with an indwelling stent. In the past, her stent has calcified rather quickly, so she has her stent changed every 2 to 3 months. She presents now for stent change. The patient is not having any fevers or dry cough. Review of Systems Unobtainable due to mental status [facility] Medical History Abnormal gait Anemia Antibiotic-associated diarrhea Cerebral aneurysm, nonruptured (09/15/15) Decreased vision (02/03/14) left eye Dementia vascular Depression (02/03/14) Diabetes Son states today 10/17/18 pt no longer treated for this. 01/13/19 pt son states she is no longer a diabetic DVT (deep venous thrombosis) Herpes labialis pt. 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 Family History Mother Osteoporosis Father , unknown cause at age 75. Diabetes Sister No problems noted. Sister Personal history of malignant neoplasm Breast Sister Diabetes Sister No problems noted. Sister No problems noted. Brother No problems noted. Brother Diabetes Brother Personal history of malignant neoplasm Prostate Heart disease Brother No problems noted. Brother No problems noted. Brother No problems noted. Brother No problems noted. 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 What type of physical activity do you participate in: none Do you feel safe at home: Yes (Pt at the [facility]) Do you feel safe in your relationship?: Yes Meds Home Medications and Allergies Allergies Allergy/AdvReac Type Severity Reaction Status Date / Time Penicillins Allergy Intermediate Hives Unverified 04/12/20 06:27 aspirin Allergy Mild unknown Unverified 04/12/20 06:27 promethazine AdvReac Intermediate HALLUCINATI Unverified 04/12/20 06:27 ONS Sulfa (Sulfonamide AdvReac Unknown Verified 04/12/20 06:27 Antibiotics) Home Medications Medication Instructions Recorded Confirmed Type Blink Tears 0.25 % OPHTHALMIC (EYE) QID PRN PRN 04/01/19 04/12/20 History Solu-Medrol (PF) 80 mg IM . DIRECTED 04/01/19 04/12/20 History carbamazepine 200 mg PO TID 04/01/19 04/12/20 History citalopram 20 mg PO DAILY 04/01/19 04/12/20 History docusate sodium 100 mg PO DAILY 04/01/19 04/12/20 History epinephrine 0.3 mg IM ONCE 04/01/19 04/12/20 History famotidine 20 mg PO DAILY 04/01/19 04/12/20 History aotqcszaxanr-wcxzgnlx-fsffvl 1 tab PO DAILY 04/01/19 04/12/20 History trazodone 25 mg PO TID 04/01/19 04/12/20 History Briviact 50 mg PO BID 06/10/19 04/12/20 History acetaminophen [Tylenol] 650 mg PO TID 06/10/19 04/12/20 History benztropine 0.5 mg PO BID 06/10/19 04/12/20 History Lactobacillus acidophilus-pectin 1 tab PO BID 06/30/19 04/12/20 History chewable tablet clonazepam 1 mg tablet 2 mg PO QHS tab 06/30/19 04/12/20 History olanzapine 5 mg tablet 2.5 mg PO BID tab 06/30/19 04/12/20 History mirtazapine 15 mg PO HS 08/12/19 04/12/20 History Nuplazid 34 mg PO DAILY 09/02/19 04/12/20 History acetaminophen 1,000 mg PO Q6H PRN 10/14/19 04/12/20 History ergocalciferol (vitamin D2) 1,250 mcg PO QMONTH 10/16/19 04/12/20 History [Vitamin D2] clonazepam 1.5 mg PO QAM 12/19/19 04/12/20 History gabapentin 600 mg PO TID 12/19/19 04/12/20 History lorazepam [Ativan] 1 mg IM ONCE 04/12/20 04/12/20 History Exam Const General: frail appearing Limitations: altered mental status Neck Neck: supple Resp Auscultation: clear to auscultation bilaterally and diminished lung sounds Cardio Rate: regular rate Rhythm: regular rhythm Neuro General: patient obtunded Results Last Vital Signs Temp 36.6 C 04/12/20 06:21 Pulse 66 04/12/20 06:21 Resp 14 04/12/20 06:21 BP 99/57 L 04/12/20 06:21 Pulse Ox 97 04/12/20 06:21 COVID-19 Screening Have you, or household traveled for leisure in last 14 days?: No Had IN PERSON contact w/suspected or confirmed C-19 person: No
[2020-04-12] MEDS: Lactated Ringers 1,000 ML 80 ML IV (07:35)
[2020-04-12] MEDS: cefTRIAXone 1 GM/50 ML BAG IVPB (07:48)
[2020-04-12] MEDS: Omnipaque 300 MG/ML 50 ML BTL (08:00)
[2020-04-12] MEDS: Lidocaine 2% Jelly 6 ML SYR (08:00)
--- NOTE | 2020-04-12 08:01 | W.PM.DSUDISC ---
Discharge Plan Disposition Patient Disposition: ICF (LEVEL 2) [facility] Condition: Stable Discharge Details Reason For Visit: ureteral stent change Attending Provider: Cody Guevara Primary Care Provider: Irene Quinn [place] Meds and New Rx's Prescriptions: No Action Acidophilus-Pectin Tablet,Chewable 1 tab PO BID RF: 0 olanzapine [Zyprexa] 5 mg tablet 2.5 mg PO BID RF: 0 trazodone 50 mg Tablet 25 mg PO TID RF: 0 carbamazepine 200 mg Tablet 200 mg PO TID RF: 0 citalopram 20 mg Tablet 20 mg PO DAILY RF: 0 famotidine 20 mg Tablet 20 mg PO DAILY RF: 0 docusate sodium 100 mg Capsule 100 mg PO DAILY RF: 0 epinephrine 0.3 mg/0.3 mL Auto-Injector 0.3 mg IM ONCE RF: 0 mnpktpnkythi-stwmelxn-skfmxt Tablet 1 tab PO DAILY RF: 0 Solu-Medrol (PF) 125 mg/2 mL Recon Soln 80 mg IM . DIRECTED RF: 0 Blink Tears 0.25 % Drops 0.25 % OPHTHALMIC (EYE) QID PRN PRNRF: 0 acetaminophen [Tylenol] 325 mg Tablet 650 mg PO TID RF: 0 benztropine 0.5 mg Tablet 0.5 mg PO BID RF: 0 Briviact 50 mg Tablet 50 mg PO BID RF: 0 clonazepam 1 mg tablet 2 mg PO QHS RF: 0 mirtazapine 15 mg tablet 15 mg PO HS RF: 0 Nuplazid 34 mg capsule 34 mg PO DAILY RF: 0 clonazepam 0.5 mg Tablet 1.5 mg PO QAM RF: 0 gabapentin 100 mg Capsule 600 mg PO TID RF: 0 lorazepam [Ativan] 2 mg/mL Solution 1 mg IM ONCE RF: 0 acetaminophen 500 mg Tablet 1,000 mg PO Q6H PRNRF: 0 ergocalciferol (vitamin D2) [Vitamin D2] 1,250 mcg (50,000 unit) Capsule 1,250 mcg PO QMONTH RF: 0 Discharge Instructions Additional Instructions: Followup for cystoscopy with stent exchange in 3 to 4 months - to be done in OR. My office will coordinate with [facility]. Activity:: Activity as Tolerated Shower/Bathe:: 24 hours Diet:: As Tolerated Discharge Orders Discharge Orders: Discharge Order (Routine); Ordered 04/12/20 Ordered By: Cody Guevara DS: Diagnosis Discharge Diagnosis (1) Hydronephrosis due to obstruction of ureter: Status: Acute
--- NOTE | 2020-04-12 08:05 | DI.RAD_ITS ---
EXAM: XR RETROGRADE IN OR CLINICAL HISTORY: Right Hydronephrosis due to obstruction of ureter TECHNIQUE: 2D and realtime digital imaging was performed. CONTRAST MATERIAL: Refer to procedure report. COMPARISON: No exams were available for comparison FINDINGS: Fluoroscopy was provided for Dr. Guevara during the performance of a retrograde evaluation of the aaliyah l collecting system. Please refer to the procedure report for complete details. Fluoro time: 8 seconds IMPRESSION: RADIATION DOSE DELIVERED:
--- NOTE | 2020-04-12 08:06 | W.PM.OP ---
Date of service: 04/12/20 Time of Service: 08:06 Operative Note Operative Note DATE OF PROCEDURE: 04/12/20 PRE-OP DIAGNOSIS: Right hydronephrosis POST-OP DIAGNOSIS: same PROCEDURE: cystoscopy, remove right ureteral stent, right retrograde pyelogram, insert right ureteral stent SURGEON: Cody Guevara ANESTHESIA TYPE: General:No Airway Refer to Anesthesia Record ESTIMATED BLOOD LOSS: 0 PATHOLOGY: none sent COMPLICATIONS: None Patient was transported to: same day Patient's condition: stable Implants: 4.8 Occitan by 22 to 30 cm ureteral stent Indications: This is a 74-year-old woman who was initially seen with urosepsis. She had right hydronephrosis. She was treated with a stent placement and antibiotics. Her sepsis resolved. Her family was not interested in more invasive surgery such as ureteroscopy, so we have been changing her stent every 3 to 4 months. When we attempted to wait 6 months before she changing her stent, we found that the stent was quite encrusted with stone. Procedure Description: The patient was brought to the operating room on 04/12/2020. She was given preoperative IV antibiotics. After successful induction of general anesthesia without intubation, she was placed in the dorsal lithotomy position. Her genitalia was prepped. 2% Xylocaine jelly was instilled into the urethra to act as a local anesthetic. A 22 Occitan rigid cystoscope was passed through the urethra into the bladder. The bladder was inspected with a 30 degree lens. The stent could be seen protruding from the right ureteral orifice. The stent was grasped and alligator forceps and brought out to the level of the urethral meatus. A Glidewire was then advanced through the lumen of the stent. The stent was removed leaving the wire in place. A 6 Occitan access catheter was then advanced over the wire and the tip of the catheter was positioned in the upper ureter. The wire was removed and a retrograde pyelogram was obtained by injecting Omnipaque through the access catheter under fluoroscopic guidance. This allowed us to outline the collecting system. The Glidewire was then reintroduced through the lumen of the access catheter and the access catheter was removed. A 4.8 Occitan stent was then passed over the wire. Stent was positioned with the proximal end curled in the renal pelvis and the distal end curled in the bladder. The positioning of the stent was confirmed both fluoroscopically and cystoscopically. She tolerated this procedure well with no complications. She was returned to day surgery unit in stable condition.
[2020-04-12 08:24] VITALS: BP 128/64; PULSE 59; RESP 16; TEMP 36.7; O2SAT 97
[2020-04-12 08:27] LABS: COVID-19 PCR Negative (Negative); Influenza A PCR Negative (Negative); Influenza B PCR Negative (Negative); RSV PCR Negative (Negative)
[2020-04-12 08:42] VITALS: BP 111/58; PULSE 61; RESP 16; TEMP 36.7; O2SAT 97
== END 2020-04-12 09:03 | disposition intermediate care facility (04) ==
PROVIDERS: PCP Family Medicine; Visit Provider Urology
PROC: (CPT 52332; principal; 2020-04-12 07:30)
DX: N13.1 Hydronephrosis with ureteral stricture, not elsewhere classified (principal); D64.9 Anemia, unspecified; F03.90 Unspecified dementia, unspecified severity, without behavioral disturbance, psychotic disturbance, mood disturbance, and anxiety; E11.9 Type 2 diabetes mellitus without complications; I10 Essential (primary) hypertension; E78.5 Hyperlipidemia, unspecified; Z86.718 Personal history of other venous thrombosis and embolism
CPT/HCPCS: 52332; NC; 74420; J0696; J2001; J2704; Q9967

== ENCOUNTER 2020-04-14 14:40 | Outpatient (REF) | payer MEDICARE, MEDICAID, SELFPAY ==
[2020-04-14 15:55] LABS: Anion Gap 2.9 mmol/L (3-11); BUN 13 mg/dL (7-18); CO2 33.1 mmol/L (21.0-32.0); CREATININE 0.8 mg/dL (0.55-1.02); Calcium 9.1 mg/dL (8.5-10.1); Chloride 107 mmol/L (98-107); Glucose 99 mg/dL (74-106); Potassium 4.2 mmol/L (3.5-5.1); Sodium 143 mmol/L (136-145); TROPONIN-I 5.8 ug/mL (4.0-12.0); TSH (W/Ref FT4) 2.22 uIU/mL (0.36-3.74)
== END 2020-04-14 14:41 | disposition home or self-care (01) ==
LOC: NCHCN 14:40
PROVIDERS: PCP Family Medicine; Visit Provider Family Medicine
DX: E03.9 Hypothyroidism, unspecified (principal); R56.9 Unspecified convulsions; Z51.81 Encounter for therapeutic drug level monitoring; G20 Parkinson's disease; F01.51 Vascular dementia, unspecified severity, with behavioral disturbance; N13.2 Hydronephrosis with renal and ureteral calculous obstruction
CPT/HCPCS: 80048; 80156; 84443

== ENCOUNTER 2020-07-05 06:29 | Day surgery (SDC) | payer MEDICARE, MEDICAID, SELFPAY ==
--- NOTE | 2020-07-05 06:51 | HPE_ITS ---
Date of service: 07/05/20 Time of Service: 06:52 Assessment and Plan Assessment and plan (1) Hydronephrosis due to obstruction of ureter: Status: Acute Assessment and plan: For cystoscopy with stent change History of Present Illness History of Present Illness Chief Complaint: Hydronephrosis Narrative: This is a 75-year-old woman who initially presented with urosepsis and hydronephrosis. She improved with placement of a ureteral stent and antibiotics. She has multiple medical comorbidities and the family elected not to go through with more invasive treatments such as ureteroscopy. She is managed with routine stent changes. She comes in for a scheduled stent change today. She has dementia and is unable to provide any significant history for us. Review of Systems Unobtainable due to mental status [facility] Medical History Abnormal gait Anemia Antibiotic-associated diarrhea Cerebral aneurysm, nonruptured (09/15/15) Decreased vision (02/03/14) left eye Dementia vascular Depression (02/03/14) Diabetes Son states today 10/17/18 pt no longer treated for this. 01/13/19 pt son states she is no longer a diabetic DVT (deep venous thrombosis) Emphysema of lung Herpes labialis pt. 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 Family History Mother Osteoporosis Father , unknown cause at age 75. Diabetes Sister No problems noted. Sister Personal history of malignant neoplasm Breast Sister Diabetes Sister No problems noted. Sister No problems noted. Brother No problems noted. Brother Diabetes Brother Personal history of malignant neoplasm Prostate Heart disease Brother No problems noted. Brother No problems noted. Brother No problems noted. Brother No problems noted. 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) Do you feel safe in your relationship?: Yes Meds Allergies and Home Medications Allergies Allergy/AdvReac Type Severity Reaction Status Date / Time Penicillins Allergy Intermediate Hives Unverified 07/05/20 06:48 aspirin Allergy Mild unknown Unverified 07/05/20 06:48 promethazine AdvReac Intermediate HALLUCINATI Unverified 07/05/20 06:48 ONS Sulfa (Sulfonamide AdvReac Unknown Verified 07/05/20 06:48 Antibiotics) Home Medications Medication Instructions Recorded Confirmed Type Blink Tears 0.25 % OPHTHALMIC (EYE) QID PRN PRN 04/01/19 06/30/20 History Solu-Medrol (PF) 80 mg IM . DIRECTED 04/01/19 06/30/20 History carbamazepine 200 mg PO TID 04/01/19 06/30/20 History citalopram 20 mg PO DAILY 04/01/19 06/30/20 History docusate sodium 100 mg PO DAILY 04/01/19 06/30/20 History epinephrine 0.3 mg IM ONCE 04/01/19 06/30/20 History famotidine 20 mg PO DAILY 04/01/19 06/30/20 History snoonwpogdkj-jkjstmwr-ufqadq 1 tab PO DAILY 04/01/19 06/30/20 History trazodone 25 mg PO TID 04/01/19 06/30/20 History Briviact 50 mg PO BID 06/10/19 06/30/20 History acetaminophen [Tylenol] 650 mg PO TID 06/10/19 06/30/20 History benztropine 0.5 mg PO BID 06/10/19 06/30/20 History Lactobacillus acidophilus-pectin 1 tab PO BID 06/30/19 06/30/20 History chewable tablet clonazepam 1 mg tablet 2 mg PO QHS tab 06/30/19 06/30/20 History olanzapine 5 mg tablet 2.5 mg PO BID tab 06/30/19 06/30/20 History mirtazapine 15 mg PO HS 08/12/19 06/30/20 History Nuplazid 34 mg PO DAILY 09/02/19 06/30/20 History acetaminophen 1,000 mg PO Q6H PRN 10/14/19 06/30/20 History ergocalciferol (vitamin D2) 1,250 mcg PO QMONTH 10/16/19 06/30/20 History [Vitamin D2] clonazepam 1.5 mg PO QAM 12/19/19 06/30/20 History gabapentin 600 mg PO TID 12/19/19 06/30/20 History lorazepam [Ativan] 1 mg IM ONCE 04/12/20 06/30/20 History Exam Const General: no acute distress and frail appearing Neck Neck: supple Resp Effort & Inspection: decreased respiratory effort Auscultation: clear to auscultation bilaterally Cardio Rate: regular rate Rhythm: regular rhythm GI Palpation: soft Neuro General: not oriented x3 Extrem General: other (contracted) COVID-19 Screening Have you, or household traveled for leisure in last 14 days?: No Had IN PERSON contact w/suspected or confirmed C-19 person: No
--- NOTE | 2020-07-05 06:53 | W.ANESPRE ---
General Info Date of Service Date Performed: 07/05/20 Height: 5 ft 2 in Weight: 59.874 kg Body Mass Index (BMI): 24.1 Surgical Procedure: Operation Date: 07/05/20 07:40 Proposed Procedures Side Surgeon p Cystoscopy with Changing of stent Right Cody Guevara MD Meds Allergies and Home Medications Allergies Allergy/AdvReac Type Severity Reaction Status Date / Time Penicillins Allergy Intermediate Hives Unverified 07/05/20 06:48 aspirin Allergy Mild unknown Unverified 07/05/20 06:48 promethazine AdvReac Intermediate HALLUCINATI Unverified 07/05/20 06:48 ONS Sulfa (Sulfonamide AdvReac Unknown Verified 07/05/20 06:48 Antibiotics) Home Medication Medication Instructions Recorded Blink Tears 0.25 % OPHTHALMIC (EYE) QID PRN PRN 04/01/19 Solu-Medrol (PF) 80 mg IM . DIRECTED 04/01/19 carbamazepine 200 mg PO TID 04/01/19 citalopram 20 mg PO DAILY 04/01/19 docusate sodium 100 mg PO DAILY 04/01/19 epinephrine 0.3 mg IM ONCE 04/01/19 famotidine 20 mg PO DAILY 04/01/19 fbrgjjxurwkr-gdfrkqzl-qutuzz 1 tab PO DAILY 04/01/19 trazodone 25 mg PO TID 04/01/19 Briviact 50 mg PO BID 06/10/19 acetaminophen [Tylenol] 650 mg PO TID 06/10/19 benztropine 0.5 mg PO BID 06/10/19 Lactobacillus acidophilus-pectin 1 tab PO BID 06/30/19 chewable tablet clonazepam 1 mg tablet 2 mg PO QHS tab 06/30/19 olanzapine 5 mg tablet 2.5 mg PO BID tab 06/30/19 mirtazapine 15 mg PO HS 08/12/19 Nuplazid 34 mg PO DAILY 09/02/19 acetaminophen 1,000 mg PO Q6H PRN 10/14/19 ergocalciferol (vitamin D2) 1,250 mcg PO QMONTH 10/16/19 [Vitamin D2] clonazepam 1.5 mg PO QAM 12/19/19 gabapentin 600 mg PO TID 12/19/19 lorazepam [Ativan] 1 mg IM ONCE 04/12/20 Current Visit Medications: Current Medications Generic Name Dose Route Start Last Admin Trade Name Freq PRN Reason Stop Dose Admin Ringer's Solution 1,000 mls @ 80 mls/hr 07/05/20 06:00 IV 08/01/20 23:59 INFUSION JENNIFER Ceftriaxone Sodium/Dextrose 1 gm in 50 mls @ 100 mls/hr 07/05/20 06:00 Rocephin IVPB 07/05/20 23:59 PREOP JENNIFER IV Miscellaneous Supplies 1 each 07/05/20 06:00 Iv Access IV 08/01/20 23:59 DIRECTED JENNIFER Sodium Chloride 0 ml 07/05/20 06:00 Normal Saline Flush 10 Ml Syr IV 08/01/20 23:59 PRN PRN Sodium Chloride 0 ml 07/05/20 06:00 Normal Saline 10 Ml Vial IJ 08/01/20 23:59 DIRECTED PRN Sterile Water 0 ml 07/05/20 06:00 Water,Injection,Sterile 10 Ml Vial IJ 08/01/20 23:59 DIRECTED PRN PFSH Active Problems Active Problems: Problem Status Onset Code Hemiparesis affecting left side as late effect of cerebrovascular accident I69.354 Anemia D64.9 Seizure as late effect of cerebrovascular accident (CVA) I69.398, R56.9 Left ankle sprain S93.402A Agitation R45.1 Dementia F03.90 Hydronephrosis due to obstruction of ureter N13.2 Parkinsonism G20 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 01/13/19 pt son states she is no longer a diabetic DVT (deep venous thrombosis) Emphysema of lung Herpes labialis pt. 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 Tobacco Smoking/Tobacco Use Status: Never Alcohol Alcohol Intake: never Substance Use Substance use: Never Substance use type: does not use Vital Signs and Lab Results Lab Results Blood Type / Crossmatch: No Data to Display Complete Blood Count: No Data to Display Complete Metabolic Panel: No Data to Display Liver Function Panel: No Data to Display Coagulation Panel: No Data to Display Cardiac Panel: No Data to Display Arterial Blood Gas: No Data to Display Venous Blood Gas: No Data to Display Pancreas Panel: No Data to Display Thyroid Panel: No Data to Display Infectious Disease: No Data to Display Blood Cultures: No Data to Display Toxicology Panel: No Data to Display Anesthesia Assessment and Plan Anesthesia History Personal History: No History of Anesthesia Complications Family History: No Family History of Anesthesia Complications Exercise Tolerance Exercise Tolerance: Metabolic Equivalents<4 Cardiac & Pulmonary Exam Cardiac Exam: Normal S1/S2 Heart Sounds Pulmonary Exam: Clear Bilateral Breath Sounds Airway Exam Known Difficult Airway: No Mallampati Class: Unable to Assess Mouth Opening: Unable to Assess Thyromental Distance: Greater than 3 cm Neck Range of Motion: Unable to Assess Neck Circumference: Normal Teeth Condition: Unable to Assess Airway Comments: Patient unable to follow ASA Classification ASA Score: ASA 3 Emergency Case?: No NPO Status NPO Status: NPO Clears >2 hours, Solids >8 hours Anesthesia Plan Resuscitation Status: Full Code Anesthesia Technique: MAC Anesthesia Airway Planned: Natural Airway Monitors Used: Standard Monitors
--- NOTE | 2020-07-05 07:03 | PDOC.DSDIS_ITS ---
Discharge Plan Disposition Patient Disposition: ICF (LEVEL 2) [facility] Condition: Stable Discharge Details Reason For Visit: cystoscopy with stent change Attending Provider: Cody Guevara Primary Care Provider: Irene Quinn [place] Meds and New Rx's Prescriptions: No Action Acidophilus-Pectin Tablet,Chewable 1 tab PO BID RF: 0 olanzapine [Zyprexa] 5 mg tablet 2.5 mg PO BID RF: 0 trazodone 50 mg Tablet 25 mg PO TID RF: 0 carbamazepine 200 mg Tablet 200 mg PO TID RF: 0 citalopram 20 mg Tablet 20 mg PO DAILY RF: 0 famotidine 20 mg Tablet 20 mg PO DAILY RF: 0 docusate sodium 100 mg Capsule 100 mg PO DAILY RF: 0 epinephrine 0.3 mg/0.3 mL Auto-Injector 0.3 mg IM ONCE RF: 0 qbsoxqjgnazi-englseqn-ooiahg Tablet 1 tab PO DAILY RF: 0 Solu-Medrol (PF) 125 mg/2 mL Recon Soln 80 mg IM . DIRECTED RF: 0 Blink Tears 0.25 % Drops 0.25 % OPHTHALMIC (EYE) QID PRN PRNRF: 0 acetaminophen [Tylenol] 325 mg Tablet 650 mg PO TID RF: 0 benztropine 0.5 mg Tablet 0.5 mg PO BID RF: 0 Briviact 50 mg Tablet 50 mg PO BID RF: 0 clonazepam 1 mg tablet 2 mg PO QHS RF: 0 mirtazapine 15 mg tablet 15 mg PO HS RF: 0 Nuplazid 34 mg capsule 34 mg PO DAILY RF: 0 clonazepam 0.5 mg Tablet 1.5 mg PO QAM RF: 0 gabapentin 100 mg Capsule 600 mg PO TID RF: 0 lorazepam [Ativan] 2 mg/mL Solution 1 mg IM ONCE RF: 0 acetaminophen 500 mg Tablet 1,000 mg PO Q6H PRNRF: 0 ergocalciferol (vitamin D2) [Vitamin D2] 1,250 mcg (50,000 unit) Capsule 1,250 mcg PO QMONTH RF: 0 Discharge Instructions Additional Instructions: pt will need repeat cystoscopy with stent change in abbout 3 months - my office will contact [facility] to arrange Activity:: Activity as Tolerated Shower/Bathe:: 24 hours Diet:: As Tolerated Discharge Orders Discharge Orders: Discharge Order (Routine); Ordered 07/05/20 Ordered By: Cody Guevara DS: Diagnosis Discharge Diagnosis (1) Hydronephrosis due to obstruction of ureter: Status: Acute
[2020-07-05 07:05] VITALS: BP 125/50; PULSE 68; RESP 16; TEMP 36; O2SAT 97
[2020-07-05 07:13] VITALS: BMI 24.1
[2020-07-05] MEDS: Lactated Ringers 1,000 ML 80 ML IV (07:15)
[2020-07-05] MEDS: Lidocaine 2% Jelly 6 ML SYR (07:45)
[2020-07-05] MEDS: Omnipaque 300 MG/ML 50 ML BTL (07:45)
--- NOTE | 2020-07-05 07:56 | DI.RAD_ITS ---
Exam(s) XR RETROGRADE IN OR EXAM: XR RETROGRADE IN OR CLINICAL HISTORY: stent exchange. TECHNIQUE: Fluoroscopy was provided for the referring physician for guidance with performing injecti on procedure. COMPARISON: No exams were available for comparison FINDINGS: Please see procedure note for details. Exam is limited by overlying hands. IVC filter is seen. A right ureteral stent is partially visible . RADIATION DOSE DELIVERED: Ka,r=1.61 mGy
--- NOTE | 2020-07-05 08:06 | ROE_ITS ---
Date of service: 07/05/20 Time of Service: 08:06 Operative Note Operative Note DATE OF PROCEDURE: 07/05/20 PRE-OP DIAGNOSIS: Right hydronephrosis POST-OP DIAGNOSIS: same PROCEDURE: cystoscopy, exchange right ureteral stent, right retrograde pyelogram SURGEON: Cody Guevara ANESTHESIA TYPE: General:No Airway Refer to Anesthesia Record ESTIMATED BLOOD LOSS: 0 PATHOLOGY: none sent COMPLICATIONS: None Patient was transported to: same day Patient's condition: stable Implants: 4.8 Hungarian by 22 to 30 cm ureteral stent Indications: This is a 75-year-old woman who initially presented with urosepsis and right hydronephrosis. The exact etiology of the hydronephrosis was not known. She improved with placement of a ureteral stent and antibiotics. She has multiple comorbidities and the family has elected not to undergo a more extensive work-up such as ureteroscopy. We have been changing her stents every 2 to 3 months. When we extend the duration between stent changes, the stent tends to get calcified. Procedure Description: The patient was brought to the operating room on 07/05/2020. She was given a preoperative dose of ceftriaxone. After successful induction of general anesthesia without intubation, she was placed in the dorsal lithotomy position. Her genitalia was prepped and draped. 2% Xylocaine jelly was instilled into the urethra to act as a local anesthetic. A 22 Hungarian rigid cystoscope was passed through the urethra into the bladder. The stent was identified and was grasped with a alligator forceps. The stent was then withdrawn to the level of the urethral meatus. A Glidewire was advanced through the lumen of the stent and the stent was removed leaving the wire in place. A 6 Hungarian access catheter was then advanced over the wire and the wire was removed. Retrograde pyelogram was obtained to outline the renal pelvis. A Glidewire was then reintroduced through the lumen of the ureteral access catheter and the catheter was removed. A 4.8 Hungarian variable length stent was then advanced over the wire. The proximal end of the stent was seen curled in the upper pole calyx in the distal and was seen curled within the bladder. The positioning of the stent was confirmed both fluoroscopically and cystoscopically. The patient tolerated this procedure well. We will plan on a repeat stent exchange in about 3 months.
[2020-07-05 08:10] VITALS: BP 116/26; PULSE 54; RESP 14; TEMP 36.8; O2SAT 96
--- NOTE | 2020-07-05 08:33 | W.ANESPOSTOP ---
Postoperative Evaluation Date, Time and Location Date Performed: 07/05/20 Time Performed: 08:33 Patient Location: Day Surgery Unit Vital Signs Most Recent Imported Vital Signs: Most Recent Vital Signs Temp Pulse Resp BP Pulse Ox 36.8 C 54 L 14 116/26 L 96 07/05/20 08:10 07/05/20 08:10 07/05/20 08:10 07/05/20 08:10 07/05/20 08:10 Assessment Mental Status: Unable to Participate (Document Reason) (Secondary to confusion) Airway and Respiratory Function: Patent airway with normal (patient baseline) respiratory exam Cardiovascular Function: Hemodynamically Stable Hydration Status: Adequately Hydrated Nausea & Vomiting: No Nausea or Vomiting Pain: Other (Unable to verbalize) Peripheral Nerve Block: Patient did not receive a nerve block
== END 2020-07-05 08:44 | disposition intermediate care facility (04) ==
PROVIDERS: PCP Family Medicine; Visit Provider Urology
PROC: (CPT 52332; principal; 2020-07-05 07:30)
DX: N13.2 Hydronephrosis with renal and ureteral calculous obstruction (principal); G20 Parkinson's disease; I10 Essential (primary) hypertension; E78.5 Hyperlipidemia, unspecified
CPT/HCPCS: 52332; 74420; J2001; Q9967

== ENCOUNTER 2020-10-21 19:25 | Outpatient (REF) | payer MEDICARE, MEDICAID, SELFPAY ==
[2020-10-23 15:08] LABS: COVID-19 RT-PCR UVMMC Result Negative (Negative)
== END 2020-10-21 19:26 | disposition home or self-care (01) ==
LOC: LBN 19:25
PROVIDERS: PCP Family Medicine; Visit Provider Internal Medicine
DX: Z20.822 Contact with and (suspected) exposure to COVID-19 (principal)
CPT/HCPCS: U0003

== ENCOUNTER 2020-10-27 17:52 | Outpatient (REF) | payer MEDICARE, MEDICAID, SELFPAY ==
[2020-10-27 19:12] LABS: Anion Gap 12.2 mmol/L (3-11); BUN 19 mg/dL (7-18); CO2 28.8 mmol/L (21.0-32.0); CREATININE 0.8 mg/dL (0.55-1.02); Calcium 8.8 mg/dL (8.5-10.1); Chloride 110 mmol/L (98-107); Glucose 169 mg/dL (74-106); Potassium 3.6 mmol/L (3.5-5.1); Sodium 151 mmol/L (136-145); TROPONIN-I 11.2 ug/mL (4.0-12.0); TSH (W/Ref FT4) 1.83 uIU/mL (0.36-3.74)
== END 2020-10-27 17:53 | disposition home or self-care (01) ==
LOC: LBN 17:52
PROVIDERS: PCP Family Medicine; Visit Provider Nurse Practitioner Gerontology
DX: E03.9 Hypothyroidism, unspecified (principal); G20 Parkinson's disease; R56.9 Unspecified convulsions; Z51.81 Encounter for therapeutic drug level monitoring
CPT/HCPCS: 80048; 80156; 84443

== ENCOUNTER 2020-11-01 19:35 | Outpatient (REF) | payer MEDICARE, MEDICAID, SELFPAY ==
[2020-11-03 16:27] LABS: COVID-19 RT-PCR Result Not Detected ((See Note))
== END 2020-11-01 19:36 | disposition home or self-care (01) ==
LOC: LBN 19:35
PROVIDERS: Visit Provider Internal Medicine
DX: Z20.822 Contact with and (suspected) exposure to COVID-19 (principal)
CPT/HCPCS: U0003

== ENCOUNTER 2020-11-03 09:14 | Outpatient (REF) | payer MEDICARE, MEDICAID, SELFPAY ==
[2020-11-03 09:31] LABS: Source Nasal/Nares
[2020-11-03 10:36] LABS: COVID-19 PCR Negative (Negative)
== END 2020-11-03 09:15 | disposition home or self-care (01) ==
LOC: LBN 09:14
PROVIDERS: PCP Family Medicine; Visit Provider Urology
DX: Z20.822 Contact with and (suspected) exposure to COVID-19 (principal); Z01.818 Encounter for other preprocedural examination
CPT/HCPCS: 87635

== ENCOUNTER 2020-11-04 06:20 | Day surgery (SDC) | payer MEDICARE, MEDICAID, SELFPAY ==
[2020-11-04 06:20] VITALS: BP 120/69; PULSE 88; RESP 16; TEMP 36.5; O2SAT 96
--- NOTE | 2020-11-04 06:48 | W.PM.HP.N ---
Assessment and Plan Assessment and plan (1) Hydronephrosis due to obstruction of ureter: Status: Acute Assessment and plan: For routine stent change History of Present Illness History of Present Illness Chief Complaint: Hydronephrosis Narrative: This is a 75-year-old woman who has a history of urosepsis. She had right hydronephrosis with an unknown etiology. She was treated with a stent placement as well as antibiotics and her sepsis improved. Her family is not interested in aggressive treatments, so she is managed with an indwelling stent. In the past, her stent has calcified rather quickly, so she has her stent changed every 2 to 3 months. She presents now for stent change. We cancelled her last procedure when the patient had an URI. She has no such issue at this time. Review of Systems Unobtainable due to mental status COUNTS INCLUDE 234 BEDS AT THE [facility] Medical History Abnormal gait Anemia Antibiotic-associated diarrhea Cerebral aneurysm, nonruptured (09/15/15) Decreased vision (02/03/14) left eye Dementia vascular Depression (02/03/14) Diabetes Son states today 10/17/18 pt no longer treated for this. 01/13/19 pt son states she is no longer a diabetic DVT (deep venous thrombosis) Emphysema of lung Herpes labialis pt. and son state they are not sure of this History of gram negative sepsis (08/31/17) HTN (hypertension) Hydronephrosis due to obstruction of ureter Hyperlipidemia (08/13/12) Hypokalemia Lice infestation Per Andrew RN K[place], no new knits pt. 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, not intractable, without status epilepticus (09/15/15) 10/21/20 [facility] staff reports no current seziure activity 03/31/20 Staff states she has not had a seizure in the last month last seizure 4 months ago per [place] @ [facility] Proteus mirabilis infection Sepsis syndrome Tremor Surgical History History of cranioplasty autologous; Feb 2015 S/P IVC filter 2014 S/P percutaneous endoscopic gastrostomy (PEG) tube placement 2014; removed May 2015 S/P tracheoplasty 2014 S/P ureteral stent placement 2018 Status post craniectomy Craniectomy and hematoma evacuation November 28, 2014 with a partial right occipital lobectomy. Family History (System 11/03/20 @ 10:45 by Sherie Price) Mother Osteoporosis Father , unknown cause at age 75. Diabetes Sister No problems noted. Sister Personal history of malignant neoplasm Breast Sister Diabetes Sister No problems noted. Sister No problems noted. Brother No problems noted. Brother Diabetes Brother Personal history of malignant neoplasm Prostate Heart disease Brother No problems noted. Brother No problems noted. Brother No problems noted. Brother No problems noted. 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 What type of physical activity do you participate in: none Do you feel safe at home: Yes (Pt at the [facility]) Do you feel safe in your relationship?: Yes Meds Allergies and Home Medications Allergies Allergy/AdvReac Type Severity Reaction Status Date / Time Penicillins Allergy Intermediate Hives Unverified 11/04/20 06:38 aspirin Allergy Mild unknown Unverified 11/04/20 06:38 promethazine AdvReac Intermediate HALLUCINATI Unverified 11/04/20 06:38 ONS Sulfa (Sulfonamide AdvReac Unknown Verified 11/04/20 06:38 Antibiotics) Home Medications Medication Instructions Recorded Confirmed Type Blink Tears 0.25 % OPHTHALMIC (EYE) QID PRN PRN 04/01/19 11/02/20 History Solu-Medrol (PF) 80 mg IM . DIRECTED 04/01/19 11/02/20 History carbamazepine 200 mg PO TID 04/01/19 11/04/20 History citalopram 20 mg PO DAILY 04/01/19 11/02/20 History docusate sodium 100 mg PO DAILY 04/01/19 11/04/20 History epinephrine 0.3 mg IM ONCE 04/01/19 11/02/20 History famotidine 20 mg PO DAILY 04/01/19 11/04/20 History fzlqyblrnlkd-bdrxuilm-vcatfc 1 tab PO DAILY 04/01/19 10/21/20 History trazodone 25 mg PO TID 04/01/19 11/04/20 History Briviact 50 mg PO BID 06/10/19 11/04/20 History acetaminophen [Tylenol] 650 mg PO TID 06/10/19 11/04/20 History benztropine 0.5 mg PO BID 06/10/19 11/04/20 History Lactobacillus acidophilus-pectin 1 tab PO BID 06/30/19 11/02/20 History chewable tablet clonazepam 1 mg tablet 2 mg PO QHS tab 06/30/19 11/04/20 History olanzapine 5 mg tablet 2.5 mg PO BID tab 06/30/19 11/04/20 History mirtazapine 15 mg PO HS 08/12/19 11/04/20 History Nuplazid 34 mg PO DAILY 09/02/19 11/04/20 History acetaminophen 1,000 mg PO Q6H PRN 10/14/19 11/02/20 History ergocalciferol (vitamin D2) 1,250 mcg PO QMONTH 10/16/19 11/02/20 History [Vitamin D2] clonazepam 1.5 mg PO QAM 12/19/19 11/04/20 History gabapentin 600 mg PO TID 12/19/19 11/04/20 History lorazepam [Ativan] 1 mg IM ONCE 04/12/20 11/04/20 History Exam Const General: frail appearing Neck Neck: supple Resp Auscultation: clear to auscultation bilaterally Cardio Rate: regular rate Rhythm: regular rhythm Neuro General: patient awake and not oriented x3
[2020-11-04] MEDS: Lactated Ringers 1,000 ML 80 ML IV (07:12)
--- NOTE | 2020-11-04 08:00 | DI.RAD_ITS ---
Exam(s) XR RETROGRADE IN OR EXAM: XR RETROGRADE IN OR CLINICAL HISTORY: Hydronephrosis due to obstruction of ureter. TECHNIQUE: 2D and realtime digital imaging was performed. CONTRAST MATERIAL: None COMPARISON: No exams were available for comparison FINDINGS: Fluoroscopy was provided during urologic procedure. See procedure report for details. IMPRESSION: RADIATION DOSE DELIVERED: alina Rhoades=2.55 mGy
--- NOTE | 2020-11-04 08:10 | W.ANESPRE ---
General Info Date of Service Date Performed: 11/04/20 Height: 5 ft 2 in Weight: 43.5 kg Body Mass Index (BMI): 17.5 Surgical Procedure: Operation Date: 11/04/20 08:40 Proposed Procedures Side Surgeon p cysto with changing of uretral stent Cody Guevara MD Meds Allergies and Home Medications Allergies Allergy/AdvReac Type Severity Reaction Status Date / Time Penicillins Allergy Intermediate Hives Unverified 11/04/20 06:38 aspirin Allergy Mild unknown Unverified 11/04/20 06:38 promethazine AdvReac Intermediate HALLUCINATI Unverified 11/04/20 06:38 ONS Sulfa (Sulfonamide AdvReac Unknown Verified 11/04/20 06:38 Antibiotics) Home Medication Medication Instructions Recorded Blink Tears 0.25 % OPHTHALMIC (EYE) QID PRN PRN 04/01/19 Solu-Medrol (PF) 80 mg IM . DIRECTED 04/01/19 carbamazepine 200 mg PO TID 04/01/19 citalopram 20 mg PO DAILY 04/01/19 docusate sodium 100 mg PO DAILY 04/01/19 epinephrine 0.3 mg IM ONCE 04/01/19 famotidine 20 mg PO DAILY 04/01/19 bxsvcfdbytzv-pwukovxh-lefdxu 1 tab PO DAILY 04/01/19 trazodone 25 mg PO TID 04/01/19 Briviact 50 mg PO BID 06/10/19 acetaminophen [Tylenol] 650 mg PO TID 06/10/19 benztropine 0.5 mg PO BID 06/10/19 Lactobacillus acidophilus-pectin 1 tab PO BID 06/30/19 chewable tablet clonazepam 1 mg tablet 2 mg PO QHS tab 06/30/19 olanzapine 5 mg tablet 2.5 mg PO BID tab 06/30/19 mirtazapine 15 mg PO HS 08/12/19 Nuplazid 34 mg PO DAILY 09/02/19 acetaminophen 1,000 mg PO Q6H PRN 10/14/19 ergocalciferol (vitamin D2) 1,250 mcg PO QMONTH 10/16/19 [Vitamin D2] clonazepam 1.5 mg PO QAM 12/19/19 gabapentin 600 mg PO TID 12/19/19 lorazepam [Ativan] 1 mg IM ONCE 04/12/20 Current Visit Medications: Current Medications Generic Name Dose Route Start Last Admin Trade Name Freq PRN Reason Stop Dose Admin Ringer's Solution 1,000 mls @ 80 mls/hr 11/04/20 06:00 11/04/20 07:12 IV 12/04/20 23:59 80 mls/hr INFUSION JENNIFER Administration Ceftriaxone Sodium/Dextrose 1 gm in 50 mls @ 100 mls/hr 11/04/20 06:00 Rocephin IVPB 11/04/20 23:59 PREOP JENNIFER IV Miscellaneous Supplies 1 each 11/04/20 06:00 Iv Access IV 12/04/20 23:59 DIRECTED JENNIFER Sodium Chloride 0 ml 11/04/20 06:00 Normal Saline Flush 10 Ml Syr IV 12/04/20 23:59 PRN PRN Sodium Chloride 0 ml 11/04/20 06:00 Normal Saline 10 Ml Vial IJ 12/04/20 23:59 DIRECTED PRN Sterile Water 0 ml 11/04/20 06:00 Water,Injection,Sterile 10 Ml Vial IJ 12/04/20 23:59 DIRECTED PRN PFSH Active Problems Active Problems: Problem Status Onset Code Hemiparesis affecting left side as late effect of cerebrovascular accident I69.354 Anemia D64.9 Seizure as late effect of cerebrovascular accident (CVA) I69.398, R56.9 Left ankle sprain S93.402A Agitation R45.1 Dementia F03.90 Hydronephrosis due to obstruction of ureter N13.2 Parkinsonism G20 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 01/13/19 pt son states she is no longer a diabetic DVT (deep venous thrombosis) Emphysema of lung Herpes labialis pt. and son state they are not sure of this History of gram negative sepsis (08/31/17) HTN (hypertension) Hydronephrosis due to obstruction of ureter Hyperlipidemia (08/13/12) Hypokalemia Lice infestation Per Andrew RN [place], no new knits pt. 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, not intractable, without status epilepticus (09/15/15) 10/21/20 [facility] staff reports no current seziure activity 03/31/20 Staff states she has not had a seizure in the last month last seizure 4 months ago per [place] @ [facility] Proteus mirabilis infection Sepsis syndrome Tremor Surgical History Surgical History History of cranioplasty autologous; Feb 2015 S/P IVC filter 2015 S/P percutaneous endoscopic gastrostomy (PEG) tube placement 2014; removed May 2015 S/P tracheoplasty 2014 S/P ureteral stent placement 2018 Status post craniectomy Craniectomy and hematoma evacuation November 28, 2014 with a partial right occipital lobectomy. Tobacco Smoking/Tobacco Use Status: Never Alcohol Alcohol Intake: never Substance Use Substance use: Never Substance use type: does not use Vital Signs and Lab Results Vital Signs Most Recent Vital Signs in EMR: Most Recent Vital Signs Temp Pulse Resp BP Pulse Ox 36.5 C 88 16 120/69 96 11/04/20 06:20 11/04/20 06:20 11/04/20 06:20 11/04/20 06:20 11/04/20 06:20 Lab Results Blood Type / Crossmatch: No Data to Display Complete Blood Count: No Data to Display Complete Metabolic Panel: Sodium Level 151 mmol/L (136-145) H 10/27/20 08:35 10/27/20 Potassium Level 3.6 mmol/L (3.5-5.1) 10/27/20 08:35 10/27/20 Chloride Level 110 mmol/L (98-107) H 10/27/20 08:35 10/27/20 Carbon Dioxide Level 28.8 mmol/L (21.0-32.0) 10/27/20 08:35 10/27/20 Blood Urea Nitrogen 19 mg/dL (7-18) H 10/27/20 08:35 10/27/20 Creatinine 0.8 mg/dL (0.55-1.02) 10/27/20 08:35 10/27/20 Estimated GFR/1.73 m2 >= 60.00 (mL/min/1.73m2) 10/27/20 08:35 10/27/20 Calcium Level 8.8 mg/dL (8.5-10.1) 10/27/20 08:35 10/27/20 Glucose Level 169 mg/dL (74-106) H 10/27/20 08:35 10/27/20 Liver Function Panel: No Data to Display Coagulation Panel: No Data to Display Cardiac Panel: No Data to Display Arterial Blood Gas: No Data to Display Venous Blood Gas: No Data to Display Pancreas Panel: No Data to Display Thyroid Panel: Thyroid Stimulating Hormone (TSH) 1.83 uIU/mL (0.36-3.74) 10/27/20 08:35 10/27/20 Infectious Disease: Coronavirus (COVID-19)(PCR) Negative (Negative) 11/03/20 07:58 11/03/20 Coronavirus 2019 Source Nasal/Nares 11/03/20 07:58 11/03/20 Blood Cultures: No Data to Display Toxicology Panel: No Data to Display Anesthesia Assessment and Plan Anesthesia History Personal History: No History of Anesthesia Complications Family History: No Family History of Anesthesia Complications Exercise Tolerance Exercise Tolerance: Metabolic Equivalents<4 Pertinent Negatives Pertinent Negatives: No Symptoms of GERD, No Major Cardiovascular Symptoms or Complaints, No Major Pulmonary Symptoms or Complaints and No History of CVA/TIA Cardiac & Pulmonary Exam Cardiac Exam: Normal S1/S2 Heart Sounds Pulmonary Exam: Clear Bilateral Breath Sounds Airway Exam Known Difficult Airway: No Mallampati Class: Unable to Assess Mouth Opening: Unable to Assess Thyromental Distance: Greater than 3 cm Neck Range of Motion: Unable to Assess Neck Circumference: Normal Teeth Condition: Unable to Assess ASA Classification ASA Score: ASA 3 Emergency Case?: No NPO Status NPO Status: NPO Clears >2 hours, Solids >8 hours Anesthesia Plan Resuscitation Status: Full Code Anesthesia Technique: General Anesthesia Airway Planned: Natural Airway Monitors Used: Standard Monitors
[2020-11-04 08:13] VITALS: BMI 17.5
[2020-11-04] MEDS: cefTRIAXone 1 GM/50 ML BAG IVPB (08:54)
[2020-11-04] MEDS: Lidocaine 2% Jelly 6 ML SYR (08:55)
[2020-11-04] MEDS: Omnipaque 300 MG/ML 50 ML BTL (09:03)
--- NOTE | 2020-11-04 09:06 | W.PM.DSUDISC ---
Discharge Plan Disposition Patient Disposition: [facility] (LEVEL 2) [facility] Condition: Stable Discharge Details Reason For Visit: stent change Attending Provider: Cody Guevara Primary Care Provider: Irene Quinn [place] Meds and New Rx's Prescriptions: No Action Acidophilus-Pectin Tablet,Chewable 1 tab PO BID RF: 0 olanzapine [Zyprexa] 5 mg tablet 2.5 mg PO BID RF: 0 trazodone 50 mg Tablet 25 mg PO TID RF: 0 carbamazepine 200 mg Tablet 200 mg PO TID RF: 0 citalopram 20 mg Tablet 20 mg PO DAILY RF: 0 famotidine 20 mg Tablet 20 mg PO DAILY RF: 0 docusate sodium 100 mg Capsule 100 mg PO DAILY RF: 0 epinephrine 0.3 mg/0.3 mL Auto-Injector 0.3 mg IM ONCE RF: 0 tcoischfwnuw-ndkvuugx-fthlrh Tablet 1 tab PO DAILY RF: 0 Solu-Medrol (PF) 125 mg/2 mL Recon Soln 80 mg IM . DIRECTED RF: 0 Blink Tears 0.25 % Drops 0.25 % OPHTHALMIC (EYE) QID PRN PRNRF: 0 acetaminophen [Tylenol] 325 mg Tablet 650 mg PO TID RF: 0 benztropine 0.5 mg Tablet 0.5 mg PO BID RF: 0 Briviact 50 mg Tablet 50 mg PO BID RF: 0 clonazepam 1 mg tablet 2 mg PO QHS RF: 0 mirtazapine 15 mg tablet 15 mg PO HS RF: 0 Nuplazid 34 mg capsule 34 mg PO DAILY RF: 0 clonazepam 0.5 mg Tablet 1.5 mg PO QAM RF: 0 gabapentin 100 mg Capsule 600 mg PO TID RF: 0 lorazepam [Ativan] 2 mg/mL Solution 1 mg IM ONCE RF: 0 acetaminophen 500 mg Tablet 1,000 mg PO Q6H PRNRF: 0 ergocalciferol (vitamin D2) [Vitamin D2] 1,250 mcg (50,000 unit) Capsule 1,250 mcg PO QMONTH RF: 0 Discharge Instructions Additional Instructions: my office will call to arrange next stent change Activity:: Activity as Tolerated Shower/Bathe:: 24 hours Diet:: As Tolerated Discharge Orders Discharge Orders: Discharge Order (Routine); Ordered 11/04/20 Ordered By: Cody Guevara DS: Diagnosis Discharge Diagnosis (1) Hydronephrosis due to obstruction of ureter: Status: Acute
--- NOTE | 2020-11-04 09:08 | ROE_ITS ---
Date of service: 11/04/20 Time of Service: 09:08 Operative Note Operative Note DATE OF PROCEDURE: 11/04/20 PRE-OP DIAGNOSIS: right hydronephrosis POST-OP DIAGNOSIS: same PROCEDURE: Cystoscopy with exchange ofright ureteral stent SURGEON: Cody Guevara ANESTHESIA TYPE: Local By Surgeon and General:No Airway Refer to Anesthesia Record ESTIMATED BLOOD LOSS: 0 PATHOLOGY: none sent Implants: 4.8 Lithuanian by 22 to 30 cm stent Indications: This is a 75-year-old woman who has a history of urosepsis. At that time, she had right hydronephrosis. She improved with placement of a ureteral stent and antibiotics. Because of her comorbidities, the family is not interested in more invasive treatments, so we have been exchanging her ureteral stent every 2 to 3 months. When we have tried to delay her stent exchange, we have found that her stent becomes encrusted with stone Procedure Description: The patient was given preoperative IV antibiotics. She was brought to the operating room on 11/05/2020. After successful induction of general anesthesia, she was placed in the dorsal lithotomy position. Her genitalia was prepped and draped. 2% Xylocaine jelly was instilled into the urethra to act as a local anesthetic. A 22 Lithuanian rigid cystoscope was passed through the urethra into the bladder. The bladder was inspected with a 30 degree lens. The right ureteral stent was identified and was grasped with alligator forceps. The stent was brought to the level of the urethral meatus. A Glidewire was passed through the lumen of the stent and the stent was removed. We then passed a 6 Lithuanian access catheter over the wire and removed the wire. We injected Omnipaque through the access catheter under fluoroscopic guidance. This outlined the renal pelvis for us. We then reinserted the wire and remove the access catheter. A 4.8 Lithuanian variable length stent was then advanced over the wire. The proximal end of the stent was curled in the renal pelvis and the distal and was curled within the bladder. The positioning of the stent was confirmed both fluoroscopically and cystoscopically. The bladder was emptied and the scope was removed.
[2020-11-04 09:15] VITALS: BP 104/58; PULSE 75; RESP 16; TEMP 35.8; O2SAT 98
--- NOTE | 2020-11-04 09:17 | W.ANESPOSTOP ---
Postoperative Evaluation Date, Time and Location Date Performed: 11/04/20 Time Performed: 09:17 Patient Location: Day Surgery Unit Vital Signs Most Recent Imported Vital Signs: Most Recent Vital Signs Temp Pulse Resp BP Pulse Ox 36.5 C 88 16 120/69 96 11/04/20 06:20 11/04/20 06:20 11/04/20 06:20 11/04/20 06:20 11/04/20 06:20 Most Recent Manually Entered Vital Signs: Adult Blood Pressure: 104/58 Heart Rate: 75 Respirations: 16 Oxygen Saturation (%): 98 Temperature (C): 36.6 C Pain Score (0-10 Scale): 0 Assessment Mental Status: Awake (Alert & Oriented to Patient Baseline) Airway and Respiratory Function: Patent airway with normal (patient baseline) respiratory exam Cardiovascular Function: Hemodynamically Stable Hydration Status: Adequately Hydrated Nausea & Vomiting: No Nausea or Vomiting Pain: Pt. Denies Any Pain Peripheral Nerve Block: Patient did not receive a nerve block
[2020-11-04 09:18] VITALS: BP 104/58; PULSE 75; RESP 16; TEMPC 36.6; O2SAT 98
[2020-11-04 09:45] VITALS: BP 119/61; PULSE 79; RESP 16; TEMP 36; O2SAT 95
== END 2020-11-04 10:05 | disposition intermediate care facility (04) ==
LOC: SUR 10:29
PROVIDERS: PCP Family Medicine; Visit Provider Urology
PROC: (CPT 52332; principal; 2020-11-04 08:30)
DX: N13.2 Hydronephrosis with renal and ureteral calculous obstruction (principal); D64.9 Anemia, unspecified; I10 Essential (primary) hypertension; G20 Parkinson's disease
CPT/HCPCS: 52332; 74420; J0696; J2001; Q9967

== ENCOUNTER 2020-12-29 17:13 | Outpatient (REF) | payer MEDICARE, MEDICAID, SELFPAY ==
[2020-12-30 21:14] LABS: COVID-19 RT-PCR UVMMC Result Negative (Negative)
== END 2020-12-29 17:14 | disposition home or self-care (01) ==
LOC: LBN 17:13
PROVIDERS: PCP Family Medicine; Visit Provider Urology
DX: Z20.822 Contact with and (suspected) exposure to COVID-19 (principal); Z01.818 Encounter for other preprocedural examination
CPT/HCPCS: U0003; U0005

== ENCOUNTER 2020-12-31 18:13 | Outpatient (REF) | payer MEDICARE, MEDICAID, SELFPAY ==
[2021-01-03 16:58] LABS: COVID-19 RT-PCR Result Not Detected ((See Note))
== END 2020-12-31 18:14 | disposition home or self-care (01) ==
LOC: LBN 18:13
PROVIDERS: Urology; PCP Family Medicine; Visit Provider Internal Medicine
DX: Z20.822 Contact with and (suspected) exposure to COVID-19 (principal)
CPT/HCPCS: U0003

== ENCOUNTER 2021-01-03 05:59 | Day surgery (SDC) | payer MEDICARE, MEDICAID, SELFPAY ==
[2021-01-03 06:52] VITALS: BP 140/72; PULSE 78; RESP 18; TEMP 36.3; O2SAT 92
--- NOTE | 2021-01-03 06:53 | W.PM.HP.N ---
Date of service: 01/03/21 Time of Service: 06:54 Assessment and Plan Assessment and plan (1) Hydronephrosis due to obstruction of ureter: Status: Acute Assessment and plan: We will plan to charge her ureteral stent today History of Present Illness History of Present Illness Chief Complaint: Right hydronephrosis Narrative: This is a 75-year-old woman who has a history of urosepsis. She had right hydronephrosis with an unknown etiology. She was treated with a stent placement as well as antibiotics and her sepsis improved. Her family is not interested in aggressive treatments, so she is managed with an indwelling stent. In the past, her stent has become encrusted with stone rather quickly, so she has her stent is changed every 2 to 3 months. She presents now for stent change. 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 01/13/19 pt son states she is no longer a diabetic DVT (deep venous thrombosis) Emphysema of lung History of gram negative sepsis (08/31/17) HTN (hypertension) Hypokalemia Lice infestation Per Andrew Sheets, no new knits pt. is checked daily was treated 3x 12/31/20: Resolved Nephrolithiasis Proteus mirabilis infection Sepsis syndrome Tremor Surgical History History of cranioplasty autologous; Feb 2015 S/P IVC filter 2015 S/P percutaneous endoscopic gastrostomy (PEG) tube placement 2014; removed May 2015 S/P tracheoplasty 2014 S/P ureteral stent placement 2018 Status post craniectomy Craniectomy and hematoma evacuation November 28, 2014 with a partial right occipital lobectomy. Family History (System 11/03/20 @ 10:45 by Sherie Price) Mother Osteoporosis Father , unknown cause at age 75. Diabetes Sister No problems noted. Sister Personal history of malignant neoplasm Breast Sister Diabetes Sister No problems noted. Sister No problems noted. Brother No problems noted. Brother Diabetes Brother Personal history of malignant neoplasm Prostate Heart disease Brother No problems noted. Brother No problems noted. Brother No problems noted. Brother No problems noted. 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 medicated with Atian prior to arrival, pt. not interacting with nursing, pt. only said ow with IV attempt Meds Allergies and Home Medications Allergies Allergy/AdvReac Type Severity Reaction Status Date / Time Penicillins Allergy Intermediate Hives Unverified 01/03/21 06:37 aspirin Allergy Mild unknown Unverified 01/03/21 06:37 promethazine AdvReac Intermediate HALLUCINATI Unverified 01/03/21 06:37 ONS Sulfa (Sulfonamide AdvReac Unknown Verified 01/03/21 06:37 Antibiotics) Home Medications Medication Instructions Recorded Confirmed Type Blink Tears 0.25 % OPHTHALMIC (EYE) QID PRN PRN 04/01/19 01/03/21 History Solu-Medrol (PF) 80 mg IM . DIRECTED 04/01/19 01/03/21 History carbamazepine 200 mg PO TID 04/01/19 01/03/21 History citalopram 20 mg PO DAILY 04/01/19 01/03/21 History docusate sodium 100 mg PO DAILY 04/01/19 01/03/21 History epinephrine 0.3 mg IM ONCE 04/01/19 01/03/21 History famotidine 20 mg PO DAILY 04/01/19 01/03/21 History vsulbsmgbdaw-bksubllj-fxoore 1 tab PO DAILY 04/01/19 01/03/21 History trazodone 25 mg PO TID 04/01/19 01/03/21 History Briviact 50 mg PO BID 06/10/19 01/03/21 History acetaminophen [Tylenol] 650 mg PO TID 06/10/19 01/03/21 History benztropine 0.5 mg PO BID 06/10/19 01/03/21 History Lactobacillus acidophilus-pectin 1 tab PO BID 06/30/19 01/03/21 History chewable tablet clonazepam 1 mg tablet 2 mg PO QHS tab 06/30/19 01/03/21 History olanzapine 5 mg tablet 2.5 mg PO BID tab 06/30/19 01/03/21 History mirtazapine 15 mg PO HS 08/12/19 01/03/21 History Nuplazid 34 mg PO DAILY 09/02/19 01/03/21 History acetaminophen 1,000 mg PO Q6H PRN 10/14/19 01/03/21 History ergocalciferol (vitamin D2) 1,250 mcg PO QMONTH 10/16/19 01/03/21 History [Vitamin D2] clonazepam 1.5 mg PO QAM 12/19/19 01/03/21 History gabapentin 600 mg PO TID 12/19/19 01/03/21 History lorazepam [Ativan] 1 mg IM ONCE 04/12/20 01/03/21 History Exam Const General: frail appearing Limitations: altered mental status (pt has been sedated) Neck Neck: supple Resp Auscultation: clear to auscultation bilaterally and diminished lung sounds Cardio Rate: regular rate Rhythm: regular rhythm GI Palpation: soft and no masses Skin General skin exam: ecchymosis (face) Neuro General: not oriented x3 Results Last Vital Signs Temp 36.3 C L 01/03/21 06:52 Pulse 78 01/03/21 06:52 Resp 18 01/03/21 06:52 BP 140/72 01/03/21 06:52 Pulse Ox 92 01/03/21 06:52
--- NOTE | 2021-01-03 06:59 | W.ANESPRE ---
General Info Date of Service Date Performed: 01/03/21 Height: 5 ft 2 in Weight: 35.9 kg Body Mass Index (BMI): 14.4 Surgical Procedure: Operation Date: 01/03/21 07:40 Proposed Procedures Side Surgeon p Cystoscopy with Stent change Cody Guevara MD Meds Allergies and Home Medications Allergies Allergy/AdvReac Type Severity Reaction Status Date / Time Penicillins Allergy Intermediate Hives Unverified 01/03/21 06:37 aspirin Allergy Mild unknown Unverified 01/03/21 06:37 promethazine AdvReac Intermediate HALLUCINATI Unverified 01/03/21 06:37 ONS Sulfa (Sulfonamide AdvReac Unknown Verified 01/03/21 06:37 Antibiotics) Home Medication Medication Instructions Recorded Blink Tears 0.25 % OPHTHALMIC (EYE) QID PRN PRN 04/01/19 Solu-Medrol (PF) 80 mg IM . DIRECTED 04/01/19 carbamazepine 200 mg PO TID 04/01/19 citalopram 20 mg PO DAILY 04/01/19 docusate sodium 100 mg PO DAILY 04/01/19 epinephrine 0.3 mg IM ONCE 04/01/19 famotidine 20 mg PO DAILY 04/01/19 nzpwcghokilw-kvwutbmw-xfulhn 1 tab PO DAILY 04/01/19 trazodone 25 mg PO TID 04/01/19 Briviact 50 mg PO BID 06/10/19 acetaminophen [Tylenol] 650 mg PO TID 06/10/19 benztropine 0.5 mg PO BID 06/10/19 Lactobacillus acidophilus-pectin 1 tab PO BID 06/30/19 chewable tablet clonazepam 1 mg tablet 2 mg PO QHS tab 06/30/19 olanzapine 5 mg tablet 2.5 mg PO BID tab 06/30/19 mirtazapine 15 mg PO HS 08/12/19 Nuplazid 34 mg PO DAILY 09/02/19 acetaminophen 1,000 mg PO Q6H PRN 10/14/19 ergocalciferol (vitamin D2) 1,250 mcg PO QMONTH 10/16/19 [Vitamin D2] clonazepam 1.5 mg PO QAM 12/19/19 gabapentin 600 mg PO TID 12/19/19 lorazepam [Ativan] 1 mg IM ONCE 04/12/20 PFSH Active Problems Active Problems: Problem Status Onset Code Hemiparesis affecting left side as late effect of cerebrovascular accident I69.354 Anemia D64.9 Dementia F03.90 Seizure as late effect of cerebrovascular accident (CVA) I69.398, R56.9 Hydronephrosis due to obstruction of ureter N13.2 Herpes labialis B00.1 Cerebral aneurysm, nonruptured 09/15/15 I67.1 Decreased vision 02/03/14 H54.7 Depression 02/03/14 F32.9 Hyperlipidemia 08/13/12 E78.5 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 09/15/15 I61.1 Osteoporosis 02/12/08 M81.0 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, not intractable, without status epilepticus 09/15/15 G40.109 Parkinsonism G20 Left ankle sprain S93.402A Agitation R45.1 Medical History Active Problem List (Updated 12/31/20 @ 10:34 by Malik Espino) Hemiparesis affecting left side as late effect of cerebrovascular accident (Chronic) Anemia (Chronic) Dementia (Chronic) Seizure as late effect of cerebrovascular accident (CVA) (Chronic) Hydronephrosis due to obstruction of ureter (Acute) Herpes labialis (Chronic) Cerebral aneurysm, nonruptured (Chronic 09/15/15) Decreased vision (Chronic 02/03/14) Depression (Chronic 02/03/14) Hyperlipidemia (Chronic 08/13/12) 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 01/13/19 pt son states she is no longer a diabetic DVT (deep venous thrombosis) Emphysema of lung History of gram negative sepsis (08/31/17) HTN (hypertension) Hypokalemia Lice infestation Per Andrew RN [place], no new knits pt. is checked daily was treated 3x 12/31/20: Resolved Nephrolithiasis Proteus mirabilis infection Sepsis syndrome Tremor Surgical History Surgical History History of cranioplasty autologous; Feb 2015 S/P IVC filter 2014 S/P percutaneous endoscopic gastrostomy (PEG) tube placement 2014; removed May 2015 S/P tracheoplasty 2014 S/P ureteral stent placement 2018 Status post craniectomy Craniectomy and hematoma evacuation November 28, 2014 with a partial right occipital lobectomy. Tobacco Smoking/Tobacco Use Status: Never Alcohol Alcohol Intake: never Substance Use Substance use: Never Substance use type: does not use Vital Signs and Lab Results Vital Signs Most Recent Vital Signs in EMR: Most Recent Vital Signs Temp Pulse Resp BP Pulse Ox 36.3 C L 78 18 140/72 92 01/03/21 06:52 01/03/21 06:52 01/03/21 06:52 01/03/21 06:52 01/03/21 06:52 Lab Results Blood Type / Crossmatch: No Data to Display Complete Blood Count: No Data to Display Complete Metabolic Panel: No Data to Display Liver Function Panel: No Data to Display Coagulation Panel: No Data to Display Cardiac Panel: No Data to Display Arterial Blood Gas: No Data to Display Venous Blood Gas: No Data to Display Pancreas Panel: No Data to Display Thyroid Panel: No Data to Display Infectious Disease: Coronavirus (COVID-19)(PCR) Negative (Negative) 12/29/20 11:38 12/29/20 Blood Cultures: No Data to Display Toxicology Panel: No Data to Display Anesthesia Assessment and Plan Anesthesia History Personal History: No History of Anesthesia Complications Family History: No Family History of Anesthesia Complications Exercise Tolerance Exercise Tolerance: Metabolic Equivalents<4 Pertinent Negatives Pertinent Negatives: No Symptoms of GERD, No Major Cardiovascular Symptoms or Complaints and No Major Pulmonary Symptoms or Complaints Cardiac & Pulmonary Exam Cardiac Exam: Normal S1/S2 Heart Sounds Pulmonary Exam: Clear Bilateral Breath Sounds Implantable Cardiac Device Does patient have a Pacemaker or an ICD?: No Airway Exam Known Difficult Airway: No Mallampati Class: Unable to Assess Mouth Opening: Unable to Assess Thyromental Distance: Greater than 3 cm Neck Range of Motion: Unable to Assess Neck Circumference: Normal Teeth Condition: Edentulous Airway Comments: Patient unable to follow commands ASA Classification ASA Score: ASA 3 Emergency Case?: No NPO Status NPO Status: NPO Clears >2 hours, Solids >8 hours Anesthesia Plan Resuscitation Status: Full Code Anesthesia Technique: General Anesthesia Airway Planned: Natural Airway Monitors Used: Standard Monitors Preoperative Comments:: Patient unable to participate in pre-op interview. Received IM Ativan at [facility] prior to arrival. Patient is cachectic with multiple bruises in various stages of healing.
[2021-01-03] MEDS: Lactated Ringers 1,000 ML 80 ML IV (07:00)
[2021-01-03 07:09] VITALS: BMI 14.4
[2021-01-03] MEDS: cefTRIAXone 1 GM/50 ML BAG IVPB (07:37)
[2021-01-03] MEDS: Lidocaine 2% Jelly 6 ML SYR (07:40)
[2021-01-03] MEDS: Omnipaque 300 MG/ML 50 ML BTL (07:50)
--- NOTE | 2021-01-03 07:56 | DI.RAD_ITS ---
Exam(s) XR RETROGRADE IN OR EXAM: XR RETROGRADE IN OR CLINICAL HISTORY: RIGHT HYDRONEPHROSIS. TECHNIQUE: 2D and realtime digital imaging was performed. COMPARISON: No exams were available for comparison FINDINGS: Fluoroscopy was provided for Dr. Guevara for guidance with performing a retrograde examination. Please see procedure note for details. Fluoro time 15.3 seconds RADIATION DOSE DELIVERED: Ka,r=1.33 mGy
--- NOTE | 2021-01-03 07:57 | W.PM.DSUDISC ---
Discharge Plan Disposition Patient Disposition: [facility] (LEVEL 2) [facility] Condition: Stable Discharge Details Reason For Visit: stent change Attending Provider: Cody Guevara Primary Care Provider: Irene Quinn [place] Meds and New Rx's Prescriptions: No Action Acidophilus-Pectin Tablet,Chewable 1 tab PO BID RF: 0 olanzapine [Zyprexa] 5 mg tablet 2.5 mg PO BID RF: 0 trazodone 50 mg Tablet 25 mg PO TID RF: 0 carbamazepine 200 mg Tablet 200 mg PO TID RF: 0 citalopram 20 mg Tablet 20 mg PO DAILY RF: 0 famotidine 20 mg Tablet 20 mg PO DAILY RF: 0 docusate sodium 100 mg Capsule 100 mg PO DAILY RF: 0 epinephrine 0.3 mg/0.3 mL Auto-Injector 0.3 mg IM ONCE RF: 0 xgqtzhndalkm-icmrujlj-jgnihv Tablet 1 tab PO DAILY RF: 0 Solu-Medrol (PF) 125 mg/2 mL Recon Soln 80 mg IM . DIRECTED RF: 0 Blink Tears 0.25 % Drops 0.25 % OPHTHALMIC (EYE) QID PRN PRNRF: 0 acetaminophen [Tylenol] 325 mg Tablet 650 mg PO TID RF: 0 benztropine 0.5 mg Tablet 0.5 mg PO BID RF: 0 Briviact 50 mg Tablet 50 mg PO BID RF: 0 clonazepam 1 mg tablet 2 mg PO QHS RF: 0 mirtazapine 15 mg tablet 15 mg PO HS RF: 0 Nuplazid 34 mg capsule 34 mg PO DAILY RF: 0 clonazepam 0.5 mg Tablet 1.5 mg PO QAM RF: 0 gabapentin 100 mg Capsule 600 mg PO TID RF: 0 lorazepam [Ativan] 2 mg/mL Solution 1 mg IM ONCE RF: 0 acetaminophen 500 mg Tablet 1,000 mg PO Q6H PRNRF: 0 ergocalciferol (vitamin D2) [Vitamin D2] 1,250 mcg (50,000 unit) Capsule 1,250 mcg PO QMONTH RF: 0 Discharge Instructions Additional Instructions: my office will arrange cystoscopy with right stent change in 2 to 3 months Activity:: Activity as Tolerated Shower/Bathe:: 24 hours Diet:: As Tolerated Discharge Orders Discharge Orders: Discharge Order (Routine); Ordered 01/03/21 Ordered By: Cody Guevara DS: Diagnosis Discharge Diagnosis (1) Hydronephrosis due to obstruction of ureter: Status: Acute
--- NOTE | 2021-01-03 08:02 | ROE_ITS ---
Date of service: 01/03/21 Time of Service: 08:02 Operative Note Operative Note DATE OF PROCEDURE: 01/03/21 PRE-OP DIAGNOSIS: Right hydronephrosis POST-OP DIAGNOSIS: same PROCEDURE: cystoscopy, right stent exchange, right retrograde pyelogram SURGEON: Cody Guevara ANESTHESIA TYPE: Local By Surgeon and MAC Refer to Anesthesia Record ESTIMATED BLOOD LOSS: 0 PATHOLOGY: none sent COMPLICATIONS: None Patient was transported to: same day Patient's condition: stable Implants: 4.8 [employer] Lucian by 22 to 30 cm right ureteral stent Indications: This is a 75-year-old woman who initially presented with urosepsis and right hydronephrosis. We placed a ureteral stent and she was treated with antibiotics. Symptomatically she improved. She has a large number of coexisting medical conditions and her family has elected not to have any aggressive work-up or treatments such as ureteroscopy. We have been changing her stent every 2 to 3 months. If we wait longer than 3 months, her stent tends to become encrusted with stone debris. Findings: Stone particles in the right kidney Procedure Description: The patient was brought to the operating room on 01/03/2021. She was given IV antibiotics. After successful induction of general anesthesia without intubation, she was placed in the dorsal lithotomy position. Her genitalia was prepped and draped. 2% Xylocaine jelly was instilled into the urethra to act as a local anesthetic. A 22 [place]ian rigid cystoscope was passed through the urethra into the bladder. The bladder was inspected with a 30 degree lens and the right ureteral stent was identified. The stent was grasped and alligator forceps and brought to the level of the urethral meatus. A Glidewire was advanced through the lumen of the stent and the stent was removed. I then passed a 5 [place]ian access catheter over the wire and remove the wire. I injected Omnipaque through the access catheter under fluoroscopic guidance. This allowed us to outline the collecting system on the right. There appeared to be stone debris within the collecting system. I reinserted the guidewire through the access catheter and remove the access catheter. I then passed a 4.8 [place] Lucian variable length stent over the wire. The proximal end of the stent was curled in the renal pelvis and the distal end was curled in the bladder. The positioning of the stent was confirmed both fluoroscopically and cystoscopically. The patient tolerated this procedure well with no complications.
[2021-01-03 08:04] VITALS: BP 119/87; PULSE 78; RESP 16; TEMP 36.8; O2SAT 94
[2021-01-03 08:27] VITALS: PULSE 84; TEMP 36.7; O2SAT 95
[2021-01-03 08:31] VITALS: TEMP 36.7
--- NOTE | 2021-01-03 08:31 | W.ANESPOSTOP ---
Postoperative Evaluation Date, Time and Location Date Performed: 01/03/21 Time Performed: 08:04 Patient Location: Day Surgery Unit Vital Signs Most Recent Imported Vital Signs: Most Recent Vital Signs Temp Pulse Resp BP Pulse Ox 36.8 C 78 16 119/87 94 01/03/21 08:04 01/03/21 08:04 01/03/21 08:04 01/03/21 08:04 01/03/21 08:04 Assessment Mental Status: Awake (Alert & Oriented to Patient Baseline) Airway and Respiratory Function: Patent airway with normal (patient baseline) respiratory exam Cardiovascular Function: Hemodynamically Stable Hydration Status: Adequately Hydrated Nausea & Vomiting: No Nausea or Vomiting Pain: Pt. Denies Any Pain Peripheral Nerve Block: Patient did not receive a nerve block
== END 2021-01-03 09:08 | disposition intermediate care facility (04) ==
PROVIDERS: PCP Family Medicine; Visit Provider Urology
PROC: (CPT 52332; principal; 2021-01-03 07:30)
DX: N13.2 Hydronephrosis with renal and ureteral calculous obstruction (principal); I69.354 Hemiplegia and hemiparesis following cerebral infarction affecting left non-dominant side
CPT/HCPCS: 52332; 74420; J0696; Q9967